=== PATIENT | male | born 1930 | race Caucasian/White ===

== ENCOUNTER 2017-12-16 20:36 | Inpatient (IN) | payer MEDICARE ==
[2017-12-16] MEDS ORDERED: methylPREDNISolone SOD SUCCI 125 MG/2 ML VIAL IV STA (21:13)
[2017-12-16] MEDS ORDERED: SODIUM CHLORIDE 0.9% 1,000 ML IV STA (21:13)
[2017-12-16] MEDS ORDERED: IPRATROPIUM-ALBUTEROL 3 ML NEB INHALATION STA (21:13)
--- NOTE | 2017-12-16 21:19 | ED ---
SOB HPI - General Chief Complaint: Shortness of Breath Stated Complaint: MARSHA Hx COPD Time Seen by Provider: 12/16/17 21:13 Source: patient, family, RN notes reviewed Mode of arrival: wheelchair Limitations: no limitations - History of Present Illness Initial Comments: This is a 87-year-old male history of COPD who presents with complaints of shortness of breath or past several days. He's had a cough with yellow phlegm no overt fevers chills or sweats however is evidence exertional dyspnea. No chest pain. He does use inhalers at home he was eating some relief with these. He did also complain some soreness to his throat no earaches MD Complaint: shortness of breath, cough - Related Data Home Medications Medication Instructions Recorded Confirmed Atorvastatin [Lipitor] 40 mg PO QAM 06/04/15 12/16/17 Tamsulosin [Flomax] 0.4 mg PO QAM 06/04/15 12/16/17 Albuterol Inhaler [Ventolin Hfa 1 - 2 puff INHALATION RT-QID PRN 09/23/17 Inhaler] Aspirin [Adult Low Dose Aspirin EC] 81 mg PO MOWEFR 09/23/17 12/16/17 Budesonide/Formoterol Fumarate 2 puff INHALATION RT-BID 09/23/17 12/16/17 [Symbicort 160-4.5 Mcg Inhaler] Donepezil [Aricept] 10 mg PO HS 09/23/17 12/16/17 Isosorbide Mononitrate ER [Imdur] 30 mg PO QAM 09/23/17 12/16/17 Metoprolol Tartrate [Lopressor] 50 mg PO BID 09/23/17 12/16/17 Potassium Chloride [K-Tab ER] 10 meq PO QAM 09/23/17 12/16/17 metFORMIN HCL [Glucophage] 500 mg PO QAM 09/23/17 12/16/17 ALPRAZolam [Xanax] 0.25 mg PO BID PRN 12/16/17 12/16/17 Apixaban [Eliquis] 5 mg PO BID 12/16/17 12/16/17 Docusate [Colace] 200 mg PO HS 12/16/17 12/16/17 Losartan Potassium 100 mg PO QAM 12/16/17 12/16/17 [place]-3 Fatty Acids/Fish Oil [Fish 1 cap PO HS 12/16/17 12/16/17 Oil 1,000 mg Softgel] Previous Rx's Medication Instructions Recorded Furosemide [Lasix] 20 mg PO BID@0900,1600 #60 tab 09/25/17 Allergies Allergy/AdvReac Type Severity Reaction Status Date / Time bee pollen Allergy Swelling Verified 12/16/17 21:26 Review of Systems ROS Statement: Those systems with pertinent positive or pertinent negative responses have been documented in the HPI. ROS Other: All systems not noted in ROS Statement are negative. Past Medical History Past Medical History: Coronary Artery Disease (CAD), COPD, Dementia, Diabetes Mellitus, Hyperlipidemia, Hypertension, Prostate Disorder Additional Past Medical History / Comment(s): NIDDM type II, beginning of dementia, joint pain-multiple sites. History of Any Multi-Drug Resistant Organisms: None Reported Past Surgical History: Heart Catheterization, Hernia Repair, Tonsillectomy Additional Past Surgical History / Comment(s): TURP, cystoscopy, L inguinal herniorraphy, bilateral cataract removal with lens implants. Past Anesthesia/Blood Transfusion Reactions: No Reported Reaction Past Psychological History: No Psychological Hx Reported Smoking Status: Former smoker Past Alcohol Use History: None Reported Past Drug Use History: None Reported - Past Family History Mother Additional Family Medical History / Comment(s): Mother either of CHF or a [place] at the ageof 82 yrs. Father Family Medical History: Cancer Additional Family Medical History / Comment(s): Father of complications after surgery for throat cancer at the age of 76yrs. General Exam - General Exam Comments Initial Comments: This is a well-developed well-nourished awake alert oriented 3 male Limitations: no limitations General appearance: alert, anxious, in distress Head exam: Present: atraumatic, normocephalic, normal inspection Eye exam: Present: normal appearance, PERRL, EOMI. Absent: scleral icterus, conjunctival injection, periorbital swelling ENT exam: Present: mucous membranes dry Neck exam: Present: normal inspection. Absent: tenderness, meningismus, lymphadenopathy Respiratory exam: Present: respiratory distress, wheezes, accessory muscle use, decreased breath sounds Cardiovascular Exam: Present: regular rate, normal rhythm, normal heart sounds. Absent: systolic murmur, diastolic murmur, rubs, gallop, clicks GI/Abdominal exam: Present: soft, normal bowel sounds. Absent: distended, tenderness, guarding, rebound, rigid Extremities exam: Present: normal inspection, full ROM, normal capillary refill. Absent: tenderness, pedal edema, joint swelling, calf tenderness Back exam: Present: normal inspection Neurological exam: Present: alert, oriented X3, CN II-XII intact, other ( Patient is hard of hearing) Psychiatric exam: Present: normal affect, normal mood Skin exam: Present: warm, dry, intact, normal color. Absent: rash Course Vital Signs 12/16/17 12/16/17 12/16/17 20:58 21:11 21:24 Temperature 97.0 F L Pulse Rate 86 83 Respiratory 18 22 24 Rate Blood Pressure 137/73 169/85 O2 Sat by Pulse 96 98 Oximetry 12/16/17 12/16/17 12/16/17 21:31 21:47 22:31 Temperature Pulse Rate 76 80 82 Respiratory 20 Rate Blood Pressure 163/88 O2 Sat by Pulse 97 Oximetry 12/16/17 23:35 Temperature Pulse Rate 88 Respiratory 22 Rate Blood Pressure 160/81 O2 Sat by Pulse 96 Oximetry - Reevaluation(s) Reevaluation #1: 12/17/17 00:15 Reevaluation patient reveals minimal improvement he still somewhat dyspneic with diminished breath sounds some wheezes Medical Decision Making - Lab Data Result diagrams: 12/16/17 21:18 12/16/17 21:18 Lab Results 12/16/17 12/16/17 12/16/17 Range/Units 21:18 21:18 21:18 WBC 8.3 (3.8-10.6) k/uL RBC 4.99 (4.30-5.90) m/uL Hgb 14.2 (13.0-17.5) gm/dL Hct 43.2 (39.0-53.0) % MCV 86.6 (80.0-100.0) fL MCH 28.4 (25.0-35.0) pg MCHC 32.9 (31.0-37.0) g/dL RDW 14.3 (11.5-15.5) % Plt Count 192 (150-450) k/uL Neutrophils % 81 % Lymphocytes % 10 % Monocytes % 5 % Eosinophils % 2 % Basophils % 0 % Neutrophils # 6.7 (1.3-7.7) k/uL Lymphocytes # 0.8 L (1.0-4.8) k/uL Monocytes # 0.4 (0-1.0) k/uL Eosinophils # 0.2 (0-0.7) k/uL Basophils # 0.0 (0-0.2) k/uL PT (9.0-12.0) sec INR (<1.2) APTT (22.0-30.0) sec Sodium 143 (137-145) mmol/L Potassium 4.2 (3.5-5.1) mmol/L Chloride 102 (98-107) mmol/L Carbon Dioxide 33 H (22-30) mmol/L Anion Gap 8 mmol/L BUN 22 H (9-20) mg/dL Creatinine 0.70 (0.66-1.25) mg/dL Est GFR (CKD-EPI)AfAm >90 (>60 ml/min/1.73 sqM) Est GFR (CKD-EPI)NonAf 86 (>60 ml/min/1.73 sqM) Glucose 119 H (74-99) mg/dL Plasma Lactic Acid Adriano (0.7-2.0) mmol/L Calcium 9.9 (8.4-10.2) mg/dL Magnesium 2.0 (1.6-2.3) mg/dL Total Bilirubin 0.8 (0.2-1.3) mg/dL AST 15 L (17-59) U/L ALT 16 L (21-72) U/L Alkaline Phosphatase 60 (38-126) U/L Ammonia (<30) umol/L Total Creatine Kinase 24 L (55-170) U/L CK-MB (CK-2) 1.4 (0.0-2.4) ng/mL CK-MB (CK-2) Rel Index 5.8 Troponin I <0.012 (0.000-0.034) ng/mL NT-Pro-B Natriuret Pep pg/mL Total Protein 6.8 (6.3-8.2) g/dL Albumin 3.8 (3.5-5.0) g/dL Influenza Type A RNA (Not Detectd) Influenza Type B (PCR) (Not Detectd) 12/16/17 12/16/17 12/16/17 Range/Units 21:18 21:18 21:18 WBC (3.8-10.6) k/uL RBC (4.30-5.90) m/uL Hgb (13.0-17.5) gm/dL Hct (39.0-53.0) % MCV (80.0-100.0) fL MCH (25.0-35.0) pg MCHC (31.0-37.0) g/dL RDW (11.5-15.5) % Plt Count (150-450) k/uL Neutrophils % % Lymphocytes % % Monocytes % % Eosinophils % % Basophils % % Neutrophils # (1.3-7.7) k/uL Lymphocytes # (1.0-4.8) k/uL Monocytes # (0-1.0) k/uL Eosinophils # (0-0.7) k/uL Basophils # (0-0.2) k/uL PT 11.0 (9.0-12.0) sec INR 1.1 (<1.2) APTT 30.5 H (22.0-30.0) sec Sodium (137-145) mmol/L Potassium (3.5-5.1) mmol/L Chloride (98-107) mmol/L Carbon Dioxide (22-30) mmol/L Anion Gap mmol/L BUN (9-20) mg/dL Creatinine (0.66-1.25) mg/dL Est GFR (CKD-EPI)AfAm (>60 ml/min/1.73 sqM) Est GFR (CKD-EPI)NonAf (>60 ml/min/1.73 sqM) Glucose (74-99) mg/dL Plasma Lactic Acid Adriano 1.8 (0.7-2.0) mmol/L Calcium (8.4-10.2) mg/dL Magnesium (1.6-2.3) mg/dL Total Bilirubin (0.2-1.3) mg/dL AST (17-59) U/L ALT (21-72) U/L Alkaline Phosphatase (38-126) U/L Ammonia 13 (<30) umol/L Total Creatine Kinase (55-170) U/L CK-MB (CK-2) (0.0-2.4) ng/mL CK-MB (CK-2) Rel Index Troponin I (0.000-0.034) ng/mL NT-Pro-B Natriuret Pep 2780 pg/mL Total Protein (6.3-8.2) g/dL Albumin (3.5-5.0) g/dL Influenza Type A RNA (Not Detectd) Influenza Type B (PCR) (Not Detectd) 12/16/17 Range/Units 21:18 WBC (3.8-10.6) k/uL RBC (4.30-5.90) m/uL Hgb (13.0-17.5) gm/dL Hct (39.0-53.0) % MCV (80.0-100.0) fL MCH (25.0-35.0) pg MCHC (31.0-37.0) g/dL RDW (11.5-15.5) % Plt Count (150-450) k/uL Neutrophils % % Lymphocytes % % Monocytes % % Eosinophils % % Basophils % % Neutrophils # (1.3-7.7) k/uL Lymphocytes # (1.0-4.8) k/uL Monocytes # (0-1.0) k/uL Eosinophils # (0-0.7) k/uL Basophils # (0-0.2) k/uL PT (9.0-12.0) sec INR (<1.2) APTT (22.0-30.0) sec Sodium (137-145) mmol/L Potassium (3.5-5.1) mmol/L Chloride (98-107) mmol/L Carbon Dioxide (22-30) mmol/L Anion Gap mmol/L BUN (9-20) mg/dL Creatinine (0.66-1.25) mg/dL Est GFR (CKD-EPI)AfAm (>60 ml/min/1.73 sqM) Est GFR (CKD-EPI)NonAf (>60 ml/min/1.73 sqM) Glucose (74-99) mg/dL Plasma Lactic Acid Adriano (0.7-2.0) mmol/L Calcium (8.4-10.2) mg/dL Magnesium (1.6-2.3) mg/dL Total Bilirubin (0.2-1.3) mg/dL AST (17-59) U/L ALT (21-72) U/L Alkaline Phosphatase (38-126) U/L Ammonia (<30) umol/L Total Creatine Kinase (55-170) U/L CK-MB (CK-2) (0.0-2.4) ng/mL CK-MB (CK-2) Rel Index Troponin I (0.000-0.034) ng/mL NT-Pro-B Natriuret Pep pg/mL Total Protein (6.3-8.2) g/dL Albumin (3.5-5.0) g/dL Influenza Type A RNA Not Detected (Not Detectd) Influenza Type B (PCR) Not Detected (Not Detectd) - EKG Data -: EKG Interpreted by Dc EKG shows normal: sinus rhythm (EKG shows atrial fibrillation rate of 82 QRS 96 QT since QTC of 370/432 left exodeviation old septal inferior changes.) - Radiology Data Radiology results: report reviewed (Imaging shows no definite infiltrates.), image reviewed Critical Care Time Critical Care Time: Yes Critical Care Time: 31 minutes of critical care time which includes initial presentation with history physical labs x-rays several reevaluation of the patient discussion with family members regarding findings. Admission orders documentation of the above Disposition Clinical Impression: Acute exacerbation of chronic obstructive airways disease, Adult respiratory distress syndrome, Tracheobronchitis Disposition: ADMITTED IP TO THIS HOSP Condition: Stable Referrals: Larissa Borges DO [Primary Care Provider] - 1-2 days
[2017-12-16 21:30] LABS: Basophils % (A) 0 %; Eosinophils # (A) 0.2 k/uL (0-0.7); Eosinophils % (A) 2 %; HCT 43.2 % (39.0-53.0); HGB 14.2 gm/dL (13.0-17.5); Lymphocytes # (A) 0.8 k/uL (1.0-4.8); Lymphocytes % (A) 10 %; MCH 28.4 pg (25.0-35.0); MCHC 32.9 g/dL (31.0-37.0); MCV 86.6 fL (80.0-100.0); Monocytes # (A) 0.4 k/uL (0-1.0); Monocytes % (A) 5 %; Neutrophils # (A) 6.7 k/uL (1.3-7.7); Neutrophils % (A) 81 %; Platelet Count 192 k/uL (150-450); RBC 4.99 m/uL (4.30-5.90); RDW 14.3 % (11.5-15.5); WBC 8.3 k/uL (3.8-10.6)
[2017-12-16 21:40] LABS: ALT 16 U/L (21-72); AST 15 U/L (17-59); Albumin 3.8 g/dL (3.5-5.0); Alkaline Phosphatase 60 U/L (38-126); Anion Gap 8 mmol/L; Blood Urea Nitrogen 22 mg/dL (9-20); Calcium 9.9 mg/dL (8.4-10.2); Carbon Dioxide 33 mmol/L (22-30); Chloride 102 mmol/L (98-107); Glucose 119 mg/dL (74-99); INR 1.1 (<1.2); Partial Thromboplastin Time 30.5 sec (22.0-30.0); Potassium 4.2 mmol/L (3.5-5.1); Sodium 143 mmol/L (137-145); Total Bilirubin 0.8 mg/dL (0.2-1.3); Total Protein 6.8 g/dL (6.3-8.2)
[2017-12-16 21:41] LABS: Creatine Kinase 24 U/L (55-170); Lactic Acid, Venous 1.8 mmol/L (0.7-2.0)
[2017-12-16 21:54] LABS: Creatine Kinase MB 1.4 ng/mL (0.0-2.4); Troponin I <0.012 ng/mL (0.000-0.034)
--- NOTE | 2017-12-16 22:05 | XR ---
EXAMINATION TYPE: XR chest 2V DATE OF EXAM: 12/16/2017 COMPARISON: 09/23/2017 HISTORY: Difficulty breathing TECHNIQUE: Frontal and lateral views of the chest are obtained. FINDINGS: Heart appears enlarged. There is no heart failure. Lungs are clear of consolidation. There is no pleural effusion. Thoracic aorta is atheromatous. There are chest leads. Bony thorax appears i ntact. IMPRESSION: No active cardiopulmonary disease. Cardiomegaly. There is clearing of the heart failure compared to old exam.
[2017-12-17] MEDS ORDERED: cefTRIAXone IN SWFI 1,000 MG/10 ML SYRINGE IVP STA (00:07)
[2017-12-17] MEDS ORDERED: ALPRAZolam 0.25 MG TAB PO PRN (00:24)
[2017-12-17] MEDS ORDERED: SODIUM CHLORIDE 0.9% 1,000 ML IV SCH (00:30)
[2017-12-17 01:49] LABS: Glucose,Whole Blood 146 mg/dL (75-99)
[2017-12-17] MEDS: IPRATROPIUM-ALBUTEROL 3 ML NEB INHALATION SCH ×5 (03:24→19:06)
[2017-12-17] MEDS: methylPREDNISolone SOD SUCCI 125 MG/2 ML VIAL IV SCH ×4 (06:38→23:16)
[2017-12-17 08:00] LABS: Glucose,Whole Blood 173 mg/dL (75-99)
[2017-12-17] MEDS: POTASSIUM CHLORIDE ER 10 MEQ TAB.ER.PRT PO SCH (08:12)
[2017-12-17] MEDS: METOPROLOL TARTRATE 50 MG TAB PO SCH ×2 (08:12→21:13)
[2017-12-17] MEDS: TAMSULOSIN 0.4 MG CAP.ER.24H PO SCH (08:12)
[2017-12-17] MEDS: ATORVASTATIN 40 MG TAB PO SCH (08:12)
[2017-12-17] MEDS: ISOSORBIDE MONONITRATE ER 30 MG TAB.ER.24H PO SCH (08:12)
[2017-12-17] MEDS: metFORMIN 500 MG TAB PO SCH (08:12)
[2017-12-17] MEDS: INSULIN ASPART 100 UNIT/ML 1 ML 10 ML VIAL SQ SCH ×4 (08:12→21:16)
[2017-12-17] MEDS: FUROSEMIDE 20 MG TAB PO SCH ×2 (08:12→15:40)
[2017-12-17] MEDS: LOSARTAN 50 MG TAB PO SCH (08:13)
[2017-12-17] MEDS: APIXABAN 5 MG TAB PO SCH ×2 (08:13→21:13)
[2017-12-17 12:25] LABS: Glucose,Whole Blood 172 mg/dL (75-99)
[2017-12-17 17:49] LABS: Glucose,Whole Blood 199 mg/dL (75-99)
[2017-12-17 20:55] LABS: Glucose,Whole Blood 203 mg/dL (75-99)
[2017-12-17] MEDS: NON-FORMULARY DRUG (Omega-3 Fatty Acids/Fish Oil [Fish Oil 1,000 Mg Softgel] 1 CAP) PO SCH (21:12)
[2017-12-17] MEDS: DONEPEZIL 10 MG TAB PO SCH (21:13)
[2017-12-17] MEDS: DOCUSATE 100 MG CAP PO SCH (21:13)
[2017-12-17] MEDS: ASPIRIN 81 MG PO SCH (23:16)
[2017-12-18] MEDS: IPRATROPIUM-ALBUTEROL 3 ML NEB INHALATION SCH ×7 (00:45→23:37)
--- NOTE | 2017-12-18 00:45 | P.HPIM ---
History of Present Illness H&P Date: 12/17/17 Chief Complaint: Shortness of breath Patient is a 87-year-old male with a known history of chronic atrial fibrillation on anticoagulation, COPD on home oxygen, dementia, diabetes type 2 , hypertension and multiple other medical problems presents with complaints of shortness of breath or past several days. He's had a cough with yellow phlegm no overt fevers chills or sweats however is evidence exertional dyspnea. No chest pain. He does use inhalers at home he was eating some relief with these. He did also complain some soreness to his throat no earaches as well. Chest x-ray showed no acute cardio pulmonary process EKG showed atrial fibrillation Review of Systems Denied any chest pain. Patient does have shortness of breath. No nausea vomiting or abdominal pain. No diarrhea no constipation. No headache or dizziness or lightheadedness. Complete review of systems could not be obtained from the patient. Past Medical History Past Medical History: Coronary Artery Disease (CAD), COPD, Dementia, Diabetes Mellitus, Hyperlipidemia, Hypertension, Prostate Disorder Additional Past Medical History / Comment(s): NIDDM type II, beginning of dementia, joint pain-multiple sites. History of Any Multi-Drug Resistant Organisms: None Reported Past Surgical History: Heart Catheterization, Hernia Repair, Tonsillectomy Additional Past Surgical History / Comment(s): TURP, cystoscopy, L inguinal herniorraphy, bilateral cataract removal with lens implants. Past Anesthesia/Blood Transfusion Reactions: No Reported Reaction Past Psychological History: No Psychological Hx Reported Additional Psychological History / Comment(s): PT RESIDES WITH HIS SPOUSE OF 60 YRS. HE HAS A CANE WHICH HE USES OCCASIONALLY-OTHER VARELA HE GRABS FURNITURE. HE NO LONGER DRIVES, SPOUSE TAKES HIM TO APPTS AND MANAGES HIS MEDICATION. Smoking Status: Never smoker Past Alcohol Use History: None Reported Additional Past Alcohol Use History / Comment(s): Pt started smoking in 1957 and quit in 1996. Past Drug Use History: None Reported - Past Family History Mother Additional Family Medical History / Comment(s): Mother either of CHF or a [place] at the ageof 82 yrs. Father Family Medical History: Cancer Additional Family Medical History / Comment(s): Father of complications after surgery for throat cancer at the age of 76yrs. Medications and Allergies Home Medications Medication Instructions Recorded Confirmed Type Atorvastatin [Lipitor] 40 mg PO QAM 06/04/15 12/16/17 History Tamsulosin [Flomax] 0.4 mg PO QAM 06/04/15 12/16/17 History Albuterol Inhaler [Ventolin Hfa 1 - 2 puff INHALATION RT-QID PRN 09/23/17 History Inhaler] Aspirin [Adult Low Dose Aspirin EC] 81 mg PO MOWEFR 09/23/17 12/16/17 History Budesonide/Formoterol Fumarate 2 puff INHALATION RT-BID 09/23/17 12/16/17 History [Symbicort 160-4.5 Mcg Inhaler] Donepezil [Aricept] 10 mg PO HS 09/23/17 12/16/17 History Isosorbide Mononitrate ER [Imdur] 30 mg PO QAM 09/23/17 12/16/17 History Metoprolol Tartrate [Lopressor] 50 mg PO BID 09/23/17 12/16/17 History Potassium Chloride [K-Tab ER] 10 meq PO QAM 09/23/17 12/16/17 History metFORMIN HCL [Glucophage] 500 mg PO QAM 09/23/17 12/16/17 History Furosemide [Lasix] 20 mg PO BID@0900,1600 #60 tab 09/25/17 12/16/17 Rx ALPRAZolam [Xanax] 0.25 mg PO BID PRN 12/16/17 12/16/17 History Apixaban [Eliquis] 5 mg PO BID 12/16/17 12/16/17 History Docusate [Colace] 200 mg PO HS 12/16/17 12/16/17 History Losartan Potassium 100 mg PO QAM 12/16/17 12/16/17 History [place]-3 Fatty Acids/Fish Oil [Fish 1 cap PO HS 12/16/17 12/16/17 History Oil 1,000 mg Softgel] Allergies Allergy/AdvReac Type Severity Reaction Status Date / Time bee pollen Allergy Swelling Verified 12/16/17 21:26 Physical Exam Vitals: Vital Signs Temp Pulse Pulse Resp BP BP Pulse Ox 12/17/17 11:49 84 12/17/17 11:40 86 12/17/17 08:01 88 12/17/17 07:43 90 12/17/17 07:00 97.6 F 93 18 157/89 97 12/17/17 03:35 84 12/17/17 03:24 84 12/17/17 02:00 98.2 F 95 20 169/84 95 12/17/17 00:35 98.9 F 98 22 161/84 96 12/16/17 23:35 88 22 160/81 96 12/16/17 22:31 82 20 163/88 97 12/16/17 21:47 80 12/16/17 21:31 76 12/16/17 21:24 83 24 169/85 98 12/16/17 21:11 22 12/16/17 20:58 97.0 F L 86 18 137/73 96 Intake and Output 12/16/17 12/17/17 12/17/17 22:59 06:59 14:59 Other: Voiding Method Bedside Commode Bedside Commode Urinal Urinal Incontinent Incontinent # Voids 1 1 Weight 723.933 kg PHYSICAL EXAMINATION: Patient is lying in the bed comfortably, no acute distress, awake alert and oriented patient does have underlying dementia HEENT: Normocephalic. Neck is supple. Pupils reactive. Nostrils clear. Oral cavity is moist. Ears reveal no drainage. Neck reveals no JVD, carotid bruits, or thyromegaly. CHEST EXAMINATION: Trachea is central. Symmetrical expansion. Bilateral diminished air entry and expiratory wheezing CARDIAC: Normal S1, S2 with no gallops. No murmurs ABDOMEN: Soft. Bowel sounds normal. No organomegaly. No abdominal bruits. Extremities: reveal no edema. No clubbing or cyanosis Neurologically awake, alert, oriented x2 with well-coordinated movements. No focal deficits noted Skin: No rash or skin lesions. Psychiatric: Coperative. Nonsuicidal Musculoskeletal: No joint swelling or deformity. Normal range of motion. Results CBC & Chem 7: 12/16/17 21:18 12/16/17 21:18 Labs: Abnormal Lab Results - Last 24 Hours (Table) 12/16/17 12/16/17 12/16/17 Range/Units 21:18 21:18 21:18 Lymphocytes # 0.8 L (1.0-4.8) k/uL APTT (22.0-30.0) sec Carbon Dioxide 33 H (22-30) mmol/L BUN 22 H (9-20) mg/dL Glucose 119 H (74-99) mg/dL POC Glucose (mg/dL) (75-99) mg/dL AST 15 L (17-59) U/L ALT 16 L (21-72) U/L Total Creatine Kinase 24 L (55-170) U/L 12/16/17 12/17/17 12/17/17 Range/Units 21:18 01:36 07:54 Lymphocytes # (1.0-4.8) k/uL APTT 30.5 H (22.0-30.0) sec Carbon Dioxide (22-30) mmol/L BUN (9-20) mg/dL Glucose (74-99) mg/dL POC Glucose (mg/dL) 146 H 173 H (75-99) mg/dL AST (17-59) U/L ALT (21-72) U/L Total Creatine Kinase (55-170) U/L 12/17/17 Range/Units 12:23 Lymphocytes # (1.0-4.8) k/uL APTT (22.0-30.0) sec Carbon Dioxide (22-30) mmol/L BUN (9-20) mg/dL Glucose (74-99) mg/dL POC Glucose (mg/dL) 172 H (75-99) mg/dL AST (17-59) U/L ALT (21-72) U/L Total Creatine Kinase (55-170) U/L Thrombosis Risk Factor Assmnt - DVT/VTE Prophylaxis DVT/VTE Prophylaxis: Pharmacologic Prophylaxis ordered - Choose All That Apply Any of the Below Risk Factors Present?: Yes Each Factor Represents 1 point: Abnormal pulmonary function (COPD) Other Risk Factors: Yes Each Risk Factor Represents 3 Points: Age 75 years or older Other congenital or acquired thrombophilia - If yes, enter type in comment: No Thrombosis Risk Factor Assessment Total Risk Factor Score: 4 Thrombosis Risk Factor Assessment Level: Moderate Risk Assessment and Plan Assessment: Acute COPD exacerbation due to tracheobronchitis. Coronary artery disease Chronic atrial fibrillation on anticoagulation Diabetes type 2 Dementia COPD on home oxygen chronic hypoxic respiratory failure on home oxygen Hypertension Hyperlipidemia Previous history of smoking Plan: Patient will be continued on IV Solu-Medrol along with breathing treatments and follow up closely. We will add doxycycline 100 mg twice a day for tracheobronchitis. Continue with home medications and follow up closely. GI prophylaxis. Oxygen therapy and further recommendations based on the clinical course. Prognosis is guarded with multiple medical problems and comorbid conditions. Discussed with his at bedside in detail. Time with Patient: Greater than 30
[2017-12-18] MEDS: methylPREDNISolone SOD SUCCI 125 MG/2 ML VIAL IV SCH ×4 (05:59→23:59)
[2017-12-18 07:35] LABS: Glucose,Whole Blood 198 mg/dL (75-99)
[2017-12-18] MEDS: INSULIN ASPART 100 UNIT/ML 1 ML 10 ML VIAL SQ SCH ×4 (08:12→22:47)
[2017-12-18] MEDS: FUROSEMIDE 20 MG TAB PO SCH ×2 (08:13→15:45)
[2017-12-18] MEDS: TAMSULOSIN 0.4 MG CAP.ER.24H PO SCH (08:13)
[2017-12-18] MEDS: METOPROLOL TARTRATE 50 MG TAB PO SCH ×2 (08:13→22:44)
[2017-12-18] MEDS: APIXABAN 5 MG TAB PO SCH ×2 (08:13→22:43)
[2017-12-18] MEDS: DOXYCYCLINE 50 MG CAP PO SCH ×2 (08:13→22:43)
[2017-12-18] MEDS: metFORMIN 500 MG TAB PO SCH (08:14)
[2017-12-18] MEDS: ATORVASTATIN 40 MG TAB PO SCH (08:14)
[2017-12-18] MEDS: FAMOTIDINE 20 MG TAB PO SCH ×2 (08:14→22:44)
[2017-12-18] MEDS: POTASSIUM CHLORIDE ER 10 MEQ TAB.ER.PRT PO SCH (08:14)
[2017-12-18] MEDS: ISOSORBIDE MONONITRATE ER 30 MG TAB.ER.24H PO SCH (08:14)
[2017-12-18] MEDS: LOSARTAN 50 MG TAB PO SCH (08:14)
[2017-12-18 09:40] LABS: Basophils % (A) 0 %; Eosinophils % (A) 0 %; HCT 40.4 % (39.0-53.0); HGB 13.6 gm/dL (13.0-17.5); Lymphocytes # (A) 0.5 k/uL (1.0-4.8); Lymphocytes % (A) 5 %; MCH 29.1 pg (25.0-35.0); MCHC 33.6 g/dL (31.0-37.0); MCV 86.6 fL (80.0-100.0); Mean Platelet Volume 7.1; Monocytes # (A) 0.2 k/uL (0-1.0); Monocytes % (A) 2 %; Neutrophils # (A) 9.8 k/uL (1.3-7.7); Neutrophils % (A) 92 %; Platelet Count 203 k/uL (150-450); Poikilocytosis Slight; RBC 4.66 m/uL (4.30-5.90); RDW 14.1 % (11.5-15.5); WBC 10.6 k/uL (3.8-10.6)
[2017-12-18 10:06] LABS: Anion Gap 9 mmol/L; Blood Urea Nitrogen 22 mg/dL (9-20); Carbon Dioxide 30 mmol/L (22-30); Chloride 101 mmol/L (98-107); Glucose 228 mg/dL (74-99); Sodium 140 mmol/L (137-145)
[2017-12-18 12:28] LABS: Glucose,Whole Blood 277 mg/dL (75-99)
[2017-12-18 17:23] LABS: Glucose,Whole Blood 133 mg/dL (75-99)
[2017-12-18 20:49] LABS: Glucose,Whole Blood 211 mg/dL (75-99)
[2017-12-18] MEDS ORDERED: INSULIN DETEMIR 100 UNIT/ML 10 ML VIAL SQ SCH ×2 (21:00)
[2017-12-18] MEDS: DONEPEZIL 10 MG TAB PO SCH (22:43)
[2017-12-18] MEDS: DOCUSATE 100 MG CAP PO SCH (22:43)
[2017-12-18] MEDS: NON-FORMULARY DRUG (Omega-3 Fatty Acids/Fish Oil [Fish Oil 1,000 Mg Softgel] 1 CAP) PO SCH (22:44)
[2017-12-18] MEDS: INSULIN DETEMIR 100 UNIT/ML 10 ML VIAL SQ SCH (22:50)
--- NOTE | 2017-12-18 23:23 | P.PN ---
Subjective Progress Note Date: 12/18/17 Principal diagnosis: Acute COPD exacerbation Patient is a 87-year-old male with a known history of chronic atrial fibrillation on anticoagulation, COPD on home oxygen, dementia, diabetes type 2 , hypertension and multiple other medical problems presents with complaints of shortness of breath or past several days. He's had a cough with yellow phlegm no overt fevers chills or sweats however is evidence exertional dyspnea. No chest pain. He does use inhalers at home he was eating some relief with these. He did also complain some soreness to his throat no earaches as well. Chest x-ray showed no acute cardio pulmonary process EKG showed atrial fibrillation On 12/18/2017 Patient says that his breathing is better today. Saturating well on nasal cannula. Otherwise patient is having hyperglycemia due to steroids. Continued on IV steroids and breathing treatments and antibiotics. No fever no chills. Discussed with his at bedside All other review of systems negative except the above Current medications reviewed Objective - Vital Signs Vital signs: Vital Signs Temp 96.3 F L 12/18/17 15:00 Pulse 84 12/18/17 20:57 Resp 16 12/18/17 16:00 BP 136/71 12/18/17 15:00 Pulse Ox 96 12/18/17 15:00 Intake & Output 12/18/17 12/18/17 12/19/17 06:59 18:59 06:59 Intake Total 325 Balance 325 Weight 73.4 kg 73.4 kg Intake: Oral 325 Other: Voiding Method Toilet Toilet Urinal Urinal Incontinent Incontinent # Voids 1 3 # Bowel Movements 1 - Exam PHYSICAL EXAMINATION: Patient is lying in the bed comfortably, no acute distress, awake alert and oriented.. HEENT: Normocephalic. Neck is supple. Pupils reactive. Nostrils clear. Oral cavity is moist. Ears reveal no drainage. Neck reveals no JVD, carotid bruits, or thyromegaly. CHEST EXAMINATION: Trachea is central. Symmetrical expansion. Bilateral air entry diminished with expiratory wheezing. CARDIAC: Normal S1, S2 with no gallops. No murmurs ABDOMEN: Soft. Bowel sounds normal. No organomegaly. No abdominal bruits. Extremities: reveal no edema. No clubbing or cyanosis Neurologically awake, alert, oriented x3 with well-coordinated movements. No focal deficits noted Skin: No rash or skin lesions. Psychiatric: Coperative. Nonsuicidal Musculoskeletal: No joint swelling or deformity. Normal range of motion. - Labs CBC & Chem 7: 12/18/17 09:06 12/18/17 09:06 Labs: Abnormal Lab Results - Last 24 Hours (Table) 12/18/17 12/18/17 12/18/17 Range/Units 07:33 09:06 09:06 Neutrophils # 9.8 H (1.3-7.7) k/uL Lymphocytes # 0.5 L (1.0-4.8) k/uL BUN 22 H (9-20) mg/dL Creatinine 0.64 L (0.66-1.25) mg/dL Glucose 228 H (74-99) mg/dL POC Glucose (mg/dL) 198 H (75-99) mg/dL 12/18/17 12/18/17 12/18/17 Range/Units 12:18 17:21 20:41 Neutrophils # (1.3-7.7) k/uL Lymphocytes # (1.0-4.8) k/uL BUN (9-20) mg/dL Creatinine (0.66-1.25) mg/dL Glucose (74-99) mg/dL POC Glucose (mg/dL) 277 H 133 H 211 H (75-99) mg/dL Microbiology - Last 24 Hours (Table) 12/16/17 21:18 Blood Culture - Preliminary Blood No Growth after 24 hours Assessment and Plan Assessment: Acute COPD exacerbation due to tracheobronchitis. Coronary artery disease history Chronic atrial fibrillation on anticoagulation Diabetes type 2 Dementia COPD on home oxygen chronic hypoxic respiratory failure on home oxygen Hypertension Hyperlipidemia Previous history of smoking Plan: Patient will be continued on IV Solu-Medrol along with breathing treatments and follow up closely. Continue doxycycline 100 mg twice a day for tracheobronchitis. Continue with home medications and follow up closely. GI prophylaxis. Oxygen therapy and further recommendations based on the clinical course. Prognosis is guarded with multiple medical problems and comorbid conditions. Discussed with his at bedside in detail. Time with Patient: Greater than 30
[2017-12-19] MEDS: methylPREDNISolone SOD SUCCI 125 MG/2 ML VIAL IV SCH ×4 (05:11→23:45)
[2017-12-19] MEDS: IPRATROPIUM-ALBUTEROL 3 ML NEB INHALATION SCH ×5 (05:19→19:43)
[2017-12-19 08:03] LABS: Glucose,Whole Blood 154 mg/dL (75-99)
[2017-12-19] MEDS: INSULIN ASPART 100 UNIT/ML 1 ML 10 ML VIAL SQ SCH ×4 (08:20→22:08)
[2017-12-19] MEDS: ATORVASTATIN 40 MG TAB PO SCH (08:21)
[2017-12-19] MEDS: DOXYCYCLINE 50 MG CAP PO SCH (08:21)
[2017-12-19] MEDS: APIXABAN 5 MG TAB PO SCH ×2 (08:21→22:05)
[2017-12-19] MEDS: metFORMIN 500 MG TAB PO SCH (08:22)
[2017-12-19] MEDS: TAMSULOSIN 0.4 MG CAP.ER.24H PO SCH (08:22)
[2017-12-19] MEDS: FUROSEMIDE 20 MG TAB PO SCH ×2 (08:22→17:47)
[2017-12-19] MEDS: FAMOTIDINE 20 MG TAB PO SCH ×2 (08:22→22:05)
[2017-12-19] MEDS: POTASSIUM CHLORIDE ER 10 MEQ TAB.ER.PRT PO SCH (08:22)
[2017-12-19] MEDS: ISOSORBIDE MONONITRATE ER 30 MG TAB.ER.24H PO SCH (08:22)
[2017-12-19] MEDS: LOSARTAN 50 MG TAB PO SCH (08:22)
[2017-12-19] MEDS: METOPROLOL TARTRATE 50 MG TAB PO SCH ×2 (08:23→22:05)
[2017-12-19 08:53] LABS: Basophils % (A) 0 %; Eosinophils % (A) 0 %; HCT 39.5 % (39.0-53.0); HGB 12.8 gm/dL (13.0-17.5); Lymphocytes # (A) 0.6 k/uL (1.0-4.8); Lymphocytes % (A) 6 %; MCHC 32.3 g/dL (31.0-37.0); MCV 86.7 fL (80.0-100.0); Mean Platelet Volume 6.9; Monocytes # (A) 0.3 k/uL (0-1.0); Monocytes % (A) 3 %; Neutrophils # (A) 9.3 k/uL (1.3-7.7); Neutrophils % (A) 90 %; Platelet Count 197 k/uL (150-450); RBC 4.55 m/uL (4.30-5.90); RDW 14.2 % (11.5-15.5); WBC 10.3 k/uL (3.8-10.6)
[2017-12-19 09:20] LABS: Anion Gap 5 mmol/L; Blood Urea Nitrogen 24 mg/dL (9-20); Carbon Dioxide 34 mmol/L (22-30); Chloride 100 mmol/L (98-107); Glucose 133 mg/dL (74-99); Potassium 4.8 mmol/L (3.5-5.1); Sodium 139 mmol/L (137-145)
[2017-12-19 11:46] LABS: Glucose,Whole Blood 128 mg/dL (75-99)
[2017-12-19] MEDS: amLODIPine 5 MG TAB PO SCH (13:41)
--- NOTE | 2017-12-19 15:45 | P.CNPUL ---
History of Present Illness Consult date: 12/19/17 Requesting physician: Jones Muse Reason for consult: dyspnea Chief complaint: Shortness of breath, cough, congestion History of present illness: Is a very pleasant 87-year-old gentleman who follows with Dr. Chow as his primary care physician. He has a history of dementia, diabetes, hypertension, hyperlipidemia, congestive heart failure with mildly impaired left ventricular systolic function ejection fraction 45-50%, coronary artery disease which is nonoperable according to the patient's , atrial fibrillation anticoagulated with Eliquis. He also has a history of chronic obstructive pulmonary disease, oxygen dependent, maintained on Symbicort, pro-air, and nebulized albuterol treatments in the outpatient setting. He has not been seen by a toy department manager in the past. He does have an approximate 50 year pack per day smoking history however quit at age 71. He presented here to the emergency room on 12/16/2017 with complaints of increasing shortness of breath, productive cough of yellow sputum, dyspnea on exertion. His chest x-ray did not reveal any acute cardiopulmonary disease. There was cardiomegaly and clearing of the congestive heart failure seen on his previous admission in September 2017. Blood culture is revealing no growth to date. There is no leukocytosis. He is maintaining good O2 saturations in the upper 90s on 2 L/m per nasal cannula. He has been afebrile. Hemodynamically stable. He has been initiated on DuoNeb inhalations to IV Solu-Medrol, empiric antibiotics in the form of doxycycline. He is seen today in consultation on the regular medical floor. He is awake and alert in no acute distress. He is somewhat of a poor historian. His is at the bedside and supplies most of the information. He is breathing easier today as compared to yesterday. Less productive cough. Fever, chills or night sweats. No nausea, vomiting or diarrhea. Review of Systems ROS unobtainable: due to mental status Past Medical History Past Medical History: Atrial Fibrillation, Coronary Artery Disease (CAD), Heart Failure, COPD, Dementia, Diabetes Mellitus, Hyperlipidemia, Hypertension, Prostate Disorder Additional Past Medical History / Comment(s): NIDDM type II, beginning of dementia, joint pain-multiple sites. History of Any Multi-Drug Resistant Organisms: None Reported Past Surgical History: Heart Catheterization, Hernia Repair, Tonsillectomy Additional Past Surgical History / Comment(s): TURP, cystoscopy, L inguinal herniorraphy, bilateral cataract removal with lens implants. Past Anesthesia/Blood Transfusion Reactions: No Reported Reaction Past Psychological History: No Psychological Hx Reported Additional Psychological History / Comment(s): PT RESIDES WITH HIS SPOUSE OF 60 YRS. HE HAS A CANE WHICH HE USES OCCASIONALLY-OTHER VARELA HE GRABS FURNITURE. HE NO LONGER DRIVES, SPOUSE TAKES HIM TO APPTS AND MANAGES HIS MEDICATION. Smoking Status: Never smoker Past Alcohol Use History: None Reported Additional Past Alcohol Use History / Comment(s): Pt started smoking in 8 and quit in 1996. Past Drug Use History: None Reported - Past Family History Mother Additional Family Medical History / Comment(s): Mother either of CHF or a ME at the ageof 82 yrs. Father Family Medical History: Cancer Additional Family Medical History / Comment(s): Father of complications after surgery for throat cancer at the age of 76yrs. Medications and Allergies Home Medications Medication Instructions Recorded Confirmed Type Atorvastatin [Lipitor] 40 mg PO QAM 06/04/15 12/16/17 History Tamsulosin [Flomax] 0.4 mg PO QAM 06/04/15 12/16/17 History Albuterol Inhaler [Ventolin Hfa 1 - 2 puff INHALATION RT-QID PRN 09/23/17 History Inhaler] Aspirin [Adult Low Dose Aspirin EC] 81 mg PO MOWEFR 09/23/17 12/16/17 History Budesonide/Formoterol Fumarate 2 puff INHALATION RT-BID 09/23/17 12/16/17 History [Symbicort 160-4.5 Mcg Inhaler] Donepezil [Aricept] 10 mg PO HS 09/23/17 12/16/17 History Isosorbide Mononitrate ER [Imdur] 30 mg PO QAM 09/23/17 12/16/17 History Metoprolol Tartrate [Lopressor] 50 mg PO BID 09/23/17 12/16/17 History Potassium Chloride [K-Tab ER] 10 meq PO QAM 09/23/17 12/16/17 History metFORMIN HCL [Glucophage] 500 mg PO QAM 09/23/17 12/16/17 History Furosemide [Lasix] 20 mg PO BID@0900,1600 #60 tab 09/25/17 12/16/17 Rx ALPRAZolam [Xanax] 0.25 mg PO BID PRN 12/16/17 12/16/17 History Apixaban [Eliquis] 5 mg PO BID 12/16/17 12/16/17 History Docusate [Colace] 200 mg PO HS 12/16/17 12/16/17 History Losartan Potassium 100 mg PO QAM 12/16/17 12/16/17 History [place]-3 Fatty Acids/Fish Oil [Fish 1 cap PO HS 12/16/17 12/16/17 History Oil 1,000 mg Softgel] Allergies Allergy/AdvReac Type Severity Reaction Status Date / Time bee pollen Allergy Swelling Verified 12/16/17 21:26 Physical Exam Vitals: Vital Signs Temp Pulse Pulse Resp BP Pulse Ox 12/19/17 11:01 88 12/19/17 10:46 90 12/19/17 06:24 97.4 F L 84 18 168/94 97 12/19/17 05:29 88 12/19/17 05:19 88 12/18/17 23:47 88 12/18/17 23:38 100 12/18/17 23:00 98.4 F 93 20 154/87 95 12/18/17 20:57 84 12/18/17 20:42 80 12/18/17 16:00 16 12/18/17 15:42 78 12/18/17 15:32 76 Intake and Output 12/19/17 12/19/17 12/19/17 06:59 14:59 22:59 Intake Total 250 600 Balance 250 600 Intake: Oral 250 600 Other: Voiding Method Toilet Toilet Diaper Diaper Incontinent Incontinent # Voids 3 2 Weight 73.9 kg GENERAL EXAM: An 87-year-old male patient well-nourished. Alert, disoriented to place and time, appears comfortable in no apparent distress. HEAD: Normocephalic. EYES: Normal reaction of pupils, equal size. NOSE: Clear with pink turbinates. THROAT: No erythema or exudates. NECK: No masses, no JVD. CHEST: No chest wall deformity. LUNGS: Equal air entry with faint end expiratory wheeze, few scattered rhonchi. Diminished. CVS: S1 and S2 normal with no audible murmur, irregular rhythm. ABDOMEN: No hepatosplenomegaly, normal bowel sounds, no guarding or rigidity. SPINE: No scoliosis or deformity SKIN: No rashes CENTRAL NERVOUS SYSTEM: No focal deficits, tone is normal in all 4 extremities. EXTREMITIES: There is no peripheral edema. No clubbing, no cyanosis. Peripheral pulses are intact. Results - Laboratory Findings CBC and BMP: 12/19/17 07:51 12/19/17 07:51 PT/INR, D-dimer PT 11.0 sec (9.0-12.0) 12/16/17 21:18 INR 1.1 (<1.2) 12/16/17 21:18 Abnormal lab findings: Abnormal Labs 12/16/17 12/16/17 12/16/17 21:18 21:18 21:18 Hgb Neutrophils # Lymphocytes # 0.8 L APTT Carbon Dioxide 33 H BUN 22 H Creatinine Glucose 119 H POC Glucose (mg/dL) AST 15 L ALT 16 L Total Creatine Kinase 24 L 12/16/17 12/17/17 12/17/17 21:18 01:36 07:54 Hgb Neutrophils # Lymphocytes # APTT 30.5 H Carbon Dioxide BUN Creatinine Glucose POC Glucose (mg/dL) 146 H 173 H AST ALT Total Creatine Kinase 12/17/17 12/17/17 12/17/17 12:23 17:35 20:50 Hgb Neutrophils # Lymphocytes # APTT Carbon Dioxide BUN Creatinine Glucose POC Glucose (mg/dL) 172 H 199 H 203 H AST ALT Total Creatine Kinase 12/18/17 12/18/17 12/18/17 07:33 09:06 09:06 Hgb Neutrophils # 9.8 H Lymphocytes # 0.5 L APTT Carbon Dioxide BUN 22 H Creatinine 0.64 L Glucose 228 H POC Glucose (mg/dL) 198 H AST ALT Total Creatine Kinase 12/18/17 12/18/17 12/18/17 12:18 17:21 20:41 Hgb Neutrophils # Lymphocytes # APTT Carbon Dioxide BUN Creatinine Glucose POC Glucose (mg/dL) 277 H 133 H 211 H AST ALT Total Creatine Kinase 12/19/17 12/19/17 12/19/17 07:51 07:51 08:00 Hgb 12.8 L Neutrophils # 9.3 H Lymphocytes # 0.6 L APTT Carbon Dioxide 34 H BUN 24 H Creatinine Glucose 133 H POC Glucose (mg/dL) 154 H AST ALT Total Creatine Kinase 12/19/17 11:42 Hgb Neutrophils # Lymphocytes # APTT Carbon Dioxide BUN Creatinine Glucose POC Glucose (mg/dL) 128 H AST ALT Total Creatine Kinase - Diagnostic Findings Chest x-ray: image reviewed Assessment and Plan Assessment: Impression: #1 Acute exacerbation of chronic oxygen dependent obstructive pulmonary disease , complicated by purulent tracheobronchitis. No clear evidence of pneumonia. #2 Acute on chronic hypoxic respiratory failure secondary to above. #3 History of chronic tobacco dependence of 50 years at 1 pack per day however quit many years ago. #4 Dementia. Maintained on Aricept #5 History of atrial fibrillation, on metoprolol, anticoagulated with Eliquis. #6 Chronic systolic congestive heart failure with ejection fraction 45-50 %. An oral Lasix. 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 Consulting Psychiatrist at [facility]. 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 #8 Hypertension. On losartan and metoprolol. #9 Hyperlipidemia. On Lipitor. #10 Diabetes mellitus. On Glucophage. #11 Dysphagia. Barium swallow in September 2017 revealed aspiration with thin liquids requiring nectar thickened. #12 Poor overall functional performance based on the above-mentioned multiple comorbidities. Plan: The patient was seen and evaluated by Dr. Ceron. Chest x-ray and labs were reviewed. Continue his treatment for his COPD exacerbation. He remains on DuoNeb inhalations every 4 hours, IV Solu-Medrol, empiric antibiotics in the form of doxycycline. We'll add Pulmicort and Perforomist inhalations twice a day. Anticoagulated with Eliquis. On Pepcid for GI prophylaxis. We will increase his activity as tolerated. We'll continue to follow and make further recommendations based on his clinical status. I, the cosigning physician, performed a history & physical examination of the patient. Lungs sounds are intact and expiratory wheeze, few scattered rhonchi. Maintaining good O2 saturations in the 90s on 2 L/m per nasal cannula. I discussed the assessment and plan of care with my nurse practitioner, Carolee Adams. I attest to the above note as dictated by her. Time with Patient: Greater than 30
[2017-12-19 17:25] LABS: Glucose,Whole Blood 130 mg/dL (75-99)
[2017-12-19] MEDS: PIPERACILLIN-TAZOBACTAM 3.375 GM in DEXTROSE/WATER 1 50ML.BAG IVPB SCH ×2 (17:46→23:39)
[2017-12-19 21:07] LABS: Glucose,Whole Blood 213 mg/dL (75-99)
[2017-12-19] MEDS: DOCUSATE 100 MG CAP PO SCH (22:05)
[2017-12-19] MEDS: DONEPEZIL 10 MG TAB PO SCH (22:05)
[2017-12-19] MEDS: NON-FORMULARY DRUG (Omega-3 Fatty Acids/Fish Oil [Fish Oil 1,000 Mg Softgel] 1 CAP) PO SCH (22:06)
[2017-12-19 22:07] LABS: Hemoglobin A1C 5.4 % (4.0-6.0)
[2017-12-19] MEDS: INSULIN DETEMIR 100 UNIT/ML 10 ML VIAL SQ SCH (22:08)
[2017-12-19] MEDS: ASPIRIN 81 MG PO SCH (23:45)
[2017-12-20] MEDS: IPRATROPIUM-ALBUTEROL 3 ML NEB INHALATION SCH ×6 (00:08→20:07)
[2017-12-20] MEDS: methylPREDNISolone SOD SUCCI 125 MG/2 ML VIAL IV SCH ×4 (06:01→23:23)
[2017-12-20 07:47] LABS: Glucose,Whole Blood 182 mg/dL (75-99)
[2017-12-20] MEDS: PIPERACILLIN-TAZOBACTAM 3.375 GM in DEXTROSE/WATER 1 50ML.BAG IVPB SCH ×3 (08:01→23:23)
[2017-12-20] MEDS: APIXABAN 5 MG TAB PO SCH ×2 (08:02→22:30)
[2017-12-20] MEDS: TAMSULOSIN 0.4 MG CAP.ER.24H PO SCH (08:02)
[2017-12-20] MEDS: metFORMIN 500 MG TAB PO SCH (08:02)
[2017-12-20] MEDS: LOSARTAN 50 MG TAB PO SCH (08:02)
[2017-12-20] MEDS: amLODIPine 5 MG TAB PO SCH (08:02)
[2017-12-20] MEDS: FUROSEMIDE 20 MG TAB PO SCH ×2 (08:02→15:20)
[2017-12-20] MEDS: METOPROLOL TARTRATE 50 MG TAB PO SCH ×2 (08:02→22:29)
[2017-12-20] MEDS: INSULIN ASPART 100 UNIT/ML 1 ML 10 ML VIAL SQ SCH ×4 (08:03→22:31)
[2017-12-20] MEDS: FAMOTIDINE 20 MG TAB PO SCH ×2 (08:03→22:29)
[2017-12-20] MEDS: ISOSORBIDE MONONITRATE ER 30 MG TAB.ER.24H PO SCH (08:03)
[2017-12-20] MEDS: ATORVASTATIN 40 MG TAB PO SCH (08:03)
[2017-12-20] MEDS: POTASSIUM CHLORIDE ER 10 MEQ TAB.ER.PRT PO SCH (08:03)
--- NOTE | 2017-12-20 11:46 | P.PN ---
Subjective Progress Note Date: 12/20/17 Principal diagnosis: Acute exacerbation of oxygen dependent chronic obstructive pulmonary disease complicated by purulent tracheobronchitis. This is a very pleasant 87-year-old gentleman who follows with Dr. Chow as his primary care physician. He has a history of dementia, diabetes, hypertension, hyperlipidemia, congestive heart failure with mildly impaired left ventricular systolic function ejection fraction 45-50%, coronary artery disease which is nonoperable according to the patient's , atrial fibrillation anticoagulated with Eliquis. He also has a history of chronic obstructive pulmonary disease, oxygen dependent, maintained on Symbicort, pro- air, and nebulized albuterol treatments in the outpatient setting. He has not been seen by a driller's offsider in the past. He does have an approximate 50 year pack per day smoking history however quit at age 71. He presented here to the emergency room on 12/16/2017 with complaints of increasing shortness of breath, productive cough of yellow sputum, dyspnea on exertion. His chest x-ray did not reveal any acute cardiopulmonary disease. There was cardiomegaly and clearing of the congestive heart failure seen on his previous admission in September 2017. Blood culture is revealing no growth to date. There is no leukocytosis. He is maintaining good O2 saturations in the upper 90s on 2 L/m per nasal cannula. He has been afebrile. Hemodynamically stable. He has been initiated on DuoNeb inhalations to IV Solu-Medrol, empiric antibiotics in the form of doxycycline. He is seen today in consultation on the regular medical floor. He is awake and alert in no acute distress. He is somewhat of a poor historian. His is at the bedside and supplies most of the information. He is breathing easier today as compared to yesterday. Less productive cough. Fever, chills or night sweats. No nausea, vomiting or diarrhea. The patient is seen again today 12/20/2017 in follow-up on the regular medical floor. He is awake and alert in no acute distress. He does deny any worsening shortness of breath at this time. No productive cough or congestion. He has been afebrile. Maintaining good O2 saturations in the high 90s on 2 L/m per nasal cannula. Hemodynamically stable. Blood cultures revealed no growth to date. Blood glucose 182. He remains on Zosyn, bronchodilators, IV Solu-Medrol. Objective - Vital Signs Vital signs: Vital Signs Temp 97.4 F L 12/20/17 07:00 Pulse 88 12/20/17 11:35 Resp 20 12/20/17 08:12 BP 155/96 12/20/17 07:00 Pulse Ox 99 12/20/17 07:00 Intake & Output 12/19/17 12/20/17 12/20/17 18:59 06:59 18:59 Intake Total 600 650 400 Balance 600 650 400 Weight 73 kg 73 kg Intake: Oral 600 650 400 Other: Voiding Method Toilet Toilet Toilet Diaper Diaper Diaper Incontinent Incontinent Incontinent # Voids 2 6 - Exam GENERAL EXAM: An 87-year-old male patient well-nourished. Alert, disoriented to place and time, appears comfortable in no apparent distress. HEAD: Normocephalic. EYES: Normal reaction of pupils, equal size. NOSE: Clear with pink turbinates. THROAT: No erythema or exudates. NECK: No masses, no JVD. CHEST: No chest wall deformity. LUNGS: Equal air entry with faint end expiratory wheeze, few scattered rhonchi. Diminished. CVS: S1 and S2 normal with no audible murmur, irregular rhythm. ABDOMEN: No hepatosplenomegaly, normal bowel sounds, no guarding or rigidity. SPINE: No scoliosis or deformity SKIN: No rashes CENTRAL NERVOUS SYSTEM: No focal deficits, tone is normal in all 4 extremities. EXTREMITIES: There is no peripheral edema. No clubbing, no cyanosis. Peripheral pulses are intact. - Labs CBC & Chem 7: 12/19/17 07:51 12/19/17 07:51 Labs: Abnormal Lab Results - Last 24 Hours (Table) 12/19/17 12/19/17 12/19/17 Range/Units 11:42 17:22 21:04 POC Glucose (mg/dL) 128 H 130 H 213 H (75-99) mg/dL 12/20/17 Range/Units 07:39 POC Glucose (mg/dL) 182 H (75-99) mg/dL Microbiology - Last 24 Hours (Table) 12/16/17 21:18 Blood Culture - Preliminary Blood No Growth after 72 hours Assessment and Plan Assessment: Impression: #1 Acute exacerbation of chronic oxygen dependent obstructive pulmonary disease , complicated by purulent tracheobronchitis. No clear evidence of pneumonia. #2 Acute on chronic hypoxic respiratory failure secondary to above. #3 History of chronic tobacco dependence of 50 years at 1 pack per day however quit many years ago. #4 Dementia. Maintained on Aricept #5 History of atrial fibrillation, on metoprolol, anticoagulated with Eliquis. #6 Chronic systolic congestive heart failure with ejection fraction 45-50 %. An oral Lasix. 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. 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 #8 Hypertension. On losartan and metoprolol. #9 Hyperlipidemia. On Lipitor. #10 Diabetes mellitus. On Glucophage. #11 Dysphagia. Barium swallow in September 2017 revealed aspiration with thin liquids requiring nectar thickened. #12 Poor overall functional performance based on the above-mentioned multiple comorbidities. Plan: The patient was seen and evaluated by Dr. Ceron. The patient's told us he does have some issues with choking while eating. His antibiotics were switched from doxycycline to Zosyn yesterday for concerns regarding possible aspiration. Continue his treatment for his COPD exacerbation. He remains on DuoNeb inhalations every 4 hours, IV Solu-Medrol, Pulmicort and Perforomist inhalations twice a day. Anticoagulated with Eliquis. On Pepcid for GI prophylaxis. We will increase his activity as tolerated. We'll continue to follow and make further recommendations based on his clinical status. I, the cosigning physician, performed a history & physical examination of the patient. Lungs sounds are intact and expiratory wheeze, few scattered rhonchi. Maintaining good O2 saturations in the 90s on 2 L/m per nasal cannula. I discussed the assessment and plan of care with my nurse practitioner, Carolee Adams. I attest to the above note as dictated by her.
[2017-12-20 12:00] LABS: Glucose,Whole Blood 169 mg/dL (75-99)
[2017-12-20 17:24] LABS: Glucose,Whole Blood 169 mg/dL (75-99)
[2017-12-20] MEDS: FORMOTEROL FUMARATE 20 MCG/2 ML NEBU INHALATION SCH (20:07)
[2017-12-20] MEDS: BUDESONIDE 1 MG/2 ML NEBU INHALATION SCH (20:07)
[2017-12-20] MEDS ORDERED: IPRATROPIUM-ALBUTEROL 3 ML NEB INHALATION PRN (20:11)
--- NOTE | 2017-12-20 21:06 | P.PN ---
Subjective Progress Note Date: 12/20/17 personal being dictated for Dr. Mcfarland. Acute COPD exacerbation Patient is a 87-year-old male with a known history of chronic atrial fibrillation on anticoagulation, COPD on home oxygen, dementia, diabetes type 2 , hypertension and multiple other medical problems presents with complaints of shortness of breath or past several days. He's had a cough with yellow phlegm no overt fevers chills or sweats however is evidence exertional dyspnea. No chest pain. He does use inhalers at home he was eating some relief with these. He did also complain some soreness to his throat no earaches as well. Chest x-ray showed no acute cardio pulmonary process EKG showed atrial fibrillation On 12/18/2017 Patient says that his breathing is better today. Saturating well on nasal cannula. Otherwise patient is having hyperglycemia due to steroids. Continued on IV steroids and breathing treatments and antibiotics. No fever no chills. Discussed with his at bedside All other review of systems negative except the above Current medications reviewed 12/20/17 maintained on nebulized bronchodilators, steroids, Zosyn. Maintaining O2 sats in the high 90s on 2 L nasal cannula. Afebrile. Preliminary blood cultures, no growth. Denies chest pain, palpitations or increasing shortness of breath. Objective - Vital Signs Vital signs: Vital Signs Temp 97.6 F 12/20/17 15:00 Pulse 95 12/20/17 20:28 Resp 18 12/20/17 20:07 BP 141/82 12/20/17 15:00 Pulse Ox 93 L 12/20/17 15:00 Intake & Output 12/20/17 12/20/17 12/21/17 06:59 18:59 06:59 Intake Total 650 1200 Balance 650 1200 Weight 73 kg 73 kg Intake: Oral 650 1200 Other: Voiding Method Toilet Toilet Diaper Diaper Incontinent Incontinent # Voids 6 3 - Exam Patient is lying in the bed comfortably, no acute distress, awake alert and oriented.. HEENT: Normocephalic. Neck is supple. Pupils reactive. Oral cavity is moist. Neck reveals no JVD, carotid bruits, or thyromegaly. CHEST EXAMINATION: Trachea is central. Symmetrical expansion. Bilateral air entry diminished with expiratory wheezing. occasional scattered rhonchi CARDIAC: Normal S1, S2 with no gallops. No murmurs ABDOMEN: Soft. Bowel sounds normal. No organomegaly. No abdominal bruits. Extremities: reveal no edema. No clubbing or cyanosis Neurologically awake, alert, oriented x3 with well-coordinated movements. No focal deficits noted Skin: No rash or skin lesions. Psychiatric: Coperative. alert and oriented to person, pleasantly confused Musculoskeletal: No joint swelling or deformity. Normal range of motion. Microbiology 12/16/17 21:18 Blood Blood Culture - Preliminary No Growth after 72 hours - Labs CBC & Chem 7: 12/19/17 07:51 12/19/17 07:51 Labs: Abnormal Lab Results - Last 24 Hours (Table) 12/19/17 12/20/17 12/20/17 Range/Units 21:04 07:39 11:40 POC Glucose (mg/dL) 213 H 182 H 169 H (75-99) mg/dL 12/20/17 Range/Units 17:14 POC Glucose (mg/dL) 169 H (75-99) mg/dL Microbiology - Last 24 Hours (Table) 12/16/17 21:18 Blood Culture - Preliminary Blood No Growth after 72 hours Assessment and Plan Assessment: Acute COPD exacerbation due to tracheobronchitis. Coronary artery disease history Chronic atrial fibrillation on anticoagulation Diabetes type 2 Dementia COPD on home oxygen chronic hypoxic respiratory failure on home oxygen Hypertension Hyperlipidemia Previous history of smoking Plan: Continue on current medication regime ,monitoring and symptomatic treatment. Maintain nebulized bronchodilators, steroids, antibiotics. Increase ambulation as tolerated.. Prognosis guarded given multiple complex medical issues. Follow closely with pulmonary. Further recommendations to follow. The impression and plan of care has been dictated as directed. : I performed a history and examination of this patient, discussed the same with the dictator. I agree with the dictator's note ,documented as a scribe. Any additional findings or plans will be noted.
[2017-12-20 21:09] LABS: Glucose,Whole Blood 205 mg/dL (75-99)
[2017-12-20] MEDS: INSULIN DETEMIR 100 UNIT/ML 10 ML VIAL SQ SCH (22:30)
[2017-12-20] MEDS: DOCUSATE 100 MG CAP PO SCH (22:30)
[2017-12-20] MEDS: DONEPEZIL 10 MG TAB PO SCH (22:30)
[2017-12-20] MEDS: NON-FORMULARY DRUG (Omega-3 Fatty Acids/Fish Oil [Fish Oil 1,000 Mg Softgel] 1 CAP) PO SCH (22:31)
[2017-12-21] MEDS: methylPREDNISolone SOD SUCCI 125 MG/2 ML VIAL IV SCH ×2 (06:25→12:12)
[2017-12-21 07:30] LABS: Glucose,Whole Blood 166 mg/dL (75-99)
[2017-12-21] MEDS: BUDESONIDE 1 MG/2 ML NEBU INHALATION SCH ×2 (08:09→20:16)
[2017-12-21] MEDS: FORMOTEROL FUMARATE 20 MCG/2 ML NEBU INHALATION SCH ×2 (08:09→20:16)
[2017-12-21] MEDS: IPRATROPIUM-ALBUTEROL 3 ML NEB INHALATION SCH ×4 (08:09→20:17)
[2017-12-21] MEDS: INSULIN ASPART 100 UNIT/ML 1 ML 10 ML VIAL SQ SCH ×4 (08:42→21:57)
[2017-12-21] MEDS: PIPERACILLIN-TAZOBACTAM 3.375 GM in DEXTROSE/WATER 1 50ML.BAG IVPB SCH ×3 (08:43→23:56)
[2017-12-21] MEDS: amLODIPine 5 MG TAB PO SCH (08:43)
[2017-12-21] MEDS: FUROSEMIDE 20 MG TAB PO SCH ×2 (08:44→16:09)
[2017-12-21] MEDS: APIXABAN 5 MG TAB PO SCH ×2 (08:44→21:53)
[2017-12-21] MEDS: ATORVASTATIN 40 MG TAB PO SCH (08:44)
[2017-12-21] MEDS: FAMOTIDINE 20 MG TAB PO SCH ×2 (08:44→21:53)
[2017-12-21] MEDS: POTASSIUM CHLORIDE ER 10 MEQ TAB.ER.PRT PO SCH (08:45)
[2017-12-21] MEDS: TAMSULOSIN 0.4 MG CAP.ER.24H PO SCH (08:45)
[2017-12-21] MEDS: metFORMIN 500 MG TAB PO SCH (08:45)
[2017-12-21] MEDS: METOPROLOL TARTRATE 50 MG TAB PO SCH ×2 (08:45→21:53)
[2017-12-21] MEDS: ISOSORBIDE MONONITRATE ER 30 MG TAB.ER.24H PO SCH (08:45)
[2017-12-21] MEDS: LOSARTAN 50 MG TAB PO SCH (08:45)
--- NOTE | 2017-12-21 11:45 | P.PN ---
Subjective Progress Note Date: 12/21/17 Principal diagnosis: Acute exacerbation of oxygen dependent chronic obstructive pulmonary disease complicated by purulent tracheobronchitis. This is a very pleasant 87-year-old gentleman who follows with Dr. Chow as his primary care physician. He has a history of dementia, diabetes, hypertension, hyperlipidemia, congestive heart failure with mildly impaired left ventricular systolic function ejection fraction 45-50%, coronary artery disease which is nonoperable according to the patient's , atrial fibrillation anticoagulated with Eliquis. He also has a history of chronic obstructive pulmonary disease, oxygen dependent, maintained on Symbicort, pro- air, and nebulized albuterol treatments in the outpatient setting. 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 He does have an approximate 50 year pack per day smoking history however quit at age 71. He presented here to the emergency room on 12/16/2017 with complaints of increasing shortness of breath, productive cough of yellow sputum, dyspnea on exertion. His chest x-ray did not reveal any acute cardiopulmonary disease. There was cardiomegaly and clearing of the congestive heart failure seen on his previous admission in September 2017. Blood culture is revealing no growth to date. There is no leukocytosis. He is maintaining good O2 saturations in the upper 90s on 2 L/m per nasal cannula. He has been afebrile. Hemodynamically stable. He has been initiated on DuoNeb inhalations to IV Solu-Medrol, empiric antibiotics in the form of doxycycline. He is seen today in consultation on the regular medical floor. He is awake and alert in no acute distress. He is somewhat of a poor historian. His is at the bedside and supplies most of the information. He is breathing easier today as compared to yesterday. Less productive cough. Fever, chills or night sweats. No nausea, vomiting or diarrhea. The patient is seen again today 12/20/2017 in follow-up on the regular medical floor. He is awake and alert in no acute distress. He does deny any worsening shortness of breath at this time. No productive cough or congestion. He has been afebrile. Maintaining good O2 saturations in the high 90s on 2 L/m per nasal cannula. Hemodynamically stable. Blood cultures revealed no growth to date. Blood glucose 182. He remains on Zosyn, bronchodilators, IV Solu-Medrol. The patient is seen again today 12/21/2017 in follow-up on the regular medical floor. He is currently resting quite comfortably in bed. He denies any worsening shortness of breath, cough or congestion. He is improved today as compared to yesterday. He is maintaining good O2 saturations in the 90s on room air. He's been afebrile. Blood cultures reveal no growth. Objective - Vital Signs Vital signs: Vital Signs Temp 96.4 F L 12/21/17 06:31 Pulse 100 12/21/17 08:26 Resp 24 12/21/17 06:31 BP 170/95 12/21/17 06:31 Pulse Ox 92 L 12/21/17 06:31 Intake & Output 12/20/17 12/21/17 12/21/17 18:59 06:59 18:59 Intake Total 1200 Balance 1200 Weight 73 kg 73.7 kg Intake: Oral 1200 Other: Voiding Method Toilet Toilet Diaper Diaper Incontinent Incontinent # Voids 3 2 - Exam GENERAL EXAM: An 87-year-old male patient well-nourished. Alert, disoriented to place and time, appears comfortable in no apparent distress. HEAD: Normocephalic. EYES: Normal reaction of pupils, equal size. NOSE: Clear with pink turbinates. THROAT: No erythema or exudates. NECK: No masses, no JVD. CHEST: No chest wall deformity. LUNGS: Equal air entry with faint end expiratory wheeze, few scattered rhonchi. Diminished. CVS: S1 and S2 normal with no audible murmur, irregular rhythm. ABDOMEN: No hepatosplenomegaly, normal bowel sounds, no guarding or rigidity. SPINE: No scoliosis or deformity SKIN: No rashes CENTRAL NERVOUS SYSTEM: No focal deficits, tone is normal in all 4 extremities. EXTREMITIES: There is no peripheral edema. No clubbing, no cyanosis. Peripheral pulses are intact. - Labs CBC & Chem 7: 12/19/17 07:51 12/19/17 07:51 Labs: Abnormal Lab Results - Last 24 Hours (Table) 12/20/17 12/20/17 12/20/17 Range/Units 11:40 17:14 20:56 POC Glucose (mg/dL) 169 H 169 H 205 H (75-99) mg/dL 12/21/17 Range/Units 07:27 POC Glucose (mg/dL) 166 H (75-99) mg/dL Microbiology - Last 24 Hours (Table) 12/16/17 21:18 Blood Culture - Preliminary Blood No Growth after 96 hours Assessment and Plan Assessment: Impression: #1 Acute exacerbation of chronic oxygen dependent obstructive pulmonary disease , complicated by purulent tracheobronchitis. No clear evidence of pneumonia. #2 Acute on chronic hypoxic respiratory failure secondary to above. #3 History of chronic tobacco dependence of 50 years at 1 pack per day however quit many years ago. #4 Dementia. Maintained on Aricept #5 History of atrial fibrillation, on metoprolol, anticoagulated with Eliquis. #6 Chronic systolic congestive heart failure with ejection fraction 45-50 %. An oral Lasix. 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 #8 Hypertension. On losartan and metoprolol. #9 Hyperlipidemia. On Lipitor. #10 Diabetes mellitus. On Glucophage. #11 Dysphagia. Barium swallow in September 2017 revealed aspiration with thin liquids requiring nectar thickened. #12 Poor overall functional performance based on the above-mentioned multiple comorbidities. Plan: The patient was seen and evaluated by Dr. Ceron. Continue his treatment for his COPD exacerbation. We will increase his activity as tolerated. We'll continue to follow and make further recommendations based on his clinical status. I, the cosigning physician, performed a history & physical examination of the patient. Lungs sounds with end expiratory wheeze, few scattered rhonchi. Maintaining good O2 saturations in the 90s on room air. I discussed the assessment and plan of care with my nurse practitioner, Carolee Adams. I attest to the above note as dictated by her.
[2017-12-21 12:16] LABS: Glucose,Whole Blood 247 mg/dL (75-99)
--- NOTE | 2017-12-21 15:54 | XR ---
EXAMINATION TYPE: XR chest 1V portable DATE OF EXAM: 12/21/2017 TECHNIQUE: 2 portable views of the chest were reviewed. COMPARISON: December 16, 2017 HISTORY: Pneumonia TECHNIQUE: Single frontal view of the chest is obtained. FINDINGS: There is no focal air space opacity, pleural effusion, or pneumothorax seen. The cardiac silhouette size is within normal limits. The osseous structures are intact. IMPRESSION: No acute process.
[2017-12-21] MEDS: methylPREDNISolone SOD SUCCI 40 MG/ML 1 ML VIAL IV SCH ×2 (16:10→23:57)
--- NOTE | 2017-12-21 16:30 | PN ---
PROGRESS NOTE DATE OF SERVICE: 12/21/2017 This 87-year-old gentleman who was admitted with atrial fibrillation was admitted with COPD exacerbation as well as acute purulent tracheobronchitis. The patient is mildly confused. The patient is closely monitored at this time. The patient is on broad- spectrum IV antibiotics. Multiple consultants are following the patient closely. The patient is mildly confused. PAST MEDICAL HISTORY: Reviewed. REVIEW OF SYSTEMS: Could not be taken as the patient is confused. CURRENT MEDICATIONS: Current medications are reviewed and include: 1. DuoNeb q.i.d. and p.r.n. 2. Xanax 0.25 b.i.d. 3. Norvasc 5 mg daily. 4. Eliquis 5 mg p.o. b.i.d. 5. Aspirin 81 mg Saturday, Saturday and Saturday. 6. Lipitor 40 mg q.a.m. 7. Pulmicort 1 mg b.i.d. 8. Colace 200 mg q.h.s. 9. Aricept 10 mg q.h.s. 10.Pepcid 20 mg p.o. b.i.d. 11.Perforomist 20 mcg b.i.d. 12.Lasix 20 mg p.o. b.i.d. 13.NovoLog a.c. and at bedtime. 14.Levemir 10 units subcu . 15.Imdur 30 mg q.a.m. 16.Cozaar 100 mg p.o. q.a.m. 17.Glucophage 500 mg q.a.m. 18.Solu-Medrol 60 IV q.6. 19.Lopressor 50 mg p.o. b.i.d. 20.Comerio-3 fatty acids fish oil 1 p.o. daily. 21.Zosyn 3.375 IV q.8. 22.K-Dur 10 mEq p.o. q.a.m. 23.Flomax 0.4 q.a.m. PHYSICAL EXAM: The patient is alert, somewhat confused. Pulse 87, blood pressure 117/74, respiration 18, temperature 96.9, pulse ox 94% on room air. HEENT: Conjunctivae normal. Oral mucosa moist. NECK: No jugular venous distention, no carotid bruit. No lymph node enlargement. CARDIOVASCULAR: S1 and S2 muffled. No S3, no S4. RESPIRATORY: Breath sounds diminished at the bases. Bilateral scattered rhonchi and expiratory wheezing also present. Breathing efforts are markedly increased. ABDOMEN: Soft, nontender. No mass palpable. LEGS: No edema, no swelling. NERVOUS SYSTEM: Higher functions as mentioned earlier. Moves all 4 limbs. No focal motor deficits. LYMPHATICS: No lymphadenopathy of the neck, axillae or groin. SKIN: No ulcer, rash or bleeding. LABS: CBC, hemoglobin 12.8. Glucose 205, 247. ASSESSMENT: 1. Chronic obstructive pulmonary disease acute exacerbation with acute purulent tracheobronchitis. 2. Change in mental status, acute metabolic encephalopathy, multifactorial, acute on chronic. 3. Coronary artery disease history. 4. Chronic atrial fibrillation with anticoagulation. 5. Diabetes mellitus type 2. 6. Dementia. 7. Chronic obstructive pulmonary disease on home oxygen with chronic hypoxic respiratory failure. 8. Hypertension. 9. Hyperlipidemia. 10.Previous history of smoking. 11.FULL CODE. RECOMMENDATIONS AND DISCUSSION: This 87-year-old gentleman who presented with multiple complex medical issues, we will monitor the patient closely. Continue the current medications, continue symptomatic treatment. The patient is currently on intensive bronchodilator treatment as well as steroids also. I would recommend taper the steroids and see the response. Otherwise we will follow the patient closely with Pulmonary as well. Accu-Cheks will be checked. At this time, the patient is on IV Zosyn which was initiated by Dr. Ceron. The initial chest x-ray showed some clearing heart failure. Would also recommend repeat chest x- ray to ensure stability as well and evaluate for any evidence of any pneumonia at this time. Otherwise, prognosis guarded. See orders for further details. The patient is already on apixaban. MMODL / IJN: [id number] / MTDD
[2017-12-21 17:35] LABS: Glucose,Whole Blood 130 mg/dL (75-99)
[2017-12-21 21:09] LABS: Glucose,Whole Blood 276 mg/dL (75-99)
[2017-12-21] MEDS: DOCUSATE 100 MG CAP PO SCH (21:52)
[2017-12-21] MEDS: DONEPEZIL 10 MG TAB PO SCH (21:53)
[2017-12-21] MEDS: INSULIN DETEMIR 100 UNIT/ML 10 ML VIAL SQ SCH (21:53)
[2017-12-21] MEDS: NON-FORMULARY DRUG (Omega-3 Fatty Acids/Fish Oil [Fish Oil 1,000 Mg Softgel] 1 CAP) PO SCH (21:58)
[2017-12-22 07:24] LABS: Glucose,Whole Blood 113 mg/dL (75-99)
[2017-12-22] MEDS: IPRATROPIUM-ALBUTEROL 3 ML NEB INHALATION SCH ×4 (08:47→21:21)
[2017-12-22] MEDS: FORMOTEROL FUMARATE 20 MCG/2 ML NEBU INHALATION SCH ×2 (08:47→21:20)
[2017-12-22] MEDS: BUDESONIDE 1 MG/2 ML NEBU INHALATION SCH ×2 (08:47→21:20)
[2017-12-22] MEDS: INSULIN ASPART 100 UNIT/ML 1 ML 10 ML VIAL SQ SCH ×4 (10:09→23:20)
[2017-12-22] MEDS: ISOSORBIDE MONONITRATE ER 30 MG TAB.ER.24H PO SCH (10:15)
[2017-12-22] MEDS: ATORVASTATIN 40 MG TAB PO SCH (10:16)
[2017-12-22] MEDS: POTASSIUM CHLORIDE ER 10 MEQ TAB.ER.PRT PO SCH (10:16)
[2017-12-22] MEDS: FAMOTIDINE 20 MG TAB PO SCH ×2 (10:16→20:32)
[2017-12-22] MEDS: metFORMIN 500 MG TAB PO SCH (10:16)
[2017-12-22] MEDS: METOPROLOL TARTRATE 50 MG TAB PO SCH ×2 (10:16→20:31)
[2017-12-22] MEDS: TAMSULOSIN 0.4 MG CAP.ER.24H PO SCH (10:16)
[2017-12-22] MEDS: amLODIPine 5 MG TAB PO SCH (10:17)
[2017-12-22] MEDS: methylPREDNISolone SOD SUCCI 40 MG/ML 1 ML VIAL IV SCH ×3 (10:17→23:56)
[2017-12-22] MEDS: FUROSEMIDE 20 MG TAB PO SCH ×2 (10:17→17:50)
[2017-12-22] MEDS: PIPERACILLIN-TAZOBACTAM 3.375 GM in DEXTROSE/WATER 1 50ML.BAG IVPB SCH ×3 (10:17→23:56)
[2017-12-22] MEDS: LOSARTAN 50 MG TAB PO SCH (10:17)
[2017-12-22] MEDS: APIXABAN 5 MG TAB PO SCH ×2 (10:17→20:32)
[2017-12-22 13:03] LABS: Glucose,Whole Blood 121 mg/dL (75-99)
--- NOTE | 2017-12-22 16:50 | P.PN ---
Subjective Progress Note Date: 12/22/17 Principal diagnosis: Acute exacerbation of COPD and purulent tracheobronchitis. This is a very pleasant 87-year-old gentleman who follows with Dr. Chow as his primary care physician. He has a history of dementia, diabetes, hypertension, hyperlipidemia, congestive heart failure with mildly impaired left ventricular systolic function ejection fraction 45-50%, coronary artery disease which is nonoperable according to the patient's , atrial fibrillation anticoagulated with Eliquis. He also has a history of chronic obstructive pulmonary disease, oxygen dependent, maintained on Symbicort, pro- air, and nebulized albuterol treatments in the outpatient setting. 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 He does have an approximate 50 year pack per day smoking history however quit at age 71. He presented here to the emergency room on 12/16/2017 with complaints of increasing shortness of breath, productive cough of yellow sputum, dyspnea on exertion. His chest x-ray did not reveal any acute cardiopulmonary disease. There was cardiomegaly and clearing of the congestive heart failure seen on his previous admission in September 2017. Blood culture is revealing no growth to date. There is no leukocytosis. He is maintaining good O2 saturations in the upper 90s on 2 L/m per nasal cannula. He has been afebrile. Hemodynamically stable. He has been initiated on DuoNeb inhalations to IV Solu-Medrol, empiric antibiotics in the form of doxycycline. He is seen today in consultation on the regular medical floor. He is awake and alert in no acute distress. He is somewhat of a poor historian. His is at the bedside and supplies most of the information. He is breathing easier today as compared to yesterday. Less productive cough. Fever, chills or night sweats. No nausea, vomiting or diarrhea. The patient is seen again today 12/20/2017 in follow-up on the regular medical floor. He is awake and alert in no acute distress. He does deny any worsening shortness of breath at this time. No productive cough or congestion. He has been afebrile. Maintaining good O2 saturations in the high 90s on 2 L/m per nasal cannula. Hemodynamically stable. Blood cultures revealed no growth to date. Blood glucose 182. He remains on Zosyn, bronchodilators, IV Solu-Medrol. The patient is seen again today 12/21/2017 in follow-up on the regular medical floor. He is currently resting quite comfortably in bed. He denies any worsening shortness of breath, cough or congestion. He is improved today as compared to yesterday. He is maintaining good O2 saturations in the 90s on room air. He's been afebrile. Blood cultures reveal no growth. Reevaluated today on 12/22/2017, steadily improving, less cough, less wheezing, less shortness of breath. His diet was modified to avoid potential microaspiration while swallowing. Objective - Vital Signs Vital signs: Vital Signs Temp 96.7 F L 12/22/17 15:00 Pulse 86 12/22/17 15:00 Resp 16 12/22/17 15:00 BP 140/81 12/22/17 15:00 Pulse Ox 95 12/22/17 15:00 Intake & Output 12/21/17 12/22/17 12/22/17 18:59 06:59 18:59 Intake Total 50 50 Balance 50 50 Weight 80 kg Intake: Intake, IV Titration 50 50 Amount Piperacillin-Tazobactam 3 50 50 .375 gm In Dextrose/Water 1 50ml.bag @ 12.5 mls/hr IVPB Q8HR PENDING SALE TO [facility] Rx#: [id number] Other: Voiding Method Toilet Toilet Diaper Diaper Incontinent Incontinent # Voids 2 2 - Exam GENERAL EXAM: An 87-year-old male patient well-nourished. Alert, disoriented to place and time, appears comfortable in no apparent distress. HEAD: Normocephalic. EYES: Normal reaction of pupils, equal size. NOSE: Clear with pink turbinates. THROAT: No erythema or exudates. NECK: No masses, no JVD. CHEST: No chest wall deformity. LUNGS: Equal air entry with faint end expiratory wheeze, few scattered rhonchi. Diminished. CVS: S1 and S2 normal with no audible murmur, irregular rhythm. ABDOMEN: No hepatosplenomegaly, normal bowel sounds, no guarding or rigidity. SPINE: No scoliosis or deformity SKIN: No rashes CENTRAL NERVOUS SYSTEM: No focal deficits, tone is normal in all 4 extremities. EXTREMITIES: There is no peripheral edema. No clubbing, no cyanosis. Peripheral pulses are intact. - Labs CBC & Chem 7: 12/19/17 07:51 12/19/17 07:51 Labs: Abnormal Lab Results - Last 24 Hours (Table) 12/21/17 12/21/17 12/22/17 Range/Units 16:57 21:08 07:04 POC Glucose (mg/dL) 130 H 276 H 113 H (75-99) mg/dL 12/22/17 Range/Units 12:33 POC Glucose (mg/dL) 121 H (75-99) mg/dL Microbiology - Last 24 Hours (Table) 12/16/17 21:18 Blood Culture - Preliminary Blood No Growth after 120 hours Assessment and Plan Assessment: #1 Acute exacerbation of chronic oxygen dependent obstructive pulmonary disease , complicated by purulent tracheobronchitis. No clear evidence of pneumonia. #2 Acute on chronic hypoxic respiratory failure secondary to above. #3 History of chronic tobacco dependence of 50 years at 1 pack per day however quit many years ago. #4 Dementia. Maintained on Aricept #5 History of atrial fibrillation, on metoprolol, anticoagulated with Eliquis. #6 Chronic systolic congestive heart failure with ejection fraction 45-50 %. An oral Lasix. 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 #8 Hypertension. On losartan and metoprolol. #9 Hyperlipidemia. On Lipitor. #10 Diabetes mellitus. On Glucophage. #11 Dysphagia. Barium swallow in September 2017 revealed aspiration with thin liquids requiring nectar thickened. #12 Poor overall functional performance based on the above-mentioned multiple comorbidities. Plan: Continue present meds, consider discharge planning in the next 24-48 hours. Time with Patient: Less than 30
[2017-12-22 17:40] LABS: Glucose,Whole Blood 171 mg/dL (75-99)
[2017-12-22] MEDS: DONEPEZIL 10 MG TAB PO SCH (20:31)
[2017-12-22] MEDS: DOCUSATE 100 MG CAP PO SCH (20:32)
[2017-12-22 20:45] LABS: Glucose,Whole Blood 154 mg/dL (75-99)
--- NOTE | 2017-12-22 21:15 | PN ---
PROGRESS NOTE DATE OF SERVICE: 12/22/2017. HISTORY: This 87-year-old gentleman who was admitted with COPD exacerbation, acute tracheobronchitis, also had change in mental status also. The patient is improving significantly. No fever. Occasional cough is reported. EXAM: Alert and oriented x3. Pulse is 86, blood pressure 148/70, respirations 16, temperature 98.7, pulse ox 94% on room air. HEENT: Conjunctivae normal. NECK: No JVD. CARDIAC: S1 and S2 muffled. LUNGS: Breath sounds diminished at the bases. Few scattered rhonchi. ABDOMEN: Soft, nontender. LEGS: No edema. NERVOUS SYSTEM: Diffuse weakness. LABS: Accu-Cheks noted. Other labs noted. ASSESSMENT: 1. Chronic obstructive pulmonary disease exacerbation with acute purulent tracheobronchitis. 2. Change in mental status, acute metabolic encephalopathy, multifactorial, acute on chronic. 3. Coronary artery disease history. 4. Chronic atrial fibrillation with anticoagulation. 5. Diabetes type 2. 6. Dementia. 7. Chronic obstructive pulmonary disease with chronic hypoxic respiratory failure on home O2. 8. Hypertension. 9. Hyperlipidemia. 10.Previous history of smoking. 11.FULL CODE. RECOMMENDATIONS: Continue current medications. Continue symptomatic treatment. Continue steroids. Continue with rest of the medications. Continue with antibiotics. Continue bronchodilators. Closely follow with Dr. Ceron. Guarded prognosis. Further recommendations to follow. MMODL / IJN: [id number] /
[2017-12-22] MEDS: INSULIN DETEMIR 100 UNIT/ML 10 ML VIAL SQ SCH (23:20)
[2017-12-22] MEDS: NON-FORMULARY DRUG (Omega-3 Fatty Acids/Fish Oil [Fish Oil 1,000 Mg Softgel] 1 CAP) PO SCH (23:24)
[2017-12-23] MEDS: ASPIRIN 81 MG PO SCH (00:02)
[2017-12-23] MEDS: BUDESONIDE 1 MG/2 ML NEBU INHALATION SCH (07:44)
[2017-12-23] MEDS: FORMOTEROL FUMARATE 20 MCG/2 ML NEBU INHALATION SCH (07:44)
[2017-12-23] MEDS: IPRATROPIUM-ALBUTEROL 3 ML NEB INHALATION SCH ×2 (07:44→11:20)
[2017-12-23 07:47] LABS: Glucose,Whole Blood 127 mg/dL (75-99)
[2017-12-23] MEDS: INSULIN ASPART 100 UNIT/ML 1 ML 10 ML VIAL SQ SCH ×2 (07:57→13:15)
[2017-12-23 08:18] VITALS: BP 177/96; RESP 20; TEMP 96.5
[2017-12-23] MEDS: PIPERACILLIN-TAZOBACTAM 3.375 GM in DEXTROSE/WATER 1 50ML.BAG IVPB SCH (08:56)
[2017-12-23] MEDS: methylPREDNISolone SOD SUCCI 40 MG/ML 1 ML VIAL IV SCH (08:56)
[2017-12-23] MEDS: METOPROLOL TARTRATE 50 MG TAB PO SCH (08:56)
[2017-12-23] MEDS: FAMOTIDINE 20 MG TAB PO SCH (08:56)
[2017-12-23] MEDS: LOSARTAN 50 MG TAB PO SCH (08:56)
[2017-12-23] MEDS: APIXABAN 5 MG TAB PO SCH (08:56)
[2017-12-23] MEDS: ISOSORBIDE MONONITRATE ER 30 MG TAB.ER.24H PO SCH (08:57)
[2017-12-23] MEDS: FUROSEMIDE 20 MG TAB PO SCH (08:57)
[2017-12-23] MEDS: metFORMIN 500 MG TAB PO SCH (08:57)
[2017-12-23] MEDS: POTASSIUM CHLORIDE ER 10 MEQ TAB.ER.PRT PO SCH (08:57)
[2017-12-23] MEDS: amLODIPine 5 MG TAB PO SCH (08:57)
[2017-12-23] MEDS: TAMSULOSIN 0.4 MG CAP.ER.24H PO SCH (08:57)
[2017-12-23] MEDS: ATORVASTATIN 40 MG TAB PO SCH (08:58)
[2017-12-23 11:23] VITALS: PULSE 86
[2017-12-23 12:03] LABS: Glucose,Whole Blood 198 mg/dL (75-99)
--- NOTE | 2017-12-23 14:11 | P.PN ---
Subjective Progress Note Date: 12/23/17 Principal diagnosis: Acute exacerbation of COPD and purulent tracheobronchitis This is a very pleasant 87-year-old gentleman who follows with Dr. Chow as his primary care physician. He has a history of dementia, diabetes, hypertension, hyperlipidemia, congestive heart failure with mildly impaired left ventricular systolic function ejection fraction 45-50%, coronary artery disease which is nonoperable according to the patient's , atrial fibrillation anticoagulated with Eliquis. He also has a history of chronic obstructive pulmonary disease, oxygen dependent, maintained on Symbicort, pro- air, and nebulized albuterol treatments in the outpatient setting. 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 He does have an approximate 50 year pack per day smoking history however quit at age 71. He presented here to the emergency room on 12/16/2017 with complaints of increasing shortness of breath, productive cough of yellow sputum, dyspnea on exertion. His chest x-ray did not reveal any acute cardiopulmonary disease. There was cardiomegaly and clearing of the congestive heart failure seen on his previous admission in September 2017. Blood culture is revealing no growth to date. There is no leukocytosis. He is maintaining good O2 saturations in the upper 90s on 2 L/m per nasal cannula. He has been afebrile. Hemodynamically stable. He has been initiated on DuoNeb inhalations to IV Solu-Medrol, empiric antibiotics in the form of doxycycline. He is seen today in consultation on the regular medical floor. He is awake and alert in no acute distress. He is somewhat of a poor historian. His is at the bedside and supplies most of the information. He is breathing easier today as compared to yesterday. Less productive cough. Fever, chills or night sweats. No nausea, vomiting or diarrhea. The patient is seen again today 12/20/2017 in follow-up on the regular medical floor. He is awake and alert in no acute distress. He does deny any worsening shortness of breath at this time. No productive cough or congestion. He has been afebrile. Maintaining good O2 saturations in the high 90s on 2 L/m per nasal cannula. Hemodynamically stable. Blood cultures revealed no growth to date. Blood glucose 182. He remains on Zosyn, bronchodilators, IV Solu-Medrol. The patient is seen again today 12/21/2017 in follow-up on the regular medical floor. He is currently resting quite comfortably in bed. He denies any worsening shortness of breath, cough or congestion. He is improved today as compared to yesterday. He is maintaining good O2 saturations in the 90s on room air. He's been afebrile. Blood cultures reveal no growth. Reevaluated today on 12/22/2017, steadily improving, less cough, less wheezing, less shortness of breath. His diet was modified to avoid potential microaspiration while swallowing. On 12/23/2017 patient seen in follow-up on medical surgical floor. Denies any acute distress. He reports improvement in his dyspnea and chest congestion. Currently on room air, with O2 sat at 94%. Vital signs are stable, patient is afebrile. Lung sounds are clear to auscultation, no wheezes or rhonchi noted. Patient has been ambulating within the room, was able to get up and take a shower today, did become a little dyspneic, recovered well with rest. Tolerated activity well. He continues on thickened liquids, to avoid potential aspiration. Continues on IV Zosyn, nebulized treatments, IV steroids. From pulmonary standpoint, patient is stable for discharge home today on 7 day course of Augmentin, 875-125 twice a day, prednisone taper, nebulized treatments. Objective - Vital Signs Vital signs: Vital Signs Temp 96.5 F L 12/23/17 07:00 Pulse 86 12/23/17 11:35 Resp 20 12/23/17 07:00 BP 177/96 12/23/17 07:00 Pulse Ox 94 L 12/23/17 07:47 Intake & Output 12/22/17 12/23/17 12/23/17 18:59 06:59 18:59 Intake Total 50 530 Balance 50 530 Weight 77.5 kg Intake: Intake, IV Titration 50 50 Amount Piperacillin-Tazobactam 3 50 50 .375 gm In Dextrose/Water 1 50ml.bag @ 12.5 mls/hr IVPB Q8HR [facility] Rx#: [id number] Oral 480 Other: Voiding Method Toilet Toilet Toilet Diaper Diaper Diaper Incontinent Incontinent Incontinent # Voids 1 2 # Bowel Movements 1 0 1 - Exam GENERAL EXAM: Alert, pleasant, 87-year-old white male, comfortable in no apparent distress. HEAD: Normocephalic/atraumatic. EYES: Normal reaction of pupils, equal size. Conjunctiva pink, sclera white. NOSE: Clear with pink turbinates. THROAT: No erythema or exudates. NECK: No masses, no JVD, no thyroid enlargement, no adenopathy. CHEST: No chest wall deformity. Symmetrical expansion. LUNGS: Equal air entry with no crackles, wheeze, rhonchi or dullness. CVS: Regular rate and rhythm, normal S1 and S2, no gallops, no murmurs, no rubs ABDOMEN: Soft, nontender. No hepatosplenomegaly, normal bowel sounds, no guarding or rigidity. EXTREMITIES: No clubbing, no edema, no cyanosis, 2+ pulses and upper and lower extremities. MUSCULOSKELETAL: Muscle strength and tone normal. SPINE: No scoliosis or deformity SKIN: No rashes CENTRAL NERVOUS SYSTEM: Alert and oriented -3. No focal deficits, tone is normal in all 4 extremities. PSYCHIATRIC: Alert and oriented -3. Appropriate affect. Intact judgment and insight. - Labs CBC & Chem 7: 12/19/17 07:51 12/19/17 07:51 Labs: Abnormal Lab Results - Last 24 Hours (Table) 12/22/17 12/22/17 12/23/17 Range/Units 17:38 20:44 07:27 POC Glucose (mg/dL) 171 H 154 H 127 H (75-99) mg/dL 12/23/17 Range/Units 11:47 POC Glucose (mg/dL) 198 H (75-99) mg/dL Microbiology - Last 24 Hours (Table) 12/16/17 21:18 Blood Culture - Final Blood No Growth after 144 hours Assessment and Plan Plan: Assessment: #1 Acute exacerbation of chronic oxygen dependent obstructive pulmonary disease , complicated by purulent tracheobronchitis. No clear evidence of pneumonia. #2 Acute on chronic hypoxic respiratory failure secondary to above. #3 History of chronic tobacco dependence of 50 years at 1 pack per day however quit many years ago. #4 Dementia. Maintained on Aricept #5 History of atrial fibrillation, on metoprolol, anticoagulated with Eliquis. #6 Chronic systolic congestive heart failure with ejection fraction 45-50 %. An oral Lasix. 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 [employer] at [facility]. 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 #8 Hypertension. On losartan and metoprolol. #9 Hyperlipidemia. On Lipitor. #10 Diabetes mellitus. On Glucophage. #11 Dysphagia. Barium swallow in September 2017 revealed aspiration with thin liquids requiring nectar thickened. #12 Poor overall functional performance based on the above-mentioned multiple comorbidities. Plan: Patient continues to improve, vital signs are stable, denies any worsening dyspnea, chest congestion or cough. No acute events overnight, continue increasing activity as tolerated. He continues on a modified diet with nectar thick liquids and supervised feedings. From pulmonary standpoint patient is stable for discharge home today, on 7 day course of oral Augmentin 875/125 twice a day, prednisone taper, his maintenance inhalers and nebulized treatments. Follow-up with Dr. Alamo in the office in 7-10 days. I performed a history & physical examination of the patient and discussed their management with my nurse practitioner, Leticia Jeff. I reviewed the nurse practitioner's note and agree with the documented findings and plan of care. Lung sounds are positive for clear lung sounds. The findings and the impression was discussed with the patient. I attest to the documentation by the nurse practitioner. Time with Patient: Less than 30
--- NOTE | 2017-12-23 21:37 | P.PN ---
Subjective Progress Note Date: 12/19/17 Principal diagnosis: Acute COPD exacerbation Patient is a 87-year-old male with a known history of chronic atrial fibrillation on anticoagulation, COPD on home oxygen, dementia, diabetes type 2 , hypertension and multiple other medical problems presents with complaints of shortness of breath or past several days. He's had a cough with yellow phlegm no overt fevers chills or sweats however is evidence exertional dyspnea. No chest pain. He does use inhalers at home he was eating some relief with these. He did also complain some soreness to his throat no earaches as well. Chest x-ray showed no acute cardio pulmonary process EKG showed atrial fibrillation On 12/18/2017 Patient says that his breathing is better today. Saturating well on nasal cannula. Otherwise patient is having hyperglycemia due to steroids. Continued on IV steroids and breathing treatments and antibiotics. No fever no chills. Discussed with his at bedside 12/19/2017 Patient still feels short of breath. Otherwise patient says he is doing fine. Still having decreased air entry. Continued on breathing treatments and IV steroids. Pulmonary be consulted for evaluation. No fever no chills. Tolerating oral diet. No other acute overnight issues. Discussed with his at bedside. All other review of systems negative except the above Current medications reviewed Objective - Vital Signs Vital signs: Vital Signs Temp 97.4 F L 12/19/17 06:24 Pulse 88 12/19/17 11:01 Resp 18 12/19/17 06:24 BP 168/94 12/19/17 06:24 Pulse Ox 97 12/19/17 06:24 Intake & Output 12/18/17 12/19/17 12/19/17 18:59 06:59 18:59 Intake Total 500 Balance 500 Weight 73.4 kg 73.9 kg Intake: Oral 500 Other: Voiding Method Toilet Toilet Toilet Urinal Diaper Diaper Incontinent Incontinent Incontinent # Voids 3 3 # Bowel Movements 1 - Exam PHYSICAL EXAMINATION: Patient is lying in the bed comfortably, no acute distress, awake alert and oriented.. HEENT: Normocephalic. Neck is supple. Pupils reactive. Nostrils clear. Oral cavity is moist. Ears reveal no drainage. Neck reveals no JVD, carotid bruits, or thyromegaly. CHEST EXAMINATION: Trachea is central. Symmetrical expansion. Bilateral air entry diminished with expiratory wheezing. CARDIAC: Normal S1, S2 with no gallops. No murmurs ABDOMEN: Soft. Bowel sounds normal. No organomegaly. No abdominal bruits. Extremities: reveal no edema. No clubbing or cyanosis Neurologically awake, alert, oriented x3 with well-coordinated movements. No focal deficits noted Skin: No rash or skin lesions. Psychiatric: Coperative. Nonsuicidal Musculoskeletal: No joint swelling or deformity. Normal range of motion. - Labs CBC & Chem 7: 12/19/17 07:51 12/19/17 07:51 Labs: Abnormal Lab Results - Last 24 Hours (Table) 12/18/17 12/18/17 12/19/17 Range/Units 17:21 20:41 07:51 Hgb 12.8 L (13.0-17.5) gm/dL Neutrophils # 9.3 H (1.3-7.7) k/uL Lymphocytes # 0.6 L (1.0-4.8) k/uL Carbon Dioxide (22-30) mmol/L BUN (9-20) mg/dL Glucose (74-99) mg/dL POC Glucose (mg/dL) 133 H 211 H (75-99) mg/dL 12/19/17 12/19/17 12/19/17 Range/Units 07:51 08:00 11:42 Hgb (13.0-17.5) gm/dL Neutrophils # (1.3-7.7) k/uL Lymphocytes # (1.0-4.8) k/uL Carbon Dioxide 34 H (22-30) mmol/L BUN 24 H (9-20) mg/dL Glucose 133 H (74-99) mg/dL POC Glucose (mg/dL) 154 H 128 H (75-99) mg/dL Microbiology - Last 24 Hours (Table) 12/16/17 21:18 Blood Culture - Preliminary Blood No Growth after 48 hours Assessment and Plan Assessment: Acute COPD exacerbation due to tracheobronchitis. Coronary artery disease history Chronic atrial fibrillation on anticoagulation Diabetes type 2 Dementia COPD on home oxygen chronic hypoxic respiratory failure on home oxygen Hypertension Hyperlipidemia Previous history of smoking Plan: Patient will be continued on IV Solu-Medrol along with breathing treatments and follow up closely. Continue doxycycline 100 mg twice a day for tracheobronchitis. Continue with home medications and follow up closely. GI prophylaxis. Oxygen therapy and further recommendations based on the clinical course. Prognosis is guarded with multiple medical problems and comorbid conditions. Discussed with his at bedside in detail.
--- NOTE | 2017-12-23 22:19 | DS ---
DISCHARGE SUMMARY DATE OF SERVICE: 12/23/2017. FINAL DIAGNOSES: 1. Chronic obstructive pulmonary disease exacerbation with acute purulent tracheobronchitis. 2. Change in mental status, acute metabolic encephalopathy, multifactorial, acute on chronic. 3. Coronary artery disease history. 4. Chronic atrial fibrillation with anticoagulation. 5. Diabetes mellitus type 2. 6. Dementia. 7. Chronic obstructive pulmonary disease with chronic hypoxic respiratory failure on home O2. 8. Hypertension. 9. Hyperlipidemia. 10.Previous history of smoking. 11.FULL CODE. DISCHARGE DISPOSITION: The patient is being discharged in stable condition with guarded prognosis. HISTORY OF PRESENT ILLNESS: This 87-year-old gentleman with a past medical history of multiple medical problems including COPD acute exacerbation, acute tracheobronchitis. Patient was treated with bronchodilators and antibiotics. Improved significantly. On exam, vital signs are stable. Cardiovascular: S1, S2 Abdomen: Soft. Respiratory: A few scattered rhonchi. DISCHARGE ADVICE AND MEDICATIONS: 1. Diet is cardiac. 2. Activities limited until followup. 3. Follow up with Dr. Borges in 2-3 days. 4. Follow up with Dr. Ceron as advised. MEDICATIONS: 1. Albuterol inhaler HFA 1-2 puffs q.4h p.r.n. 2. Xanax 0.25 b.i.d. p.r.n. 3. Norvasc 5 mg p.o. daily. 4. Augmentin 875 mg p.o. b.i.d. for 1 week. 5. Eliquis 5 mg p.o. b.i.d. 6. Aspirin 81 mg Saturday, Saturday and Saturday. 7. Lipitor 40 mg q.a.m. 8. Symbicort 2 puffs b.i.d. 9. Colace 200 mg q.h.s. 10.Aricept 10 mg q.h.s. 11.Pepcid 20 mg p.o. b.i.d. 12.Lasix 20 mg p.o. b.i.d. 13.Imdur ER 30 mg p.o. q.a.m. 14.Losartan 100 mg q.a.m. 15.Glucophage 500 mg q.a.m. 16.Lopressor 50 mg p.o. b.i.d. 17.[place]ville-3 fatty acids 1 p.o. q.h.s. 18.K-Tab ER 10 mg p.o. q.a.m. 19.Prednisone taper that will be 40 mg daily for 3 days, 30 for 3 days, 20 for 3 days, 10 for 3 days and then stop. 20.Flomax 0.4 q.a.m. Once again, the patient is discharged in stable condition with guarded prognosis. MMODL / IJN: [id number] /
[2017-12-24] MEDS ORDERED: predniSONE 20 MG TAB PO SCH (09:00)
== END 2017-12-23 14:12 | disposition home health service (06) | DRG 190 ==
LOC: EC 20:36 → 4MS4W 12-17 00:26 → OBSVTOIN 12-19 08:13 → 4MS4W 12-22 01:05
PROVIDERS: ADMIT Internal Medicine; ATTEND Internal Medicine
DX: J44.0 Chronic obstructive pulmonary disease with (acute) lower respiratory infection (principal); J96.21 Acute and chronic respiratory failure with hypoxia; G93.41 Metabolic encephalopathy; E11.65 Type 2 diabetes mellitus with hyperglycemia; I48.2 Chronic atrial fibrillation; R13.10 Dysphagia, unspecified; I50.22 Chronic systolic (congestive) heart failure; I11.0 Hypertensive heart disease with heart failure; Z99.81 Dependence on supplemental oxygen; J20.9 Acute bronchitis, unspecified; J44.1 Chronic obstructive pulmonary disease with (acute) exacerbation; T38.0X5A Adverse effect of glucocorticoids and synthetic analogues, initial encounter; F03.90 Unspecified dementia, unspecified severity, without behavioral disturbance, psychotic disturbance, mood disturbance, and anxiety; I25.10 Atherosclerotic heart disease of native coronary artery without angina pectoris; N42.9 Disorder of prostate, unspecified; R32 Unspecified urinary incontinence; E78.5 Hyperlipidemia, unspecified; Z96.1 Presence of intraocular lens; Z98.41 Cataract extraction status, right eye; Z98.42 Cataract extraction status, left eye; Z87.891 Personal history of nicotine dependence; Z79.01 Long term (current) use of anticoagulants; Z79.82 Long term (current) use of aspirin; Z79.51 Long term (current) use of inhaled steroids; Z79.899 Other long term (current) drug therapy; Z91.030 Bee allergy status
CPT/HCPCS: 36415; 71045; 71046; 80048; 80053; 82140; 82550; 82553; 83036; 83605; 83735; 83880; 84484; 85025; 85610; 85730; 87040; 87502; 93005; 94640; 94760; 96361; 96374; 96375; 99291

== ENCOUNTER 2018-11-15 12:44 | Inpatient (IN) | payer MEDICARE ==
[2018-11-15] MEDS ORDERED: SODIUM CHLORIDE 0.9% 1,000 ML IV ONE ×3 (14:00)
--- NOTE | 2018-11-15 14:06 | ED ---
General Adult HPI - General Chief complaint: Recheck/Abnormal Lab/Rx Stated complaint: BLOOD PRESSURE ISSUES/CONFUSION Time Seen by Provider: 11/15/18 13:37 Source: patient, family, RN notes reviewed, old records reviewed Mode of arrival: wheelchair Limitations: no limitations - History of Present Illness Initial comments: Patient is an 88-year-old male who presents emergency Department with his and children. Over the past 3 days he's had increased confusion with multiple falls. One time he did fall and hit his the right side of his head. He is on blood thinners. They were concerned because he's had increased confusion. His blood pressure at home has been quite abnormal. His blood pressure this morning was 190 systolic. Is not 88 systolic. Patient denies any pain at this time. He has history of A. fib. Patient has had contusion over the right side of the brain. They report that his appetite has been poor. - Related Data Home Medications Medication Instructions Recorded Confirmed Atorvastatin [Lipitor] 40 mg PO QAM 06/04/15 11/15/18 Tamsulosin [Flomax] 0.4 mg PO QAM 06/04/15 11/15/18 Aspirin [Adult Low Dose Aspirin EC] 81 mg PO MOWEFR 09/23/17 11/15/18 Budesonide/Formoterol Fumarate 2 puff INHALATION RT-BID 09/23/17 11/15/18 [Symbicort 160-4.5 Mcg Inhaler] Donepezil [Aricept] 10 mg PO HS 09/23/17 11/15/18 Isosorbide Mononitrate ER [Imdur] 30 mg PO QAM 09/23/17 11/15/18 Metoprolol Tartrate [Lopressor] 50 mg PO BID 09/23/17 11/15/18 Potassium Chloride [K-Tab ER] 10 meq PO QAM 09/23/17 11/15/18 metFORMIN HCL [Glucophage] 500 mg PO QAM 09/23/17 11/15/18 ALPRAZolam [Xanax] 0.25 mg PO BID PRN 12/16/17 11/15/18 Apixaban [Eliquis] 5 mg PO BID 12/16/17 11/15/18 Docusate [Colace] 200 mg PO HS 12/16/17 11/15/18 Losartan Potassium 100 mg PO QAM 12/16/17 11/15/18 Newton-3 Fatty Acids/Fish Oil [Fish 1 cap PO HS 12/16/17 11/15/18 Oil 1,000 mg Softgel] Albuterol Inhaler [Ventolin Hfa 1 - 2 puff INHALATION RT-QID PRN 11/15/18 Inhaler] Albuterol Nebulized [Ventolin 2.5 mg INHALATION RT-QID PRN 11/15/18 11/15/18 Nebulized] Ascorbic Acid [Vitamin C] 500 mg PO DAILY 11/15/18 11/15/18 Previous Rx's Medication Instructions Recorded Furosemide [Lasix] 20 mg PO BID@0900,1600 #60 tab 09/25/17 Allergies Allergy/AdvReac Type Severity Reaction Status Date / Time amoxicillin [From Augmentin] Allergy Rash/Hives Verified 11/15/18 13:42 bee pollen Allergy Swelling Verified 11/15/18 13:42 clavulanic acid Allergy Rash/Hives Verified 11/15/18 13:42 [From Augmentin] Review of Systems ROS Statement: Those systems with pertinent positive or pertinent negative responses have been documented in the HPI. ROS Other: All systems not noted in ROS Statement are negative. Past Medical History Past Medical History: Atrial Fibrillation, Coronary Artery Disease (CAD), Heart Failure, COPD, Dementia, Diabetes Mellitus, Hyperlipidemia, Hypertension, Prostate Disorder Additional Past Medical History / Comment(s): NIDDM type II, beginning of dementia, joint pain-multiple sites. History of Any Multi-Drug Resistant Organisms: None Reported Past Surgical History: Heart Catheterization, Hernia Repair, Tonsillectomy Additional Past Surgical History / Comment(s): TURP, cystoscopy, L inguinal herniorraphy, bilateral cataract removal with lens implants. Past Anesthesia/Blood Transfusion Reactions: No Reported Reaction Past Psychological History: No Psychological Hx Reported Smoking Status: Never smoker Past Alcohol Use History: None Reported Past Drug Use History: None Reported - Past Family History Mother Additional Family Medical History / Comment(s): Mother either of CHF or a ME at the ageof 82 yrs. Father Family Medical History: Cancer Additional Family Medical History / Comment(s): Father of complications after surgery for throat cancer at the age of 76yrs. General Exam - General Exam Comments Initial Comments: 88-year-old male alert and oriented 2. Is alert to person and place. Unable to state date Patient states it's 1930. Limitations: no limitations General appearance: alert, in no apparent distress Head exam: Present: atraumatic, normocephalic, normal inspection Eye exam: Present: normal appearance, PERRL, EOMI. Absent: scleral icterus, conjunctival injection, periorbital swelling ENT exam: Present: normal exam, mucous membranes moist Neck exam: Present: normal inspection. Absent: tenderness, meningismus, lymphadenopathy Respiratory exam: Present: normal lung sounds bilaterally. Absent: respiratory distress, wheezes, rales, rhonchi, stridor Cardiovascular Exam: Present: regular rate, normal rhythm, normal heart sounds. Absent: systolic murmur, diastolic murmur, rubs, gallop, clicks GI/Abdominal exam: Present: soft, normal bowel sounds. Absent: distended, tenderness, guarding, rebound, rigid Extremities exam: Present: normal inspection, full ROM, normal capillary refill. Absent: tenderness, pedal edema, joint swelling, calf tenderness Back exam: Present: normal inspection Neurological exam: Present: alert, oriented X3, CN II-XII intact Psychiatric exam: Present: normal affect, normal mood Skin exam: Present: warm, dry, intact, normal color. Absent: rash Course Vital Signs 11/15/18 11/15/18 11/15/18 12:45 13:30 14:30 Temperature 97.4 F L Pulse Rate 78 79 Respiratory 20 Rate Blood Pressure 87/50 91/59 92/72 O2 Sat by Pulse 100 Oximetry 11/15/18 11/15/18 11/15/18 15:00 15:30 16:00 Temperature Pulse Rate 79 80 99 Respiratory 18 Rate Blood Pressure 108/50 100/59 111/85 O2 Sat by Pulse 97 97 Oximetry Medical Decision Making - Medical Decision Making 88-year-old male presents for times a day with continued increased confusion frequent falls and altered mental status. Patient's family is concerned with labile blood pressure. He arrives to emergency department, and blood pressure was 70/50. He's had increased confusion and frequent falls. Full workup was obtained. Lab work was reviewed. Slightly unremarkable white blood cell count. Blood pressure did improve after receiving 2 L bolus. Chest x-ray does show evidence of retrocardiac pneumonia. Family does admit to slight coughing. At this time he is started on IV Rocephin and will also be added on azithromycin. He does have a history of dementia. He also frequent falls and hit his head. I did give the Patient a CT of the brain and this was negative for any acute process. Patient will be admitted this time for sepsis and pneumonia protocol was used. Dr. Casarez discussed the case with Dr. Evans. - Lab Data Result diagrams: 11/15/18 13:07 11/15/18 13:07 Lab Results 11/15/18 11/15/18 11/15/18 Range/Units 13:07 13:07 13:07 WBC 7.5 (3.8-10.6) k/uL RBC 4.30 (4.30-5.90) m/uL Hgb 12.9 L (13.0-17.5) gm/dL Hct 39.1 (39.0-53.0) % MCV 90.9 (80.0-100.0) fL MCH 30.0 (25.0-35.0) pg MCHC 33.0 (31.0-37.0) g/dL RDW 15.0 (11.5-15.5) % Plt Count 199 (150-450) k/uL Neutrophils % 70 % Lymphocytes % 18 % Monocytes % 5 % Eosinophils % 4 % Basophils % 1 % Neutrophils # 5.2 (1.3-7.7) k/uL Lymphocytes # 1.4 (1.0-4.8) k/uL Monocytes # 0.4 (0-1.0) k/uL Eosinophils # 0.3 (0-0.7) k/uL Basophils # 0.1 (0-0.2) k/uL PT (9.0-12.0) sec INR (<1.2) APTT (22.0-30.0) sec Sodium 142 (137-145) mmol/L Potassium 5.3 H (3.5-5.1) mmol/L Chloride 108 H (98-107) mmol/L Carbon Dioxide 26 (22-30) mmol/L Anion Gap 8 mmol/L BUN 38 H (9-20) mg/dL Creatinine 1.06 (0.66-1.25) mg/dL Est GFR (CKD-EPI)AfAm 73 (>60 ml/min/1.73 sqM) Est GFR (CKD-EPI)NonAf 63 (>60 ml/min/1.73 sqM) Glucose 95 (74-99) mg/dL POC Glucose (mg/dL) (75-99) mg/dL POC Glu Bilingual Student Tutor ID Calcium 9.8 (8.4-10.2) mg/dL Total Bilirubin 0.7 (0.2-1.3) mg/dL AST 24 (17-59) U/L ALT 24 (21-72) U/L Alkaline Phosphatase 46 (38-126) U/L Ammonia (<30) umol/L Total Creatine Kinase 46 L (55-170) U/L CK-MB (CK-2) 1.3 (0.0-2.4) ng/mL CK-MB (CK-2) Rel Index 2.8 Troponin I <0.012 (0.000-0.034) ng/mL Total Protein 6.5 (6.3-8.2) g/dL Albumin 3.7 (3.5-5.0) g/dL 11/15/18 11/15/18 11/15/18 Range/Units 13:07 14:38 14:55 WBC (3.8-10.6) k/uL RBC (4.30-5.90) m/uL Hgb (13.0-17.5) gm/dL Hct (39.0-53.0) % MCV (80.0-100.0) fL MCH (25.0-35.0) pg MCHC (31.0-37.0) g/dL RDW (11.5-15.5) % Plt Count (150-450) k/uL Neutrophils % % Lymphocytes % % Monocytes % % Eosinophils % % Basophils % % Neutrophils # (1.3-7.7) k/uL Lymphocytes # (1.0-4.8) k/uL Monocytes # (0-1.0) k/uL Eosinophils # (0-0.7) k/uL Basophils # (0-0.2) k/uL PT 11.2 (9.0-12.0) sec INR 1.1 (<1.2) APTT 27.9 (22.0-30.0) sec Sodium (137-145) mmol/L Potassium (3.5-5.1) mmol/L Chloride (98-107) mmol/L Carbon Dioxide (22-30) mmol/L Anion Gap mmol/L BUN (9-20) mg/dL Creatinine (0.66-1.25) mg/dL Est GFR (CKD-EPI)AfAm (>60 ml/min/1.73 sqM) Est GFR (CKD-EPI)NonAf (>60 ml/min/1.73 sqM) Glucose (74-99) mg/dL POC Glucose (mg/dL) 96 (75-99) mg/dL POC Glu Bilingual Student Tutor ID Karma Tinsley Calcium (8.4-10.2) mg/dL Total Bilirubin (0.2-1.3) mg/dL AST (17-59) U/L ALT (21-72) U/L Alkaline Phosphatase (38-126) U/L Ammonia 10 (<30) umol/L Total Creatine Kinase (55-170) U/L CK-MB (CK-2) (0.0-2.4) ng/mL CK-MB (CK-2) Rel Index Troponin I (0.000-0.034) ng/mL Total Protein (6.3-8.2) g/dL Albumin (3.5-5.0) g/dL 11/15/18 14:10 EKG performed at 1315 shows atrial fibrillation with PVCs with aberrant conductive compresses. Left axis deviation. Low voltage QRS. Inferior infarct. . Possible infiltrate or lateral infarct. Abnormal EKG. Ventricularly 76 bpm. Verbal and affect. QRS duration 92. QTQTC 3-6/434 ms. - Radiology Data Radiology results: report reviewed No acute intracranial hemorrhage or midline shift. Diffuse age-related cervical atrophy and chronic small vessel ischemic changes noted. Acute on chronic mild sinusitis. Chest x-ray shows retrocardiac opacity which may represent atelectasis or developing pneumonia. Disposition Clinical Impression: Pneumonia, Sepsis, Altered mental status Disposition: ADMITTED IP TO THIS HOSP Condition: Good Is patient prescribed a controlled substance at d/c from ED?: No Referrals: Larissa Borges DO [Primary Care Provider] - 1-2 days Time of Disposition: 17:15
--- NOTE | 2018-11-15 14:37 | XR ---
EXAMINATION TYPE: XR chest 2V DATE OF EXAM: 11/15/2018 COMPARISON: 12/21/2017 and 12/16/2017 HISTORY: Altered mental status TECHNIQUE: Frontal and lateral views of the chest are obtained. FINDINGS: Patchy retrocardiac opacity seen on the lateral view may represent atelectasis or pneumoni a. Cardia mediastinal silhouette is again enlarged. Platelike left basilar atelectasis is seen. Lungs are slightly hypoventilatory exaggerated in the pulmonary vasculature. Ascending thoracic aorta appe ars prominent in size on the lateral view, similar to the prior. IMPRESSION: Retrocardiac opacity may represent atelectasis or developing pneumonia.
[2018-11-15 14:40] LABS: Glucose,Whole Blood 96 mg/dL (75-99)
[2018-11-15 14:41] LABS: Basophils # (A) 0.1 k/uL (0-0.2); Basophils % (A) 1 %; Eosinophils # (A) 0.3 k/uL (0-0.7); Eosinophils % (A) 4 %; HCT 39.1 % (39.0-53.0); HGB 12.9 gm/dL (13.0-17.5); Lymphocytes # (A) 1.4 k/uL (1.0-4.8); Lymphocytes % (A) 18 %; MCV 90.9 fL (80.0-100.0); Mean Platelet Volume 6.9; Monocytes # (A) 0.4 k/uL (0-1.0); Monocytes % (A) 5 %; Neutrophils # (A) 5.2 k/uL (1.3-7.7); Neutrophils % (A) 70 %; Platelet Count 199 k/uL (150-450); WBC 7.5 k/uL (3.8-10.6)
--- NOTE | 2018-11-15 14:44 | CT ---
EXAMINATION TYPE: CT brain wo con DATE OF EXAM: 11/15/2018 COMPARISON: None HISTORY: Altered mental status with multiple falls and weakness CT DLP: 1070.4 mGycm Automated exposure control for dose reduction was used. TECHNIQUE: CT scan of the head is performed without contrast. FINDINGS: There is no acute intracranial hemorrhage or midline shift identified. There is diffuse v entricular and sulcal prominence consistent with diffuse age-related cerebral atrophy. There is low- attenuation in the periventricular white matter consistent with chronic small vessel ischemic change. The globes are intact. Mucoperiosteal thickening is seen within the maxillary sinuses suggesting ch ronic component. Mild mucosal thickening within the left maxillary and sphenoid sinuses are seen. Rem aining paranasal sinuses and mastoid air cells are well aerated. IMPRESSION: 1. No acute intracranial hemorrhage or midline shift. 2. Diffuse age-related cerebral atrophy and chronic small vessel ischemic change. 3. Acute on chronic mild sinusitis.
[2018-11-15 14:53] LABS: INR 1.1 (<1.2); Partial Thromboplastin Time 27.9 sec (22.0-30.0); Prothrombin Time 11.2 sec (9.0-12.0)
[2018-11-15 14:59] LABS: Albumin 3.7 g/dL (3.5-5.0); Calcium 9.8 mg/dL (8.4-10.2); Creatine Kinase 46 U/L (55-170); Potassium 5.3 mmol/L (3.5-5.1); Total Bilirubin 0.7 mg/dL (0.2-1.3); Total Protein 6.5 g/dL (6.3-8.2)
[2018-11-15 15:11] LABS: Creatine Kinase MB 1.3 ng/mL (0.0-2.4); Troponin I <0.012 ng/mL (0.000-0.034)
[2018-11-15] MEDS ORDERED: IPRATROPIUM-ALBUTEROL 3 ML NEB INHALATION PRN (17:25)
[2018-11-15] MEDS ORDERED: PNEUMONIA PROTOCOL UTILIZED 1 EACH MISC PO PRN (17:25)
[2018-11-15] MEDS ORDERED: ALPRAZolam 0.25 MG TAB PO PRN (17:28)
[2018-11-15] MEDS ORDERED: ALBUTEROL NEBULIZED 2.5 MG/3 ML INHALATION PRN (17:28)
[2018-11-15] MEDS ORDERED: AZITHROMYCIN 500 MG in SODIUM CHLORIDE 0.9% 250 ML IVPB STA (17:43)
[2018-11-15 19:06] LABS: Appearance,Urine Clear (Clear); Bilirubin,Urine Negative (Negative); Blood,Urine Negative (Negative); Color,Urine Yellow; Glucose,Urine (UA) Negative (Negative); Ketones,Urine Negative (Negative); Leukocyte Esterase,Urine Negative (Negative); Nitrite,Urine Negative (Negative); Protein,Urine Negative (Negative); Specific Gravity,Urine 1.019 (1.001-1.035); Urobilinogen,Urine <2.0 mg/dL (<2.0)
[2018-11-15 19:24] LABS: Amphetamine Screen,Urine Not Detected (NotDetected); Barbiturate Screen,Urine Not Detected (NotDetected); Benzodiazepines Screen,Urine Detected (NotDetected); Cocaine Screen,Urine Not Detected (NotDetected); Methadone Screen, Urine Not Detected (NotDetected); Opiate Screen,Urine Not Detected (NotDetected); Oxycodone Screen, Urine Not Detected (NotDetected); Phencyclidine Screen,Urine Not Detected (NotDetected); Tricyclic Antidepressant,Urine Not Detected (NotDetected); Urn Cannabinoid Scrn Not Detected (NotDetected)
[2018-11-15] MEDS ORDERED: NON-FORMULARY DRUG (Omega-3 Fatty Acids/Fish Oil [Fish Oil 1,000 Mg Softgel] 1 CAP) PO SCH (21:00)
[2018-11-15] MEDS: METOPROLOL TARTRATE 50 MG TAB PO SCH (21:22)
[2018-11-15] MEDS: DOCUSATE 100 MG CAP PO SCH (21:22)
[2018-11-15] MEDS: DONEPEZIL 10 MG TAB PO SCH (21:22)
[2018-11-15] MEDS: APIXABAN 5 MG TAB PO SCH (21:22)
[2018-11-15] MEDS: SYMBICORT 160-4.5 MCG INHALER INHALATION SCH (21:41)
[2018-11-15] MEDS: IPRATROPIUM-ALBUTEROL 3 ML NEB INHALATION SCH ×2 (21:42→23:18)
--- NOTE | 2018-11-15 22:50 | P.HPIM ---
History of Present Illness H&P Date: 11/15/18 Patient is an 88-year-old male who presents emergency Department with his and children. Over the past 3 days he's had increased confusion with multiple falls. One time he did fall and hit his the right side of his head. He is on blood thinners. They were concerned because he's had increased confusion. His blood pressure at home has been quite abnormal. His blood pressure this morning was 190 systolic. Is not 88 systolic. Patient denies any pain at this time. He has history of A. fib. Patient has had contusion over the right side of the brain. They report that his appetite has been poor. Past Medical History Past Medical History: Atrial Fibrillation, Coronary Artery Disease (CAD), Heart Failure, COPD, Dementia, Diabetes Mellitus, Hyperlipidemia, Hypertension, Prostate Disorder Additional Past Medical History / Comment(s): NIDDM type II, beginning of dementia, joint pain-multiple sites. History of Any Multi-Drug Resistant Organisms: None Reported Past Surgical History: Heart Catheterization, Hernia Repair, Tonsillectomy Additional Past Surgical History / Comment(s): TURP, cystoscopy, L inguinal herniorraphy, bilateral cataract removal with lens implants. Past Anesthesia/Blood Transfusion Reactions: No Reported Reaction Past Psychological History: No Psychological Hx Reported Smoking Status: Never smoker Past Alcohol Use History: None Reported Past Drug Use History: None Reported - Past Family History Mother Additional Family Medical History / Comment(s): Mother either of CHF or a [place] at the ageof 82 yrs. Father Family Medical History: Cancer Additional Family Medical History / Comment(s): Father of complications after surgery for throat cancer at the age of 76yrs. Medications and Allergies Home Medications Medication Instructions Recorded Confirmed Type Atorvastatin [Lipitor] 40 mg PO QAM 06/04/15 11/15/18 History Tamsulosin [Flomax] 0.4 mg PO QAM 06/04/15 11/15/18 History Aspirin [Adult Low Dose Aspirin EC] 81 mg PO MOWEFR 09/23/17 11/15/18 History Budesonide/Formoterol Fumarate 2 puff INHALATION RT-BID 09/23/17 11/15/18 History [Symbicort 160-4.5 Mcg Inhaler] Donepezil [Aricept] 10 mg PO HS 09/23/17 11/15/18 History Isosorbide Mononitrate ER [Imdur] 30 mg PO QAM 09/23/17 11/15/18 History Metoprolol Tartrate [Lopressor] 50 mg PO BID 09/23/17 11/15/18 History Potassium Chloride [K-Tab ER] 10 meq PO QAM 09/23/17 11/15/18 History metFORMIN HCL [Glucophage] 500 mg PO QAM 09/23/17 11/15/18 History Furosemide [Lasix] 20 mg PO BID@0900,1600 #60 tab 09/25/17 11/15/18 Rx ALPRAZolam [Xanax] 0.25 mg PO BID PRN 12/16/17 11/15/18 History Apixaban [Eliquis] 5 mg PO BID 12/16/17 11/15/18 History Docusate [Colace] 200 mg PO HS 12/16/17 11/15/18 History Losartan Potassium 100 mg PO QAM 12/16/17 11/15/18 History [place]-3 Fatty Acids/Fish Oil [Fish 1 cap PO HS 12/16/17 11/15/18 History Oil 1,000 mg Softgel] Albuterol Inhaler [Ventolin Hfa 1 - 2 puff INHALATION RT-QID PRN 11/15/18 History Inhaler] Albuterol Nebulized [Ventolin 2.5 mg INHALATION RT-QID 11/15/18 11/15/18 History Nebulized] Ascorbic Acid [Vitamin C] 500 mg PO DAILY 11/15/18 11/15/18 History Allergies Allergy/AdvReac Type Severity Reaction Status Date / Time amoxicillin [From Augmentin] Allergy Rash/Hives Verified 11/15/18 13:42 bee pollen Allergy Swelling Verified 11/15/18 13:42 clavulanic acid Allergy Rash/Hives Verified 11/15/18 13:42 [From Augmentin] Physical Exam Vitals: Vital Signs Temp Pulse Resp BP Pulse Ox 11/15/18 19:24 75 20 116/69 95 11/15/18 18:30 77 103/68 11/15/18 18:00 129/81 11/15/18 17:30 71 121/73 11/15/18 17:00 65 117/97 11/15/18 16:00 99 18 111/85 11/15/18 15:30 80 100/59 97 11/15/18 15:00 79 108/50 97 11/15/18 14:30 92/72 11/15/18 13:30 79 91/59 11/15/18 12:45 97.4 F L 78 20 87/50 100 Intake and Output 11/15/18 11/15/18 11/15/18 06:59 14:59 22:59 Other: Weight 64.864 kg 88-year-old male alert and oriented 2. Is alert to person and place. Unable to state date Patient states it's 1930. Limitations: no limitations General appearance: alert, in no apparent distress Head exam: Present: atraumatic, normocephalic, normal inspection Eye exam: Present: normal appearance, PERRL, EOMI. Absent: scleral icterus, conjunctival injection, periorbital swelling ENT exam: Present: normal exam, mucous membranes moist Neck exam: Present: normal inspection. Absent: tenderness, meningismus, lymphadenopathy Respiratory exam: Present: normal lung sounds bilaterally. Absent: respiratory distress, wheezes, rales, rhonchi, stridor Cardiovascular Exam: Present: regular rate, normal rhythm, normal heart sounds. Absent: systolic murmur, diastolic murmur, rubs, gallop, clicks GI/Abdominal exam: Present: soft, normal bowel sounds. Absent: distended, tenderness, guarding, rebound, rigid Extremities exam: Present: normal inspection, full ROM, normal capillary refill. Absent: tenderness, pedal edema, joint swelling, calf tenderness Back exam: Present: normal inspection Neurological exam: Present: alert, oriented X3, CN II-XII intact Psychiatric exam: Present: normal affect, normal mood Skin exam: Present: warm, dry, intact, normal color. Absent: rash Results CBC & Chem 7: 11/15/18 13:07 11/15/18 13:07 Labs: Abnormal Lab Results - Last 24 Hours (Table) 11/15/18 11/15/18 11/15/18 Range/Units 13:07 13:07 13:07 Hgb 12.9 L (13.0-17.5) gm/dL Potassium 5.3 H (3.5-5.1) mmol/L Chloride 108 H (98-107) mmol/L BUN 38 H (9-20) mg/dL Total Creatine Kinase 46 L (55-170) U/L U Benzodiazepines Scrn (NotDetected) 11/15/18 Range/Units 18:25 Hgb (13.0-17.5) gm/dL Potassium (3.5-5.1) mmol/L Chloride (98-107) mmol/L BUN (9-20) mg/dL Total Creatine Kinase (55-170) U/L U Benzodiazepines Scrn Detected H (NotDetected) Assessment and Plan Assessment: 1. Pneumonia - IV Rocephin and Zithromax - Bronchodilator nebs - sputum and blood culture - symptomatic treatment of PNA 2. Sepsis - fluid bolus and maintenance per protocol - PNA treatment as above 3. Hypotension sec to sepsis vs volume depletion - cont with IVFs 4. Altered Mental Status; Metabolic encephalopthy sec to 10/08 5. Dementia; poss decline 6. DVT Prophylaxis Code Status; Full code
[2018-11-16] MEDS: IPRATROPIUM-ALBUTEROL 3 ML NEB INHALATION SCH ×6 (04:43→23:32)
[2018-11-16 06:28] LABS: Glucose,Whole Blood 74 mg/dL (75-99)
[2018-11-16 08:02] LABS: Anion Gap 3 mmol/L; Blood Urea Nitrogen 26 mg/dL (9-20); Calcium 9.2 mg/dL (8.4-10.2); Carbon Dioxide 28 mmol/L (22-30); Chloride 113 mmol/L (98-107); Glucose 82 mg/dL (74-99); Potassium 4.5 mmol/L (3.5-5.1); Sodium 144 mmol/L (137-145)
[2018-11-16] MEDS: METOPROLOL TARTRATE 50 MG TAB PO SCH ×2 (08:42→20:32)
[2018-11-16] MEDS: ASCORBIC ACID 500 MG TAB PO SCH (08:42)
[2018-11-16] MEDS: TAMSULOSIN 0.4 MG CAP.ER.24H PO SCH (08:42)
[2018-11-16] MEDS: POTASSIUM CHLORIDE ER 10 MEQ TAB.ER.PRT PO SCH (08:42)
[2018-11-16] MEDS: ISOSORBIDE MONONITRATE ER 30 MG TAB.ER.24H PO SCH (08:42)
[2018-11-16] MEDS: APIXABAN 5 MG TAB PO SCH ×2 (08:42→20:32)
[2018-11-16] MEDS: metFORMIN 500 MG TAB PO SCH (08:43)
[2018-11-16] MEDS: LOSARTAN 50 MG TAB PO SCH (08:43)
[2018-11-16] MEDS: FUROSEMIDE 20 MG TAB PO SCH ×2 (08:43→15:41)
[2018-11-16] MEDS: ATORVASTATIN 40 MG TAB PO SCH (08:43)
[2018-11-16] MEDS: SYMBICORT 160-4.5 MCG INHALER INHALATION SCH ×2 (09:15→21:14)
--- NOTE | 2018-11-16 11:57 | XR ---
EXAMINATION TYPE: XR chest 2V DATE OF EXAM: 11/16/2018 COMPARISON: 11/15/2018 INDICATION: Pneumonia TECHNIQUE: Frontal and lateral views of the chest are obtained. FINDINGS: The heart size is normal. The pulmonary vasculature is normal. The retrocardiac infiltrate appears worsened better demonstrated by the lateral projection. Correlate for pneumonia and atelectasis. IMPRESSION: 1. Worsening retrocardiac infiltrate. Correlate for atelectasis and pneumonia. Continued follow-up is recommended.
[2018-11-16 12:01] LABS: Glucose,Whole Blood 114 mg/dL (75-99)
--- NOTE | 2018-11-16 12:41 | P.PN ---
Subjective Progress Note Date: 11/16/18 Principal diagnosis: Altered mental status Pneumonia Patient is seen and evaluated in the room at bedside; somewhat restless and remains confused; according to family patient's baseline is mild confusion but he does always recognize his ; patient not at his baseline yet Objective - Vital Signs Vital signs: Vital Signs Temp 97.8 F 11/16/18 12:10 Pulse 80 11/16/18 12:10 Resp 18 11/16/18 12:10 BP 114/70 11/16/18 12:10 Pulse Ox 99 11/16/18 12:10 Intake & Output 11/15/18 11/16/18 11/16/18 18:59 06:59 18:59 Intake Total 2370 800 360 Output Total 400 300 Balance 2370 400 60 Weight 64.864 kg 67.9 kg Intake: IV 100 800 Sodium Chloride 0.9% 1, 100 800 000 ml @ 100 mls/hr IV . Q10H ONE Rx#:[id number] Intake, IV Titration 2250 Amount Azithromycin 500 mg In 250 Sodium Chloride 0.9% 250 ml @ 250 mls/hr IVPB ONCE STA Rx#:[id number] Sodium Chloride 0.9% 1, 2000 000 ml @ 100 mls/hr IV . Q10H ONE Rx#:[id number] Oral 20 360 Output: Urine 400 300 Other: Voiding Method Toilet Diaper Incontinent # Voids 2 1 # Bowel Movements 2 - Exam Head exam: Present: atraumatic, normocephalic, normal inspection Eye exam: Present: normal appearance, PERRL, EOMI. Absent: scleral icterus, conjunctival injection, periorbital swelling ENT exam: Present: normal exam, mucous membranes moist Neck exam: Present: normal inspection. Absent: tenderness, meningismus, lymphadenopathy Respiratory exam: Present: normal lung sounds bilaterally. Absent: respiratory distress, wheezes, rales, rhonchi, stridor Cardiovascular Exam: Present: regular rate, normal rhythm, normal heart sounds. Absent: systolic murmur, diastolic murmur, rubs, gallop, clicks GI/Abdominal exam: Present: soft, normal bowel sounds. Absent: distended, tenderness, guarding, rebound, rigid Extremities exam: Present: normal inspection, full ROM, normal capillary refill. Absent: tenderness, pedal edema, joint swelling, calf tenderness - Labs CBC & Chem 7: 11/15/18 13:07 11/16/18 07:07 Labs: Abnormal Lab Results - Last 24 Hours (Table) 11/15/18 11/15/18 11/15/18 Range/Units 13:07 13:07 13:07 Hgb 12.9 L (13.0-17.5) gm/dL Potassium 5.3 H (3.5-5.1) mmol/L Chloride 108 H (98-107) mmol/L BUN 38 H (9-20) mg/dL POC Glucose (mg/dL) (75-99) mg/dL Total Creatine Kinase 46 L (55-170) U/L U Benzodiazepines Scrn (NotDetected) 11/15/18 11/16/18 11/16/18 Range/Units 18:25 05:53 07:07 Hgb (13.0-17.5) gm/dL Potassium (3.5-5.1) mmol/L Chloride 113 H (98-107) mmol/L BUN 26 H (9-20) mg/dL POC Glucose (mg/dL) 74 L (75-99) mg/dL Total Creatine Kinase (55-170) U/L U Benzodiazepines Scrn Detected H (NotDetected) 11/16/18 Range/Units 11:37 Hgb (13.0-17.5) gm/dL Potassium (3.5-5.1) mmol/L Chloride (98-107) mmol/L BUN (9-20) mg/dL POC Glucose (mg/dL) 114 H (75-99) mg/dL Total Creatine Kinase (55-170) U/L U Benzodiazepines Scrn (NotDetected) Assessment and Plan Assessment: 1. Pneumonia - IV Rocephin and Zithromax - Bronchodilator nebs - sputum and blood culture - symptomatic treatment of PNA 2. Sepsis - fluid bolus and maintenance per protocol - PNA treatment as above 3. Hypotension sec to sepsis vs volume depletion - cont with IVFs 4. Altered Mental Status; Metabolic encephalopthy sec to 1/2 5. Mild renal injury - Continue with IV fluid hydration and monitor renal function and electrolytes 6. Dementia; poss decline 7. DVT Prophylaxis Code Status; Full code
[2018-11-16] MEDS: AZITHROMYCIN 500 MG TAB PO SCH (15:43)
[2018-11-16 17:26] LABS: Glucose,Whole Blood 100 mg/dL (75-99)
[2018-11-16] MEDS: DOCUSATE 100 MG CAP PO SCH (20:07)
[2018-11-16] MEDS: DONEPEZIL 10 MG TAB PO SCH (20:32)
[2018-11-16 20:53] LABS: Glucose,Whole Blood 131 mg/dL (75-99)
[2018-11-17] MEDS: IPRATROPIUM-ALBUTEROL 3 ML NEB INHALATION SCH ×5 (03:28→20:13)
[2018-11-17 06:18] LABS: Glucose,Whole Blood 103 mg/dL (75-99)
[2018-11-17 06:27] LABS: Basophils % (A) 1 %; Eosinophils # (A) 0.2 k/uL (0-0.7); Eosinophils % (A) 4 %; HCT 32.7 % (39.0-53.0); HGB 10.9 gm/dL (13.0-17.5); Lymphocytes # (A) 1.2 k/uL (1.0-4.8); Lymphocytes % (A) 23 %; MCH 29.7 pg (25.0-35.0); MCHC 33.2 g/dL (31.0-37.0); MCV 89.4 fL (80.0-100.0); Mean Platelet Volume 6.6; Monocytes # (A) 0.3 k/uL (0-1.0); Monocytes % (A) 5 %; Neutrophils # (A) 3.4 k/uL (1.3-7.7); Neutrophils % (A) 65 %; Platelet Count 151 k/uL (150-450); RBC 3.66 m/uL (4.30-5.90); RDW 14.7 % (11.5-15.5); WBC 5.3 k/uL (3.8-10.6)
[2018-11-17 06:39] LABS: Anion Gap 2 mmol/L; Blood Urea Nitrogen 18 mg/dL (9-20); Carbon Dioxide 26 mmol/L (22-30); Chloride 110 mmol/L (98-107); Glucose 85 mg/dL (74-99); Potassium 3.9 mmol/L (3.5-5.1); Sodium 138 mmol/L (137-145)
[2018-11-17] MEDS: SYMBICORT 160-4.5 MCG INHALER INHALATION SCH ×2 (08:00→20:13)
[2018-11-17] MEDS: metFORMIN 500 MG TAB PO SCH (09:15)
[2018-11-17] MEDS: POTASSIUM CHLORIDE ER 10 MEQ TAB.ER.PRT PO SCH (09:15)
[2018-11-17] MEDS: ASPIRIN 81 MG PO SCH (09:15)
[2018-11-17] MEDS: METOPROLOL TARTRATE 50 MG TAB PO SCH ×2 (09:15→21:16)
[2018-11-17] MEDS: LOSARTAN 50 MG TAB PO SCH (09:15)
[2018-11-17] MEDS: ISOSORBIDE MONONITRATE ER 30 MG TAB.ER.24H PO SCH (09:15)
[2018-11-17] MEDS: ATORVASTATIN 40 MG TAB PO SCH (09:15)
[2018-11-17] MEDS: APIXABAN 5 MG TAB PO SCH ×2 (09:15→21:16)
[2018-11-17] MEDS: FUROSEMIDE 20 MG TAB PO SCH ×2 (09:15→17:06)
[2018-11-17] MEDS: TAMSULOSIN 0.4 MG CAP.ER.24H PO SCH (09:15)
[2018-11-17] MEDS: ASCORBIC ACID 500 MG TAB PO SCH (09:15)
[2018-11-17 10:41] LABS: Hemoglobin A1C 5.2 % (4.0-6.0)
[2018-11-17 11:29] LABS: Glucose,Whole Blood 143 mg/dL (75-99)
[2018-11-17 13:40] VITALS: BMI 24.0
[2018-11-17 16:48] LABS: Glucose,Whole Blood 94 mg/dL (75-99)
[2018-11-17] MEDS: AZITHROMYCIN 500 MG TAB PO SCH (17:06)
[2018-11-17] MEDS: PANTOPRAZOLE 40 MG/10 ML VIAL IVP SCH (18:31)
--- NOTE | 2018-11-17 20:46 | P.PN ---
Subjective Progress Note Date: 11/17/18 Altered mental status Pneumonia Patient is seen and evaluated in the room at bedside; somewhat restless and remains confused; according to family patient's baseline is mild confusion but he does always recognize his ; patient not at his baseline yet 11/17/2018 at bedside states patient is atbaseline regarding confusion. Pleasantly confused, cooperative. Apparently last night patient pulled out his IVs-stated he needed to go to the bathroom and couldn't wait any longer. good diet intake, consuming 100% without any nausea or vomiting. Maintained on IV antibiotics, positive diarrhea. reports prior to admission patient had rigor and chills without fever.productive cough with clear to light yellow thick sputum. sputum & blood cultures pending.afebrile, normal WBC.Earlier hypotensive,with systolic blood pressure in the 80s-patient's states patient runs low. Objective - Vital Signs Vital signs: Vital Signs Temp 98.3 F 11/17/18 16:00 Pulse 74 11/17/18 20:28 Resp 18 11/17/18 16:00 BP 107/59 11/17/18 16:00 Pulse Ox 94 L 11/17/18 20:13 Intake & Output 11/17/18 11/17/18 11/18/18 06:59 18:59 06:59 Intake Total 120 680 Balance 120 680 Weight 67.6 kg 67.6 kg Intake: Oral 120 680 Other: Voiding Method Bedside Commode Bedside Commode Urinal Urinal Diaper Diaper Incontinent Incontinent # Voids 0 # Bowel Movements 0 - Exam Head exam: Present: atraumatic, normocephalic, normal inspection Eye exam: Present: normal appearance, PERRL, EOMI. Absent: scleral icterus, conjunctival injection, periorbital swelling ENT exam: Present: normal exam, mucous membranes moist Neck exam: Present: normal inspection. Absent: tenderness, meningismus, lymphadenopathy Respiratory exam: Present: normal lung sounds bilaterally. Absent: respiratory distress, wheezes, rales, rhonchi, stridor Cardiovascular Exam: Present: regular rate, normal rhythm, normal heart sounds. Absent: systolic murmur, diastolic murmur, rubs, gallop, clicks GI/Abdominal exam: Present: soft, normal bowel sounds. Absent: distended, tenderness, guarding, rebound, rigid Extremities exam: Present: normal inspection, full ROM, normal capillary refill. Absent: tenderness, pedal edema, joint swelling, calf tenderness - Labs CBC & Chem 7: 11/17/18 05:50 11/17/18 05:50 Labs: Abnormal Lab Results - Last 24 Hours (Table) 11/16/18 11/17/18 11/17/18 Range/Units 20:52 05:50 05:50 RBC 3.66 L (4.30-5.90) m/uL Hgb 10.9 L (13.0-17.5) gm/dL Hct 32.7 L (39.0-53.0) % Chloride 110 H (98-107) mmol/L Creatinine 0.55 L (0.66-1.25) mg/dL POC Glucose (mg/dL) 131 H (75-99) mg/dL 11/17/18 11/17/18 Range/Units 06:12 11:27 RBC (4.30-5.90) m/uL Hgb (13.0-17.5) gm/dL Hct (39.0-53.0) % Chloride (98-107) mmol/L Creatinine (0.66-1.25) mg/dL POC Glucose (mg/dL) 103 H 143 H (75-99) mg/dL Microbiology - Last 24 Hours (Table) 11/15/18 14:55 Blood Culture - Preliminary Blood No Growth after 48 hours 11/16/18 13:09 Gram Stain - Preliminary Sputum Assessment and Plan Assessment: -possible sepsis secondary to pneumonia -hypotension secondary to the above -altered mental statussecondary to the above -Acute renal failure -Dementia, possibly Alzheimer's -Altered mental status, acute metab pneumonia, hypotension and dementia -CAD, 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 Space Sciences Director Diego Watts. -history of diastolic CHF -Dysphagia, history of, on thickened liquids -chronic atrial fibrillation with controlled ventricular rate Plan: Continue on current medication regime ,monitoring ic treatment. Maintain IV antibiotics of Zithromax, Rocephin, nebulized bronchodilators, gentle IV fluid hydration. Patient follows with Dr. Alamo outpatient, Family requesting.PT/OT, patient is a 1 person assist with walker. Rule out C. difficile. Rule out influenza. The impression and plan of care has been dictated as directed. : I performed a history and examination of this patient, discussed the same with the dictator. I agree with the dictator's note ,documented as a scribe. Any additional findings or plans will be noted.
[2018-11-17 20:59] LABS: Glucose,Whole Blood 132 mg/dL (75-99)
[2018-11-17] MEDS: DONEPEZIL 10 MG TAB PO SCH (21:16)
[2018-11-17] MEDS: DOCUSATE 100 MG CAP PO SCH (21:16)
[2018-11-18] MEDS: IPRATROPIUM-ALBUTEROL 3 ML NEB INHALATION SCH ×6 (00:42→20:47)
[2018-11-18 05:57] LABS: Glucose,Whole Blood 99 mg/dL (75-99)
[2018-11-18 06:42] LABS: Basophils % (A) 1 %; Eosinophils # (A) 0.3 k/uL (0-0.7); Eosinophils % (A) 5 %; HCT 32.6 % (39.0-53.0); HGB 11.1 gm/dL (13.0-17.5); Lymphocytes # (A) 1.2 k/uL (1.0-4.8); Lymphocytes % (A) 25 %; MCH 30.7 pg (25.0-35.0); MCHC 34.2 g/dL (31.0-37.0); MCV 89.7 fL (80.0-100.0); Mean Platelet Volume 6.9; Monocytes # (A) 0.3 k/uL (0-1.0); Monocytes % (A) 5 %; Neutrophils # (A) 2.9 k/uL (1.3-7.7); Neutrophils % (A) 62 %; Platelet Count 161 k/uL (150-450); RBC 3.63 m/uL (4.30-5.90); RDW 14.6 % (11.5-15.5); WBC 4.7 k/uL (3.8-10.6)
[2018-11-18 06:52] LABS: Anion Gap 2 mmol/L; Blood Urea Nitrogen 19 mg/dL (9-20); Carbon Dioxide 28 mmol/L (22-30); Chloride 109 mmol/L (98-107); Glucose 89 mg/dL (74-99); Potassium 4.2 mmol/L (3.5-5.1); Sodium 139 mmol/L (137-145)
[2018-11-18] MEDS: SYMBICORT 160-4.5 MCG INHALER INHALATION SCH ×2 (08:16→20:47)
[2018-11-18] MEDS: METOPROLOL TARTRATE 50 MG TAB PO SCH ×2 (09:40→20:05)
[2018-11-18] MEDS: ATORVASTATIN 40 MG TAB PO SCH (09:40)
[2018-11-18] MEDS: POTASSIUM CHLORIDE ER 10 MEQ TAB.ER.PRT PO SCH (09:40)
[2018-11-18] MEDS: FUROSEMIDE 20 MG TAB PO SCH ×2 (09:40→15:31)
[2018-11-18] MEDS: ASCORBIC ACID 500 MG TAB PO SCH (09:40)
[2018-11-18] MEDS: LOSARTAN 50 MG TAB PO SCH (09:40)
[2018-11-18] MEDS: APIXABAN 5 MG TAB PO SCH ×2 (09:40→20:05)
[2018-11-18] MEDS: PANTOPRAZOLE 40 MG/10 ML VIAL IVP SCH (09:41)
[2018-11-18] MEDS: TAMSULOSIN 0.4 MG CAP.ER.24H PO SCH (09:41)
[2018-11-18] MEDS: metFORMIN 500 MG TAB PO SCH (09:43)
--- NOTE | 2018-11-18 10:21 | ECHOF ---
Referral Reason:LV function MEASUREMENTS -------- HEIGHT: 165.1 cm WEIGHT: 65.8 kg BP: RVIDd: 3.9 cm (< 3.3) IVSd: 1.4 cm (0.6 - 1.1) LVIDd: 4.5 cm (3.9 - 5.3) LVPWd: 1.3 cm (0.6 - 1.1) IVSs: 1.6 cm LVIDs: 3.3 cm LVPWs: 1.2 cm LA Diam: 3.6 cm (2.7 - 3.8) Ao Diam: 4.5 cm (2.0 - 3.7) AV Cusp: 1.4 cm (1.5 - 2.6) LA Diam: 3.2 cm (2.7 - 3.8) MV EXCURSION: 20.651 mm (> 18.000) MV EF SLOPE: 73 mm/s (70 - 150) EPSS: 0.2 cm MV E Mic: 0.84 m/s MV DecT: 189 ms MV A Mic: 0.33 m/s MV E/A Ratio: 2.56 RAP: 5.00 mmHg RVSP: 20.18 mmHg FINDINGS -------- Undetermined rhythm. This was a technically adequate study. The left ventricular size is normal. There is mild concentric left ventricular hypertrophy. Overa ll left ventricular systolic function is low-normal with, an EF between 50 - 55 %. The right ventricle is moderately enlarged. The left atrial size is normal. The right atrial size is normal. There is mild aortic valve sclerosis. There is no evidence of aortic regurgitation. Mild mitral annular calcification present. Mild mitral regurgitation is present. Mild tricuspid regurgitation present. There is no evidence of pulmonary hypertension. The right v entricular systolic pressure, as measured by Doppler, is 20.18mmHg. There is no pulmonic regurgitation present. Aortic Root is dilate and meaures 4.5cm. Echo free space indicative of a pericardial fat pad. CONCLUSIONS -------- 1. The left ventricular size is normal. 2. There is mild concentric left ventricular hypertrophy. 3. Overall left ventricular systolic function is low-normal with, an EF between 50 - 55 %. 4. The right ventricle is moderately enlarged. 5. The left atrial size is normal. 6. The right atrial size is normal. 7. There is mild aortic valve sclerosis. 8. Mild mitral annular calcification present. 9. Mild mitral regurgitation is present. 10. There is no evidence of pulmonary hypertension. 11. The right ventricular systolic pressure, as measured by Doppler, is 20.18mmHg. 12. There is no pulmonic regurgitation present. 13. Aortic Root is dilate and meaures 4.5cm. 14. Echo free space indicative of a pericardial fat pad. COMPUTER SCIENCE TEACHER: Gwendolyn Brunner RDCS
[2018-11-18 11:38] LABS: Glucose,Whole Blood 112 mg/dL (75-99)
--- NOTE | 2018-11-18 13:54 | P.CNPUL ---
History of Present Illness Consult date: 11/18/18 Requesting physician: Shira Rivera Reason for consult: dyspnea, pneumonia, abnormal CXR/CT Chief complaint: Altered mental status, pneumonia, community-acquired versus aspiration History of present illness: This is a 88-year-old white male patient of Dr. Borges, with underlying history of moderately severe COPD, with FEV1 of 1.41 L or 58% of predicted, hypertension, type 2 diabetes mellitus, dementia, coronary artery disease, chronic congestive heart failure with mildly impaired left ventricular systolic function and EF of 45-50%, benign prostatic hyperplasia, chronic atrial fibrillation on anticoagulation, we will was brought to the hospital by his and his children evaluation of altered mental status, increased confusion, weakness, multiple falls at home. Patient sustained a contusion over the right side of the head as a result of a fall. His appetite has been poor. CT of the head showed no acute intracranial hemorrhage or midline shift. Diffuse age- related cerebral atrophy and chronic small vessel ischemic changes, acute on chronic mild sinusitis. Chest x-ray showed a retrocardiac opacity representing atelectasis or early developing pneumonia, follow-up chest x-ray on 11/16/2018 showed worsening appearance of the retrocardiac infiltrate. Blood work mentioned showed white blood cell count of 7.5, hemoglobin of 12.9, correlation profile was within normal limits, serum sodium was 142, potassium is 5.3, chloride is 108, CO2 is 26, B1 was 38, creatinine is 1.06, troponin was negative 1, LFTs were within normal limits, urinalysis was negative, urine drug screen detected benzodiazepines, patient has a prescription for Xanax. Influenza was negative. Of note patient has been having swallowing issues and has been on thickened liquids at home. EKG showed A. fib with a rate of 76, left axis deviation, low-voltage QRS, and inferior and possibly anterolateral infarct of undetermined age. Patient is on anticoagulation in the form of Eliquis, he has been on empiric antibiotics in the form of Zithromax and Rocephin, and we were asked to see this patient in consultation for pneumonia. Today's evaluation, patient is awake and alert, responding appropriately, is oriented 3, no evidence of confusion. Denies any dyspnea, he is cough is congested but nonproductive. No fever or chills. No chest wall tenderness, or hemoptysis. Pulse ox is 96% on room air. Blood and sputum culture showed no growth. Review of Systems All systems: negative Constitutional: Reports lethargy, Reports weakness, Denies chills, Denies fever Eyes: denies blurred vision, denies pain Ears, nose, mouth and throat: Denies headache, Denies sore throat Cardiovascular: Denies chest pain, Denies shortness of breath Respiratory: Reports congestion, Reports dyspnea, Reports respiratory infections , Reports wheezing, Denies cough Gastrointestinal: Denies abdominal pain, Denies diarrhea, Denies nausea, Denies vomiting Musculoskeletal: Denies myalgias Integumentary: Denies pruritus, Denies rash Neurological: Reports balance difficulties, Reports gait dysfunction, Reports lack of coordination, Denies numbness, Denies weakness Psychiatric: Denies anxiety, Denies depression Endocrine: Denies fatigue, Denies weight change Past Medical History Past Medical History: Atrial Fibrillation, Coronary Artery Disease (CAD), Heart Failure, COPD, Dementia, Diabetes Mellitus, Hyperlipidemia, Hypertension, Prostate Disorder Additional Past Medical History / Comment(s): NIDDM type II, beginning of dementia, joint pain-multiple sites. History of Any Multi-Drug Resistant Organisms: None Reported Past Surgical History: Heart Catheterization, Hernia Repair, Tonsillectomy Additional Past Surgical History / Comment(s): TURP, cystoscopy, L inguinal herniorraphy, bilateral cataract removal with lens implants. Past Anesthesia/Blood Transfusion Reactions: No Reported Reaction Past Psychological History: No Psychological Hx Reported Smoking Status: Never smoker Past Alcohol Use History: None Reported Past Drug Use History: None Reported - Past Family History Mother Additional Family Medical History / Comment(s): Mother either of CHF or a NC at the ageof 82 yrs. Father Family Medical History: Cancer Additional Family Medical History / Comment(s): Father of complications after surgery for throat cancer at the age of 76yrs. Medications and Allergies Home Medications Medication Instructions Recorded Confirmed Type Atorvastatin [Lipitor] 40 mg PO QAM 06/04/15 11/15/18 History Tamsulosin [Flomax] 0.4 mg PO QAM 06/04/15 11/15/18 History Aspirin [Adult Low Dose Aspirin EC] 81 mg PO MOWEFR 09/23/17 11/15/18 History Budesonide/Formoterol Fumarate 2 puff INHALATION RT-BID 09/23/17 11/15/18 History [Symbicort 160-4.5 Mcg Inhaler] Donepezil [Aricept] 10 mg PO HS 09/23/17 11/15/18 History Isosorbide Mononitrate ER [Imdur] 30 mg PO QAM 09/23/17 11/15/18 History Metoprolol Tartrate [Lopressor] 50 mg PO BID 09/23/17 11/15/18 History Potassium Chloride [K-Tab ER] 10 meq PO QAM 09/23/17 11/15/18 History metFORMIN HCL [Glucophage] 500 mg PO QAM 09/23/17 11/15/18 History Furosemide [Lasix] 20 mg PO BID@0900,1600 #60 tab 09/25/17 11/15/18 Rx ALPRAZolam [Xanax] 0.25 mg PO BID PRN 12/16/17 11/15/18 History Apixaban [Eliquis] 5 mg PO BID 12/16/17 11/15/18 History Docusate [Colace] 200 mg PO HS 12/16/17 11/15/18 History Losartan Potassium 100 mg PO QAM 12/16/17 11/15/18 History Atwood-3 Fatty Acids/Fish Oil [Fish 1 cap PO HS 12/16/17 11/15/18 History Oil 1,000 mg Softgel] Albuterol Inhaler [Ventolin Hfa 1 - 2 puff INHALATION RT-QID PRN 11/15/18 History Inhaler] Albuterol Nebulized [Ventolin 2.5 mg INHALATION RT-QID 11/15/18 11/15/18 History Nebulized] Ascorbic Acid [Vitamin C] 500 mg PO DAILY 11/15/18 11/15/18 History Allergies Allergy/AdvReac Type Severity Reaction Status Date / Time amoxicillin [From Augmentin] Allergy Rash/Hives Verified 11/15/18 13:42 bee pollen Allergy Swelling Verified 11/15/18 13:42 clavulanic acid Allergy Rash/Hives Verified 11/15/18 13:42 [From Augmentin] Physical Exam Vitals: Vital Signs Temp Pulse Pulse Resp BP Pulse Ox 11/18/18 13:18 74 16 11/18/18 12:00 88 18 134/82 96 11/18/18 08:28 81 16 11/18/18 08:17 84 16 94 L 11/18/18 08:00 97.4 F L 80 16 123/60 94 L 11/18/18 04:10 70 11/18/18 03:58 70 11/18/18 03:10 97.7 F 92 16 121/69 94 L 11/18/18 00:59 72 11/18/18 00:43 72 11/18/18 00:28 77 16 133/70 95 11/17/18 20:28 74 11/17/18 20:13 72 94 L 11/17/18 20:00 98.0 F 87 16 118/60 95 11/17/18 16:22 74 11/17/18 16:09 70 11/17/18 16:00 98.3 F 81 18 107/59 94 L Intake and Output 11/17/18 11/18/18 11/18/18 22:59 06:59 14:59 Intake Total 240 180 Balance 240 180 Intake: Oral 240 180 Other: Voiding Method Toilet # Voids 0 1 # Bowel Movements 0 Weight 65 kg GENERAL EXAM: Alert, pleasant, 88-year-old white male comfortable in no apparent distress. HEAD: Normocephalic/atraumatic. EYES: Normal reaction of pupils, equal size. Conjunctiva pink, sclera white. NOSE: Clear with pink turbinates. THROAT: No erythema or exudates. NECK: No masses, no JVD, no thyroid enlargement, no adenopathy. CHEST: No chest wall deformity. Symmetrical expansion. LUNGS: Equal air entry with diminished breath sounds, rhonchi and wheezes CVS: Regular rate and rhythm, normal S1 and S2, no gallops, no murmurs, no rubs ABDOMEN: Soft, nontender. No hepatosplenomegaly, normal bowel sounds, no guarding or rigidity. EXTREMITIES: No clubbing, no edema, no cyanosis, 2+ pulses and upper and lower extremities. MUSCULOSKELETAL: Muscle strength and tone normal. SPINE: No scoliosis or deformity SKIN: No rashes CENTRAL NERVOUS SYSTEM: Alert and oriented -3. No focal deficits, tone is normal in all 4 extremities. PSYCHIATRIC: Alert and oriented -3. Appropriate affect. Intact judgment and insight. Results - Laboratory Findings CBC and BMP: 11/18/18 05:51 11/18/18 05:51 PT/INR, D-dimer PT 11.2 sec (9.0-12.0) 11/15/18 13:07 INR 1.1 (<1.2) 11/15/18 13:07 Abnormal lab findings: Abnormal Labs 11/15/18 11/15/18 11/15/18 13:07 13:07 13:07 RBC Hgb 12.9 L Hct Potassium 5.3 H Chloride 108 H BUN 38 H Creatinine POC Glucose (mg/dL) Total Creatine Kinase 46 L U Benzodiazepines Scrn 11/15/18 11/16/18 11/16/18 18:25 05:53 07:07 RBC Hgb Hct Potassium Chloride 113 H BUN 26 H Creatinine POC Glucose (mg/dL) 74 L Total Creatine Kinase U Benzodiazepines Scrn Detected H 11/16/18 11/16/18 11/16/18 11:37 16:27 20:52 RBC Hgb Hct Potassium Chloride BUN Creatinine POC Glucose (mg/dL) 114 H 100 H 131 H Total Creatine Kinase U Benzodiazepines Scrn 11/17/18 11/17/18 11/17/18 05:50 05:50 06:12 RBC 3.66 L Hgb 10.9 L Hct 32.7 L Potassium Chloride 110 H BUN Creatinine 0.55 L POC Glucose (mg/dL) 103 H Total Creatine Kinase U Benzodiazepines Scrn 11/17/18 11/17/18 11/18/18 11:27 20:58 05:51 RBC 3.63 L Hgb 11.1 L Hct 32.6 L Potassium Chloride BUN Creatinine POC Glucose (mg/dL) 143 H 132 H Total Creatine Kinase U Benzodiazepines Scrn 11/18/18 11/18/18 05:51 11:37 RBC Hgb Hct Potassium Chloride 109 H BUN Creatinine POC Glucose (mg/dL) 112 H Total Creatine Kinase U Benzodiazepines Scrn - Diagnostic Findings Chest x-ray: report reviewed, image reviewed Additional studies: CT brain reviewed, EKG reviewed, echocardiogram results reviewed Assessment and Plan Plan: Assessment: #1. Acute community acquired pneumonia, chest x-ray showed retrocardiac opacity suspicious for pneumonic infiltrate. Cannot rule out possibility of aspiration pneumonia due to chronic dysphagia #2. Altered mental status, weakness and falls at home related to the above #3. Moderately severe COPD with FEV1 of 1.41 L or 50% of predicted, consistent with stage III COPD #4. Hypertension, hyperlipidemia, coronary artery disease #5. Chronic atrial fibrillation on Eliquis for anticoagulation #6. Type 2 diabetes mellitus #7. Dementia #8. Chronic dysphagia, patient is on thickened liquids at home #9. Anion prostatic hyperplasia #10. Chronic congestive heart failure with mildly impaired left ventricular systolic function with an EF of 50-55% #11. Nicotine dependence, currently in remission Plan: Continue antibiotic coverage, no fever or chills, cultures are negative thus far , mentation is improving. We'll obtain a speech evaluation to evaluate patient' s swallow. Maintain aspiration precautions. Continue oral anticoagulation, continue Symbicort and nebulized bronchodilators. Repeat chest x-ray in the morning I performed a history & physical examination of the patient and discussed their management with my nurse practitioner, Leticia Jeff. I reviewed the nurse practitioner's note and agree with the documented findings and plan of care. Lung sounds are positive for diminished breath sounds with some limited wheezes. The findings and the impression was discussed with the patient. I attest to the documentation by the nurse practitioner. Time with Patient: Greater than 30
--- NOTE | 2018-11-18 15:50 | P.PN ---
Subjective Progress Note Date: 11/18/18 Altered mental status Pneumonia Patient is seen and evaluated in the room at bedside; somewhat restless and remains confused; according to family patient's baseline is mild confusion but he does always recognize his ; patient not at his baseline yet 11/17/2018 at bedside states patient is atbaseline regarding confusion. Pleasantly confused, cooperative. Apparently last night patient pulled out his IVs-stated he needed to go to the bathroom and couldn't wait any longer. good diet intake, consuming 100% without any nausea or vomiting. Maintained on IV antibiotics, positive diarrhea. reports prior to admission patient had rigor and chills without fever.productive cough with clear to light yellow thick sputum. sputum & blood cultures pending.afebrile, normal WBC.Earlier hypotensive,with systolic blood pressure in the 80s-patient's states patient runs low. 11/18/2018 negative for influenza.Congested with nonproductive cough. Maintaining O2 sats in the high 90s on room air. Afebrile.blood and sputum cultures reporting no growth.Echo reporting EF 50-55%,dilated aortic root 4.5 cm. Swallow evaluated by speech therapy yesterday,with recommendations noted, nectar thick liquids, sitting upright, no straws, please refer to speech therapy note. Objective - Vital Signs Vital signs: Vital Signs Temp 97.4 F L 11/18/18 08:00 Pulse 80 11/18/18 13:30 Resp 16 11/18/18 13:30 BP 134/82 11/18/18 12:00 Pulse Ox 96 11/18/18 12:00 Intake & Output 11/17/18 11/18/18 11/18/18 18:59 06:59 18:59 Intake Total 680 420 Balance 680 420 Weight 67.6 kg 65 kg Intake: Oral 680 420 Other: Voiding Method Bedside Commode Toilet Urinal Diaper Incontinent # Voids 0 1 2 # Bowel Movements 0 - Exam PHYSICAL EXAM: VITAL SIGNS: [as above] GENERAL: sitting up in bed, no acute distress, oral mucosa moist HEENT: Conjunctivae normal. eyes normal. NECK: No JVD. No thyroid enlargement. No LNs CARDIOVASCULAR: S1, S2 muffled. No murmur RESPIRATION: Breath sounds diminished in the bases. NO rhonchi or crackles. ABDOMEN: Soft, nontender . No guarding. no masses palpable. No hepatosplenomegaly.positiveBowel sounds. LEGS: No edema. no swelling PSYCHIATRY: Alert and oriented -3, mood and affect normal. NERVOUS SYSTEM: Cranial N 2-12 grossly normal. Moves all 4 limbs. Diffuse weakness No focal deficits. Skin: no rash Joints: No active swelling. No inflammation. Lymphatic system. No LN neck axilla or groin. - Labs CBC & Chem 7: 11/18/18 05:51 11/18/18 05:51 Labs: Abnormal Lab Results - Last 24 Hours (Table) 11/17/18 11/18/18 11/18/18 Range/Units 20:58 05:51 05:51 RBC 3.63 L (4.30-5.90) m/uL Hgb 11.1 L (13.0-17.5) gm/dL Hct 32.6 L (39.0-53.0) % Chloride 109 H (98-107) mmol/L POC Glucose (mg/dL) 132 H (75-99) mg/dL 11/18/18 Range/Units 11:37 RBC (4.30-5.90) m/uL Hgb (13.0-17.5) gm/dL Hct (39.0-53.0) % Chloride (98-107) mmol/L POC Glucose (mg/dL) 112 H (75-99) mg/dL Microbiology - Last 24 Hours (Table) 11/16/18 13:09 Gram Stain - Final Sputum Sputum Culture - Final 11/15/18 14:55 Blood Culture - Preliminary Blood No Growth after 48 hours Assessment and Plan Assessment: -possible sepsis secondary to pneumonia,community-acquired, possible aspiration pneumonia -hypotension secondary to the above, resolved -altered mental status secondary to the above -stage III COPD -Acute renal failure -Dementia, possibly Alzheimer's -Altered mental status, acute metab pneumonia, hypotension and dementia -CAD, 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 [employer] Representative Diego Watts. -history of diastolic CHF EF 50-55% -chronic Dysphagia -chronic atrial fibrillation with controlled ventricular rate -influenza ruled out. -dilated aortic root 4.5 cm -history of nicotine dependence Plan: Continue on current medication regime ,monitoring ic treatment. Strict aspiration precautions,refer to speech therapy's notes regarding specific recommendations. Evaluated by physical therapy with subacute rehab recommended at discharge.Maintain IV antibiotics of Zithromax, Rocephin, nebulized bronchodilators, gentle IV fluid hydration. evaluated by pulmonary with recommendations noted and appreciated. The impression and plan of care has been dictated as directed. : I performed a history and examination of this patient, discussed the same with the dictator. I agree with the dictator's note ,documented as a scribe. Any additional findings or plans will be noted.
[2018-11-18 16:56] LABS: Glucose,Whole Blood 94 mg/dL (75-99)
[2018-11-18] MEDS: AZITHROMYCIN 500 MG TAB PO SCH (18:14)
[2018-11-18] MEDS: DOCUSATE 100 MG CAP PO SCH (20:05)
[2018-11-18] MEDS: DONEPEZIL 10 MG TAB PO SCH (20:05)
[2018-11-18 20:41] LABS: Glucose,Whole Blood 112 mg/dL (75-99)
[2018-11-19] MEDS: IPRATROPIUM-ALBUTEROL 3 ML NEB INHALATION SCH ×4 (00:34→10:55)
[2018-11-19 05:52] LABS: Basophils % (A) 1 %; Eosinophils # (A) 0.2 k/uL (0-0.7); Eosinophils % (A) 4 %; HCT 34.2 % (39.0-53.0); HGB 11.4 gm/dL (13.0-17.5); Lymphocytes # (A) 1.5 k/uL (1.0-4.8); Lymphocytes % (A) 27 %; MCH 29.8 pg (25.0-35.0); MCHC 33.4 g/dL (31.0-37.0); MCV 89.3 fL (80.0-100.0); Mean Platelet Volume 6.2; Monocytes # (A) 0.3 k/uL (0-1.0); Monocytes % (A) 6 %; Neutrophils # (A) 3.2 k/uL (1.3-7.7); Neutrophils % (A) 60 %; Platelet Count 163 k/uL (150-450); RBC 3.83 m/uL (4.30-5.90); RDW 14.6 % (11.5-15.5); WBC 5.3 k/uL (3.8-10.6)
[2018-11-19 05:54] LABS: Glucose,Whole Blood 160 mg/dL (75-99)
[2018-11-19 06:09] LABS: Anion Gap 4 mmol/L; Blood Urea Nitrogen 17 mg/dL (9-20); Calcium 9.4 mg/dL (8.4-10.2); Carbon Dioxide 30 mmol/L (22-30); Chloride 102 mmol/L (98-107); Glucose 86 mg/dL (74-99); Potassium 4.1 mmol/L (3.5-5.1); Sodium 136 mmol/L (137-145)
--- NOTE | 2018-11-19 07:45 | XR ---
EXAMINATION TYPE: XR chest 2V DATE OF EXAM: 11/19/2018 COMPARISON: Prior chest x-ray 11/16/2018 HISTORY: Shortness of breath, abnormal chest x-ray TECHNIQUE: Frontal and lateral views of the chest are obtained. FINDINGS: Prominent lung volumes compatible with underlying COPD. The aorta is dense and tortuous. R etrocardiac density persists. No evident pneumothorax. Heart size is stable. Patient is rotated. IMPRESSION: Findings are similar to prior exam. Correlate for possible pneumonia.
[2018-11-19] MEDS: SYMBICORT 160-4.5 MCG INHALER INHALATION SCH (07:46)
[2018-11-19] MEDS: ASCORBIC ACID 500 MG TAB PO SCH (07:52)
[2018-11-19] MEDS: metFORMIN 500 MG TAB PO SCH (07:52)
[2018-11-19] MEDS: TAMSULOSIN 0.4 MG CAP.ER.24H PO SCH (07:52)
[2018-11-19] MEDS: LOSARTAN 50 MG TAB PO SCH (07:52)
[2018-11-19] MEDS: ATORVASTATIN 40 MG TAB PO SCH (07:52)
[2018-11-19] MEDS: POTASSIUM CHLORIDE ER 10 MEQ TAB.ER.PRT PO SCH (07:52)
[2018-11-19] MEDS: METOPROLOL TARTRATE 50 MG TAB PO SCH (07:52)
[2018-11-19] MEDS: FUROSEMIDE 20 MG TAB PO SCH ×2 (07:52→15:36)
[2018-11-19] MEDS: PANTOPRAZOLE 40 MG/10 ML VIAL IVP SCH (07:53)
[2018-11-19] MEDS: APIXABAN 5 MG TAB PO SCH (07:53)
[2018-11-19] MEDS: ASPIRIN 81 MG PO SCH (07:57)
[2018-11-19 11:26] LABS: Glucose,Whole Blood 173 mg/dL (75-99)
[2018-11-19 11:52] VITALS: PULSE 70
--- NOTE | 2018-11-19 13:35 | P.PN ---
Subjective Progress Note Date: 11/19/18 Principal diagnosis: Altered mental status, pneumonia, community-acquired versus aspiration This is a 88-year-old white male patient of Dr. Borges, with underlying history of moderately severe COPD, with FEV1 of 1.41 L or 58% of predicted, hypertension, type 2 diabetes mellitus, dementia, coronary artery disease, chronic congestive heart failure with mildly impaired left ventricular systolic function and EF of 45-50%, benign prostatic hyperplasia, chronic atrial fibrillation on anticoagulation, we will was brought to the hospital by his and his children evaluation of altered mental status, increased confusion, weakness, multiple falls at home. Patient sustained a contusion over the right side of the head as a result of a fall. His appetite has been poor. CT of the head showed no acute intracranial hemorrhage or midline shift. Diffuse age- related cerebral atrophy and chronic small vessel ischemic changes, acute on chronic mild sinusitis. Chest x-ray showed a retrocardiac opacity representing atelectasis or early developing pneumonia, follow-up chest x-ray on 11/16/2018 showed worsening appearance of the retrocardiac infiltrate. Blood work mentioned showed white blood cell count of 7.5, hemoglobin of 12.9, correlation profile was within normal limits, serum sodium was 142, potassium is 5.3, chloride is 108, CO2 is 26, B1 was 38, creatinine is 1.06, troponin was negative 1, LFTs were within normal limits, urinalysis was negative, urine drug screen detected benzodiazepines, patient has a prescription for Xanax. Influenza was negative. Of note patient has been having swallowing issues and has been on thickened liquids at home. EKG showed A. fib with a rate of 76, left axis deviation, low-voltage QRS, and inferior and possibly anterolateral infarct of undetermined age. Patient is on anticoagulation in the form of Eliquis, he has been on empiric antibiotics in the form of Zithromax and Rocephin, and we were asked to see this patient in consultation for pneumonia. Today's evaluation, patient is awake and alert, responding appropriately, is oriented 3, no evidence of confusion. Denies any dyspnea, he is cough is congested but nonproductive. No fever or chills. No chest wall tenderness, or hemoptysis. Pulse ox is 96% on room air. Blood and sputum culture showed no growth. On 11/19/2018 patient seen in follow-up on [facility] care unit. He is resting in bed, sleeping, upon awakening, his mentation is appropriate, he is oriented to place and the month, not the year, but he knew who the president was. Vital signs are stable, no fever or chills, room air pulse ox is 96%, lung sounds are diminished, with some scattered rhonchi, patient has a weak congested cough. He is on a modified diet with thickened liquids. Blood culture and sputum culture is negative to date. Today's blood work has been reviewed, white blood cell count is 5.3, hemoglobin is 11.4, serum sodium is 136, the rest of the electrolytes and renal profile are unremarkable. All of chest x-ray has been reviewed with Dr. Alamo, and showed persistence of retrocardiac density, stable exam. Clinically patient is improving, he was up ambulating with therapy. Patient appears to do well once he is up on his feet, but does require assistance to get up out of bed, appears stiff, and weak, but according to therapy he did well while he was ambulating. He is on a combination of Rocephin and Zithromax. Nebulized bronchodilators. No chest wall tenderness, no hemoptysis, no fever or chills. Objective - Vital Signs Vital signs: Vital Signs Temp 97.1 F L 11/19/18 11:51 Pulse 70 11/19/18 11:51 Resp 8 L 11/19/18 11:51 BP 128/73 11/19/18 11:51 Pulse Ox 96 11/19/18 11:51 Intake & Output 11/18/18 11/19/18 11/19/18 18:59 06:59 18:59 Intake Total 660 600 Output Total 50 Balance 660 -50 600 Weight 68.7 kg Intake: Oral 660 600 Output: Urine 50 Other: Voiding Method Toilet Toilet # Voids 1 2 2 # Bowel Movements 0 1 - Exam GENERAL EXAM: Alert, pleasant, 88-year-old white male comfortable in no apparent distress. HEAD: Normocephalic/atraumatic. EYES: Normal reaction of pupils, equal size. Conjunctiva pink, sclera white. NOSE: Clear with pink turbinates. THROAT: No erythema or exudates. NECK: No masses, no JVD, no thyroid enlargement, no adenopathy. CHEST: No chest wall deformity. Symmetrical expansion. LUNGS: Equal air entry with diminished breath sounds, rhonchi and wheezes CVS: Regular rate and rhythm, normal S1 and S2, no gallops, no murmurs, no rubs ABDOMEN: Soft, nontender. No hepatosplenomegaly, normal bowel sounds, no guarding or rigidity. EXTREMITIES: No clubbing, no edema, no cyanosis, 2+ pulses and upper and lower extremities. MUSCULOSKELETAL: Muscle strength and tone normal. SPINE: No scoliosis or deformity SKIN: No rashes CENTRAL NERVOUS SYSTEM: Alert and oriented -3. No focal deficits, tone is normal in all 4 extremities. PSYCHIATRIC: Alert and oriented -3. Appropriate affect. Intact judgment and insight. - Labs CBC & Chem 7: 11/19/18 05:09 11/19/18 05:09 Labs: Abnormal Lab Results - Last 24 Hours (Table) 11/18/18 11/19/18 11/19/18 Range/Units 20:37 05:09 05:09 RBC 3.83 L (4.30-5.90) m/uL Hgb 11.4 L (13.0-17.5) gm/dL Hct 34.2 L (39.0-53.0) % Sodium 136 L (137-145) mmol/L Creatinine 0.65 L (0.66-1.25) mg/dL POC Glucose (mg/dL) 112 H (75-99) mg/dL 11/19/18 11/19/18 Range/Units 05:50 11:25 RBC (4.30-5.90) m/uL Hgb (13.0-17.5) gm/dL Hct (39.0-53.0) % Sodium (137-145) mmol/L Creatinine (0.66-1.25) mg/dL POC Glucose (mg/dL) 160 H 173 H (75-99) mg/dL Microbiology - Last 24 Hours (Table) 11/15/18 14:55 Blood Culture - Preliminary Blood No Growth after 72 hours 11/16/18 13:09 Gram Stain - Final Sputum Sputum Culture - Final Assessment and Plan Plan: Assessment: #1. Acute community acquired pneumonia, chest x-ray showed retrocardiac opacity suspicious for pneumonic infiltrate. Cannot rule out possibility of aspiration pneumonia due to chronic dysphagia #2. Altered mental status, weakness and falls at home related to the above #3. Moderately severe COPD with FEV1 of 1.41 L or 50% of predicted, consistent with stage III COPD #4. Hypertension, hyperlipidemia, coronary artery disease #5. Chronic atrial fibrillation on Eliquis for anticoagulation #6. Type 2 diabetes mellitus #7. Dementia #8. Chronic dysphagia, patient is on thickened liquids at home #9. Anion prostatic hyperplasia #10. Chronic congestive heart failure with mildly impaired left ventricular systolic function with an EF of 50-55% #11. Nicotine dependence, currently in remission Plan: We'll continue current treatment, increase activity as tolerated, patient has been ambulating with therapy, apparently once he is up on his feet he does fairly well, walked 60 feet. Spouse refuses rehab after discharge, patient is clinically improving, culture data is negative thus far, no fever or chills. Maintain aspiration precautions, patient is on a modified diet with thickened liquids. Continue current medical treatment, anticipate discharge home in the next 24 hours. I performed a history & physical examination of the patient and discussed their management with my nurse practitioner, Leticia Jeff. I reviewed the nurse practitioner's note and agree with the documented findings and plan of care. Lung sounds are positive for diminished breath sounds with some limited wheezes. The findings and the impression was discussed with the patient. I attest to the documentation by the nurse practitioner. Time with Patient: Less than 30
[2018-11-19 15:08] VITALS: RESP 18
[2018-11-19 15:34] VITALS: BP 136/79; TEMP 97.6
[2018-11-19] MEDS: AZITHROMYCIN 500 MG TAB PO SCH (15:36)
--- NOTE | 2018-11-19 21:04 | DS ---
DISCHARGE SUMMARY FINAL DIAGNOSES: 1. Acute pneumonia possibly community-acquired versus aspiration pneumonia with possible sepsis present on admission with hypotension with severe sepsis, change in mental status acute metabolic acidosis secondary to sepsis. 2. History of chronic obstructive pulmonary disease. 3. Acute renal failure possibly prerenal acute renal failure multifactorial. 4. Dementia, possible Alzheimer's. 5. Coronary artery disease, history of 80% block. 6. History of congestive heart failure with chronic diastolic dysfunction/ejection fraction 50-55%. 7. Chronic dysphagia. 8. Chronic atrial ablation, controlled ventricular rate. 9. Influenza ruled out. 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 11.History of nicotine dependence. DISCHARGE DISPOSITION: The patient is being discharged in stable condition with guarded prognosis. Total time taken 35 minutes. HISTORY OF PRESENT ILLNESS: This 88-year-old gentleman admitted with pneumonia and sepsis is being treated with broad-spectrum IV antibiotics, multiple consultants including Dr. Ceron saw the patient. Care was coordinated. The patient improved significantly and the white count improved to 5.3, hemoglobin 11.4. On exam, vital signs stable. Cardio system: S1, S2. Abdomen was soft. Nervous system: no focal deficits. Patient discharged in a stable condition with guarded prognosis with the following advice and medications: 1. Diet is cardiac diet. 2. Activity limited until followup. 3. Follow up with the primary physician, Dr. Borges in 2-3 days. MEDICATIONS ARE: 1. Zithromax 500 mg p.o. daily for 5 days. 2. Ceftin 500 mg p.o. b.i.d. for 5 days. 3. Cozaar 50 mg q.a.m. 4. Protonix 40 mg daily. 5. Flomax 0.4 q.a.m. 6. Lipitor 40 mg q.a.m. 7. Aspirin 81 mg p.o. Saturday, Saturday, Saturday. 8. KCl 10 mg p.o. q.a.m. 9. Aricept 10 mg q.h.s. 10.Metoprolol 50 mg p.o. b.i.d. 11.Imdur 30 mg q.a.m. 12.Glucophage 500 mg q.a.m. 13.Symbicort 160/4.5 two puffs b.i.d. 14.Lasix 20 mg p.o. b.i.d. 15.Xanax 0.5 b.i.d. p.r.n. 16.Colace 200 mg q.h.s. 17.Eliquis 5 mg p.o. b.i.d. 18.Fish oil 1 capsule p.o. q.h.s. 19.Ventolin 2.5 q.i.d. 20.Vitamin C 500 mg p.o. daily. 21.Albuterol 1-2 puffs q.i.d. p.r.n. Follow with Dr. Borges in two to three days. Follow up with the forestry and wildlife manager's as advised. MMODL / IJN: [id number] /
[2018-11-20] MEDS ORDERED: PANTOPRAZOLE 40 MG TABLET PO SCH (07:30)
== END 2018-11-19 17:45 | disposition home or self-care (01) | DRG 871 ==
LOC: EC 12:44 → 3SCARD 17:25
PROVIDERS: ADMIT Internal Medicine; ATTEND Internal Medicine
DX: A41.9 Sepsis, unspecified organism (principal); J18.9 Pneumonia, unspecified organism; G93.41 Metabolic encephalopathy; N17.9 Acute kidney failure, unspecified; I50.32 Chronic diastolic (congestive) heart failure; J44.0 Chronic obstructive pulmonary disease with (acute) lower respiratory infection; F03.90 Unspecified dementia, unspecified severity, without behavioral disturbance, psychotic disturbance, mood disturbance, and anxiety; I48.2 Chronic atrial fibrillation; N40.0 Benign prostatic hyperplasia without lower urinary tract symptoms; F17.201 Nicotine dependence, unspecified, in remission; I25.10 Atherosclerotic heart disease of native coronary artery without angina pectoris; E11.9 Type 2 diabetes mellitus without complications; E78.5 Hyperlipidemia, unspecified; I11.0 Hypertensive heart disease with heart failure; R29.6 Repeated falls; R13.10 Dysphagia, unspecified; I77.810 Thoracic aortic ectasia; R19.7 Diarrhea, unspecified; Z79.01 Long term (current) use of anticoagulants; Z79.51 Long term (current) use of inhaled steroids; Z79.82 Long term (current) use of aspirin; Z79.84 Long term (current) use of oral hypoglycemic drugs; Z88.0 Allergy status to penicillin; Z88.8 Allergy status to other drugs, medicaments and biological substances; Z91.030 Bee allergy status
CPT/HCPCS: 36415; 70450; 71046; 80048; 80053; 80306; 81003; 82140; 82550; 82553; 83036; 83605; 84484; 85025; 85610; 85730; 87040; 87070; 87205; 87502; 93005; 93306; 94640; 94760; 96360; 96361; 96365; 96367; 99285

== ENCOUNTER 2019-06-10 22:41 | Emergency (ER) | payer MEDICARE ==
[2019-06-11 00:12] LABS: Basophils # (A) 0.1 k/uL (0-0.2); Basophils % (A) 1 %; Eosinophils # (A) 0.2 k/uL (0-0.7); Eosinophils % (A) 3 %; HCT 39.1 % (39.0-53.0); HGB 12.8 gm/dL (13.0-17.5); Lymphocytes # (A) 1.3 k/uL (1.0-4.8); Lymphocytes % (A) 21 %; MCH 29.2 pg (25.0-35.0); MCHC 32.8 g/dL (31.0-37.0); MCV 89.2 fL (80.0-100.0); Mean Platelet Volume 6.4; Monocytes # (A) 0.4 k/uL (0-1.0); Monocytes % (A) 6 %; Neutrophils # (A) 4.3 k/uL (1.3-7.7); Neutrophils % (A) 68 %; Platelet Count 181 k/uL (150-450); RBC 4.39 m/uL (4.30-5.90); RDW 14.1 % (11.5-15.5); WBC 6.3 k/uL (3.8-10.6)
[2019-06-11 00:24] LABS: African American GFR (CKD) >90 (>60 ml/min/1.73 sqM); Albumin 3.6 g/dL (3.5-5.0); Anion Gap 2 mmol/L; Blood Urea Nitrogen 29 mg/dL (9-20); Calcium 9.8 mg/dL (8.4-10.2); Carbon Dioxide 36 mmol/L (22-30); Chloride 103 mmol/L (98-107); Glucose 99 mg/dL (74-99); Sodium 141 mmol/L (137-145); Total Bilirubin 0.7 mg/dL (0.2-1.3); Total Protein 6.5 g/dL (6.3-8.2)
[2019-06-11 00:26] LABS: ALT 19 U/L (21-72); AST 22 U/L (17-59); Alkaline Phosphatase 48 U/L (38-126); Potassium 4.8 mmol/L (3.5-5.1)
--- NOTE | 2019-06-11 00:27 | XR ---
EXAM: XR Chest, 2 Views CLINICAL HISTORY: Dyspnea. TECHNIQUE: Frontal and lateral views of the chest. COMPARISON: 01/13/2019. FINDINGS: There is hypoaeration. There is cardiomegaly. There is patchy airspace disease posteriorly at the lung base seen only on the lateral view. No pneumothorax. IMPRESSION: Cardiomegaly. Hypoaeration. On the lateral view of the chest patchy airspace disease is noted posteriorly near the pleura. The possibility of pneumonia should be considered. It should be noted that etiology such as pulmonary embolus and cannot be excluded based on the current study and clinical correlation is necessary.
[2019-06-11 00:45] LABS: D-Dimer 0.2 mg/L FEU (<0.60); Partial Thromboplastin Time 27.6 sec (22.0-30.0); Prothrombin Time 10.7 sec (9.0-12.0)
[2019-06-11 01:01] VITALS: RESP 19
[2019-06-11] MEDS ORDERED: predniSONE 20 MG TAB PO STA (01:23)
[2019-06-11] MEDS ORDERED: IPRATROPIUM-ALBUTEROL 3 ML NEB INHALATION STA (01:23)
[2019-06-11] MEDS ORDERED: AZITHROMYCIN 500 MG TAB PO STA (01:24)
--- NOTE | 2019-06-11 02:03 | ED ---
SOB HPI - General Chief Complaint: Shortness of Breath Stated Complaint: Diff Breathing Time Seen by Provider: 06/10/19 22:45 Source: patient, family Mode of arrival: wheelchair Limitations: physical limitation - History of Present Illness Initial Comments: This patient is an 89-year-old man who comes from clinic to be evaluated for shortness of breath and cough. History is from both the patient and family. Patient states that his shortness of breath and cough seem to been getting progressively worse over the past week. He has been less active. The patient does have home oxygen but has been reluctant to use it. The patient states she does have some occasional yellow sputum. MD Complaint: shortness of breath, cough Onset/Timin -: week(s) Consistency: constant Improves With: nothing Worsens With: nothing Known History Of: COPD Associated Symptoms: cough, sputum production Treatments Prior to Arrival: oxygen - Related Data Home Oxygen Therapy: Yes Home Oxygen Amount: 2 Liters Home Medications Medication Instructions Recorded Confirmed Atorvastatin [Lipitor] 40 mg PO DAILY 06/04/15 06/10/19 Tamsulosin [Flomax] 0.4 mg PO DAILY 06/04/15 06/10/19 Aspirin [Adult Low Dose Aspirin EC] 81 mg PO MOWEFR 09/23/17 06/10/19 Budesonide/Formoterol Fumarate 2 puff INHALATION RT-BID 09/23/17 06/10/19 [Symbicort 160-4.5 Mcg Inhaler] Donepezil [Aricept] 10 mg PO HS 09/23/17 06/10/19 Isosorbide Mononitrate ER [Imdur] 30 mg PO DAILY 09/23/17 06/10/19 Metoprolol Tartrate [Lopressor] 50 mg PO BID 09/23/17 06/10/19 Potassium Chloride [K-Tab ER] 10 meq PO DAILY 09/23/17 06/10/19 metFORMIN HCL [Glucophage] 500 mg PO DAILY 09/23/17 06/10/19 ALPRAZolam [Xanax] 0.25 mg PO BID PRN 12/16/17 06/10/19 Apixaban [Eliquis] 5 mg PO BID 12/16/17 06/10/19 Docusate [Colace] 200 mg PO HS 12/16/17 06/10/19 [place]-3 Fatty Acids/Fish Oil [Fish 1 cap PO HS 12/16/17 06/10/19 Oil 1,000 mg Softgel] Albuterol Inhaler [Ventolin Hfa 1 - 2 puff INHALATION RT-QID PRN 11/15/18 06/10/19 Inhaler] Albuterol Nebulized [Ventolin 2.5 mg INHALATION RT-QID 11/15/18 06/10/19 Nebulized] Ascorbic Acid [Vitamin C] 500 mg PO DAILY 11/15/18 06/10/19 Cyanocobalamin [Vitamin B-12] 500 mcg PO DAILY 06/10/19 06/10/19 Glucosam/Marlon-Msm1/C/Mark/Bosw 1 tab PO DAILY 06/10/19 06/10/19 [Glucosamine-Chondroitin Tablet] L.acidoph,Paracasei, B.lactis 1 cap PO DAILY 06/10/19 06/10/19 [Probiotic] Losartan [Cozaar] 50 mg PO DAILY 06/10/19 06/10/19 Multivitamins, Thera [Multivitamin 1 tab PO HS 06/10/19 06/10/19 (formulary)] Ranitidine HCl [Zantac] 150 mg PO BID 06/10/19 06/10/19 Previous Rx's Medication Instructions Recorded Furosemide [Lasix] 20 mg PO BID@0900,1600 #60 tab 09/25/17 Levofloxacin 750 mg PO DAILY #7 tablet 06/11/19 Allergies Allergy/AdvReac Type Severity Reaction Status Date / Time amoxicillin [From Augmentin] Allergy Rash/Hives Verified 06/10/19 23:14 bee pollen Allergy Swelling Verified 06/10/19 23:14 clavulanic acid Allergy Rash/Hives Verified 06/10/19 23:14 [From Augmentin] Review of Systems ROS Statement: Those systems with pertinent positive or pertinent negative responses have been documented in the HPI. ROS Other: All systems not noted in ROS Statement are negative. Constitutional: Reports: weakness. Denies: fever, chills Respiratory: Reports: cough, dyspnea, wheezes. Denies: hemoptysis Cardiovascular: Denies: chest pain, edema, syncope Gastrointestinal: Denies: abdominal pain, vomiting, diarrhea Genitourinary: Denies: dysuria Musculoskeletal: Denies: back pain Skin: Denies: rash Neurological: Denies: headache, weakness Past Medical History Past Medical History: Atrial Fibrillation, Coronary Artery Disease (CAD), Heart Failure, COPD, Dementia, Diabetes Mellitus, Hyperlipidemia, Hypertension, Prostate Disorder Additional Past Medical History / Comment(s): NIDDM type II, beginning of dementia, joint pain-multiple sites. History of Any Multi-Drug Resistant Organisms: None Reported Past Surgical History: Heart Catheterization, Hernia Repair, Tonsillectomy Additional Past Surgical History / Comment(s): TURP, cystoscopy, L inguinal herniorraphy, bilateral cataract removal with lens implants. Past Anesthesia/Blood Transfusion Reactions: No Reported Reaction Past Psychological History: No Psychological Hx Reported Smoking Status: Never smoker Past Alcohol Use History: None Reported Past Drug Use History: None Reported - Past Family History Mother Additional Family Medical History / Comment(s): Mother either of CHF or a CA at the ageof 82 yrs. Father Family Medical History: Cancer Additional Family Medical History / Comment(s): Father of complications after surgery for throat cancer at the age of 76yrs. General Exam Limitations: physical limitation General appearance: alert, in no apparent distress Head exam: Present: atraumatic, normocephalic Eye exam: Present: normal appearance. Absent: scleral icterus, conjunctival injection ENT exam: Present: mucous membranes dry Neck exam: Present: normal inspection Respiratory exam: Present: wheezes, rales, rhonchi. Absent: respiratory distress, stridor Cardiovascular Exam: Present: regular rate, normal rhythm, normal heart sounds. Absent: systolic murmur, diastolic murmur, rubs, gallop GI/Abdominal exam: Present: soft. Absent: distended, tenderness, guarding, rebound, rigid, mass Extremities exam: Present: normal inspection, normal capillary refill, pedal edema (Trace edema at the ankles bilaterally). Absent: calf tenderness Back exam: Present: normal inspection. Absent: CVA tenderness (R), CVA tenderness (L) Neurological exam: Present: alert Skin exam: Present: warm, dry, intact, normal color. Absent: rash Course Vital Signs 06/10/19 06/11/19 22:43 01:00 Temperature 97.6 F Pulse Rate 80 75 Respiratory 22 19 Rate Blood Pressure 150/90 154/88 O2 Sat by Pulse 95 98 Oximetry Medical Decision Making - Medical Decision Making Patient is an 89-year-old man with underlying lung disease, found to have infiltrate on the chest x-ray. Discussed with patient and family admitting the patient, but his preference is to try being treated at home. He does have home oxygen but had not been using it recently. He does agree to use the oxygen until he is feeling better. I discussed return parameters. Did recommend admission, but Given that the patient is no CODE STATUS will defer to his wishes to try treatment at home. - Lab Data Result diagrams: 06/10/19 23:56 06/10/19 23:56 Lab Results 06/10/19 06/10/19 06/10/19 Range/Units 23:56 23:56 23:56 WBC 6.3 (3.8-10.6) k/uL RBC 4.39 (4.30-5.90) m/uL Hgb 12.8 L (13.0-17.5) gm/dL Hct 39.1 (39.0-53.0) % MCV 89.2 (80.0-100.0) fL MCH 29.2 (25.0-35.0) pg MCHC 32.8 (31.0-37.0) g/dL RDW 14.1 (11.5-15.5) % Plt Count 181 (150-450) k/uL Neutrophils % 68 % Lymphocytes % 21 % Monocytes % 6 % Eosinophils % 3 % Basophils % 1 % Neutrophils # 4.3 (1.3-7.7) k/uL Lymphocytes # 1.3 (1.0-4.8) k/uL Monocytes # 0.4 (0-1.0) k/uL Eosinophils # 0.2 (0-0.7) k/uL Basophils # 0.1 (0-0.2) k/uL PT 10.7 (9.0-12.0) sec INR 1.0 (<1.2) APTT 27.6 (22.0-30.0) sec D-Dimer 0.20 (<0.60) mg/L FEU Sodium 141 (137-145) mmol/L Potassium 4.8 (3.5-5.1) mmol/L Chloride 103 (98-107) mmol/L Carbon Dioxide 36 H (22-30) mmol/L Anion Gap 2 mmol/L BUN 29 H (9-20) mg/dL Creatinine 0.64 L (0.66-1.25) mg/dL Est GFR (CKD-EPI)AfAm >90 (>60 ml/min/1.73 sqM) Est GFR (CKD-EPI)NonAf 87 (>60 ml/min/1.73 sqM) Glucose 99 (74-99) mg/dL Calcium 9.8 (8.4-10.2) mg/dL Total Bilirubin 0.7 (0.2-1.3) mg/dL AST 22 (17-59) U/L ALT 19 L (21-72) U/L Alkaline Phosphatase 48 (38-126) U/L Troponin I (0.000-0.034) ng/mL NT-Pro-B Natriuret Pep pg/mL Total Protein 6.5 (6.3-8.2) g/dL Albumin 3.6 (3.5-5.0) g/dL 06/10/19 06/10/19 Range/Units 23:56 23:56 WBC (3.8-10.6) k/uL RBC (4.30-5.90) m/uL Hgb (13.0-17.5) gm/dL Hct (39.0-53.0) % MCV (80.0-100.0) fL MCH (25.0-35.0) pg MCHC (31.0-37.0) g/dL RDW (11.5-15.5) % Plt Count (150-450) k/uL Neutrophils % % Lymphocytes % % Monocytes % % Eosinophils % % Basophils % % Neutrophils # (1.3-7.7) k/uL Lymphocytes # (1.0-4.8) k/uL Monocytes # (0-1.0) k/uL Eosinophils # (0-0.7) k/uL Basophils # (0-0.2) k/uL PT (9.0-12.0) sec INR (<1.2) APTT (22.0-30.0) sec D-Dimer (<0.60) mg/L FEU Sodium (137-145) mmol/L Potassium (3.5-5.1) mmol/L Chloride (98-107) mmol/L Carbon Dioxide (22-30) mmol/L Anion Gap mmol/L BUN (9-20) mg/dL Creatinine (0.66-1.25) mg/dL Est GFR (CKD-EPI)AfAm (>60 ml/min/1.73 sqM) Est GFR (CKD-EPI)NonAf (>60 ml/min/1.73 sqM) Glucose (74-99) mg/dL Calcium (8.4-10.2) mg/dL Total Bilirubin (0.2-1.3) mg/dL AST (17-59) U/L ALT (21-72) U/L Alkaline Phosphatase (38-126) U/L Troponin I <0.012 (0.000-0.034) ng/mL NT-Pro-B Natriuret Pep 2420 pg/mL Total Protein (6.3-8.2) g/dL Albumin (3.5-5.0) g/dL Disposition Clinical Impression: Pneumonia Disposition: HOME SELF-CARE Condition: Poor Instructions (If sedation given, give patient instructions): Pneumonia (ED) Prescriptions: Levofloxacin 750 mg PO DAILY #7 tablet Is patient prescribed a controlled substance at d/c from ED?: No Referrals: Larissa Borges DO [Primary Care Provider] - 1-2 days
[2019-06-11 02:52] VITALS: BP 130/75; PULSE 65; TEMP 98.7
== END 2019-06-11 02:51 | disposition home or self-care (01) ==
LOC: EC 22:41
DX: J18.9 Pneumonia, unspecified organism (principal); R60.9 Edema, unspecified; J44.9 Chronic obstructive pulmonary disease, unspecified; I48.91 Unspecified atrial fibrillation; I25.10 Atherosclerotic heart disease of native coronary artery without angina pectoris; I11.0 Hypertensive heart disease with heart failure; I50.9 Heart failure, unspecified; F03.90 Unspecified dementia, unspecified severity, without behavioral disturbance, psychotic disturbance, mood disturbance, and anxiety; E11.9 Type 2 diabetes mellitus without complications; E78.5 Hyperlipidemia, unspecified; N42.9 Disorder of prostate, unspecified; Z79.01 Long term (current) use of anticoagulants; Z79.84 Long term (current) use of oral hypoglycemic drugs; Z79.51 Long term (current) use of inhaled steroids; Z79.82 Long term (current) use of aspirin; Z79.899 Other long term (current) drug therapy; Z88.0 Allergy status to penicillin; Z91.030 Bee allergy status
CPT/HCPCS: 36415; 71046; 80053; 83880; 84484; 85025; 85379; 85610; 85730; 93005; 94640; 99285

== ENCOUNTER → 2019-07-17 | Outpatient (CLI) | payer MEDICARE ==
--- NOTE | 2019-07-17 16:07 | CT ---
"EXAMINATION TYPE: CT chest w con DATE OF EXAM: 07/17/2019 COMPARISON: Chest x-ray June 11, 2019 HISTORY: Cough CT DLP: 467 mGycm. Automated Exposure Control for Dose Reduction was Utilized. TECHNIQUE: CT scan of the thorax is performed following with IV Contrast, patient injected with 100 mL of Isovue 300. FINDINGS: LUNGS: Background mild underlying emphysematous change. Worsening right greater than left bilateral l ower lobe infiltrates with increasing reticular interstitial changes and areas of consolidation noted bilaterally. There is sparing of the upper and middle lobes. There is trace right-sided pleural effu debora at the base. No pneumothorax is evident bilaterally. MEDIASTINUM: There are no greater than 1 cm hilar or mediastinal lymph nodes. Tiny pericardial effusi on is seen. Cardiomegaly is noted. Calcification at level of mitral and aortic valve is seen. Pereyra ry calculation is present which is noted marked underlying coronary artery disease. Heterogeneous sli ghtly prominent thyroid. OTHER: There is partial visualization of probable splenomegaly coronal image 70. Central calcificatio ns in both kidneys favor vascular etiology. Nday-dx-rqokgiyq calcified plaque in the ectatic aorta is seen. Occasional scattered subcentimeter low dense lesion in the liver are too small to further mukund acterize. Mild multilevel spurring. IMPRESSION: Worsening right greater than left bilateral lower lung consolidations suggesting worsenin g bilateral infection and/or pneumonias. Correlate clinically. A Yellow level critical message alert has been initiated for Larissa Borges DO via the Reasult 36 0 | Critical Results System on 07/17/2019 4:05 PM. This message alert has been sent to Larissa Borges DO via the preferences provided by the clinician for the receipt of Radiology Critical Findings. [facility] [place] [id number]."
== END | disposition home or self-care (01) ==
LOC: RADCTMAIN 15:18
PROVIDERS: ATTEND Family Medicine
DX: J18.1 Lobar pneumonia, unspecified organism (principal)
CPT/HCPCS: 71260; Q9967

== ENCOUNTER 2019-07-18 14:03 | Inpatient (IN) | payer MEDICARE ==
[2019-07-18] MEDS ORDERED: SODIUM CHLORIDE 0.9% 1,000 ML IV STA (14:41)
[2019-07-18] MEDS ORDERED: methylPREDNISolone SOD SUCCI 125 MG/2 ML VIAL IV STA (14:41)
[2019-07-18] MEDS ORDERED: IPRATROPIUM-ALBUTEROL 3 ML NEB INHALATION STA (14:41)
--- NOTE | 2019-07-18 14:45 | ED ---
SOB HPI - General Chief Complaint: Shortness of Breath Stated Complaint: Abn Xray Time Seen by Provider: 07/18/19 14:19 Source: patient, family, RN notes reviewed, old records reviewed Mode of arrival: wheelchair Limitations: physical limitation - History of Present Illness Initial Comments: This 89-year-old male who was sent in by his doctor after having a CAT scan done yesterday which showed pneumonia. He had been treated as an outpatient with antibiotics, Augmentin but is failing. He complains of cough with bloody stool phlegm otherwise is clear no overt fevers chills or sweats. He was sent in for inpatient treatment by his doctor. MD Complaint: shortness of breath, cough - Related Data Home Medications Medication Instructions Recorded Confirmed Atorvastatin [Lipitor] 40 mg PO DAILY 06/04/15 07/18/19 Tamsulosin [Flomax] 0.4 mg PO DAILY 06/04/15 07/18/19 Aspirin [Adult Low Dose Aspirin EC] 81 mg PO MOWEFR 09/23/17 07/18/19 Budesonide/Formoterol Fumarate 2 puff INHALATION RT-BID 09/23/17 07/18/19 [Symbicort 160-4.5 Mcg Inhaler] Donepezil [Aricept] 10 mg PO HS 09/23/17 07/18/19 Isosorbide Mononitrate ER [Imdur] 30 mg PO DAILY 09/23/17 07/18/19 Metoprolol Tartrate [Lopressor] 50 mg PO BID 09/23/17 07/18/19 Potassium Chloride [K-Tab ER] 10 meq PO DAILY 09/23/17 07/18/19 metFORMIN HCL [Glucophage] 500 mg PO DAILY 09/23/17 07/18/19 ALPRAZolam [Xanax] 0.25 mg PO BID PRN 12/16/17 07/18/19 Apixaban [Eliquis] 5 mg PO BID 12/16/17 07/18/19 Docusate [Colace] 200 mg PO HS 12/16/17 07/18/19 [place]-3 Fatty Acids/Fish Oil [Fish 1 cap PO DAILY 12/16/17 07/18/19 Oil 1,000 mg Softgel] Albuterol Inhaler [Ventolin Hfa 1 - 2 puff INHALATION RT-QID PRN 11/15/18 07/18/19 Inhaler] Albuterol Nebulized [Ventolin 2.5 mg INHALATION RT-QID 11/15/18 07/18/19 Nebulized] Ascorbic Acid [Vitamin C] 500 mg PO DAILY 11/15/18 07/18/19 Cyanocobalamin [Vitamin B-12] 500 mcg PO DAILY 06/10/19 07/18/19 Glucosam/[place]-Msm1/C/Mark/Bosw 1 tab PO DAILY 06/10/19 07/18/19 [Glucosamine-Chondroitin Tablet] L.acidoph,Paracasei, B.lactis 1 cap PO DAILY 06/10/19 07/18/19 [Probiotic] Losartan [Cozaar] 50 mg PO DAILY 06/10/19 07/18/19 Multivitamins, Thera [Multivitamin 1 tab PO DAILY 06/10/19 07/18/19 (formulary)] Ranitidine HCl [Zantac] 150 mg PO BID 06/10/19 07/18/19 Previous Rx's Medication Instructions Recorded Furosemide [Lasix] 20 mg PO BID@0900,1600 #60 tab 09/25/17 Allergies Allergy/AdvReac Type Severity Reaction Status Date / Time amoxicillin [From Augmentin] Allergy Rash/Hives Verified 07/18/19 14:41 bee pollen Allergy Swelling Verified 07/18/19 14:41 clavulanic acid Allergy Rash/Hives Verified 07/18/19 14:41 [From Augmentin] Review of Systems ROS Statement: Those systems with pertinent positive or pertinent negative responses have been documented in the HPI. ROS Other: All systems not noted in ROS Statement are negative. Past Medical History Past Medical History: Atrial Fibrillation, Coronary Artery Disease (CAD), Heart Failure, COPD, Dementia, Diabetes Mellitus, Hyperlipidemia, Hypertension, Prostate Disorder Additional Past Medical History / Comment(s): NIDDM type II, beginning of dementia, joint pain-multiple sites. History of Any Multi-Drug Resistant Organisms: None Reported Past Surgical History: Heart Catheterization, Hernia Repair, Tonsillectomy Additional Past Surgical History / Comment(s): TURP, cystoscopy, L inguinal herniorraphy, bilateral cataract removal with lens implants. Past Anesthesia/Blood Transfusion Reactions: No Reported Reaction Past Psychological History: No Psychological Hx Reported Smoking Status: Never smoker Past Alcohol Use History: None Reported Past Drug Use History: None Reported - Past Family History Mother Additional Family Medical History / Comment(s): Mother either of CHF or a PR at the ageof 82 yrs. Father Family Medical History: Cancer Additional Family Medical History / Comment(s): Father of complications after surgery for throat cancer at the age of 76yrs. General Exam - General Exam Comments Initial Comments: This is a well-developed sec appearing male who is awake alert though mildly confused Limitations: physical limitation General appearance: alert, in no apparent distress Head exam: Present: atraumatic, normocephalic, normal inspection Eye exam: Present: normal appearance, PERRL, EOMI. Absent: scleral icterus, conjunctival injection, periorbital swelling ENT exam: Present: mucous membranes dry Neck exam: Present: normal inspection, full ROM, other (No stridor JVD or bruits). Absent: tenderness, meningismus, lymphadenopathy Respiratory exam: Present: normal lung sounds bilaterally. Absent: respiratory distress, wheezes, rales, rhonchi, stridor Cardiovascular Exam: Present: regular rate, normal rhythm, normal heart sounds. Absent: systolic murmur, diastolic murmur, rubs, gallop, clicks GI/Abdominal exam: Present: soft, normal bowel sounds. Absent: distended, tenderness, guarding, rebound, rigid Extremities exam: Present: normal inspection, full ROM, normal capillary refill. Absent: tenderness, pedal edema, joint swelling, calf tenderness Back exam: Present: normal inspection Neurological exam: Present: alert, oriented X3, CN II-XII intact Psychiatric exam: Present: normal affect, normal mood Skin exam: Present: warm, dry, intact, normal color. Absent: rash Course Vital Signs 07/18/19 07/18/19 07/18/19 14:15 15:02 15:09 Temperature 97.4 F L Pulse Rate 66 67 69 Respiratory 22 Rate Blood Pressure 79/56 O2 Sat by Pulse 93 L Oximetry Medical Decision Making - Medical Decision Making Patient will be admitted for outpatient treatment failure and I medication will be started. The case is discussed with Dr. Muse - Lab Data Result diagrams: 07/18/19 15:05 Lab Results 07/18/19 07/18/19 Range/Units 15:05 15:05 Sodium 142 (137-145) mmol/L Potassium 4.5 (3.5-5.1) mmol/L Chloride 101 (98-107) mmol/L Carbon Dioxide 38 H (22-30) mmol/L Anion Gap 3 mmol/L BUN 27 H (9-20) mg/dL Creatinine 0.58 L (0.66-1.25) mg/dL Est GFR (CKD-EPI)AfAm >90 (>60 ml/min/1.73 sqM) Est GFR (CKD-EPI)NonAf >90 (>60 ml/min/1.73 sqM) Glucose 111 H (74-99) mg/dL Calcium 10.0 (8.4-10.2) mg/dL Magnesium 2.1 (1.6-2.3) mg/dL Total Bilirubin 0.7 (0.2-1.3) mg/dL AST 16 L (17-59) U/L ALT 19 L (21-72) U/L Alkaline Phosphatase 45 (38-126) U/L Creatine Kinase <20 L (55-170) U/L Troponin I <0.012 (0.000-0.034) ng/mL Total Protein 6.3 (6.3-8.2) g/dL Albumin 3.4 L (3.5-5.0) g/dL - EKG Data -: EKG Interpreted by Me EKG Comments: Atrial fibrillation rate of 81 QRS 90 QT since QTC 384/44 6/10 exodeviation inferior and anterior changes of undetermined age - Radiology Data Radiology results: report reviewed (I did review the imaging as well as the CAT scan report. There is evidence of bilateral lower lobe infiltrates.), image reviewed Disposition Clinical Impression: Community acquired bilateral lower lobe pneumonia, Dehydration, Failure of outpatient treatment Disposition: ADMITTED IP TO THIS HOSP Condition: Fair Referrals: Larissa Borges DO [Primary Care Provider] - 1-2 days
[2019-07-18 15:32] LABS: Partial Thromboplastin Time 29.2 sec (22.0-30.0); Prothrombin Time 10.7 sec (9.0-12.0)
[2019-07-18 15:34] LABS: ALT 19 U/L (21-72); AST 16 U/L (17-59); African American GFR (CKD) >90 (>60 ml/min/1.73 sqM); Albumin 3.4 g/dL (3.5-5.0); Alkaline Phosphatase 45 U/L (38-126); Anion Gap 3 mmol/L; Blood Urea Nitrogen 27 mg/dL (9-20); Carbon Dioxide 38 mmol/L (22-30); Chloride 101 mmol/L (98-107); Creatine Kinase <20 U/L (55-170); Glucose 111 mg/dL (74-99); Magnesium 2.1 mg/dL (1.6-2.3); Potassium 4.5 mmol/L (3.5-5.1); Sodium 142 mmol/L (137-145); Total Bilirubin 0.7 mg/dL (0.2-1.3); Total Protein 6.3 g/dL (6.3-8.2)
[2019-07-18 15:50] LABS: D-Dimer 0.65 mg/L FEU (<0.60)
[2019-07-18] MEDS ORDERED: LEVOFLOXACIN 750MG-D5W PMX 750 MG in DEXTROSE/WATER 1 150ML.BAG IVPB STA (15:54)
[2019-07-18] MEDS ORDERED: PIPERACILLIN-TAZOBACTAM 3.375 GM in SODIUM CHLORIDE 0.9% 100 ML IVPB STA (15:54)
[2019-07-18] MEDS ORDERED: PNEUMONIA PROTOCOL UTILIZED 1 EACH MISC PO PRN (15:54)
[2019-07-18 15:55] LABS: Basophils % (A) 1 %; Eosinophils # (A) 0.2 k/uL (0-0.7); Eosinophils % (A) 4 %; HCT 38.9 % (39.0-53.0); HGB 13.1 gm/dL (13.0-17.5); Lymphocytes # (A) 0.8 k/uL (1.0-4.8); Lymphocytes % (A) 12 %; MCH 30.6 pg (25.0-35.0); MCHC 33.6 g/dL (31.0-37.0); Mean Platelet Volume 5.9; Monocytes # (A) 0.3 k/uL (0-1.0); Monocytes % (A) 5 %; Neutrophils # (A) 4.9 k/uL (1.3-7.7); Neutrophils % (A) 77 %; Platelet Count 178 k/uL (150-450); RBC 4.27 m/uL (4.30-5.90); WBC 6.3 k/uL (3.8-10.6)
--- NOTE | 2019-07-18 15:57 | XR ---
EXAMINATION TYPE: XR chest 2V DATE OF EXAM: 07/18/2019 HISTORY: difficulty breathing. REFERENCE: Previous study dated 06/11/2019. FINDINGS: The heart is enlarged. There is scarring or atelectasis at both lung bases. Pleural spaces are clear. IMPRESSION: 1. CARDIOMEGALY. 2. SCARRING VERSUS ATELECTASIS, BOTH LUNG BASES.
[2019-07-18] MEDS ORDERED: SODIUM CHLORIDE 0.9% 1,000 ML IV SCH (16:00)
[2019-07-18] MEDS: SYMBICORT 160-4.5 MCG INHALER INHALATION SCH ×2 (19:37→19:45)
[2019-07-18] MEDS: IPRATROPIUM-ALBUTEROL 3 ML NEB INHALATION SCH ×3 (19:37→23:51)
[2019-07-18 20:53] LABS: Glucose,Whole Blood 206 mg/dL (75-99)
[2019-07-18] MEDS: DOCUSATE 100 MG CAP PO SCH ×2 (20:55→21:00)
[2019-07-18] MEDS: methylPREDNISolone SOD SUCCI 125 MG/2 ML VIAL IV SCH (20:55)
[2019-07-18] MEDS: APIXABAN 5 MG TAB PO SCH (20:55)
--- NOTE | 2019-07-18 22:16 | P.HPIM ---
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 Patient has been on antibiotics recently. Patient was having cough for the past 1 month on and off associated with cough and minimal sputum production. Patient was wheezing on admission. Patient has been having difficulty swallowing and is on honey thickened liquids. No fever no chills. Patient was sent to the hospital due to worsening infiltrates noted in the CT chest. EKG showed atrial fibrillation. Rate controlled. CT chest done on 07/17/2019 showed right greater than left worsening bilateral lower lung consolidations suggesting worsening bilateral infection. Chest x-ray showed cardiomegaly. Scarring versus atelectasis both lung bases. WBC 6.3, d-dimer 0.65 Bicarb 38, BNP 3160 Influenza PCR negative Patient is awake alert but underlying dementia. Most of the history was taken from the medical records. Patient cannot provide any history at this time. Patient was hypotensive with blood pressure 79/55 mm hg on admission Review of Systems Constitutional: Patient denies any fever or chills . Abdomen: Patient denied nausea vomiting and diarrhea and abdominal pain. Cardiovascular: Patient denies any chest pain or short of breath no palpitations. Respiratory: Cough and shortness of breath Neurologic: Patient denied any numbness or tingling headache. Review of systems could not be obtained from the patient. Past Medical History Past Medical History: Atrial Fibrillation, Coronary Artery Disease (CAD), Heart Failure, COPD, Dementia, Diabetes Mellitus, Hyperlipidemia, Hypertension, Prostate Disorder Additional Past Medical History / Comment(s): NIDDM type II, beginning of dementia, joint pain-multiple sites. History of Any Multi-Drug Resistant Organisms: None Reported Past Surgical History: Heart Catheterization, Hernia Repair, Tonsillectomy Additional Past Surgical History / Comment(s): TURP, cystoscopy, L inguinal herniorraphy, bilateral cataract removal with lens implants. Past Anesthesia/Blood Transfusion Reactions: No Reported Reaction Past Psychological History: No Psychological Hx Reported Additional Psychological History / Comment(s): PT RESIDES WITH HIS SPOUSE OF 62 YRS. HE HAS A CANE WHICH HE USES OCCASIONALLY-OTHER VARELA HE GRABS FURNITURE. HE NO LONGER DRIVES, SPOUSE TAKES HIM TO APPTS AND MANAGES HIS MEDICATION. Smoking Status: Former smoker Past Alcohol Use History: None Reported Additional Past Alcohol Use History / Comment(s): Pt started smoking in 1956 and quit in 1996. Past Drug Use History: None Reported - Past Family History Mother Additional Family Medical History / Comment(s): Mother either of CHF or a DC at the ageof 82 yrs. Father Family Medical History: Cancer Additional Family Medical History / Comment(s): Father of complications after surgery for throat cancer at the age of 76yrs. Medications and Allergies Home Medications Medication Instructions Recorded Confirmed Type Atorvastatin [Lipitor] 40 mg PO DAILY 06/04/15 07/18/19 History Tamsulosin [Flomax] 0.4 mg PO DAILY 06/04/15 07/18/19 History Aspirin [Adult Low Dose Aspirin EC] 81 mg PO MOWEFR 09/23/17 07/18/19 History Budesonide/Formoterol Fumarate 2 puff INHALATION RT-BID 09/23/17 07/18/19 History [Symbicort 160-4.5 Mcg Inhaler] Donepezil [Aricept] 10 mg PO HS 09/23/17 07/18/19 History Isosorbide Mononitrate ER [Imdur] 30 mg PO DAILY 09/23/17 07/18/19 History Metoprolol Tartrate [Lopressor] 50 mg PO BID 09/23/17 07/18/19 History Potassium Chloride [K-Tab ER] 10 meq PO DAILY 09/23/17 07/18/19 History metFORMIN HCL [Glucophage] 500 mg PO DAILY 09/23/17 07/18/19 History Furosemide [Lasix] 20 mg PO BID@0900,1600 #60 tab 09/25/17 07/18/19 Rx ALPRAZolam [Xanax] 0.25 mg PO BID PRN 12/16/17 07/18/19 History Apixaban [Eliquis] 5 mg PO BID 12/16/17 07/18/19 History Docusate [Colace] 200 mg PO HS 12/16/17 07/18/19 History [place]-3 Fatty Acids/Fish Oil [Fish 1 cap PO DAILY 12/16/17 07/18/19 History Oil 1,000 mg Softgel] Albuterol Inhaler [Ventolin Hfa 1 - 2 puff INHALATION RT-QID PRN 11/15/18 07/18/19 History Inhaler] Albuterol Nebulized [Ventolin 2.5 mg INHALATION RT-QID 11/15/18 07/18/19 History Nebulized] Ascorbic Acid [Vitamin C] 500 mg PO DAILY 11/15/18 07/18/19 History Cyanocobalamin [Vitamin B-12] 500 mcg PO DAILY 06/10/19 07/18/19 History Glucosam/Marlon-Msm1/C/Mark/Bosw 1 tab PO DAILY 06/10/19 07/18/19 History [Glucosamine-Chondroitin Tablet] L.acidoph,Paracasei, B.lactis 1 cap PO DAILY 06/10/19 07/18/19 History [Probiotic] Losartan [Cozaar] 50 mg PO DAILY 06/10/19 07/18/19 History Multivitamins, Thera [Multivitamin 1 tab PO DAILY 06/10/19 07/18/19 History (formulary)] Ranitidine HCl [Zantac] 150 mg PO BID 06/10/19 07/18/19 History Allergies Allergy/AdvReac Type Severity Reaction Status Date / Time amoxicillin [From Augmentin] Allergy Rash/Hives Verified 07/18/19 14:41 bee pollen Allergy Swelling Verified 07/18/19 14:41 clavulanic acid Allergy Rash/Hives Verified 07/18/19 14:41 [From Augmentin] Physical Exam Vitals: Vital Signs Temp Pulse Pulse Resp BP BP Pulse Ox 07/18/19 17:30 97.6 F 88 16 133/74 97 07/18/19 16:08 98.2 F 80 20 127/77 98 07/18/19 15:09 69 07/18/19 15:02 67 07/18/19 14:15 97.4 F L 66 22 79/56 93 L Intake and Output 07/18/19 07/18/19 07/18/19 06:59 14:59 22:59 Other: # Voids 1 Weight 60.781 kg PHYSICAL EXAMINATION: Patient is lying in the bed comfortably, no acute distress, awake alert and orientedx1.. HEENT: Normocephalic. Neck is supple. Pupils reactive. Nostrils clear. Oral cavity is moist. Ears reveal no drainage. Neck reveals no JVD, carotid bruits, or thyromegaly. CHEST EXAMINATION: Trachea is central. Symmetrical expansion. Bibasilar diminished air entry. Bilateral wheezing and scattered rhonchi. CARDIAC: Normal S1, S2 with no gallops. No murmurs ABDOMEN: Soft. Bowel sounds normal. No organomegaly. No abdominal bruits. Extremities: reveal no edema. No clubbing or cyanosis Neurologically awake, alert, oriented x1 with well-coordinated movements. Patient does have cognitive impairment Skin: No rash or skin lesions. Psychiatric: Coperative. Could not be assessed completely Musculoskeletal: No joint swelling or deformity. Normal range of motion. Results CBC & Chem 7: 07/18/19 15:05 07/18/19 15:05 Labs: Abnormal Lab Results - Last 24 Hours (Table) 07/18/19 07/18/19 07/18/19 Range/Units 15:05 15:05 15:05 RBC 4.27 L (4.30-5.90) m/uL Hct 38.9 L (39.0-53.0) % Lymphocytes # 0.8 L (1.0-4.8) k/uL D-Dimer 0.65 H (<0.60) mg/L FEU Carbon Dioxide 38 H (22-30) mmol/L BUN 27 H (9-20) mg/dL Creatinine 0.58 L (0.66-1.25) mg/dL Glucose 111 H (74-99) mg/dL AST 16 L (17-59) U/L ALT 19 L (21-72) U/L Creatine Kinase <20 L (55-170) U/L Albumin 3.4 L (3.5-5.0) g/dL Thrombosis Risk Factor Assmnt - DVT/VTE Prophylaxis DVT/VTE Prophylaxis: Pharmacologic Prophylaxis ordered - Choose All That Apply Each Risk Factor Represents 3 Points: Age 75 years or older Thrombosis Risk Factor Assessment Total Risk Factor Score: 3 Thrombosis Risk Factor Assessment Level: Moderate Risk Assessment and Plan Assessment: Bibasilar right greater than left consolidation with pneumonia. 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 Currently on IV thickened liquids at home. Chronic atrial fibrillation on Eliquis for anticoagulation Chronic CHF with mildly reduced systolic dysfunction ejection fraction 50-50% as per recent echocardiogram Elevated BNP without any other evidence of CHF Diabetes type 2 bae-pwgauur-xyhtlrpoc BPH Previous history of smoking DVT prophylaxis patient is already on full anticoagulation CODE STATUS is DO NOT RESUSCITATE/DO NOT INTUBATE Plan: Patient will be continued on broad-spectrum antibiotics in the form of Levaquin and Zosyn. Continue with duo nebs and IV steroids. Sputum culture will be sent. Continue the home medications and pulmonary was consulted. Follow-up culture reports. Oxygen therapy. Further recommendations based on the clinical course. Prognosis is guarded. Time with Patient: Greater than 30
[2019-07-18] MEDS: ALPRAZolam 0.25 MG TAB PO PRN (22:19)
[2019-07-19] MEDS: PIPERACILLIN-TAZOBACTAM 3.375 GM in SODIUM CHLORIDE 0.9% 100 ML IVPB SCH ×4 (00:54→23:40)
[2019-07-19] MEDS: IPRATROPIUM-ALBUTEROL 3 ML NEB INHALATION SCH ×5 (05:10→21:16)
[2019-07-19] MEDS: methylPREDNISolone SOD SUCCI 125 MG/2 ML VIAL IV SCH ×4 (06:59→23:44)
[2019-07-19 07:09] LABS: Glucose,Whole Blood 113 mg/dL (75-99)
[2019-07-19] MEDS: APIXABAN 5 MG TAB PO SCH ×2 (07:51→21:41)
[2019-07-19] MEDS: CYANOCOBALAMIN 500 MCG TAB PO SCH (07:51)
[2019-07-19] MEDS: ASCORBIC ACID 500 MG TAB PO SCH (07:51)
[2019-07-19] MEDS: ATORVASTATIN 40 MG TAB PO SCH (07:51)
--- NOTE | 2019-07-19 09:09 | XR ---
EXAMINATION TYPE: XR chest 2V DATE OF EXAM: 07/19/2019 HISTORY: pneumonia. REFERENCE: Previous study dated 07/18/2019. FINDINGS: Lung volumes are prominent. Heart is enlarged. There is scarring versus atelectasis at the lung bases. Pleural spaces are clear. IMPRESSION: 1. COPD. 2. CARDIOMEGALY. 3. SCARRING VERSUS ATELECTASIS, BOTH LUNG BASES.
[2019-07-19] MEDS: SYMBICORT 160-4.5 MCG INHALER INHALATION SCH ×2 (09:38→21:16)
[2019-07-19 11:36] LABS: Glucose,Whole Blood 168 mg/dL (75-99)
--- NOTE | 2019-07-19 13:59 | CONS ---
CONSULTATION PULMONARY/CRITICAL CARE CONSULTATION: DATE OF CONSULTATION: 07/19/2019 REASON FOR CONSULTATION: Shortness of breath and possible pneumonia. This is an 89-year-old male who apparently was evaluated in the emergency room for possible pneumonia. He apparently had a CT scan done which revealed bibasilar infiltrates consistent with pneumonia. He apparently was on antibiotics as an outpatient, I believe Augmentin. He apparently states he was not getting any better. His complaints included shortness of breath, cough, occasional yellow phlegm production, hemoptysis, and chest congestion. There was no fever or chills. There was no chest pain or chest discomfort. No nausea, vomiting or diarrhea. The patient just went down for a chest x-ray. His chest x-ray does not look overwhelmingly impressive. His CT scan suggested bibasilar infiltrates. Clinically he looks well. He is on a couple liters of O2. He is not in any respiratory distress. There is no audible wheezing, use of accessory muscles or conversational dyspnea. He is a very poor historian and sometimes does not even answer the question that I ask him. The nurse who I spoke to today said that he is not coughing up any additional blood today. HOME MEDICATIONS: Include Lipitor, Flomax, low-dose aspirin, Symbicort, Aricept, Imdur, Lopressor, potassium chloride, Glucophage, Xanax, Eliquis, Colace, fish oil, albuterol inhaler, albuterol updrafts, vitamin B12, glucosamine and chondroitin, probiotic, Cozaar, multivitamins and ranitidine. In addition, previously he was on Lasix. ALLERGIES: Include AUGMENTIN, BEE POLLEN, CLAVULANIC ACID. PAST MEDICAL HISTORY: Apparently positive for atrial fibrillation, CAD, CHF, COPD from chronic smoking, dementia, diabetes mellitus, hyperlipidemia, hypertension, and BPH. No other major medical problems noted. SURGICAL HISTORY: Includes heart catheterization, hernia repair, tonsillectomy, TURP for BPH, cystoscopy, and bilateral cataract removal with lens implant. SOCIAL HISTORY: Significant that he states he is a never smoker, although it was noted that there was smoking in his history. He apparently denies any alcohol or illicit drug use. FAMILY HISTORY: Significant to his mother who at age 82 of either CHF or myocardial infarction or both. Father apparently had a history of cancer of the throat and from complications of that at age 76. REVIEW OF SYSTEMS: CONSTITUTIONAL negative. NEUROLOGIC negative HEENT negative. CARDIOVASCULAR negative. PULMONARY: Shortness of breath, chest congestion, cough, occasional phlegm production, hemoptysis. GI negative. negative. RHEUMATOLOGIC negative. IMMUNOLOGIC negative. ENDOCRINOLOGIC negative. DERMATOLOGIC negative. PHYSICAL EXAMINATION: Current vital signs are reviewed. Temperature is 97.4, heart rate 76, respiratory rate 18, blood pressure 151/84, mean 106, 2 L saturation is 99%. He appears in no acute distress. HEENT examination is grossly unremarkable. Mucous membranes are moist. Nasal O2 is noted. NECK: Supple. Full range of motion. No adenopathy. Neck veins are flat. CARDIOVASCULAR examination reveals irregular rhythm and rate. Heart rate about 85 beats per minute. He appears to be in atrial fibrillation. S1, S2 normal. No distinct murmur noted. LUNGS: Reveal mild bibasilar crackles. No wheezes or rhonchi. ABDOMEN: Soft. Bowel sounds are heard. EXTREMITIES are intact. No cyanosis, clubbing, or edema. SKIN: Without rash. NEUROLOGIC examination appears to be reasonably normal. The patient is not a particularly good historian. LAB DATA: Reviewed. White count 6.3, hemoglobin 13.1, hematocrit 38.9, platelet count 170,000. PT/INR were 10.7 and 1.0 respectively. PTT 29.2. D-dimer 0.65. Sodium 142, potassium 4.5, chloride 101, CO2 is 38, anion gap is 3. BUN and creatinine were 27 and 0.58. Influenza studies were negative. AST, ALT normal. Albumin 3.4. N terminal proBNP is 3160. Microbiology is pending or negative. Most recent chest x-ray when compared to the prior chest x-ray shows changes of COPD. There is some basilar infiltrates or atelectasis and/or scarring noted. The CT of the chest done on July 17, which is just 2 days ago, shows right greater than left bilateral lower lung consolidation suggestive of worsening pneumonia. Current medications are reviewed. He is on Xanax, Eliquis, ascorbic acid, aspirin, Lipitor Symbicort, vitamin B12, Colace, updrafts, Levaquin, Solu-Medrol, Zosyn, and IV. ASSESSMENT: 1. Acute hypoxemic respiratory failure, with associated cough, chest congestion, phlegm production, hemoptysis, secondary to bibasilar pneumonia. 2. History of atrial fibrillation. 3. Coronary artery disease. 4. Heart failure. 5. Chronic obstructive pulmonary disease from previous tobacco use. 6. History of dementia. 7. Diabetes mellitus. 8. Hyperlipidemia. 9. Hypertension. 10.Benign prostatic hypertrophy, status post transurethral resection of the prostate. PLAN: Current medications are reviewed. The patient may also have a component of COPD exacerbation. Medications are reviewed and adjusted accordingly. Problem list is reviewed. Additional recommendations and suggestions are forthcoming. The patient is no longer hemoptysizing. Chest x-ray today. We will continue to follow. MMODL / IJN: [id number] /
[2019-07-19] MEDS: LEVOFLOXACIN 750 MG TAB PO SCH (15:22)
[2019-07-19 17:15] LABS: Glucose,Whole Blood 201 mg/dL (75-99)
[2019-07-19 20:30] LABS: Glucose,Whole Blood 255 mg/dL (75-99)
[2019-07-19] MEDS: DOCUSATE 100 MG CAP PO SCH (21:41)
--- NOTE | 2019-07-20 01:00 | P.PN ---
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 Patient has been on antibiotics recently. Patient was having cough for the past 1 month on and off associated with cough and minimal sputum production. Patient was wheezing on admission. Patient has been having difficulty swallowing and is on honey thickened liquids. No fever no chills. Patient was sent to the hospital due to worsening infiltrates noted in the CT chest. EKG showed atrial fibrillation. Rate controlled. CT chest done on 07/17/2019 showed right greater than left worsening bilateral lower lung consolidations suggesting worsening bilateral infection. Chest x-ray showed cardiomegaly. Scarring versus atelectasis both lung bases. WBC 6.3, d-dimer 0.65 Bicarb 38, BNP 3160 Influenza PCR negative Patient is awake alert but underlying dementia. Most of the history was taken from the medical records. Patient cannot provide any history at this time. Patient was hypotensive with blood pressure 79/55 mm hg on admission 07/19/2019 Patient denied any complaints of chest pain. Shortness of breath is at baseline. Wheezing is much improved today. Patient also being continued on antibiotics the form of Levaquin and Zosyn. Pulmonary is following. No fever no chills. Cough without sputum production. Patient is otherwise poor historian with underlying dementia. Discussed with his family at bedside. Active Medications Albuterol/Ipratropium (Duoneb 0.5 Mg-3 Mg/3 Ml Soln) 3 ml INHALATION RT-Q4H [facility] Last Admin: 07/19/19 21:16 Dose: 3 ml Documented by: Alprazolam (Xanax) 0.25 mg PO BID PRN PRN Reason: Anxiety Last Admin: 07/18/19 22:19 Dose: 0.25 mg Documented by: Apixaban (Eliquis) 5 mg PO BID [facility] Last Admin: 07/19/19 21:41 Dose: 5 mg Documented by: Ascorbic Acid (Vitamin C) 500 mg PO DAILY [facility] Last Admin: 07/19/19 07:51 Dose: 500 mg Documented by: Aspirin (Aspirin) 81 mg PO MOWEFR [facility] Atorvastatin Calcium (Lipitor) 40 mg PO DAILY [facility] Last Admin: 07/19/19 07:51 Dose: 40 mg Documented by: Budesonide/Formoterol Fumarate (Symbicort 160-4.5 Mcg Inhaler) 2 puff INHALATION RT-BID [facility] Last Admin: 07/19/19 21:16 Dose: 2 puff Documented by: Cyanocobalamin (Vitamin B-12) 500 mcg PO DAILY [facility] Last Admin: 07/19/19 07:51 Dose: 500 mcg Documented by: Docusate Sodium (Colace) 200 mg PO HS [facility] Last Admin: 07/19/19 21:41 Dose: 200 mg Documented by: Piperacillin Sod/Tazobactam (Sod 3.375 gm/ Sodium Chloride) 100 mls @ 25 mls/hr IVPB Q8HR [facility] Stop: 07/28/19 00:01 Last Admin: 07/19/19 23:40 Dose: 25 mls/hr Documented by: Levofloxacin (Levaquin) 750 mg PO DAILY@1600 [facility] Last Admin: 07/19/19 15:22 Dose: 750 mg Documented by: Methylprednisolone Sodium Succinate (Solu-Medrol) 60 mg IV Q6HR [facility] Last Admin: 07/19/19 23:44 Dose: 60 mg Documented by: Miscellaneous Information (Pneumonia Protocol Utilized) 1 each PO ONCE PRN PRN Reason: Per Protocol Objective - Vital Signs Vital signs: Vital Signs Temp 98.0 F 07/19/19 17:29 Pulse 84 07/19/19 21:30 Resp 16 07/19/19 17:29 BP 104/72 07/19/19 17:29 Pulse Ox 95 07/19/19 17:29 Intake & Output 07/19/19 07/19/19 07/20/19 06:59 18:59 06:59 Intake Total 900 Balance 900 Intake: Oral 900 Other: # Voids 1 3 0 # Bowel Movements 1 0 - Exam PHYSICAL EXAMINATION: Patient is lying in the bed comfortably, no acute distress, awake alert and orientedx1.. HEENT: Normocephalic. Neck is supple. Pupils reactive. Nostrils clear. Oral cavity is moist. Ears reveal no drainage. Neck reveals no JVD, carotid bruits, or thyromegaly. CHEST EXAMINATION: Trachea is central. Symmetrical expansion. Bibasilar diminished air entry. Minimal basilar crackles. Mild expiratory wheeze.. CARDIAC: Normal S1, S2 with no gallops. No murmurs ABDOMEN: Soft. Bowel sounds normal. No organomegaly. No abdominal bruits. Extremities: reveal no edema. No clubbing or cyanosis Neurologically awake, alert, oriented x1 with well-coordinated movements. Patient does have cognitive impairment Skin: No rash or skin lesions. Psychiatric: Coperative. Could not be assessed completely Musculoskeletal: No joint swelling or deformity. Normal range of motion. - Labs CBC & Chem 7: 07/18/19 15:05 07/18/19 15:05 Labs: Abnormal Lab Results - Last 24 Hours (Table) 07/19/19 07/19/19 07/19/19 Range/Units 07:05 11:34 17:11 POC Glucose (mg/dL) 113 H 168 H 201 H (75-99) mg/dL 07/19/19 Range/Units 20:26 POC Glucose (mg/dL) 255 H (75-99) mg/dL Microbiology - Last 24 Hours (Table) 07/18/19 15:05 Blood Culture - Preliminary Blood No Growth after 24 hours Assessment and Plan Assessment: Bibasilar right greater than left consolidation with pneumonia. 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 Currently on IV thickened liquids at home. Chronic atrial fibrillation on Eliquis for anticoagulation Chronic CHF with mildly reduced systolic dysfunction ejection fraction 50-50% as per recent echocardiogram Elevated BNP without any other evidence of CHF Diabetes type 2 ija-twnhzww-psnyoxnxy BPH Previous history of smoking DVT prophylaxis patient is already on full anticoagulation CODE STATUS is DO NOT RESUSCITATE/DO NOT INTUBATE Plan: Patient will be continued on broad-spectrum antibiotics in the form of Levaquin and Zosyn. Continue with duo nebs and IV steroids. Sputum culture will be sent. Continue the home medications and pulmonary was consulted. Follow-up culture reports. Oxygen therapy. Further recommendations based on the clinical course. Prognosis is guarded. Time with Patient: Greater than 30
[2019-07-20] MEDS: IPRATROPIUM-ALBUTEROL 3 ML NEB INHALATION SCH ×6 (01:23→21:17)
[2019-07-20] MEDS: methylPREDNISolone SOD SUCCI 125 MG/2 ML VIAL IV SCH ×4 (05:20→23:33)
[2019-07-20 07:05] LABS: Glucose,Whole Blood 185 mg/dL (75-99)
[2019-07-20] MEDS: CYANOCOBALAMIN 500 MCG TAB PO SCH (07:11)
[2019-07-20] MEDS: ATORVASTATIN 40 MG TAB PO SCH (07:11)
[2019-07-20] MEDS: ASPIRIN 81 MG PO SCH (07:11)
[2019-07-20] MEDS: ASCORBIC ACID 500 MG TAB PO SCH (07:11)
[2019-07-20] MEDS: APIXABAN 5 MG TAB PO SCH ×2 (07:11→21:24)
[2019-07-20] MEDS: PIPERACILLIN-TAZOBACTAM 3.375 GM in SODIUM CHLORIDE 0.9% 100 ML IVPB SCH ×3 (07:11→23:31)
[2019-07-20 08:04] LABS: Basophils % (A) 0 %; Eosinophils % (A) 0 %; HCT 36.6 % (39.0-53.0); HGB 11.7 gm/dL (13.0-17.5); Lymphocytes # (A) 0.3 k/uL (1.0-4.8); Lymphocytes % (A) 4 %; MCH 29.7 pg (25.0-35.0); MCHC 31.9 g/dL (31.0-37.0); MCV 93.1 fL (80.0-100.0); Mean Platelet Volume 6.5; Monocytes # (A) 0.2 k/uL (0-1.0); Monocytes % (A) 2 %; Neutrophils % (A) 93 %; Platelet Count 161 k/uL (150-450); RBC 3.93 m/uL (4.30-5.90); RDW 14.2 % (11.5-15.5); WBC 8.6 k/uL (3.8-10.6)
[2019-07-20 08:12] LABS: African American GFR (CKD) >90 (>60 ml/min/1.73 sqM); Anion Gap 8 mmol/L; Blood Urea Nitrogen 20 mg/dL (9-20); Calcium 9.9 mg/dL (8.4-10.2); Carbon Dioxide 31 mmol/L (22-30); Chloride 100 mmol/L (98-107); Glucose 173 mg/dL (74-99); Potassium 4.3 mmol/L (3.5-5.1); Sodium 139 mmol/L (137-145)
[2019-07-20] MEDS: SYMBICORT 160-4.5 MCG INHALER INHALATION SCH ×2 (08:59→21:17)
[2019-07-20 11:45] LABS: Glucose,Whole Blood 174 mg/dL (75-99)
[2019-07-20] MEDS: LEVOFLOXACIN 750 MG TAB PO SCH (15:23)
--- NOTE | 2019-07-20 16:08 | P.PN ---
Subjective Progress Note Date: 07/20/19 Principal diagnosis: Shortness of breath, bilateral infiltrates, right greater than left On 07/20/2017 patient seen in follow-up on medical surgical floor. She is resting comfortably in bed, he is in no acute distress, however patient's cough is quite weak, and he is unable to bring up any secretions, yesterday his chest x-ray showed scarring versus atelectasis at the bilateral lung bases, she has a weak congested cough, as been afebrile, she is on supplemental oxygen at 3 L with his pulse ox is 97%. He is on Corrigan Levaquin and Zosyn, and IV steroids at 60 mg every 6 hours, and addition to nebulized bronchodilators, today's labs have been reviewed, showing white blood cell count of 8.6, hemoglobin 11.7, electrolytes were within normal limits except for CO2 which was a 31, BUN of 20 and creatinine 0.65. Blood culture showed no growth at the 24- hour tatiana, we have been unable to obtain a sputum specimen Objective - Vital Signs Vital signs: Vital Signs Temp 97.9 F 07/20/19 14:43 Pulse 98 07/20/19 15:48 Resp 16 07/20/19 15:48 BP 147/88 07/20/19 14:43 Pulse Ox 97 07/20/19 14:43 Intake & Output 07/19/19 07/20/19 07/20/19 18:59 06:59 18:59 Intake Total 900 550 490 Balance 900 550 490 Intake: Oral 900 550 490 Other: # Voids 3 2 3 # Bowel Movements 1 0 0 - Exam GENERAL EXAM: Alert, active, comfortable in no apparent distress. HEAD: Normocephalic/atraumatic. EYES: Normal reaction of pupils, equal size. Conjunctiva pink, sclera white. NOSE: Clear with pink turbinates. THROAT: No erythema or exudates. NECK: No masses, no JVD, no thyroid enlargement, no adenopathy. CHEST: No chest wall deformity. Symmetrical expansion. LUNGS: Equal air entry with bibasilar crackles, but no wheeze, rhonchi or d ullness. CVS: Regular rate and rhythm, normal S1 and S2, no gallops, no murmurs, no rubs ABDOMEN: Soft, nontender. No hepatosplenomegaly, normal bowel sounds, no guarding or rigidity. EXTREMITIES: No clubbing, no edema, no cyanosis, 2+ pulses and upper and lower extremities. MUSCULOSKELETAL: Muscle strength and tone normal. SPINE: No scoliosis or deformity SKIN: No rashes CENTRAL NERVOUS SYSTEM: Alert and oriented -3. No focal deficits, tone is normal in all 4 extremities. PSYCHIATRIC: Alert and oriented -3. Appropriate affect. Intact judgment and insight. - Labs CBC & Chem 7: 07/20/19 07:30 07/20/19 07:30 Labs: Abnormal Lab Results - Last 24 Hours (Table) 07/19/19 07/19/19 07/20/19 Range/Units 17:11 20:26 07:02 RBC (4.30-5.90) m/uL Hgb (13.0-17.5) gm/dL Hct (39.0-53.0) % Neutrophils # (1.3-7.7) k/uL Lymphocytes # (1.0-4.8) k/uL Carbon Dioxide (22-30) mmol/L Creatinine (0.66-1.25) mg/dL Glucose (74-99) mg/dL POC Glucose (mg/dL) 201 H 255 H 185 H (75-99) mg/dL 07/20/19 07/20/19 07/20/19 Range/Units 07:30 07:30 11:43 RBC 3.93 L (4.30-5.90) m/uL Hgb 11.7 L (13.0-17.5) gm/dL Hct 36.6 L (39.0-53.0) % Neutrophils # 8.0 H (1.3-7.7) k/uL Lymphocytes # 0.3 L (1.0-4.8) k/uL Carbon Dioxide 31 H (22-30) mmol/L Creatinine 0.65 L (0.66-1.25) mg/dL Glucose 173 H (74-99) mg/dL POC Glucose (mg/dL) 174 H (75-99) mg/dL Microbiology - Last 24 Hours (Table) 07/18/19 15:05 Blood Culture - Preliminary Blood No Growth after 24 hours Assessment and Plan Plan: Assessment: #1. Acute hypoxemic respiratory failure related to bibasilar pneumonia #2. Acute COPD exacerbation related to the above #3. Diabetes mellitus type 2 #4. Hypertension #5. 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 Chronic atrial fibrillation on anticoagulation #7. History of dementia Plan: Continue current antibiotic coverage, cleaning Levaquin and Zosyn, patient has not able to produce a sputum specimen for us, he is unable to clear any secretions, does sound very congested, wheeze flow to the patient and his family about possibility of bronchoscopy with BAL possibly tomorrow, and the patient's family would like to proceed. We'll keep the patient nothing by mouth after midnight, and we'll schedule the patient for bronchoscopy with BAL tomorrow. Encouraged the patient to sit up in the chair, deep breathe and cough, provided incentive spirometer. I performed a history & physical examination of the patient and discussed their management with my nurse practitioner, Leticia Jeff. I reviewed the nurse practitioner's note and agree with the documented findings and plan of care. Lung sounds are positive for diffuse rales at the the lung bases. The findings and the impression was discussed with the patient. I attest to the documentation by the nurse practitioner. Time with Patient: Less than 30
[2019-07-20 17:02] LABS: Glucose,Whole Blood 159 mg/dL (75-99)
[2019-07-20 20:43] LABS: Glucose,Whole Blood 228 mg/dL (75-99)
[2019-07-20] MEDS: DOCUSATE 100 MG CAP PO SCH (21:23)
[2019-07-20] MEDS: ALPRAZolam 0.25 MG TAB PO PRN (21:39)
[2019-07-21] MEDS: IPRATROPIUM-ALBUTEROL 3 ML NEB INHALATION SCH ×6 (00:40→19:26)
[2019-07-21] MEDS: methylPREDNISolone SOD SUCCI 125 MG/2 ML VIAL IV SCH ×4 (05:30→23:01)
[2019-07-21 07:01] LABS: Glucose,Whole Blood 150 mg/dL (75-99)
[2019-07-21] MEDS: SYMBICORT 160-4.5 MCG INHALER INHALATION SCH ×2 (07:43→19:28)
[2019-07-21] MEDS: PIPERACILLIN-TAZOBACTAM 3.375 GM in SODIUM CHLORIDE 0.9% 100 ML IVPB SCH ×3 (07:59→23:01)
--- NOTE | 2019-07-21 09:28 | P.PN ---
Subjective Progress Note Date: 07/21/19 On today's evaluation of 07/21/2019, the patient has a congested cough and still he is unable to bring up any sputum. He has developed some oropharyngeal candidiasis. We are going to order her nystatin swish and swallow for him. We are also going to proceed with a bronchoscopy and clear his right lower lobe knowing that the patient had some mucous retention and the right lower lobe bronchus and bronchus intermedius as noted on the CAT scan of the chest. No other new complaints. Is awake and alert. He is sluggish and answering questions. No chest pain. Family is at the bedside. Procedure was explained. Objective - Vital Signs Vital signs: Vital Signs Temp 98.2 F 07/21/19 05:00 Pulse 100 07/21/19 08:00 Resp 20 07/21/19 05:00 BP 126/87 07/21/19 05:00 Pulse Ox 97 07/21/19 05:00 Intake & Output 07/20/19 07/21/19 07/21/19 18:59 06:59 18:59 Intake Total 730 250 Balance 730 250 Intake: Oral 730 250 Other: # Voids 3 2 # Bowel Movements 0 0 - Exam GENERAL EXAM: Alert, active, comfortable in no apparent distress. HEAD: Normocephalic/atraumatic. EYES: Normal reaction of pupils, equal size. Conjunctiva pink, sclera white. NOSE: Clear with pink turbinates. THROAT: No erythema or exudates. NECK: No masses, no JVD, no thyroid enlargement, no adenopathy. CHEST: No chest wall deformity. Symmetrical expansion. LUNGS: Equal air entry with bibasilar crackles, but no wheeze, rhonchi or dullness. CVS: Regular rate and rhythm, normal S1 and S2, no gallops, no murmurs, no rubs ABDOMEN: Soft, nontender. No hepatosplenomegaly, normal bowel sounds, no guarding or rigidity. EXTREMITIES: No clubbing, no edema, no cyanosis, 2+ pulses and upper and lower extremities. MUSCULOSKELETAL: Muscle strength and tone normal. SPINE: No scoliosis or deformity SKIN: No rashes CENTRAL NERVOUS SYSTEM: Alert and oriented -3. No focal deficits, tone is normal in all 4 extremities. PSYCHIATRIC: Alert and oriented -3. Appropriate affect. Intact judgment and insight. - Labs CBC & Chem 7: 07/20/19 07:30 07/20/19 07:30 Labs: Abnormal Lab Results - Last 24 Hours (Table) 07/20/19 07/20/19 07/20/19 Range/Units 11:43 17:00 20:18 POC Glucose (mg/dL) 174 H 159 H 228 H (75-99) mg/dL 07/21/19 Range/Units 06:59 POC Glucose (mg/dL) 150 H (75-99) mg/dL Microbiology - Last 24 Hours (Table) 07/20/19 09:50 Gram Stain - Preliminary Sputum Sputum Culture - Preliminary 07/18/19 15:05 Blood Culture - Preliminary Blood No Growth after 48 hours Assessment and Plan Plan: #1. Acute hypoxemic respiratory failure related to bibasilar pneumonia with some possible mucous retention in the right lower lobe and the bronchus intermedius as evident on the CAT scan of the chest. The patient remains on broad-spectrum antibiotics. He is hemodynamically stable and he is afebrile. He is currently nothing by mouth awaiting bronchoscopy for the above-mentioned reasons. #2. Acute COPD exacerbation related to the above #3. Diabetes mellitus type 2 #4. Hypertension #5. 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 Chronic atrial fibrillation on anticoagulation #7. History of dementia #8 oropharyngeal candidiasis Plan we'll proceed with bronchoscopy and perform a therapeutic airway suctioning and the bronchial alveolar lavage of the right lower lobe. We'll put the patient on nystatin swish and swallow. We'll continue to follow. This was explained to the patient's family is agreeable.
[2019-07-21] MEDS ORDERED: PROPOFOL 10 MG/ML 20 ML VIAL IV ONE (11:20)
[2019-07-21] MEDS ORDERED: LIDOCAINE 1% INJ 10MG/ML (20 ML MDV) ONE (11:20)
[2019-07-21] MEDS ORDERED: IV FLUID CONTINUATION 600 ML IV ONE (11:41)
[2019-07-21] MEDS ORDERED: LIDOCAINE 2% INJ 20 MG/ML INTRATRACH ONE (11:52)
--- NOTE | 2019-07-21 12:08 | P.PCN ---
Date of Procedure: 07/21/19 Preoperative Diagnosis: Right lower lobe pneumonia Postoperative Diagnosis: Right lower lobe pneumonia Procedure(s) Performed: Flexible bronchoscopy, therapeutic airway suctioning, lavage of the right lower lobe Anesthesia: MAC Surgeon: Rosy Hernandez Estimated Blood Loss (ml): 0 Pathology: other Condition: stable Disposition: floor Operative Findings: This procedure was done in the endoscopy suite. A consent was obtained. A timeout was done. The patient has a right lower lobe pneumonia and mucous plugging of the right lower lobe bronchus and bronchus intermedius was suspected based on the CAT scan findings After achieving adequate sedation, the flexible bronchoscope was introduced through the right nostril was advanced into the posterior pharynx. The upper airway structures were all inspected. The posterior oropharynx, larynx, epiglottis, arytenoids and the vocal cords were within normal limits. There was some mucus retained in the upper airways was suctioned out without any major difficulties. A total of 2 mL of 1% lidocaine was applied to the vocal cords and following that the flexible bronchoscope was advanced into the upper trachea and examination of the tracheal bronchial tree was done. The entire airway was inspected. There was some stringy and thick purulent secretions in the right lower lobe that was suctioned out without any major difficulties. Airway inspection included the examination of the entire trachea, bilateral mainstem bronchi, right upper lobe bronchus, bronchus intermedius, right middle lobe bronchus and right lower lobe bronchus along with his various segments and subsegments, in addition to the left side including left mainstem bronchus and left upper lobe bronchus and the left lower lobe bronchus along with the various segments and subsegments.. At the completion of the procedure, a lavage of the right lower lobe was done. A therapeutic aspirate was obtained. Total amount of collection was noted of 15-20 mL. It'll be sent for culture. The bronchoscope was removed. No bedside complications or bleeding. Continue antibiotics. We'll continue to follow.
[2019-07-21 12:26] LABS: Glucose,Whole Blood 139 mg/dL (75-99)
[2019-07-21] MEDS: APIXABAN 5 MG TAB PO SCH ×2 (12:30→20:22)
[2019-07-21] MEDS: CYANOCOBALAMIN 500 MCG TAB PO SCH (12:30)
[2019-07-21] MEDS: ASCORBIC ACID 500 MG TAB PO SCH (12:30)
[2019-07-21] MEDS: ATORVASTATIN 40 MG TAB PO SCH (12:30)
[2019-07-21] MEDS: NYSTATIN 100,000 UNIT/ML SUSP 500,000 UNIT/5 ML CUP PO SCH ×3 (14:16→20:24)
[2019-07-21 14:51] LABS: Appearance,BF Bloody
[2019-07-21 15:14] LABS: Nucleated Cells, Body Fluid 1000 /uL; RBC, Body Fluid 3865000 /uL
[2019-07-21 15:25] LABS: Mononuclear WBC,Body Fluid 17 %; Polynuclear WBC,Body Fluid 83 %; Total Cells Counted,Body Fluid 100
[2019-07-21] MEDS: LEVOFLOXACIN 750 MG TAB PO SCH (16:38)
[2019-07-21 17:10] LABS: Glucose,Whole Blood 236 mg/dL (75-99)
[2019-07-21] MEDS: INSULIN ASPART (NovoLOG) 100 UNIT/ML VIAL SQ SCH ×2 (17:25→21:30)
[2019-07-21 19:42] VITALS: BP 145/86; RESP 22; TEMP 97.1
[2019-07-21] MEDS: DOCUSATE 100 MG CAP PO SCH (20:22)
[2019-07-21 21:05] LABS: Glucose,Whole Blood 206 mg/dL (75-99)
--- NOTE | 2019-07-21 22:42 | P.PN ---
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 Patient has been on antibiotics recently. Patient was having cough for the past 1 month on and off associated with cough and minimal sputum production. Patient was wheezing on admission. Patient has been having difficulty swallowing and is on honey thickened liquids. No fever no chills. Patient was sent to the hospital due to worsening infiltrates noted in the CT chest. EKG showed atrial fibrillation. Rate controlled. CT chest done on 07/17/2019 showed right greater than left worsening bilateral lower lung consolidations suggesting worsening bilateral infection. Chest x-ray showed cardiomegaly. Scarring versus atelectasis both lung bases. WBC 6.3, d-dimer 0.65 Bicarb 38, BNP 3160 Influenza PCR negative Patient is awake alert but underlying dementia. Most of the history was taken from the medical records. Patient cannot provide any history at this time. Patient was hypotensive with blood pressure 79/55 mm hg on admission 07/19/2019 Patient denied any complaints of chest pain. Shortness of breath is at baseline. Wheezing is much improved today. Patient also being continued on antibiotics the form of Levaquin and Zosyn. Pulmonary is following. No fever no chills. Cough without sputum production. Patient is otherwise poor historian with underlying dementia. Discussed with his family at bedside. 07/20/2019 Patient is currently lying in the bed comfortable. Reaching status is about the same.. Currently being continued on IV steroids and DuoNeb's. Antibiotics in the form of Levaquin and Zosyn. Cultures showed no growth so far. Sputum culture was unable to obtain due to weak cough. Pulmonary is planning for bronchoscopy tomorrow. Active Medications Albuterol/Ipratropium (Duoneb 0.5 Mg-3 Mg/3 Ml Soln) 3 ml INHALATION RT-Q4H BESSY Last Admin: 07/19/19 21:16 Dose: 3 ml Documented by: Alprazolam (Xanax) 0.25 mg PO BID PRN PRN Reason: Anxiety Last Admin: 07/18/19 22:19 Dose: 0.25 mg Documented by: Apixaban (Eliquis) 5 mg PO BID [facility] Last Admin: 07/19/19 21:41 Dose: 5 mg Documented by: Ascorbic Acid (Vitamin C) 500 mg PO DAILY [facility] Last Admin: 07/19/19 07:51 Dose: 500 mg Documented by: Aspirin (Aspirin) 81 mg PO MOWEFR [facility] Atorvastatin Calcium (Lipitor) 40 mg PO DAILY [facility] Last Admin: 07/19/19 07:51 Dose: 40 mg Documented by: Budesonide/Formoterol Fumarate (Symbicort 160-4.5 Mcg Inhaler) 2 puff INHALATION RT-BID [facility] Last Admin: 07/19/19 21:16 Dose: 2 puff Documented by: Cyanocobalamin (Vitamin B-12) 500 mcg PO DAILY [facility] Last Admin: 07/19/19 07:51 Dose: 500 mcg Documented by: Docusate Sodium (Colace) 200 mg PO HS [facility] Last Admin: 07/19/19 21:41 Dose: 200 mg Documented by: Piperacillin Sod/Tazobactam (Sod 3.375 gm/ Sodium Chloride) 100 mls @ 25 mls/hr IVPB Q8HR [facility] Stop: 07/28/19 00:01 Last Admin: 07/19/19 23:40 Dose: 25 mls/hr Documented by: Levofloxacin (Levaquin) 750 mg PO DAILY@1600 [facility] Last Admin: 07/19/19 15:22 Dose: 750 mg Documented by: Methylprednisolone Sodium Succinate (Solu-Medrol) 60 mg IV Q6HR [facility] Last Admin: 07/19/19 23:44 Dose: 60 mg Documented by: Miscellaneous Information (Pneumonia Protocol Utilized) 1 each PO ONCE PRN PRN Reason: Per Protocol Objective - Vital Signs Vital signs: Vital Signs Temp 97.9 F 07/20/19 14:43 Pulse 88 07/20/19 21:18 Resp 16 07/20/19 15:48 BP 147/88 07/20/19 14:43 Pulse Ox 97 07/20/19 14:43 Intake & Output 07/20/19 07/20/19 07/21/19 06:59 18:59 06:59 Intake Total 550 730 Balance 550 730 Intake: Oral 550 730 Other: # Voids 2 3 # Bowel Movements 0 0 - Exam PHYSICAL EXAMINATION: Patient is lying in the bed comfortably, no acute distress, awake alert and orientedx1.. HEENT: Normocephalic. Neck is supple. Pupils reactive. Nostrils clear. Oral cavity is moist. Ears reveal no drainage. Neck reveals no JVD, carotid bruits, or thyromegaly. CHEST EXAMINATION: Trachea is central. Symmetrical expansion. Bibasilar diminished air entry. Minimal basilar crackles. Mild expiratory wheeze.. CARDIAC: Normal S1, S2 with no gallops. No murmurs ABDOMEN: Soft. Bowel sounds normal. No organomegaly. No abdominal bruits. Extremities: reveal no edema. No clubbing or cyanosis Neurologically awake, alert, oriented x1 with well-coordinated movements. Patient does have cognitive impairment Skin: No rash or skin lesions. Psychiatric: Coperative. Could not be assessed completely Musculoskeletal: No joint swelling or deformity. Normal range of motion. - Labs CBC & Chem 7: 07/20/19 07:30 07/20/19 07:30 Labs: Abnormal Lab Results - Last 24 Hours (Table) 07/20/19 07/20/19 07/20/19 Range/Units 07:02 07:30 07:30 RBC 3.93 L (4.30-5.90) m/uL Hgb 11.7 L (13.0-17.5) gm/dL Hct 36.6 L (39.0-53.0) % Neutrophils # 8.0 H (1.3-7.7) k/uL Lymphocytes # 0.3 L (1.0-4.8) k/uL Carbon Dioxide 31 H (22-30) mmol/L Creatinine 0.65 L (0.66-1.25) mg/dL Glucose 173 H (74-99) mg/dL POC Glucose (mg/dL) 185 H (75-99) mg/dL 07/20/19 07/20/19 07/20/19 Range/Units 11:43 17:00 20:18 RBC (4.30-5.90) m/uL Hgb (13.0-17.5) gm/dL Hct (39.0-53.0) % Neutrophils # (1.3-7.7) k/uL Lymphocytes # (1.0-4.8) k/uL Carbon Dioxide (22-30) mmol/L Creatinine (0.66-1.25) mg/dL Glucose (74-99) mg/dL POC Glucose (mg/dL) 174 H 159 H 228 H (75-99) mg/dL Microbiology - Last 24 Hours (Table) 07/18/19 15:05 Blood Culture - Preliminary Blood No Growth after 48 hours 07/20/19 09:50 Sputum Culture - Preliminary Sputum Assessment and Plan Assessment: Bibasilar right greater than left consolidation with pneumonia. 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 Currently on IV thickened liquids at home. Chronic atrial fibrillation on Eliquis for anticoagulation Chronic CHF with mildly reduced systolic dysfunction ejection fraction 50-50% as per recent echocardiogram Elevated BNP without any other evidence of CHF Diabetes type 2 [id number] BPH Previous history of smoking DVT prophylaxis patient is already on full anticoagulation CODE STATUS is DO NOT RESUSCITATE/DO NOT INTUBATE Plan: Patient will be continued on broad-spectrum antibiotics in the form of Levaquin and Zosyn. Continue with duo nebs and IV steroids. Sputum culture will be sent. Continue the home medications and pulmonary was consulted. Follow-up culture reports. Oxygen therapy. Pulmonary is planning for bronchoscopy tomorrow. Further recommendations based on the clinical course. Prognosis is guarded. Time with Patient: Greater than 30
[2019-07-22] MEDS ORDERED: methylPREDNISolone SOD SUCCI 125 MG/2 ML VIAL ONE
[2019-07-22] MEDS ORDERED: IPRATROPIUM-ALBUTEROL 3 ML NEB ONE ×2
[2019-07-22 07:19] LABS: Glucose,Whole Blood 181 mg/dL (75-99)
[2019-07-22] MEDS: SYMBICORT 160-4.5 MCG INHALER INHALATION SCH (07:33)
[2019-07-22] MEDS: IPRATROPIUM-ALBUTEROL 3 ML NEB INHALATION SCH ×3 (07:33→11:51)
--- NOTE | 2019-07-22 07:43 | XR ---
EXAMINATION TYPE: XR chest 2V DATE OF EXAM: 07/22/2019 COMPARISON: 07/19/2019 INDICATION: Right lower lobe pneumonia TECHNIQUE: Frontal and lateral views of the chest are obtained. FINDINGS: The heart size is normal. The pulmonary vasculature is normal. Mild infiltrate is at the right base can be compatible with pneumonia in the proper clinical setting. IMPRESSION: 1. Right lower lobe infiltrate. Correlate for pneumonia. This is an interval development from the rec ent comparison. Follow-up is recommended.
[2019-07-22] MEDS: methylPREDNISolone SOD SUCCI 125 MG/2 ML VIAL IV SCH ×2 (07:50→11:37)
[2019-07-22] MEDS: CYANOCOBALAMIN 500 MCG TAB PO SCH (07:50)
[2019-07-22] MEDS: ATORVASTATIN 40 MG TAB PO SCH (07:50)
[2019-07-22] MEDS: APIXABAN 5 MG TAB PO SCH (07:50)
[2019-07-22] MEDS: INSULIN ASPART (NovoLOG) 100 UNIT/ML VIAL SQ SCH ×2 (07:51→12:37)
[2019-07-22] MEDS: NYSTATIN 100,000 UNIT/ML SUSP 500,000 UNIT/5 ML CUP PO SCH ×2 (07:51→12:38)
[2019-07-22] MEDS: ASCORBIC ACID 500 MG TAB PO SCH (07:51)
[2019-07-22] MEDS: PIPERACILLIN-TAZOBACTAM 3.375 GM in SODIUM CHLORIDE 0.9% 100 ML IVPB SCH (07:52)
[2019-07-22] MEDS: ASPIRIN 81 MG PO SCH (07:56)
[2019-07-22 08:23] LABS: HCT 38.4 % (39.0-53.0); HGB 12.3 gm/dL (13.0-17.5); MCH 29.9 pg (25.0-35.0); MCHC 32.1 g/dL (31.0-37.0); Mean Platelet Volume 6.4; Platelet Count 184 k/uL (150-450); RBC 4.13 m/uL (4.30-5.90); RDW 14.3 % (11.5-15.5); WBC 9.6 k/uL (3.8-10.6)
[2019-07-22 08:33] LABS: African American GFR (CKD) >90 (>60 ml/min/1.73 sqM); Anion Gap 6 mmol/L; Blood Urea Nitrogen 23 mg/dL (9-20); Calcium 9.9 mg/dL (8.4-10.2); Carbon Dioxide 31 mmol/L (22-30); Chloride 102 mmol/L (98-107); Glucose 175 mg/dL (74-99); Potassium 4.5 mmol/L (3.5-5.1); Sodium 139 mmol/L (137-145)
--- NOTE | 2019-07-22 11:01 | P.PN ---
Subjective Progress Note Date: 07/22/19 Today's evaluation of 07/22/2019 I'm seeing this patient for a follow-up. He is feeling much better compared to yesterday. His speech is improved. His cough is stronger. He is not producing a lot of sputum. The bronchoscopy was done and therapeutic was suctioning was done yesterday. Thick purulent material was aspirated from the right lung. Cultures still pending for now. Meanwhile, the patient is on a combination of Levaquin and Zosyn. He is able to swallow slowly and he hasn't aspirated. He is more interactive on today's evaluation. No fever or chills. Follow-up chest x-ray was done and showed some improvement right lower lobe pulmonary infiltrates. He is also doing nystatin suspicious swallow regarding his oropharyngeal thrush. Objective - Vital Signs Vital signs: Vital Signs Temp 97.1 F L 07/21/19 19:00 Pulse 88 07/22/19 07:45 Resp 22 07/21/19 19:00 BP 145/86 07/21/19 19:00 Pulse Ox 94 L 07/21/19 19:00 Intake & Output 07/21/19 07/22/19 07/22/19 18:59 06:59 18:59 Intake Total 240 Balance 240 Intake: Oral 240 Other: # Voids 3 - Exam GENERAL EXAM: Alert, active, comfortable in no apparent distress. HEAD: Normocephalic/atraumatic. EYES: Normal reaction of pupils, equal size. Conjunctiva pink, sclera white. NOSE: Clear with pink turbinates. THROAT: No erythema or exudates. Pharyngeal candidiasis improved. NECK: No masses, no JVD, no thyroid enlargement, no adenopathy. CHEST: No chest wall deformity. Symmetrical expansion. LUNGS: Equal air entry with bibasilar crackles, but no wheeze, rhonchi or dullne ss. CVS: Regular rate and rhythm, normal S1 and S2, no gallops, no murmurs, no rubs ABDOMEN: Soft, nontender. No hepatosplenomegaly, normal bowel sounds, no guarding or rigidity. EXTREMITIES: No clubbing, no edema, no cyanosis, 2+ pulses and upper and lower extremities. MUSCULOSKELETAL: Muscle strength and tone normal. SPINE: No scoliosis or deformity SKIN: No rashes CENTRAL NERVOUS SYSTEM: Alert and oriented -3. No focal deficits, tone is normal in all 4 extremities. PSYCHIATRIC: Alert and oriented -3. Appropriate affect. Intact judgment and insight. - Labs CBC & Chem 7: 07/22/19 07:39 07/22/19 07:39 Labs: Abnormal Lab Results - Last 24 Hours (Table) 07/21/19 07/21/19 07/21/19 Range/Units 12:23 17:08 20:54 RBC (4.30-5.90) m/uL Hgb (13.0-17.5) gm/dL Hct (39.0-53.0) % Carbon Dioxide (22-30) mmol/L BUN (9-20) mg/dL Creatinine (0.66-1.25) mg/dL Glucose (74-99) mg/dL POC Glucose (mg/dL) 139 H 236 H 206 H (75-99) mg/dL 07/22/19 07/22/19 07/22/19 Range/Units 07:01 07:39 07:39 RBC 4.13 L (4.30-5.90) m/uL Hgb 12.3 L (13.0-17.5) gm/dL Hct 38.4 L (39.0-53.0) % Carbon Dioxide 31 H (22-30) mmol/L BUN 23 H (9-20) mg/dL Creatinine 0.61 L (0.66-1.25) mg/dL Glucose 175 H (74-99) mg/dL POC Glucose (mg/dL) 181 H (75-99) mg/dL Microbiology - Last 24 Hours (Table) 07/21/19 12:00 Acid Fast Bacilli Smear - Final Bronchoalviolar Lavage - Right Acid Fast Bacilli Culture - Preliminary 07/21/19 12:00 Gram Stain - Preliminary Bronchoalviolar Lavage - Right Bronchial Washings Culture - Preliminary 07/21/19 12:00 Fungal Culture - Preliminary Bronchoalviolar Lavage - Right 07/18/19 15:05 Blood Culture - Preliminary Blood No Growth after 72 hours Assessment and Plan Plan: #1. Acute hypoxemic respiratory failure related to bibasilar pneumonia with some possible mucous retention in the right lower lobe and the bronchus intermedius as evident on the CAT scan of the chest. The patient remains on broad-spectrum antibiotics. He is hemodynamically stable and he is afebrile. Underwent bronchoscopy yesterday. Therapeutic it was suctioning was done. Culture are still pending for now. Meanwhile the overall pulmonary status improved considerably. His cough and. He is breathing deeply. The air entry in the lung bases improved. Chest x-ray is also showing improvement in the right lower lobe pulmonary infiltrates. #2. Acute COPD exacerbation related to the above, improved #3. Diabetes mellitus type 2 #4. Hypertension #5. 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 Chronic atrial fibrillation on anticoagulation #7. History of dementia #8 oropharyngeal candidiasis, currently on nystatin Plan This patient has a very good social support system. The family is willing to take him home. He is going to watch very closely. He can be switched to oral antibiotics and probably a combination of Levaquin and Augmentin to complete a seven-day course. Aspiration precautions. He has home oxygen. I'm going to await the results of the bronchial lavage and contact the patient back if there is any change in the antibiotic coverage. For the most part, he is improved and I think it's reasonable to consider discharging him either today or tomorrow and this will be discussed further with the medical team. Continue seven-day course of nystatin swish and swallow regarding his candidiasis.
[2019-07-22] MEDS ORDERED: predniSONE 50 MG TAB PO STA (11:53)
[2019-07-22 12:01] VITALS: PULSE 92
--- NOTE | 2019-07-22 12:04 | P.PN ---
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 Patient has been on antibiotics recently. Patient was having cough for the past 1 month on and off associated with cough and minimal sputum production. Patient was wheezing on admission. Patient has been having difficulty swallowing and is on honey thickened liquids. No fever no chills. Patient was sent to the hospital due to worsening infiltrates noted in the CT chest. EKG showed atrial fibrillation. Rate controlled. CT chest done on 07/17/2019 showed right greater than left worsening bilateral lower lung consolidations suggesting worsening bilateral infection. Chest x-ray showed cardiomegaly. Scarring versus atelectasis both lung bases. WBC 6.3, d-dimer 0.65 Bicarb 38, BNP 3160 Influenza PCR negative Patient is awake alert but underlying dementia. Most of the history was taken from the medical records. Patient cannot provide any history at this time. Patient was hypotensive with blood pressure 79/55 mm hg on admission 07/19/2019 Patient denied any complaints of chest pain. Shortness of breath is at baseline. Wheezing is much improved today. Patient also being continued on antibiotics the form of Levaquin and Zosyn. Pulmonary is following. No fever no chills. Cough without sputum production. Patient is otherwise poor historian with underlying dementia. Discussed with his family at bedside. 07/20/2019 Patient is currently lying in the bed comfortable. Reaching status is about the same.. Currently being continued on IV steroids and DuoNeb's. Antibiotics in the form of Levaquin and Zosyn. Cultures showed no growth so far. Sputum culture was unable to obtain due to weak cough. Pulmonary is planning for bronchoscopy tomorrow. 07/21/2019 Patient is scheduled for bronchoscopy today. Still having weak cough. Follow- up BAL fluid cultures. Patient has been afebrile otherwise. No chest pain. Shortness of breath did improve. Active Medications Albuterol/Ipratropium (Duoneb 0.5 Mg-3 Mg/3 Ml Soln) 3 ml INHALATION RT-Q4H [facility] Last Admin: 07/19/19 21:16 Dose: 3 ml Documented by: Alprazolam (Xanax) 0.25 mg PO BID PRN PRN Reason: Anxiety Last Admin: 07/18/19 22:19 Dose: 0.25 mg Documented by: Apixaban (Eliquis) 5 mg PO BID [facility] Last Admin: 07/19/19 21:41 Dose: 5 mg Documented by: Ascorbic Acid (Vitamin C) 500 mg PO DAILY [facility] Last Admin: 07/19/19 07:51 Dose: 500 mg Documented by: Aspirin (Aspirin) 81 mg PO MOWEFR [facility] Atorvastatin Calcium (Lipitor) 40 mg PO DAILY [facility] Last Admin: 07/19/19 07:51 Dose: 40 mg Documented by: Budesonide/Formoterol Fumarate (Symbicort 160-4.5 Mcg Inhaler) 2 puff INHALATION RT-BID [facility] Last Admin: 07/19/19 21:16 Dose: 2 puff Documented by: Cyanocobalamin (Vitamin B-12) 500 mcg PO DAILY [facility] Last Admin: 07/19/19 07:51 Dose: 500 mcg Documented by: Docusate Sodium (Colace) 200 mg PO HS [facility] Last Admin: 07/19/19 21:41 Dose: 200 mg Documented by: Piperacillin Sod/Tazobactam (Sod 3.375 gm/ Sodium Chloride) 100 mls @ 25 mls/hr IVPB Q8HR [facility] Stop: 07/28/19 00:01 Last Admin: 07/19/19 23:40 Dose: 25 mls/hr Documented by: Levofloxacin (Levaquin) 750 mg PO DAILY@1600 [facility] Last Admin: 07/19/19 15:22 Dose: 750 mg Documented by: Methylprednisolone Sodium Succinate (Solu-Medrol) 60 mg IV Q6HR [facility] Last Admin: 07/19/19 23:44 Dose: 60 mg Documented by: Miscellaneous Information (Pneumonia Protocol Utilized) 1 each PO ONCE PRN PRN Reason: Per Protocol Objective - Vital Signs Vital signs: Vital Signs Temp 97.1 F L 07/21/19 19:00 Pulse 90 07/21/19 19:34 Resp 22 07/21/19 19:00 BP 145/86 07/21/19 19:00 Pulse Ox 94 L 07/21/19 19:00 Intake & Output 07/21/19 07/21/19 07/22/19 06:59 18:59 06:59 Intake Total 250 240 Balance 250 240 Intake: Oral 250 240 Other: # Voids 2 3 # Bowel Movements 0 - Exam PHYSICAL EXAMINATION: Patient is lying in the bed comfortably, no acute distress, awake alert and orientedx1.. HEENT: Normocephalic. Neck is supple. Pupils reactive. Nostrils clear. Oral cavity is moist. Ears reveal no drainage. Neck reveals no JVD, carotid bruits, or thyromegaly. CHEST EXAMINATION: Trachea is central. Symmetrical expansion. Bilateral air entry improved. Rhonchi positive.. Mild expiratory wheeze.. CARDIAC: Normal S1, S2 with no gallops. No murmurs ABDOMEN: Soft. Bowel sounds normal. No organomegaly. No abdominal bruits. Extremities: reveal no edema. No clubbing or cyanosis Neurologically awake, alert, oriented x1 with well-coordinated movements. Patient does have cognitive impairment Skin: No rash or skin lesions. Psychiatric: Coperative. Could not be assessed completely Musculoskeletal: No joint swelling or deformity. Normal range of motion. - Labs CBC & Chem 7: 07/22/19 07:39 07/22/19 07:39 Labs: Abnormal Lab Results - Last 24 Hours (Table) 07/21/19 07/21/19 07/21/19 Range/Units 06:59 12:23 17:08 POC Glucose (mg/dL) 150 H 139 H 236 H (75-99) mg/dL 07/21/19 Range/Units 20:54 POC Glucose (mg/dL) 206 H (75-99) mg/dL Microbiology - Last 24 Hours (Table) 07/21/19 12:00 Bronchial Washings Culture - Preliminary Bronchoalviolar Lavage - Right 07/21/19 12:00 Fungal Culture - Preliminary Bronchoalviolar Lavage - Right 07/21/19 12:00 Acid Fast Bacilli Culture - Preliminary Bronchoalviolar Lavage - Right 07/18/19 15:05 Blood Culture - Preliminary Blood No Growth after 72 hours 07/20/19 09:50 Gram Stain - Preliminary Sputum Sputum Culture - Preliminary Assessment and Plan Assessment: Bibasilar right greater than left consolidation with pneumonia. 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 Currently on IV thickened liquids at home. Chronic atrial fibrillation on Eliquis for anticoagulation Chronic CHF with mildly reduced systolic dysfunction ejection fraction 50-50% as per recent echocardiogram Elevated BNP without any other evidence of CHF Diabetes type 2 [id number]-jehmuluyo BPH Previous history of smoking DVT prophylaxis patient is already on full anticoagulation CODE STATUS is DO NOT RESUSCITATE/DO NOT INTUBATE Plan: Patient will be continued on broad-spectrum antibiotics in the form of Levaquin and Zosyn. Continue with duo nebs and IV steroids. Sputum culture will be sent. Continue the home medications and pulmonary is following. Bronchoscopy today.. Follow-up culture reports. Oxygen therapy. Further recommendations based on the clinical course. Prognosis is guarded. Time with Patient: Greater than 30
[2019-07-22 12:17] LABS: Glucose,Whole Blood 156 mg/dL (75-99)
--- NOTE | 2019-07-27 11:18 | CDI ---
Documentation Clarification Form Date: 07/27/19 From: Yvette Landers Phone: If questions call Angela Garcia @ [phone], Hours-8:30 am & 5 pm M- F Admit Date: 07/18/2019 3:54:00 PM Patient Name: Joe Chavez Visit Number: [id number] Discharge Date: 07/22/2019 3:01:00 PM ATTENTION: The Clinical Documentation Specialists (CDI) and [facility] Coding Staff appreciate your assistance in clarifying documentation. Please respond to the clarification below the line at the bottom and electronically sign. The CDI & [facility] Coding staff will review the response and follow-up if needed. Please note: Queries are made part of the Legal Health Record. If you have any questions, please contact the author of this message via ITS. Dr. Jones Muse The diagnosis of possible sepsis was documented in the H&P, and PNs 07/19, 07/20 & 07/21, but is not noted in subsequent documentation. No DS available. History/Risk Factors: pneumonia, AE COPD, ac on chr hypoxic respiratory failure Clinical Indicators: BP 79/55, no lactic acid, WBC 6.3, neutrophils 4.9 on adm & on 07/20-8.0, Bili-0.7 Treatment: Nebulizer, IV Solu-Medrol, IV Levaquin, IV Zosyn, IV fluids Please clarify if the sepsis was Present/active/treate this admission Ruled out sepsis Other, please specify Clinically unable to determine POA and treated MTDD
--- NOTE | 2019-07-27 12:29 | CDI ---
Documentation Clarification Form Date: 07/27/2019 From: Yvette Landers Phone: If questions call Angela Garcia @ [phone], Hours-8:30 am & 5 pm M- F Admit Date: 07/18/2019 3:54:00 PM Patient Name: Joe Chavez Visit Number: [id number] Discharge Date: 07/22/2019 3:01:00 PM ATTENTION: The Clinical Documentation Specialists (CDI) and [facility] Coding Staff appreciate your assistance in clarifying documentation. Please respond to the clarification below the line at the bottom and electronically sign. The CDI & [facility] Coding staff will review the response and follow-up if needed. Please note: Queries are made part of the Legal Health Record. If you have any questions, please contact the author of this message via ITS. Dr. Jones Muse Bilateral lower lobe pneumonia was documented in the H&P, consult, PNs and procedure note. No DS available. History/Risk Factors: AE COPD, ac on chr hypoxic respiratory failure Clinical Indicators: Bronchoscopy with suctioning and lavage grew Oly albicans Treatment: IV Solu-medrol, IV Levaquin, IV Zoysn O2 In order to capture the severity of condition, please clarify if the condition signifies and you are treating for: Lobar pneumonia Oly albicans pneumonia Other, please specify Unable to determine Lobar pneumonia MTDD
--- NOTE | 2019-07-28 23:41 | P.DS ---
Providers Date of admission: 07/18/19 15:54 Expected date of discharge: 07/22/19 Attending physician: Jones Muse Consults: 07/18/19 15:54 Consult Physician Routine Consulting Provider: Michael Raines Consult Reason/Comments: Bilateral pneumonia failed outpatient treatment Do you want consulting provider notified?: Yes Primary care physician: Larissa Borges Hospital Course: Discharge diagnosis Bibasilar right greater than left consolidation with pneumonia. 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 Currently on IV thickened liquids at home. 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 Patient has been on antibiotics recently. Patient was having cough for the past 1 month on and off associated with cough and minimal sputum production. Patient was wheezing on admission. Patient has been having difficulty swallowing and is on honey thickened liquids. No fever no chills. Patient was sent to the hospital due to worsening infiltrates noted in the CT chest. EKG showed atrial fibrillation. Rate controlled. CT chest done on 07/17/2019 showed right greater than left worsening bilateral lower lung consolidations suggesting worsening bilateral infection. Chest x-ray showed cardiomegaly. Scarring versus atelectasis both lung bases. WBC 6.3, d-dimer 0.65 Bicarb 38, BNP 3160 Influenza PCR negative Patient is awake alert but underlying dementia. Most of the history was taken from the medical records. Patient cannot provide any history at this time. Patient was hypotensive with blood pressure 79/55 mm hg on admission 07/19/2019 Patient denied any complaints of chest pain. Shortness of breath is at baseline. Wheezing is much improved today. Patient also being continued on antibiotics the form of Levaquin and Zosyn. Pulmonary is following. No fever no chills. Cough without sputum production. Patient is otherwise poor historian with underlying dementia. Discussed with his family at bedside. 07/20/2019 Patient is currently lying in the bed comfortable. Reaching status is about the same.. Currently being continued on IV steroids and DuoNeb's. Antibiotics in the form of Levaquin and Zosyn. Cultures showed no growth so far. Sputum culture was unable to obtain due to weak cough. Pulmonary is planning for bronchoscopy tomorrow. 07/21/2019 Patient is scheduled for bronchoscopy today. Still having weak cough. Follow- up BAL fluid cultures. Patient has been afebrile otherwise. No chest pain. Shortness of breath did improve. 07/22/2019 Patient is status post bronchoscopy. Bowel fluid cultures showed no growth so far. Patient will be continued on oral antibiotics. Patient does have good cough reflex and able to cough better today. Patient is cleared from pulmonary standpoint. Family wants to be in to be discharged home with home physical therapy and taking care of by family. Patient has been afebrile. No complaints of chest pain. Awake alert and oriented. Patient also having underlying dementia. PHYSICAL EXAMINATION: Patient is lying in the bed comfortably, no acute distress, awake alert and orientedx1.. HEENT: Normocephalic. Neck is supple. Pupils reactive. Nostrils clear. Oral cavity is moist. Ears reveal no drainage. Neck reveals no JVD, carotid bruits, or thyromegaly. CHEST EXAMINATION: Trachea is central. Symmetrical expansion. Bilateral air entry improved. Rhonchi positive.. Mild expiratory wheeze.. CARDIAC: Normal S1, S2 with no gallops. No murmurs ABDOMEN: Soft. Bowel sounds normal. No organomegaly. No abdominal bruits. Extremities: reveal no edema. No clubbing or cyanosis Neurologically awake, alert, oriented x1 with well-coordinated movements. Patient does have cognitive impairment Skin: No rash or skin lesions. Psychiatric: Coperative. Could not be assessed completely Musculoskeletal: No joint swelling or deformity. Normal range of motion. Vital Signs Temp 97.1 F L 07/21/19 19:00 Pulse 88 07/22/19 07:45 Resp 22 07/21/19 19:00 BP 145/86 07/21/19 19:00 Pulse Ox 94 L 10/15/19 19:00 Intake & Output 07/21/19 07/22/19 07/22/19 18:59 06:59 18:59 Intake Total 240 Balance 240 Intake: Oral 240 Other: # Voids 3 Total time taken greater than 35 minutes including 18 minutes for counseling and coordination of care. Patient Condition at Discharge: Fair Plan - Discharge Summary New Discharge Prescriptions: New Levofloxacin [Levaquin] 750 mg PO DAILY@1600 4 Days #4 tab predniSONE See Taper PO DIRECTED #30 tab Cefdinir [Omnicef] 300 mg PO Q12HR 3 Days #6 capsule Nystatin 100,000 Unit/ml Susp [Mycostatin Oral Susp] 500,000 unit PO QID 7 Days #100 ml Continue Tamsulosin [Flomax] 0.4 mg PO DAILY Atorvastatin [Lipitor] 40 mg PO DAILY Aspirin [Adult Low Dose Aspirin EC] 81 mg PO MOWEFR Potassium Chloride [K-Tab ER] 10 meq PO DAILY Donepezil [Aricept] 10 mg PO HS Metoprolol Tartrate [Lopressor] 50 mg PO BID Isosorbide Mononitrate ER [Imdur] 30 mg PO DAILY metFORMIN HCL [Glucophage] 500 mg PO DAILY Budesonide/Formoterol Fumarate [Symbicort 160-4.5 Mcg Inhaler] 2 puff INHALATION RT-BID Furosemide [Lasix] 20 mg PO BID@0900,1600 #60 tab ALPRAZolam [Xanax] 0.25 mg PO BID PRN PRN Reason: Anxiety Docusate [Colace] 200 mg PO HS Apixaban [Eliquis] 5 mg PO BID [place]-3 Fatty Acids/Fish Oil [Fish Oil 1,000 mg Softgel] 1 cap PO DAILY Albuterol Nebulized [Ventolin Nebulized] 2.5 mg INHALATION RT-QID Ascorbic Acid [Vitamin C] 500 mg PO DAILY Albuterol Inhaler [Ventolin Hfa Inhaler] 1 - 2 puff INHALATION RT-QID PRN PRN Reason: Shortness Of Breath Glucosam/Marlon-Msm1/C/Mark/Bosw [Glucosamine-Chondroitin Tablet] 1 tab PO DAILY Cyanocobalamin [Vitamin B-12] 500 mcg PO DAILY Ranitidine HCl [Zantac] 150 mg PO BID L.acidoph,Paracasei, B.lactis [Probiotic] 1 cap PO DAILY Multivitamins, Thera [Multivitamin (formulary)] 1 tab PO DAILY Losartan [Cozaar] 50 mg PO DAILY Discharge Medication List Atorvastatin [Lipitor] 40 mg PO DAILY 06/04/15 [History] Tamsulosin [Flomax] 0.4 mg PO DAILY 06/04/15 [History] Aspirin [Adult Low Dose Aspirin EC] 81 mg PO MOWEFR 09/23/17 [History] Budesonide/Formoterol Fumarate [Symbicort 160-4.5 Mcg Inhaler] 2 puff INHALATION RT-BID 09/23/17 [History] Donepezil [Aricept] 10 mg PO HS 09/23/17 [History] Isosorbide Mononitrate ER [Imdur] 30 mg PO DAILY 09/23/17 [History] Metoprolol Tartrate [Lopressor] 50 mg PO BID 09/23/17 [History] Potassium Chloride [K-Tab ER] 10 meq PO DAILY 09/23/17 [History] metFORMIN HCL [Glucophage] 500 mg PO DAILY 09/23/17 [History] Furosemide [Lasix] 20 mg PO BID@0900,1600 #60 tab 09/25/17 [Rx] ALPRAZolam [Xanax] 0.25 mg PO BID PRN 12/16/17 [History] Apixaban [Eliquis] 5 mg PO BID 12/16/17 [History] Docusate [Colace] 200 mg PO HS 12/16/17 [History] [place]-3 Fatty Acids/Fish Oil [Fish Oil 1,000 mg Softgel] 1 cap PO DAILY 12/16/17 [History] Albuterol Inhaler [Ventolin Hfa Inhaler] 1 - 2 puff INHALATION RT-QID PRN 11/15/18 [History] Albuterol Nebulized [Ventolin Nebulized] 2.5 mg INHALATION RT-QID 11/15/18 [History] Ascorbic Acid [Vitamin C] 500 mg PO DAILY 11/15/18 [History] Cyanocobalamin [Vitamin B-12] 500 mcg PO DAILY 06/10/19 [History] Glucosam/Marlon-Msm1/C/Mark/Bosw [Glucosamine-Chondroitin Tablet] 1 tab PO DAILY 06/10/19 [History] L.acidoph,Paracasei, B.lactis [Probiotic] 1 cap PO DAILY 06/10/19 [History] Losartan [Cozaar] 50 mg PO DAILY 06/10/19 [History] Multivitamins, Thera [Multivitamin (formulary)] 1 tab PO DAILY 06/10/19 [History] Ranitidine HCl [Zantac] 150 mg PO BID 06/10/19 [History] Cefdinir [Omnicef] 300 mg PO Q12HR 3 Days #6 capsule 07/22/19 [Rx] Levofloxacin [Levaquin] 750 mg PO DAILY@1600 4 Days #4 tab 07/22/19 [Rx] Nystatin 100,000 Unit/ml Susp [Mycostatin Oral Susp] 500,000 unit PO QID 7 Days #100 ml 07/22/19 [Rx] predniSONE See Taper PO DIRECTED #30 tab 07/22/19 [Rx] Follow up Appointment(s)/Referral(s): Alexander Ceron MD [STAFF PHYSICIAN] - 08/13/19 2:00 pm Larissa Borges DO [Primary Care Provider] - 07/29/19 11:40 am [facility], [NON-STAFF] - Ang Iniguez MD [STAFF PHYSICIAN] - 07/28/19 11:00 am (annual visit) Patient Instructions/Handouts: Community Acquired Pneumonia (DC) Activity/Diet/Wound Care/Special Instructions: Diabetic, cardiac diet, honey thick liquids, chopped, aspiration precautions. Activity as tolerated, fall precautions. Stay off bottom, turn every 2 hours while awake, barrier cream to butt. Continue home oxygen at 2 liters nasal cannula and updrafts. Discharge Disposition: HOME WITH HOME HEALTH SERVICES
== END 2019-07-22 15:01 | disposition home health service (06) | DRG 871 ==
LOC: EC 14:03 → 4MS4W 15:54
PROVIDERS: ADMIT Internal Medicine; ATTEND Internal Medicine
PROC: 0BC68ZZ Extirpation of Matter from Right Lower Lobe Bronchus, Via Natural or Artificial Opening Endoscopic (ICD-10-PCS; 2019-07-21)
PROC: 0B9F8ZX Drainage of Right Lower Lung Lobe, Via Natural or Artificial Opening Endoscopic, Diagnostic (ICD-10-PCS; principal; 2019-07-21 11:00)
DX: A41.9 Sepsis, unspecified organism (principal); J18.1 Lobar pneumonia, unspecified organism; J96.01 Acute respiratory failure with hypoxia; J44.0 Chronic obstructive pulmonary disease with (acute) lower respiratory infection; J44.1 Chronic obstructive pulmonary disease with (acute) exacerbation; I50.22 Chronic systolic (congestive) heart failure; R04.2 Hemoptysis; T17.890A Other foreign object in other parts of respiratory tract causing asphyxiation, initial encounter; B37.0 Candidal stomatitis; I48.20 Chronic atrial fibrillation, unspecified; I11.0 Hypertensive heart disease with heart failure; E86.0 Dehydration; R13.10 Dysphagia, unspecified; E11.9 Type 2 diabetes mellitus without complications; F03.90 Unspecified dementia, unspecified severity, without behavioral disturbance, psychotic disturbance, mood disturbance, and anxiety; Z66 Do not resuscitate; E78.5 Hyperlipidemia, unspecified; I25.10 Atherosclerotic heart disease of native coronary artery without angina pectoris; N40.0 Benign prostatic hyperplasia without lower urinary tract symptoms; F41.9 Anxiety disorder, unspecified; Z79.01 Long term (current) use of anticoagulants; Z79.82 Long term (current) use of aspirin; Z79.51 Long term (current) use of inhaled steroids; Z79.84 Long term (current) use of oral hypoglycemic drugs; Z79.899 Other long term (current) drug therapy; Z87.891 Personal history of nicotine dependence; Z98.890 Other specified postprocedural states; Z98.42 Cataract extraction status, left eye; Z98.41 Cataract extraction status, right eye; Z96.1 Presence of intraocular lens; Z90.79 Acquired absence of other genital organ(s); Z88.0 Allergy status to penicillin; Z88.8 Allergy status to other drugs, medicaments and biological substances; Z91.030 Bee allergy status; Z82.49 Family history of ischemic heart disease and other diseases of the circulatory system; Z80.8 Family history of malignant neoplasm of other organs or systems
CPT/HCPCS: 31624; 36415; 71046; 80048; 80053; 82550; 83735; 83880; 84484; 85025; 85027; 85379; 85610; 85730; 87040; 87070; 87102; 87116; 87205; 87206; 87252; 87496; 87498; 87502; 87529; 87634; 87798; 88108; 88305; 89050; 93005; 94640; 96365; 96375; 99285

== ENCOUNTER 2019-08-21 14:13 | Inpatient (IN) | payer MEDICARE ==
--- NOTE | 2019-08-21 14:43 | ED ---
General Adult HPI - General Chief complaint: Altered Mental Status Stated complaint: altered mental status Time Seen by Provider: 08/21/19 14:16 Source: EMS Mode of arrival: EMS Limitations: no limitations - History of Present Illness Initial comments: Dictation was produced using [employer] dictation software. please excuse any grammatical, word or spelling errors. Chief Complaint: 89-year-old male past medical history of dementia presents with altered mental status. History of Present Illness: Patient is a 81-year-old male presents today with altered mental status. Patient has history of atrial fibrillation and is on anticoagulation medication. Patient also has a history of heart failure diabetes, dementia, hypertension and prostate disease. Today patient to the nap when family tried to wake him up. Patient was difficult to arouse. He did seem to be more sleepy than usual. Patient has a history of dementia. He is alert and oriented 2 at baseline. Family at bedside reports that patient has been speaking more about the past recently. They're concerned that patient has an underlying infection. Patient unable to provide HPI at this time. Review of systems all discussed with and daughter at bedside. The ROS documented in this emergency department record has been reviewed and confirmed by me. Those systems with pertinent positive or negative responses have been documented in the HPI. All other systems are other negative and/or noncontributory. PHYSICAL EXAM: General Impression: Alert and oriented x3, not in acute distress HEENT: Normocephalic atraumatic, extra-ocular movements intact, pinpoint pupils, mucous membranes moist, Cardiovascular: Heart regular rate and rhythm, S1&S2 audible, no murmurs, rubs or gallops Chest: Lungs clear to auscultation bilaterally, no rhonchi, no wheeze, no rales Abdomen: Bowel sounds present, abdomen soft, non-tender, non-distended, no organomegaly Musculoskeletal: Pulses present and equal in all extremities, no peripheral edema Motor: no focal deficits noted Neurological: CN II-XII grossly intact, no focal motor or sensory deficits noted Skin: Intact with no visualized rashes Psych: Normal affect and mood ED course: 89-year-old male with multiple comorbidities presents with altered mental status. He has a history of dementia. Family reports that he was difficult to arouse this morning. As upon arrival are within acceptable limits. EKG shows atrial fibrillation. Patient has history of this. Computed tomography scan of the brain was found to be unremarkable. Labs evaluation obtained. No leukocytosis. CBC, coag panel, metabolic panel is unremarkable. Urinalysis is negative. Chest x-ray shows patchy infiltrate to the right lower lobe. More history was obtained from family. They report that patient has been having increasing cough this productive of sputum over the last 3 days. Patient was admitted to the hospital one month ago. He'll be treated for hospital-acquired pneumonia. Blood culture sent. Patient given broad- spectrum antibiotics. Discussed patient case with Dr. Cunningham who is willing to accept patients care. Discussed disposition family was agreeable. All questions answered. EKG interpretation: Ventricular rate today, A. fib, Q is 82, QTC 408. No DC prolongation, no QTC prolongation, no ST or T-wave changes noted. . Overall, this EKG is unremarkable - Related Data Home Medications Medication Instructions Recorded Confirmed Atorvastatin [Lipitor] 40 mg PO DAILY 06/04/15 07/18/19 Tamsulosin [Flomax] 0.4 mg PO DAILY 06/04/15 07/18/19 Aspirin [Adult Low Dose Aspirin EC] 81 mg PO MOWEFR 09/23/17 07/18/19 Budesonide/Formoterol Fumarate 2 puff INHALATION RT-BID 09/23/17 07/18/19 [Symbicort 160-4.5 Mcg Inhaler] Donepezil [Aricept] 10 mg PO HS 09/23/17 07/18/19 Isosorbide Mononitrate ER [Imdur] 30 mg PO DAILY 09/23/17 07/18/19 Metoprolol Tartrate [Lopressor] 50 mg PO BID 09/23/17 07/18/19 Potassium Chloride [K-Tab ER] 10 meq PO DAILY 09/23/17 07/18/19 metFORMIN HCL [Glucophage] 500 mg PO DAILY 09/23/17 07/18/19 ALPRAZolam [Xanax] 0.25 mg PO BID PRN 12/16/17 07/18/19 Apixaban [Eliquis] 5 mg PO BID 12/16/17 07/18/19 Docusate [Colace] 200 mg PO HS 12/16/17 07/18/19 [place]-3 Fatty Acids/Fish Oil [Fish 1 cap PO DAILY 12/16/17 07/18/19 Oil 1,000 mg Softgel] Albuterol Inhaler [Ventolin Hfa 1 - 2 puff INHALATION RT-QID PRN 11/15/18 07/18/19 Inhaler] Albuterol Nebulized [Ventolin 2.5 mg INHALATION RT-QID 11/15/18 07/18/19 Nebulized] Ascorbic Acid [Vitamin C] 500 mg PO DAILY 11/15/18 07/18/19 Cyanocobalamin [Vitamin B-12] 500 mcg PO DAILY 06/10/19 07/18/19 Glucosam/Marlon-Msm1/C/Mark/Bosw 1 tab PO DAILY 06/10/19 07/18/19 [Glucosamine-Chondroitin Tablet] L.acidoph,Paracasei, B.lactis 1 cap PO DAILY 06/10/19 07/18/19 [Probiotic] Losartan [Cozaar] 50 mg PO DAILY 06/10/19 07/18/19 Multivitamins, Thera [Multivitamin 1 tab PO DAILY 06/10/19 07/18/19 (formulary)] Ranitidine HCl [Zantac] 150 mg PO BID 06/10/19 07/18/19 Previous Rx's Medication Instructions Recorded Furosemide [Lasix] 20 mg PO BID@0900,1600 #60 tab 09/25/17 Cefdinir [Omnicef] 300 mg PO Q12HR 3 Days #6 capsule 07/22/19 Levofloxacin [Levaquin] 750 mg PO DAILY@1600 4 Days #4 tab 07/22/19 Nystatin 100,000 Unit/ml Susp 500,000 unit PO QID 7 Days #100 ml 07/22/19 [Mycostatin Oral Susp] predniSONE See Taper PO DIRECTED #30 tab 07/22/19 Allergies Allergy/AdvReac Type Severity Reaction Status Date / Time amoxicillin [From Augmentin] Allergy Rash/Hives Verified 07/18/19 14:41 bee pollen Allergy Swelling Verified 07/18/19 14:41 clavulanic acid Allergy Rash/Hives Verified 07/18/19 14:41 [From Augmentin] Review of Systems ROS Statement: Those systems with pertinent positive or pertinent negative responses have been documented in the HPI. ROS Other: All systems not noted in ROS Statement are negative. Past Medical History Past Medical History: Atrial Fibrillation, Coronary Artery Disease (CAD), Heart Failure, COPD, Dementia, Diabetes Mellitus, Hyperlipidemia, Hypertension, Prostate Disorder Additional Past Medical History / Comment(s): NIDDM type II, beginning of de mentia, joint pain-multiple sites. History of Any Multi-Drug Resistant Organisms: None Reported Past Surgical History: Heart Catheterization, Hernia Repair, Tonsillectomy Additional Past Surgical History / Comment(s): TURP, cystoscopy, L inguinal herniorraphy, bilateral cataract removal with lens implants. Past Anesthesia/Blood Transfusion Reactions: No Reported Reaction Past Psychological History: No Psychological Hx Reported Smoking Status: Former smoker Past Alcohol Use History: None Reported Past Drug Use History: None Reported - Past Family History Mother Additional Family Medical History / Comment(s): Mother either of CHF or a [place] at the ageof 82 yrs. Father Family Medical History: Cancer Additional Family Medical History / Comment(s): Father of complications aft er surgery for throat cancer at the age of 76yrs. General Exam Limitations: no limitations Course Vital Signs 08/21/19 08/21/19 14:14 14:57 Temperature 97.9 F Pulse Rate 71 Respiratory 16 16 Rate Blood Pressure 116/66 O2 Sat by Pulse 98 Oximetry Medical Decision Making - Lab Data Result diagrams: 08/21/19 14:30 08/21/19 14:30 Lab Results 08/21/19 08/21/19 08/21/19 Range/Units 14:30 14:30 14:30 WBC 5.4 (3.8-10.6) k/uL RBC 4.01 L (4.30-5.90) m/uL Hgb 12.1 L (13.0-17.5) gm/dL Hct 36.5 L (39.0-53.0) % MCV 91.1 (80.0-100.0) fL MCH 30.2 (25.0-35.0) pg MCHC 33.2 (31.0-37.0) g/dL RDW 14.4 (11.5-15.5) % Plt Count 195 (150-450) k/uL Neutrophils % 71 % Lymphocytes % 19 % Monocytes % 7 % Eosinophils % 1 % Basophils % 2 % Neutrophils # 3.8 (1.3-7.7) k/uL Lymphocytes # 1.0 (1.0-4.8) k/uL Monocytes # 0.4 (0-1.0) k/uL Eosinophils # 0.1 (0-0.7) k/uL Basophils # 0.1 (0-0.2) k/uL PT (9.0-12.0) sec INR (<1.2) APTT (22.0-30.0) sec Sodium 143 (137-145) mmol/L Potassium 4.4 (3.5-5.1) mmol/L Chloride 107 (98-107) mmol/L Carbon Dioxide 34 H (22-30) mmol/L Anion Gap 2 mmol/L BUN 27 H (9-20) mg/dL Creatinine 0.56 L (0.66-1.25) mg/dL Est GFR (CKD-EPI)AfAm >90 (>60 ml/min/1.73 sqM) Est GFR (CKD-EPI)NonAf >90 (>60 ml/min/1.73 sqM) Glucose 89 (74-99) mg/dL Plasma Lactic Acid Adriano 1.3 (0.7-2.0) mmol/L Calcium 9.2 (8.4-10.2) mg/dL Magnesium 1.9 (1.6-2.3) mg/dL Total Bilirubin 0.8 (0.2-1.3) mg/dL AST 18 (17-59) U/L ALT 16 L (21-72) U/L Alkaline Phosphatase 51 (38-126) U/L Ammonia 15 (<30) umol/L Troponin I (0.000-0.034) ng/mL Total Protein 5.4 L (6.3-8.2) g/dL Albumin 3.0 L (3.5-5.0) g/dL Urine Color Urine Appearance (Clear) Urine pH (5.0-8.0) Ur Specific [place] (1.001-1.035) Urine Protein (Negative) Urine Glucose (UA) (Negative) Urine Ketones (Negative) Urine Blood (Negative) Urine Nitrite (Negative) Urine Bilirubin (Negative) Urine Urobilinogen (<2.0) mg/dL Ur Leukocyte Esterase (Negative) 08/21/19 08/21/19 08/21/19 Range/Units 14:30 14:30 14:30 WBC (3.8-10.6) k/uL RBC (4.30-5.90) m/uL Hgb (13.0-17.5) gm/dL Hct (39.0-53.0) % MCV (80.0-100.0) fL MCH (25.0-35.0) pg MCHC (31.0-37.0) g/dL RDW (11.5-15.5) % Plt Count (150-450) k/uL Neutrophils % % Lymphocytes % % Monocytes % % Eosinophils % % Basophils % % Neutrophils # (1.3-7.7) k/uL Lymphocytes # (1.0-4.8) k/uL Monocytes # (0-1.0) k/uL Eosinophils # (0-0.7) k/uL Basophils # (0-0.2) k/uL PT 10.8 (9.0-12.0) sec INR 1.0 (<1.2) APTT 26.6 (22.0-30.0) sec Sodium (137-145) mmol/L Potassium (3.5-5.1) mmol/L Chloride (98-107) mmol/L Carbon Dioxide (22-30) mmol/L Anion Gap mmol/L BUN (9-20) mg/dL Creatinine (0.66-1.25) mg/dL Est GFR (CKD-EPI)AfAm (>60 ml/min/1.73 sqM) Est GFR (CKD-EPI)NonAf (>60 ml/min/1.73 sqM) Glucose (74-99) mg/dL Plasma Lactic Acid Adriano (0.7-2.0) mmol/L Calcium (8.4-10.2) mg/dL Magnesium (1.6-2.3) mg/dL Total Bilirubin (0.2-1.3) mg/dL AST (17-59) U/L ALT (21-72) U/L Alkaline Phosphatase (38-126) U/L Ammonia (<30) umol/L Troponin I <0.012 (0.000-0.034) ng/mL Total Protein (6.3-8.2) g/dL Albumin (3.5-5.0) g/dL Urine Color Yellow Urine Appearance Clear (Clear) Urine pH 7.0 (5.0-8.0) Ur Specific [place] 1.018 (1.001-1.035) Urine Protein Negative (Negative) Urine Glucose (UA) Negative (Negative) Urine Ketones Negative (Negative) Urine Blood Negative (Negative) Urine Nitrite Negative (Negative) Urine Bilirubin Negative (Negative) Urine Urobilinogen 2.0 (<2.0) mg/dL Ur Leukocyte Esterase Negative (Negative) Disposition Clinical Impression: Acute delirium, Pneumonia Disposition: ADMITTED IP TO THIS HOSP Condition: Fair Referrals: Larissa Borges DO [Primary Care Provider] - 1-2 days Decision Time: 15:52
[2019-08-21] MEDS ORDERED: NALOXONE 0.4 MG/ML 1 ML VIAL IV STA (14:50)
[2019-08-21] MEDS ORDERED: SODIUM CHLORIDE 0.9% 500 ML 500 ML IV ONE (14:54)
[2019-08-21 15:00] LABS: Appearance,Urine Clear (Clear); Basophils # (A) 0.1 k/uL (0-0.2); Basophils % (A) 2 %; Bilirubin,Urine Negative (Negative); Blood,Urine Negative (Negative); Color,Urine Yellow; Eosinophils # (A) 0.1 k/uL (0-0.7); Eosinophils % (A) 1 %; Glucose,Urine (UA) Negative (Negative); HCT 36.5 % (39.0-53.0); HGB 12.1 gm/dL (13.0-17.5); Ketones,Urine Negative (Negative); Leukocyte Esterase,Urine Negative (Negative); Lymphocytes % (A) 19 %; MCH 30.2 pg (25.0-35.0); MCHC 33.2 g/dL (31.0-37.0); MCV 91.1 fL (80.0-100.0); Mean Platelet Volume 6.5; Monocytes # (A) 0.4 k/uL (0-1.0); Monocytes % (A) 7 %; Neutrophils # (A) 3.8 k/uL (1.3-7.7); Neutrophils % (A) 71 %; Nitrite,Urine Negative (Negative); Platelet Count 195 k/uL (150-450); Protein,Urine Negative (Negative); RBC 4.01 m/uL (4.30-5.90); RDW 14.4 % (11.5-15.5); Specific Gravity,Urine 1.018 (1.001-1.035); WBC 5.4 k/uL (3.8-10.6)
[2019-08-21 15:09] LABS: ALT 16 U/L (21-72); AST 18 U/L (17-59); African American GFR (CKD) >90 (>60 ml/min/1.73 sqM); Alkaline Phosphatase 51 U/L (38-126); Anion Gap 2 mmol/L; Blood Urea Nitrogen 27 mg/dL (9-20); Calcium 9.2 mg/dL (8.4-10.2); Carbon Dioxide 34 mmol/L (22-30); Chloride 107 mmol/L (98-107); Glucose 89 mg/dL (74-99); Magnesium 1.9 mg/dL (1.6-2.3); Non-African American GFR(CKD) >90 (>60 ml/min/1.73 sqM); Potassium 4.4 mmol/L (3.5-5.1); Sodium 143 mmol/L (137-145); Total Bilirubin 0.8 mg/dL (0.2-1.3); Total Protein 5.4 g/dL (6.3-8.2)
[2019-08-21 15:10] LABS: Lactic Acid, Venous 1.3 mmol/L (0.7-2.0)
--- NOTE | 2019-08-21 15:17 | CT ---
EXAMINATION TYPE: CT brain wo con DATE OF EXAM: 08/21/2019 COMPARISON: November 15, 2018 HISTORY: Altered mental status. CT DLP: 1158.[address] of the brain was performed. The ventricles, basal cisterns and sulci overlying the cerebral convexities demonstrate mild enlargem ent. There is no evidence for intracranial hemorrhage or sulcal effacement. There is decreased attenuation about the periventricular white matter and deep white matter of both c erebral hemispheres, compatible with chronic small vessel ischemia. Differential diagnosis does inclu de demyelination. No mass effects are seen.No midline shift. Osseous calvarium is intact. If symptoms persist consider MRI. IMPRESSION: 1. Age related atrophic and chronic small vessel ischemic change without acute intracranial process s een at this time.
[2019-08-21 15:29] LABS: Partial Thromboplastin Time 26.6 sec (22.0-30.0); Prothrombin Time 10.8 sec (9.0-12.0)
--- NOTE | 2019-08-21 15:37 | XR ---
EXAMINATION TYPE: XR chest 2V DATE OF EXAM: 08/21/2019 COMPARISON: NONE TECHNIQUE: PA and lateral views submitted. HISTORY: altered mental status FINDINGS: There is bilateral areas of consolidation. There is prominence the upper mediastinum. The heart enlar ged. Atherosclerotic change of the aorta. No pneumothorax or pleural effusion. Degenerative change of the spine and hyperinflation suggestive COPD. IMPRESSION: Cardiomegaly with bilateral infiltrate correlate for pneumonia otherwise consider CHF.
[2019-08-21] MEDS ORDERED: CEFEPIME 2 GM in SODIUM CHLORIDE 0.9% 100 ML IVPB STA (15:44)
[2019-08-21] MEDS ORDERED: VANCOMYCIN IV PER PHARMACY 1 EACH MISC MISCELLANE PRN (15:44)
[2019-08-21 15:59] LABS: VBG PH 7.44 (7.31-7.41)
[2019-08-21] MEDS ORDERED: VANCOMYCIN 1,250 MG in SODIUM CHLORIDE 0.9% 250 ML IVPB ONE (16:15)
[2019-08-21] MEDS ORDERED: PNEUMONIA PROTOCOL UTILIZED 1 EACH MISC PO PRN (16:41)
[2019-08-21] MEDS: APIXABAN 5 MG TAB PO SCH (19:57)
[2019-08-21] MEDS: DONEPEZIL 10 MG TAB PO SCH (19:57)
[2019-08-22] MEDS: DOCUSATE 100 MG CAP PO SCH ×2 (01:06→21:28)
[2019-08-22] MEDS: ALBUTEROL NEBULIZED 2.5 MG/3 ML INHALATION PRN ×5 (03:44→20:05)
[2019-08-22] MEDS: VANCOMYCIN 1,000 MG in SODIUM CHLORIDE 0.9% 250 ML IVPB SCH ×2 (06:26→17:29)
[2019-08-22] MEDS ORDERED: SYMBICORT 160-4.5 MCG INHALER INHALATION SCH (08:00)
--- NOTE | 2019-08-22 08:42 | XR ---
EXAMINATION TYPE: XR chest 2V DATE OF EXAM: 08/22/2019 HISTORY: pneumonia. REFERENCE: Previous study dated 08/21/2019. FINDINGS: There is worsening left basilar infiltrate and a smaller right basilar infiltrate. The hear t is enlarged. There is blunting of both CP angles and I cannot exclude small effusions on both sides . IMPRESSION: BIBASILAR INFILTRATES. THE LEFT-SIDED INFILTRATE HAS WORSENED FROM PREVIOUS.
[2019-08-22] MEDS ORDERED: NON FORMULARY DRUG (Omega-3 Fatty Acids/Fish Oil [Fish Oil 1,000 Mg Softgel] 1 CAP) PO SCH (09:00)
[2019-08-22] MEDS ORDERED: NON FORMULARY DRUG (Glucosam/Chon-Msm1/C/Mang/Bosw [Glucosamine-Chondroitin Tablet] 1 TAB) PO SCH (09:00)
[2019-08-22] MEDS: APIXABAN 5 MG TAB PO SCH ×2 (10:30→21:28)
[2019-08-22] MEDS: TAMSULOSIN 0.4 MG CAP.ER.24H PO SCH (10:30)
[2019-08-22] MEDS: LOSARTAN 50 MG TAB PO SCH (10:31)
[2019-08-22] MEDS: METOPROLOL TARTRATE 50 MG TAB PO SCH ×2 (10:31→21:28)
[2019-08-22] MEDS: FAMOTIDINE 20 MG TAB PO SCH ×2 (10:31→21:28)
[2019-08-22] MEDS: POTASSIUM CHLORIDE ER 10 MEQ TAB.ER.PRT PO SCH (10:31)
[2019-08-22] MEDS: CYANOCOBALAMIN 500 MCG TAB PO SCH (10:31)
[2019-08-22] MEDS: ATORVASTATIN 40 MG TAB PO SCH (10:31)
[2019-08-22] MEDS: ASCORBIC ACID 500 MG TAB PO SCH (10:31)
[2019-08-22] MEDS: ISOSORBIDE MONONITRATE ER 30 MG TAB.ER.24H PO SCH (10:31)
[2019-08-22] MEDS: MULTIVITAMINS, THERA 1 EACH TAB PO SCH (10:31)
[2019-08-22] MEDS: LIPASE 5,000/PROTEASE 17,000/AMYLASE 24,000 PO SCH (10:32)
--- NOTE | 2019-08-22 11:18 | P.CNPUL ---
History of Present Illness Consult date: 08/22/19 Requesting physician: Jones Muse Reason for consult: abnormal CXR/CT (Basilar infiltrates) Chief complaint: Altered mental status History of present illness: This is an 89-year-old gentleman who follows with Dr. Borges as his primary care provider. He has a history of coronary artery disease, diabetes mellitus type 2, congestive heart failure, chronic obstructive pulmonary disease, former smoker, hyperlipidemia, hypertension, atrial fibrillation anticoagulated with Eliquis, BPH. He was recently here in the hospital last month with increased cough and congestion unable to clear secretions. He had undergone bronchoscopy with BAL performed by Dr. Hernandez on 07/21/2019. Results were with Oly only. Negative for malignancy. He was brought back here yesterday to the emergency room as his family found him to have decreased alertness and had difficulty arousing him from a nap. Computed tomography scan of the brain revealed revealed age-related atrophic and chronic small vessel ischemic changes without acute intracranial process. Chest x-ray revealed evidence of cardio megaly with bilateral infiltrates suspicious for aspiration pneumonia and some fluid volume overload. EKG revealed atrial fibrillation with a controlled ventricular response. White count 5.4. Hemoglobin 12.1. Sodium 143. Potassium 4.4. Creatinine 0.56. He has been initiated on vancomycin and cefepime. On bronchodilators and Symbicort. He is on a dysphagia 3 diet. Staff reports he did well with breakfast today no signs of choking. He is seen today in consultation on the regular medical floor. He is awake and alert. Disoriented to time and place. Some garbled speech. He does have a loose productive cough. Sputum culture sent. He is maintaining O2 saturations in the mid 90s on 3 L/m per nasal cannula. He is afebrile. Hemodynamically stable. Review of Systems ROS unobtainable: due to mental status Past Medical History Past Medical History: Atrial Fibrillation, Coronary Artery Disease (CAD), Heart Failure, COPD, Dementia, Diabetes Mellitus, Eye Disorder, Hyperlipidemia, Hypertension, Prostate Disorder Additional Past Medical History / Comment(s): NIDDM type II, beginning of dementia, joint pain-multiple sites. History of Any Multi-Drug Resistant Organisms: None Reported Past Surgical History: Heart Catheterization, Hernia Repair, Tonsillectomy Additional Past Surgical History / Comment(s): TURP, cystoscopy, L inguinal herniorraphy, bilateral cataract removal with lens implants. Past Anesthesia/Blood Transfusion Reactions: No Reported Reaction Past Psychological History: No Psychological Hx Reported Additional Psychological History / Comment(s): PT RESIDES WITH HIS SPOUSE OF 62 YRS. HE HAS A walker HE NO LONGER DRIVES, SPOUSE TAKES HIM TO APPTS AND MANAGES HIS MEDICATION. Smoking Status: Former smoker Past Alcohol Use History: None Reported Additional Past Alcohol Use History / Comment(s): Pt started smoking in 1957 and quit in 1996. Past Drug Use History: None Reported - Past Family History Mother Additional Family Medical History / Comment(s): Mother either of CHF or a [place] at the age of 82 yrs. Father Family Medical History: Cancer Additional Family Medical History / Comment(s): Father of complications after surgery for throat cancer at the age of 76yrs. Medications and Allergies Home Medications Medication Instructions Recorded Confirmed Type Atorvastatin [Lipitor] 40 mg PO DAILY 06/04/15 08/21/19 History Tamsulosin [Flomax] 0.4 mg PO DAILY 06/04/15 08/21/19 History Aspirin [Adult Low Dose Aspirin EC] 81 mg PO MOWEFR 09/23/17 08/21/19 History Budesonide/Formoterol Fumarate 2 puff INHALATION RT-BID 09/23/17 08/21/19 History [Symbicort 160-4.5 Mcg Inhaler] Donepezil [Aricept] 10 mg PO HS 09/23/17 08/21/19 History Isosorbide Mononitrate ER [Imdur] 30 mg PO DAILY 09/23/17 08/21/19 History Metoprolol Tartrate [Lopressor] 50 mg PO BID 09/23/17 08/21/19 History Potassium Chloride [K-Tab ER] 10 meq PO DAILY 09/23/17 08/21/19 History metFORMIN HCL [Glucophage] 500 mg PO DAILY 09/23/17 08/21/19 History Furosemide [Lasix] 20 mg PO BID@0900,1600 #60 tab 09/25/17 08/21/19 Rx ALPRAZolam [Xanax] 0.25 mg PO BID PRN 12/16/17 08/21/19 History Apixaban [Eliquis] 5 mg PO BID 12/16/17 08/21/19 History Docusate [Colace] 200 mg PO HS 12/16/17 08/21/19 History [place]-3 Fatty Acids/Fish Oil [Fish 1 cap PO DAILY 12/16/17 08/21/19 History Oil 1,000 mg Softgel] Albuterol Inhaler [Ventolin Hfa 1 - 2 puff INHALATION RT-QID PRN 11/15/18 08/21/19 History Inhaler] Albuterol Nebulized [Ventolin 2.5 mg INHALATION RT-Q4H PRN 11/15/18 08/21/19 History Nebulized] Ascorbic Acid [Vitamin C] 500 mg PO DAILY 11/15/18 08/21/19 History Cyanocobalamin [Vitamin B-12] 500 mcg PO DAILY 06/10/19 08/21/19 History Glucosam/Marlon-Msm1/C/Mark/Bosw 1 tab PO DAILY 06/10/19 08/21/19 History [Glucosamine-Chondroitin Tablet] L.acidoph,Paracasei, B.lactis 1 cap PO DAILY 06/10/19 08/21/19 History [Probiotic] Losartan [Cozaar] 50 mg PO DAILY 06/10/19 08/21/19 History Multivitamins, Thera [Multivitamin 1 tab PO DAILY 06/10/19 08/21/19 History (formulary)] Ranitidine HCl [Zantac] 150 mg PO BID 06/10/19 08/21/19 History Allergies Allergy/AdvReac Type Severity Reaction Status Date / Time amoxicillin [From Augmentin] Allergy Rash/Hives Verified 08/21/19 16:06 bee pollen Allergy Swelling Verified 08/21/19 16:06 clavulanic acid Allergy Rash/Hives Verified 08/21/19 16:06 [From Augmentin] Physical Exam Vitals: Vital Signs Temp Pulse Pulse Resp BP BP Pulse Ox 08/22/19 08:22 80 08/22/19 08:07 76 08/22/19 05:36 97.6 F 79 18 133/66 96 08/22/19 03:56 76 08/22/19 03:45 72 08/21/19 20:55 97.5 F L 74 22 128/75 97 08/21/19 18:26 97.2 F L 78 18 128/75 100 08/21/19 17:03 67 20 119/72 100 08/21/19 15:32 7 L 20 130/80 97 08/21/19 14:57 16 08/21/19 14:14 97.9 F 71 16 116/66 98 Intake and Output 08/21/19 08/22/19 08/22/19 22:59 06:59 14:59 Intake Total 250 Balance 250 Intake: Intake, IV Titration 250 Amount Vancomycin 1,000 mg In 250 Sodium Chloride 0.9% 250 ml @ 125 mls/hr IVPB Q12H PENDING SALE TO [facility] Rx#:[id number] Other: Voiding Method Diaper Incontinent # Voids 3 # Bowel Movements 3 GENERAL EXAM: Alert, pleasant 89-year-old gentleman, on 3 L nasal cannula comfortable in no apparent distress. HEAD: Normocephalic. EYES: Normal reaction of pupils, equal size. NOSE: Clear with pink turbinates. THROAT: No erythema or exudates. NECK: No masses, no JVD. CHEST: No chest wall deformity. LUNGS: Equal air entry with bilateral scattered rhonchi. CVS: S1 and S2 normal with no audible murmur, irregular rhythm. ABDOMEN: No hepatosplenomegaly, normal bowel sounds, no guarding or rigidity. SPINE: No scoliosis or deformity SKIN: No rashes CENTRAL NERVOUS SYSTEM: Oriented times one. No focal deficits, tone is normal in all 4 extremities. EXTREMITIES: There is no peripheral edema. No clubbing, no cyanosis. Peripheral pulses are intact. Results - Laboratory Findings CBC and BMP: 08/21/19 14:30 08/21/19 14:30 PT/INR, D-dimer PT 10.8 sec (9.0-12.0) 08/21/19 14:30 INR 1.0 (<1.2) 08/21/19 14:30 Abnormal lab findings: Abnormal Labs 08/21/19 08/21/19 08/21/19 14:30 14:30 15:40 RBC 4.01 L Hgb 12.1 L Hct 36.5 L VBG pH 7.44 H VBG HCO3 30 H Carbon Dioxide 34 H BUN 27 H Creatinine 0.56 L ALT 16 L Total Protein 5.4 L Albumin 3.0 L - Diagnostic Findings Chest x-ray: image reviewed Assessment and Plan Assessment: 1 Acute hypoxemic respiratory failure related to bibasilar pneumonia Suspect aspiration. Recent bronchoscopy with BAL on 07/21/2019 did not reveal any p ositive cultures. There was Oly. No malignancy. 2 Acute COPD exacerbation related to the above 3 Diabetes mellitus type 2 4 Hypertension 5 Chronic congestive heart failure with reduced systolic function 6 Chronic atrial fibrillation on anticoagulation in the form of Eliquis 7 History of dementia 8 Oropharyngeal candidiasis Plan: The patient was seen and evaluated by Dr. Alamo. Chest x-ray and labs reviewed. Suspect aspiration pneumonia. He is on a dysphagia 3 diet. Asp iration precautions. Swallow evaluation. Continue cefepime. Add clindamycin. Continue bronchodilators. Doubt good timing with the Symbicort. We'll change to Pulmicort and Perforomist. We will continue to follow and make further recommendations based on his clinical status. I, the cosigning physician, performed a history & physical examination of the patient. Lungs sounds with bilateral scattered rhonchi. Maintaining good O2 saturations in the 90s on 3 L/m per nasal cannula. I discussed the assessment and plan of care with my nurse practitioner, Carolee Adams. I attest to the above consultation as dictated by her. Time with Patient: Greater than 30
[2019-08-22] MEDS: CEFEPIME 1 GM in SODIUM CHLORIDE 0.9% 50 ML IVPB SCH ×2 (13:27→21:28)
[2019-08-22] MEDS: CLINDAMYCIN 300 MG in DEXTROSE 5% IN WATER 50 ML IVPB SCH ×2 (15:12)
--- NOTE | 2019-08-22 18:04 | P.HPIM ---
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 Patient has been very lethargic and worsening difficulty in breathing for the past 2 days. Denied any fever or chills. Patient was also having cough with sputum production and blood-tinged. Patient was recently hospitalized and had bronchoscopy done. Patient also having difficulty swallowing and is currently on honey thickened liquids. Chest x-ray showed cardiomegaly with bilateral infiltrates suspicious for aspira tion pneumonia and fluid overload. EKG showed atrial fibrillation with controlled response. CT head showed age-related atrophic and chronic small was an ischemic changes. Without acute intracranial process. UA negative for infection. No leukocytosis. Review of Systems Constitutional: Patient denies any fever or chills . Generalized weakness and lethargic. Abdomen: Patient denied nausea vomiting and diarrhea and abdominal pain. Cardiovascular: Patient denies any chest pain or short of breath no palpitations. Respiratory: patient denied any cough is from production. No shortness of breath Neurologic: Patient denied any numbness or tingling headache. Musculoskeletal: Patient denies any complaints of joint swelling or deformity. Skin: Negative Complete review of systems could not be apparent from the patient. Past Medical History Past Medical History: Atrial Fibrillation, Coronary Artery Disease (CAD), Heart Failure, COPD, Dementia, Diabetes Mellitus, Eye Disorder, Hyperlipidemia, Hype rtension, Prostate Disorder Additional Past Medical History / Comment(s): NIDDM type II, beginning of dementia, joint pain-multiple sites. History of Any Multi-Drug Resistant Organisms: None Reported Past Surgical History: Heart Catheterization, Hernia Repair, Tonsillectomy Additional Past Surgical History / Comment(s): TURP, cystoscopy, L inguinal herniorraphy, bilateral cataract removal with lens implants. Past Anesthesia/Blood Transfusion Reactions: No Reported Reaction Past Psychological History: No Psychological Hx Reported Additional Psychological History / Comment(s): PT RESIDES WITH HIS SPOUSE OF 62 YRS. HE HAS A walker HE NO LONGER DRIVES, SPOUSE TAKES HIM TO APPTS AND MANAGES HIS MEDICATION. Smoking Status: Former smoker Past Alcohol Use History: None Reported Additional Past Alcohol Use History / Comment(s): Pt started smoking in 1957 and quit in 1996. Past Drug Use History: None Reported - Past Family History Mother Additional Family Medical History / Comment(s): Mother either of CHF or a CA at the age of 82 yrs. Father Family Medical History: Cancer Additional Family Medical History / Comment(s): Father of complications after surgery for throat cancer at the age of 76yrs. Medications and Allergies Home Medications Medication Instructions Recorded Confirmed Type Atorvastatin [Lipitor] 40 mg PO DAILY 06/04/15 08/21/19 History Tamsulosin [Flomax] 0.4 mg PO DAILY 06/04/15 08/21/19 History Aspirin [Adult Low Dose Aspirin EC] 81 mg PO MOWEFR 09/23/17 08/21/19 History Budesonide/Formoterol Fumarate 2 puff INHALATION RT-BID 09/23/17 08/21/19 History [Symbicort 160-4.5 Mcg Inhaler] Donepezil [Aricept] 10 mg PO HS 09/23/17 08/21/19 History Isosorbide Mononitrate ER [Imdur] 30 mg PO DAILY 09/23/17 08/21/19 History Metoprolol Tartrate [Lopressor] 50 mg PO BID 09/23/17 08/21/19 History Potassium Chloride [K-Tab ER] 10 meq PO DAILY 09/23/17 08/21/19 History metFORMIN HCL [Glucophage] 500 mg PO DAILY 09/23/17 08/21/19 History Furosemide [Lasix] 20 mg PO BID@0900,1600 #60 tab 09/25/17 08/21/19 Rx ALPRAZolam [Xanax] 0.25 mg PO BID PRN 12/16/17 08/21/19 History Apixaban [Eliquis] 5 mg PO BID 12/16/17 08/21/19 History Docusate [Colace] 200 mg PO HS 12/16/17 08/21/19 History [place]-3 Fatty Acids/Fish Oil [Fish 1 cap PO DAILY 12/16/17 08/21/19 History Oil 1,000 mg Softgel] Albuterol Inhaler [Ventolin Hfa 1 - 2 puff INHALATION RT-QID PRN 11/15/18 08/21/19 History Inhaler] Albuterol Nebulized [Ventolin 2.5 mg INHALATION RT-Q4H PRN 11/15/18 08/21/19 History Nebulized] Ascorbic Acid [Vitamin C] 500 mg PO DAILY 11/15/18 08/21/19 History Cyanocobalamin [Vitamin B-12] 500 mcg PO DAILY 06/10/19 08/21/19 History Glucosam/[place]arlon-Msm1/C/Mark/Bosw 1 tab PO DAILY 06/10/19 08/21/19 History [Glucosamine-Chondroitin Tablet] L.acidoph,Paracasei, B.lactis 1 cap PO DAILY 06/10/19 08/21/19 History [Probiotic] Losartan [Cozaar] 50 mg PO DAILY 06/10/19 08/21/19 History Multivitamins, Thera [Multivitamin 1 tab PO DAILY 06/10/19 08/21/19 History (formulary)] Ranitidine HCl [Zantac] 150 mg PO BID 06/10/19 08/21/19 History Allergies Allergy/AdvReac Type Severity Reaction Status Date / Time amoxicillin [From Augmentin] Allergy Rash/Hives Verified 08/21/19 16:06 bee pollen Allergy Swelling Verified 08/21/19 16:06 clavulanic acid Allergy Rash/Hives Verified 08/21/19 16:06 [From Augmentin] Physical Exam Vitals: Vital Signs Temp Pulse Pulse Resp BP BP Pulse Ox 08/21/19 20:55 97.5 F L 74 22 128/75 97 08/21/19 18:26 97.2 F L 78 18 128/75 100 08/21/19 17:03 67 20 119/72 100 08/21/19 15:32 7 L 20 130/80 97 08/21/19 14:57 16 08/21/19 14:14 97.9 F 71 16 116/66 98 Intake and Output 08/21/19 08/21/19 08/22/19 14:59 22:59 06:59 Other: Weight 60.781 kg PHYSICAL EXAMINATION: Patient is lying in the bed comfortably, no acute distress, awake alert and oriented. Lethargic and confused.. HEENT: Normocephalic. Neck is supple. Pupils reactive. Nostrils clear. Oral cavity is moist. Ears reveal no drainage. Neck reveals no JVD, carotid bruits, or thyromegaly. CHEST EXAMINATION: Trachea is central. Symmetrical expansion. Bibasilar diminished air entry and basilar crackles. No wheezing.. CARDIAC: Normal S1, S2 with no gallops. No murmurs ABDOMEN: Soft. Bowel sounds normal. No organomegaly. No abdominal bruits. Extremities: reveal no edema. No clubbing or cyanosis Neurologically awake, alert, oriented x3 with well-coordinated movements. Lethargic. No focal deficits noted Skin: No rash or skin lesions. Psychiatric: Coperative. Could not be assessed completely Musculoskeletal: No joint swelling or deformity. Normal range of motion. Results CBC & Chem 7: 08/21/19 14:30 08/21/19 14:30 Labs: Abnormal Lab Results - Last 24 Hours (Table) 08/21/19 08/21/19 08/21/19 Range/Units 14:30 14:30 15:40 RBC 4.01 L (4.30-5.90) m/uL Hgb 12.1 L (13.0-17.5) gm/dL Hct 36.5 L (39.0-53.0) % VBG pH 7.44 H (7.31-7.41) VBG HCO3 30 H (24-28) mmol/L Carbon Dioxide 34 H (22-30) mmol/L BUN 27 H (9-20) mg/dL Creatinine 0.56 L (0.66-1.25) mg/dL ALT 16 L (21-72) U/L Total Protein 5.4 L (6.3-8.2) g/dL Albumin 3.0 L (3.5-5.0) g/dL Thrombosis Risk Factor Assmnt - DVT/VTE Prophylaxis DVT/VTE Prophylaxis: Pharmacologic Prophylaxis ordered - Choose All That Apply Any of the Below Risk Factors Present?: Yes Each Factor Represents 1 point: Abnormal pulmonary function (COPD), Serious lung disease incl. pneumonia (< 1month) Each Risk Factor Represents 3 Points: Age 75 years or older Thrombosis Risk Factor Assessment Total Risk Factor Score: 5 Thrombosis Risk Factor Assessment Level: High Risk Assessment and Plan Assessment: Acute hypoxic respiratory failure secondary to pneumonia possibly aspiration. Right basilar pneumonia. 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 Currently on honey thickened liquids at home. Chronic atrial fibrillation on Eliquis for anticoagulation Chronic CHF with mildly reduced systolic dysfunction ejection fraction 50-50% as per recent echocardiogram Elevated BNP without any other evidence of CHF Diabetes type 2 [id number] BPH Previous history of smoking DVT prophylaxis patient is already on full anticoagulation CODE STATUS is DO NOT RESUSCITATE/DO NOT INTUBATE Plan: Patient was given IV fluid bolus in the ER. Continue with antibiotics the form of vancomycin therapy. Continue with a dysphagia diet. Continue the home medications and follow closely. Pulmonary will be consulted. Discussed with family at bedside in detail. Prognosis is guarded at this time. Time with Patient: Greater than 30
--- NOTE | 2019-08-22 18:10 | P.PN ---
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 Patient has been very lethargic and worsening difficulty in breathing for the past 2 days. Denied any fever or chills. Patient was also having cough with sputum production and blood-tinged. Patient was recently hospitalized and had bronchoscopy done. Patient also having difficulty swallowing and is currently on honey thickened liquids. Chest x-ray showed cardiomegaly with bilateral infiltrates suspicious for aspiration pneumonia and fluid overload. EKG showed atrial fibrillation with controlled response. CT head showed age-related atrophic and chronic small was an ischemic changes. Without acute intracranial process. UA negative for infection. No leukocytosis. 08/22/2019 Patient says that he feels better today. Patient is more awake and oriented. Currently being continued on antibiotics, vancomycin and cefepime. Requiring nasal cannula oxygen at 3 L. Patient has been afebrile overnight. No complaints of chest pain. Tolerating dysphagia diet. No nausea no vomiting. No abdominal pain or diarrhea. Patient was seen with pulmonary. Active Medications Albuterol Sulfate (Ventolin Nebulized) 2.5 mg INHALATION RT-Q4H PRN PRN Reason: Shortness Of Breath Last Admin: 08/22/19 15:56 Dose: 2.5 mg Documented by: Lipase/Protease/Amylase (Zenpep Dr 5,000 Unit Capsule) 2 each PO DAILY [facility] Last Admin: 08/22/19 10:32 Dose: 2 each Documented by: Apixaban (Eliquis) 5 mg PO BID [facility] Last Admin: 08/22/19 10:30 Dose: 5 mg Documented by: Ascorbic Acid (Vitamin C) 500 mg PO DAILY [facility] Last Admin: 08/22/19 10:31 Dose: 500 mg Documented by: Aspirin (Aspirin) 81 mg PO MOWEFR [facility] Atorvastatin Calcium (Lipitor) 40 mg PO DAILY [facility] Last Admin: 08/22/19 10:31 Dose: 40 mg Documented by: Budesonide (Pulmicort) 1 mg INHALATION RT-BID [facility] Cyanocobalamin (Vitamin B-12) 500 mcg PO DAILY [facility] Last Admin: 08/22/19 10:31 Dose: 500 mcg Documented by: Docusate Sodium (Colace) 200 mg PO HS [facility] Last Admin: 08/22/19 01:06 Dose: Not Given Documented by: Donepezil HCl (Aricept) 10 mg PO HS [facility] Last Admin: 08/21/19 19:57 Dose: 10 mg Documented by: Famotidine (Pepcid) 20 mg PO BID [facility] Last Admin: 08/22/19 10:31 Dose: 20 mg Documented by: Formoterol Fumarate (Perforomist) 20 mcg INHALATION RT-BID [facility] Cefepime HCl 1 gm/ Sodium (Chloride) 50 mls @ 100 mls/hr IVPB Q12HR [facility] Last Admin: 08/22/19 13:27 Dose: 100 mls/hr Documented by: Clindamycin Phosphate 300 mg/ (Dextrose/Water) 52 mls @ 50 mls/hr IVPB Q8HR [facility] Last Admin: 08/22/19 15:12 Dose: 50 mls/hr Documented by: Isosorbide Mononitrate (Imdur) 30 mg PO DAILY [facility] Last Admin: 08/22/19 10:31 Dose: 30 mg Documented by: Losartan Potassium (Cozaar) 50 mg PO DAILY [facility] Last Admin: 08/22/19 10:31 Dose: 50 mg Documented by: Metoprolol Tartrate (Lopressor) 50 mg PO BID [facility] Last Admin: 08/22/19 10:31 Dose: 50 mg Documented by: Miscellaneous Information (Pneumonia Protocol Utilized) 1 each PO ONCE PRN PRN Reason: Per Protocol Multivitamins (Theragran) 1 each PO DAILY [facility] Last Admin: 08/22/19 10:31 Dose: 1 each Documented by: Potassium Chloride (K-Dur 10) 10 meq PO DAILY [facility] Last Admin: 08/22/19 10:31 Dose: 10 meq Documented by: Tamsulosin HCl (Flomax) 0.4 mg PO DAILY [facility] Last Admin: 08/22/19 10:30 Dose: 0.4 mg Documented by: Objective - Vital Signs Vital signs: Vital Signs Temp 97.1 F L 08/22/19 11:36 Pulse 83 08/22/19 16:11 Resp 18 08/22/19 11:36 BP 111/67 08/22/19 11:36 Pulse Ox 99 08/22/19 11:36 Intake & Output 08/21/19 08/22/19 08/22/19 18:59 06:59 18:59 Intake Total 250 750 Balance 250 750 Weight 60.781 kg Intake: Intake, IV Titration 250 250 Amount Vancomycin 1,000 mg In 250 250 Sodium Chloride 0.9% 250 ml @ 125 mls/hr IVPB Q12H [facility] Rx#:[id number] Oral 500 Other: Voiding Method Diaper Diaper Incontinent Incontinent # Voids 3 2 # Bowel Movements 3 - Exam PHYSICAL EXAMINATION: Patient is lying in the bed comfortably, no acute distress, awake alert and oriented. Generalized weakness and lethargic. HEENT: Normocephalic. Neck is supple. Pupils reactive. Nostrils clear. Oral cavity is moist. Ears reveal no drainage. Neck reveals no JVD, carotid bruits, or thyromegaly. CHEST EXAMINATION: Trachea is central. Symmetrical expansion. Bibasilar crackles and coarse breath sounds. No wheezing.. CARDIAC: Normal S1, S2 with no gallops. No murmurs ABDOMEN: Soft. Bowel sounds normal. No organomegaly. No abdominal bruits. Extremities: reveal no edema. No clubbing or cyanosis Neurologically awake, alert, oriented x3 with well-coordinated movements. No focal deficits noted Skin: No rash or skin lesions. Psychiatric: Coperative. Nonsuicidal Musculoskeletal: No joint swelling or deformity. Normal range of motion. - Labs CBC & Chem 7: 08/21/19 14:30 08/21/19 14:30 Labs: Microbiology - Last 24 Hours (Table) 08/22/19 12:00 Sputum Culture - Preliminary Sputum Assessment and Plan Assessment: Acute hypoxic respiratory failure secondary to pneumonia possibly aspiration. Right basilar pneumonia. Acute COPD exacerbation. 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 Currently on honey thickened liquids at home. Chronic atrial fibrillation on Eliquis for anticoagulation Chronic CHF with mildly reduced systolic dysfunction ejection fraction 50-50% as per recent echocardiogram Elevated BNP without any other evidence of CHF Diabetes type 2 [id number] BPH Previous history of smoking DVT prophylaxis patient is already on full anticoagulation CODE STATUS is DO NOT RESUSCITATE/DO NOT INTUBATE Plan: Patient was given IV fluid bolus in the ER. Continue with antibiotics the form of vancomycin and cefepime. Added clindamycin as per pulmonary recommendations. Vancomycin will be discontinued.. Continue with a dysphagia diet. Continue the home medications and follow closely. Oxygen therapy. Pulmonary will be consulted. Discussed with family at bedside in detail. Prognosis is guarded at this time. Time with Patient: Greater than 30
[2019-08-22] MEDS: FORMOTEROL FUMARATE 20 MCG/2 ML NEBU INHALATION SCH (20:05)
[2019-08-22] MEDS: BUDESONIDE 1 MG/2 ML NEBU INHALATION SCH (20:05)
[2019-08-22] MEDS: DONEPEZIL 10 MG TAB PO SCH (21:28)
[2019-08-23] MEDS: CLINDAMYCIN 300 MG in DEXTROSE 5% IN WATER 50 ML IVPB SCH ×8 (00:41→23:34)
[2019-08-23 06:12] LABS: African American GFR (CKD) >90 (>60 ml/min/1.73 sqM); Anion Gap 0 mmol/L; Blood Urea Nitrogen 23 mg/dL (9-20); Carbon Dioxide 34 mmol/L (22-30); Chloride 107 mmol/L (98-107); Glucose 86 mg/dL (74-99); Non-African American GFR(CKD) >90 (>60 ml/min/1.73 sqM); Potassium 4.1 mmol/L (3.5-5.1); Sodium 141 mmol/L (137-145)
[2019-08-23 06:13] LABS: Basophils % (A) 0 %; Eosinophils # (A) 0.1 k/uL (0-0.7); Eosinophils % (A) 2 %; HCT 32.7 % (39.0-53.0); HGB 11.2 gm/dL (13.0-17.5); Lymphocytes % (A) 21 %; MCH 30.7 pg (25.0-35.0); MCHC 34.3 g/dL (31.0-37.0); MCV 89.5 fL (80.0-100.0); Mean Platelet Volume 5.7; Monocytes # (A) 0.3 k/uL (0-1.0); Monocytes % (A) 6 %; Neutrophils # (A) 3.3 k/uL (1.3-7.7); Neutrophils % (A) 68 %; Platelet Count 183 k/uL (150-450); RBC 3.65 m/uL (4.30-5.90); RDW 14.1 % (11.5-15.5); WBC 4.9 k/uL (3.8-10.6)
[2019-08-23] MEDS: BUDESONIDE 1 MG/2 ML NEBU INHALATION SCH ×2 (07:53→19:44)
[2019-08-23] MEDS: ALBUTEROL NEBULIZED 2.5 MG/3 ML INHALATION PRN ×4 (07:53→19:44)
[2019-08-23] MEDS: FORMOTEROL FUMARATE 20 MCG/2 ML NEBU INHALATION SCH ×2 (07:53→19:44)
[2019-08-23] MEDS: FAMOTIDINE 20 MG TAB PO SCH ×2 (08:35→21:16)
[2019-08-23] MEDS: ASCORBIC ACID 500 MG TAB PO SCH (08:35)
[2019-08-23] MEDS: CYANOCOBALAMIN 500 MCG TAB PO SCH (08:35)
[2019-08-23] MEDS: METOPROLOL TARTRATE 50 MG TAB PO SCH ×2 (08:35→21:17)
[2019-08-23] MEDS: ISOSORBIDE MONONITRATE ER 30 MG TAB.ER.24H PO SCH (08:35)
[2019-08-23] MEDS: CEFEPIME 1 GM in SODIUM CHLORIDE 0.9% 50 ML IVPB SCH ×2 (08:35→21:15)
[2019-08-23] MEDS: ATORVASTATIN 40 MG TAB PO SCH (08:35)
[2019-08-23] MEDS: TAMSULOSIN 0.4 MG CAP.ER.24H PO SCH (08:35)
[2019-08-23] MEDS: MULTIVITAMINS, THERA 1 EACH TAB PO SCH (08:35)
[2019-08-23] MEDS: POTASSIUM CHLORIDE ER 10 MEQ TAB.ER.PRT PO SCH (08:35)
[2019-08-23] MEDS: LOSARTAN 50 MG TAB PO SCH (08:35)
[2019-08-23] MEDS: LIPASE 5,000/PROTEASE 17,000/AMYLASE 24,000 PO SCH (08:35)
[2019-08-23] MEDS: APIXABAN 5 MG TAB PO SCH ×2 (08:35→21:16)
--- NOTE | 2019-08-23 10:47 | P.PN ---
Subjective Progress Note Date: 08/23/19 Principal diagnosis: This is an 89-year-old gentleman who follows with Dr. Borges as his primary care provider. He has a history of coronary artery disease, diabetes mellitus type 2, congestive heart failure, chronic obstructive pulmonary disease, former smoker, hyperlipidemia, hypertension, atrial fibrillation anticoagulated with Eliquis, BPH. He was recently here in the hospital last month with increased cough and congestion unable to clear secretions. He had undergone bronchoscopy with BAL performed by Dr. Hernandez on 07/21/2019. Results were with [place] only. Negative for malignancy. He was brought back here yesterday to the emergency room as his family found him to have decreased alertness and had difficulty arousing him from a nap. Computed tomography scan of the brain revealed revealed age-related atrophic and chronic small vessel ischemic changes without acute intracranial process. Chest x-ray revealed evidence of cardiomegaly with bilateral infiltrates suspicious for aspiration pneumonia and some fluid volume overload. EKG revealed atrial fibrillation with a controlled ventricular response. White count 5.4. Hemoglobin 12.1. Sodium 143. Pot assium 4.4. Creatinine 0.56. He has been initiated on vancomycin and cefepime. On bronchodilators and Symbicort. He is on a dysphagia 3 diet. Staff reports he did well with breakfast today no signs of choking. He is seen today in consultation on the regular medical floor. He is awake and alert. Disoriented to time and place. Some garbled speech. He does have a loose productive cough. Sputum culture sent. He is maintaining O2 saturations in the mid 90s on 3 L/m per nasal cannula. He is afebrile. Hemodynamically stable. Reevaluated today on 08/23/2019, patient is feeling better, breathing easier, he was ambulating on a walker in the hallway with assistance, and he was on room ai r. Continues to have intermittent episodes of cough, cough has been productive slightly blood-tinged, and his chest x-ray on admission showed cardiomegaly with bilateral infiltrates suspicious for aspiration pneumonia and fluid overload. Patient tells me that he is feeling better today, breathing easier.WBC count is 4.9 hemoglobin is 11.2 lites are normal renal profile is normal. Objective - Vital Signs Vital signs: Vital Signs Temp 97.9 F 08/23/19 04:29 Pulse 76 08/23/19 08:18 Resp 18 08/23/19 04:29 BP 145/79 08/23/19 04:29 Pulse Ox 100 08/23/19 04:29 Intake & Output 08/22/19 08/23/19 08/23/19 18:59 06:59 18:59 Intake Total 750 Balance 750 Intake: Intake, IV Titration 250 Amount Vancomycin 1,000 mg In 250 Sodium Chloride 0.9% 250 ml @ 125 mls/hr IVPB Q12H [facility] Rx#:[id number] Oral 500 Other: Voiding Method Diaper Diaper Diaper Incontinent Incontinent Incontinent # Voids 2 3 # Bowel Movements 1 - Exam general: Revealed a 89-year-old white male, pleasant, in no distress, was noted to be walking down the hallway with assistance and using a walker. HEENT:atraumatic, normocephalic. PERRLA, EOMI. Neck reveals no JVD, carotid bruits, or thyromegaly. CHEST EXAMINATION: Tsymmetrical chest expansion, minimal crackles at the bases. CARDIAC: Normal S1, S2 with no gallops. No murmurs ABDOMEN: soft nontender no megaly no rebound no guarding. Positive bowel sounds. Extremities:no clubbing edema or cyanosis. Neurologically awake, alert, oriented x3 with well-coordinated movements. No focal deficits noted Skin: No rash or skin lesions. Psychiatric: normal mood blunt affect and normal mental status examination. Musculoskeletal: no deformities, normal range of motion - Labs CBC & Chem 7: 08/23/19 05:25 08/23/19 05:25 Labs: Abnormal Lab Results - Last 24 Hours (Table) 08/23/19 08/23/19 Range/Units 05:25 05:25 RBC 3.65 L (4.30-5.90) m/uL Hgb 11.2 L (13.0-17.5) gm/dL Hct 32.7 L (39.0-53.0) % Carbon Dioxide 34 H (22-30) mmol/L BUN 23 H (9-20) mg/dL Creatinine 0.54 L (0.66-1.25) mg/dL Microbiology - Last 24 Hours (Table) 08/22/19 12:00 Gram Stain - Preliminary Sputum Sputum Culture - Preliminary 08/21/19 15:59 Blood Culture - Preliminary Blood No Growth after 24 hours Assessment and Plan Assessment: 1 Acute hypoxemic respiratory failure secondary to bibasilar pneumonia, acute COPD exacerbation, and possibly some component of chronicsystolic congestive heart failure, 2 Acute COPD exacerbation related to the above 3 Diabetes mellitus type 2 4 Hypertension 5 Chronic congestive heart failure with reduced systolic function 6 Chronic atrial fibrillation on anticoagulation in the form of Eliquis 7 History of dementia 8 Oropharyngeal candidiasis Recommendation: Continue aspiration precautions, patient to be evaluated by speech therapy, continue antibiotics including cefepime and clindamycin, continue bronchodilators, continue Pulmicort and Perforomist, continue updrafts, repeat chest x-ray in a.m., consider discharge planning in the next 2-3 days. We will continue to follow. Considering his multiple comorbidities, prognosis is relatively guarded. We'll continue to follow. Time with Patient: Less than 30
[2019-08-23 13:58] VITALS: BMI 21.6
[2019-08-23] MEDS ORDERED: ACETAMINOPHEN TAB 325 MG TAB PO PRN (19:18)
[2019-08-23] MEDS: DOCUSATE 100 MG CAP PO SCH (21:16)
[2019-08-23] MEDS: DONEPEZIL 10 MG TAB PO SCH (21:16)
[2019-08-24 07:22] LABS: Basophils # (A) 0.1 k/uL (0-0.2); Basophils % (A) 1 %; Eosinophils # (A) 0.1 k/uL (0-0.7); Eosinophils % (A) 2 %; HCT 34.7 % (39.0-53.0); HGB 11.2 gm/dL (13.0-17.5); Lymphocytes % (A) 22 %; MCH 29.8 pg (25.0-35.0); MCHC 32.4 g/dL (31.0-37.0); MCV 92.2 fL (80.0-100.0); Mean Platelet Volume 6.2; Monocytes # (A) 0.3 k/uL (0-1.0); Monocytes % (A) 6 %; Neutrophils # (A) 2.9 k/uL (1.3-7.7); Neutrophils % (A) 67 %; Platelet Count 178 k/uL (150-450); RBC 3.76 m/uL (4.30-5.90); RDW 14.2 % (11.5-15.5); WBC 4.3 k/uL (3.8-10.6)
[2019-08-24 07:37] LABS: ALT 21 U/L (21-72); AST 16 U/L (17-59); African American GFR (CKD) >90 (>60 ml/min/1.73 sqM); Albumin 2.8 g/dL (3.5-5.0); Alkaline Phosphatase 46 U/L (38-126); Anion Gap 4 mmol/L; Blood Urea Nitrogen 24 mg/dL (9-20); Calcium 9.1 mg/dL (8.4-10.2); Carbon Dioxide 31 mmol/L (22-30); Chloride 105 mmol/L (98-107); Glucose 87 mg/dL (74-99); Non-African American GFR(CKD) >90 (>60 ml/min/1.73 sqM); Potassium 4.3 mmol/L (3.5-5.1); Sodium 140 mmol/L (137-145); Total Bilirubin 0.6 mg/dL (0.2-1.3); Total Protein 5.1 g/dL (6.3-8.2)
[2019-08-24] MEDS: MULTIVITAMINS, THERA 1 EACH TAB PO SCH (08:05)
[2019-08-24] MEDS: TAMSULOSIN 0.4 MG CAP.ER.24H PO SCH (08:05)
[2019-08-24] MEDS: CEFEPIME 1 GM in SODIUM CHLORIDE 0.9% 50 ML IVPB SCH ×2 (08:05→20:29)
[2019-08-24] MEDS: POTASSIUM CHLORIDE ER 10 MEQ TAB.ER.PRT PO SCH (08:05)
[2019-08-24] MEDS: METOPROLOL TARTRATE 50 MG TAB PO SCH ×2 (08:05→20:30)
[2019-08-24] MEDS: LOSARTAN 50 MG TAB PO SCH (08:06)
[2019-08-24] MEDS: ATORVASTATIN 40 MG TAB PO SCH (08:06)
[2019-08-24] MEDS: CYANOCOBALAMIN 500 MCG TAB PO SCH (08:06)
[2019-08-24] MEDS: FAMOTIDINE 20 MG TAB PO SCH ×2 (08:06→20:30)
[2019-08-24] MEDS: LIPASE 5,000/PROTEASE 17,000/AMYLASE 24,000 PO SCH (08:06)
[2019-08-24] MEDS: ISOSORBIDE MONONITRATE ER 30 MG TAB.ER.24H PO SCH (08:06)
[2019-08-24] MEDS: ASCORBIC ACID 500 MG TAB PO SCH (08:06)
[2019-08-24] MEDS: APIXABAN 5 MG TAB PO SCH ×2 (08:06→20:29)
--- NOTE | 2019-08-24 08:15 | XR ---
EXAMINATION TYPE: XR chest 1V portable DATE OF EXAM: 08/24/2019 COMPARISON: Prior chest x-ray 08/22/2019 HISTORY: Pneumonia TECHNIQUE: Single frontal view of the chest is obtained. FINDINGS: The heart remains enlarged. Aorta is dense. Basilar increased density is again seen, there is no evident pneumothorax. Pulmonary vascularity and julieth not significantly changed. There are over lying cardiac leads. IMPRESSION: Basilar atelectasis, correlate for pneumonia, there is underlying emphysema. Persistent cardiomegaly.
[2019-08-24] MEDS: BUDESONIDE 1 MG/2 ML NEBU INHALATION SCH ×2 (08:41→19:57)
[2019-08-24] MEDS: ALBUTEROL NEBULIZED 2.5 MG/3 ML INHALATION PRN (08:41)
[2019-08-24] MEDS: FORMOTEROL FUMARATE 20 MCG/2 ML NEBU INHALATION SCH ×2 (08:41→19:57)
[2019-08-24] MEDS ORDERED: ASPIRIN 81 MG PO SCH (09:00)
[2019-08-24] MEDS: CLINDAMYCIN 300 MG in DEXTROSE 5% IN WATER 50 ML IVPB SCH ×6 (09:28→23:54)
[2019-08-24] MEDS ORDERED: IPRATROPIUM-ALBUTEROL 3 ML NEB INHALATION PRN (10:33)
--- NOTE | 2019-08-24 10:34 | P.PN ---
Subjective Progress Note Date: 08/24/19 Principal diagnosis: Acute hypoxemic respiratory failure secondary to bibasilar pneumonia and acute COPD exacerbation and possible component of chronic systolic congestive heart fa danii This is an 89-year-old gentleman who follows with Dr. Borges as his primary care provider. He has a history of coronary artery disease, diabetes mellitus type 2, congestive heart failure, chronic obstructive pulmonary disease, former smoker, hyperlipidemia, hypertension, atrial fibrillation anticoagulated with Eliquis, BPH. He was recently here in the hospital last month with increased c ough and congestion unable to clear secretions. He had undergone bronchoscopy with BAL performed by Dr. Hernandez on 07/21/2019. Results were with Oly only. Negative for malignancy. He was brought back here yesterday to the emergency room as his family found him to have decreased alertness and had difficulty arousing him from a nap. Computed tomography scan of the brain revealed revealed age-related atrophic and chronic small vessel ischemic changes without acute intracranial process. Chest x-ray revealed evidence of cardiomegaly with bilateral infiltrates suspicious for aspiration pneumonia and some fluid volume overload. EKG revealed atrial fibrillation with a controlled ventricular response. White count 5.4. Hemoglobin 12.1. Sodium 143. Potassium 4.4. Creatinine 0.56. He has been initiated on vancomycin and cefepime. On bronchodilators and Symbicort. He is on a dysphagia 3 diet. Staff reports he did well with breakfast today no signs of choking. He is seen today in consultation on the regular medical floor. He is awake and alert. Disoriented to time and place. Some garbled speech. He does have a loose productive cough. Sputum culture sent. He is maintaining O2 saturations in the mid 90s on 3 L/m per nasal cannula. He is afebrile. Hemodynamically stable. Reevaluated today on 08/23/2019, patient is feeling better, breathing easier, he was ambulating on a walker in the hallway with assistance, and he was on room air. Continues to have intermittent episodes of cough, cough has been productive slightly blood-tinged, and his chest x-ray on admission showed cardiomegaly with bilateral infiltrates suspicious for aspiration pneumonia and fluid overload. Patient tells me that he is feeling better today, breathing easier.WBC count is 4.9 hemoglobin is 11.2 lites are normal renal profile is normal. On 08/24/2019 patient was seen in follow-up on medical surgical floor. He is awake and alert, but his respirations are shallow and tachypneic, and is a poor historian but he denied acute distress, remains on 3 L of oxygen his pulse ox is 9200%, afebrile, lung sounds reveal diminished breath sounds with scattered rhonchi, patient has a weak congested cough, he remains on antibiotics in the form of clindamycin and cefepime. Blood and sputum cultures have shown no growth, today's lab work has been reviewed showing white blood cell can of 4.3, hemoglobin is 11.2, electrolytes were within normal limits with the exception of CO2, which is elevated at 31, but improved compared to yesterday's labs, BUN is 24 and creatinine 0.52. Vancomycin has been discontinued. Today's chest x-ray shows basilar atelectasis and persistent cardiomegaly. No complaints of chest pain, patient is not bringing up much sputum, but does have a congested cough. Objective - Vital Signs Vital signs: Vital Signs Temp 98.2 F 08/24/19 04:49 Pulse 66 08/24/19 09:03 Resp 16 08/24/19 04:49 BP 146/74 08/24/19 04:49 Pulse Ox 100 08/24/19 04:49 Intake & Output 08/23/19 08/24/19 08/24/19 18:59 06:59 18:59 Intake Total 550 Balance 550 Weight 60.781 kg Intake: Intake, IV Titration 50 Amount Cefepime 1 gm In Sodium 50 Chloride 0.9% 50 ml @ 100 mls/hr IVPB Q12HR [facility] Rx #:[id number] Oral 500 Other: Voiding Method Diaper Diaper Incontinent Incontinent # Voids 5 1 # Bowel Movements 3 - Exam GENERAL EXAM: Alert, 89-year-old white male, who is a poor historian, but oriented to person currently on 3 L of oxygen with a pulse ox of 100% tachypneic with shallow respirations but denies in no apparent distress. HEAD: Normocephalic/atraumatic. EYES: Normal reaction of pupils, equal size. Conjunctiva pink, sclera white. NOSE: Clear with pink turbinates. THROAT: No erythema or exudates. NECK: No masses, no JVD, no thyroid enlargement, no adenopathy. CHEST: No chest wall deformity. Symmetrical expansion. LUNGS: Equal air entry with diffuse rhonchi, and weak congested nonproductive cough CVS: Regular rate and rhythm, normal S1 and S2, no gallops, no murmurs, no rubs ABDOMEN: Soft, nontender. No hepatosplenomegaly, normal bowel sounds, no g uarding or rigidity. EXTREMITIES: No clubbing, no edema, no cyanosis, 2+ pulses and upper and lower extremities. MUSCULOSKELETAL: Muscle strength and tone normal. SPINE: No scoliosis or deformity SKIN: No rashes CENTRAL NERVOUS SYSTEM: Alert and oriented -1. No focal deficits, tone is normal in all 4 extremities. PSYCHIATRIC: Alert and oriented -1. Appropriate affect. Intact judgment and insight. - Labs CBC & Chem 7: 08/24/19 06:29 08/24/19 06:29 Labs: Abnormal Lab Results - Last 24 Hours (Table) 08/24/19 08/24/19 Range/Units 06:29 06:29 RBC 3.76 L (4.30-5.90) m/uL Hgb 11.2 L (13.0-17.5) gm/dL Hct 34.7 L (39.0-53.0) % Carbon Dioxide 31 H (22-30) mmol/L BUN 24 H (9-20) mg/dL Creatinine 0.52 L (0.66-1.25) mg/dL AST 16 L (17-59) U/L Total Protein 5.1 L (6.3-8.2) g/dL Albumin 2.8 L (3.5-5.0) g/dL Microbiology - Last 24 Hours (Table) 08/22/19 12:00 Gram Stain - Final Sputum Sputum Culture - Final 08/21/19 15:59 Blood Culture - Preliminary Blood No Growth after 48 hours Assessment and Plan Plan: 1 Acute hypoxemic respiratory failure secondary to bibasilar pneumonia, acute COPD exacerbation, and possibly some component of chronicsystolic congestive heart failure, 2 Acute COPD exacerbation related to the above 3 Diabetes mellitus type 2 4 Hypertension 5 Chronic congestive heart failure with reduced systolic function 6 Chronic atrial fibrillation on anticoagulation in the form of Eliquis 7 History of dementia 8 Oropharyngeal candidiasis Plan: Aspiration precautions, await speech therapy evaluation, suspect component of chronic aspiration. Incentive spirometry although in view of patient's underlying dementia not sure if patient will be able to effectively work on it, increase activity, patient is to be up in the chair, and he may require CPT therapy to mobilize secretions, continue current antibiotics, so far the culture data remains negative, no fever or chills. We'll change breathing treatments to 3 times a day and as needed. I performed a history & physical examination of the patient and discussed their management with my nurse practitioner, Leticia Jeff. I reviewed the nurse practitioner's note and agree with the documented findings and plan of care. Lung sounds are positive for diffuse rhonchi throughout the lung armas. The findings and the impression was discussed with the patient. I attest to the documentation by the nurse practitioner. Time with Patient: Less than 30
[2019-08-24] MEDS: IPRATROPIUM-ALBUTEROL 3 ML NEB INHALATION SCH ×2 (12:40→19:57)
--- NOTE | 2019-08-24 15:36 | FL ---
EXAMINATION TYPE: FL barium swallow w video DATE OF EXAM: 08/24/2019 MODIFIED SWALLOW / DEGLUTITION STUDY CLINICAL HISTORY: Dysphagia. Concern for aspiration. TECHNIQUE: Deglutition study is performed utilizing nectar thick liquid barium and barium thick pudd ing. 1 minute and 27 seconds of fluoroscopy time was utilized with 0 fluoroscopic images saved as the examination was video recorded. COMPARISON: None. FINDINGS: The oral and pharyngeal phases show satisfactory initiation and propagation with all modali ties tested. Chidi aspiration was seen below the level of the vocal cords with the nectar thick liqui d barium consistency. Premature spill within the vallecula seen with the barium thick pudding. No sig nificant pharyngeal residue was appreciated. IMPRESSION: Aspiration with nectar thick consistency and premature spill with the remaining consisten cy administered. Please refer to speech therapist notes for further details if necessary.
--- NOTE | 2019-08-24 16:12 | P.PN ---
Subjective Progress Note Date: 08/24/19 Principal diagnosis: Right basilar pneumonia Acute hypoxic respiratory failure Patient is a 89-year-old male with a known history of dementia, severe COPD with FEV1 of 58% of predicted, diabetes type 2, hypertension, CHF with mildly reduced systolic function, BPH, chronic atrial fibrillation on anticoagulation was brought to the hospital by family due to altered mental status and lethargic. Patient has been very lethargic and worsening difficulty in breathing for the past 2 days. Denied any fever or chills. Patient was also having cough with sputum production and blood-tinged. Patient was recently hospitalized and had bronchoscopy done. Patient also having difficulty swallowing and is currently on honey thickened liquids. Chest x-ray showed cardiomegaly with bilateral infiltrates suspicious for aspiration pneumonia and fluid overload. EKG showed atrial fibrillation with controlled response. CT head showed age-related atrophic and chronic small was an ischemic changes. Without acute intracranial process. UA negative for infection. No leukocytosis. 08/22/2019 Patient says that he feels better today. Patient is more awake and oriented. Currently being continued on antibiotics, vancomycin and cefepime. Requiring nasal cannula oxygen at 3 L. Patient has been afebrile overnight. No complaints of chest pain. Tolerating dysphagia diet. No nausea no vomiting. No abdominal pain or diarrhea. Patient was seen with pulmonary. 08/24/2019 Patient is lying in bed asleep but arousable. Pulmonary is following. No acute overnight issues. Patient underwent a barium swallow showing some aspiration with nectar thick consistency and a premature spill with the remaining consistency administered and speech pathology is recommending dysphagia 2 ground diet along with honey liquids, no straws, aspiration precautions, supervision with eating. Repeat chest x-ray today shows basilar atelectasis with persistent cardiomegaly. Patient would benefit from incentive spirometry but doesn't follow commands properly and respiratory effort is diminished. Patient will maintain on IV antibiotics in the form of cefepime and clindamycin at this time. Will continue to monitor closely. Objective - Vital Signs Vital signs: Vital Signs Temp 98 F 08/24/19 12:16 Pulse 72 08/24/19 12:53 Resp 16 08/24/19 12:16 BP 96/63 08/24/19 12:16 Pulse Ox 97 08/24/19 12:16 Intake & Output 08/23/19 08/24/19 08/24/19 18:59 06:59 18:59 Intake Total 550 Balance 550 Weight 60.781 kg Intake: Intake, IV Titration 50 Amount Cefepime 1 gm In Sodium 50 Chloride 0.9% 50 ml @ 100 mls/hr IVPB Q12HR [facility] Rx #:[id number] Oral 500 Other: Voiding Method Diaper Diaper Diaper Incontinent Incontinent Incontinent # Voids 5 1 # Bowel Movements 3 - Exam Patient is lying in the bed comfortably, no acute distress, asleep but arousable. Generalized weakness and lethargic. HEENT: Normocephalic. Neck is supple. Pupils reactive. Nostrils clear. Oral cavity is moist. Ears reveal no drainage. Neck reveals no JVD, carotid bruits, or thyromegaly. CHEST EXAMINATION: Trachea is central. Symmetrical expansion. Bibasilar crackles and coarse breath sounds. No wheezing.. CARDIAC: Normal S1, S2 with no gallops. No murmurs ABDOMEN: Soft. Bowel sounds normal. No organomegaly. No abdominal bruits. Extremities: reveal no edema. No clubbing or cyanosis Neurologically awake, alert, oriented x3 with well-coordinated movements. No focal deficits noted Skin: No rash or skin lesions. Psychiatric: Cooperative. Non-suicidal Musculoskeletal: No joint swelling or deformity. Normal range of motion. - Labs CBC & Chem 7: 08/24/19 06:29 08/24/19 06:29 Labs: Abnormal Lab Results - Last 24 Hours (Table) 08/24/19 08/24/19 Range/Units 06:29 06:29 RBC 3.76 L (4.30-5.90) m/uL Hgb 11.2 L (13.0-17.5) gm/dL Hct 34.7 L (39.0-53.0) % Carbon Dioxide 31 H (22-30) mmol/L BUN 24 H (9-20) mg/dL Creatinine 0.52 L (0.66-1.25) mg/dL AST 16 L (17-59) U/L Total Protein 5.1 L (6.3-8.2) g/dL Albumin 2.8 L (3.5-5.0) g/dL Microbiology - Last 24 Hours (Table) 08/22/19 12:00 Gram Stain - Final Sputum Sputum Culture - Final 08/21/19 15:59 Blood Culture - Preliminary Blood No Growth after 48 hours Assessment and Plan Assessment: Acute hypoxic respiratory failure secondary to pneumonia possibly aspiration. Right basilar pneumonia. Acute COPD exacerbation. 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 Currently on honey thickened liquids at home. Chronic atrial fibrillation on Eliquis for anticoagulation Chronic CHF with mildly reduced systolic dysfunction ejection fraction 50-50% as per recent echocardiogram Elevated BNP without any other evidence of CHF Diabetes type 2 [id number] BPH Previous history of smoking DVT prophylaxis patient is already on full anticoagulation CODE STATUS is DO NOT RESUSCITATE/DO NOT INTUBATE Plan: Continue with antibiotics the form of clindamycin and cefepime. Pulmonary is following. Continue with a dysphagia 2 ground with honey thickened liquids diet. Maintain aspiration precautions and supervision with meals. Continue the home medications and follow closely. Oxygen therapy. Discussed with family at bedside in detail. Prognosis is guarded at this time. Further recommendations to follow.
[2019-08-24] MEDS: DOCUSATE 100 MG CAP PO SCH (20:29)
[2019-08-24] MEDS: DONEPEZIL 10 MG TAB PO SCH (20:30)
[2019-08-25] MEDS: IPRATROPIUM-ALBUTEROL 3 ML NEB INHALATION SCH ×2 (08:31→13:08)
[2019-08-25] MEDS: BUDESONIDE 1 MG/2 ML NEBU INHALATION SCH (08:31)
[2019-08-25] MEDS: FORMOTEROL FUMARATE 20 MCG/2 ML NEBU INHALATION SCH (08:31)
[2019-08-25] MEDS: CLINDAMYCIN 300 MG in DEXTROSE 5% IN WATER 50 ML IVPB SCH ×4 (09:14→16:02)
[2019-08-25] MEDS: ISOSORBIDE MONONITRATE ER 30 MG TAB.ER.24H PO SCH (09:24)
[2019-08-25] MEDS: LOSARTAN 50 MG TAB PO SCH (09:24)
[2019-08-25] MEDS: CYANOCOBALAMIN 500 MCG TAB PO SCH (09:24)
[2019-08-25] MEDS: ATORVASTATIN 40 MG TAB PO SCH (09:25)
[2019-08-25] MEDS: FAMOTIDINE 20 MG TAB PO SCH (09:25)
[2019-08-25] MEDS: MULTIVITAMINS, THERA 1 EACH TAB PO SCH (09:25)
[2019-08-25] MEDS: POTASSIUM CHLORIDE ER 10 MEQ TAB.ER.PRT PO SCH (09:25)
[2019-08-25] MEDS: METOPROLOL TARTRATE 50 MG TAB PO SCH (09:25)
[2019-08-25] MEDS: ASCORBIC ACID 500 MG TAB PO SCH (09:25)
[2019-08-25] MEDS: APIXABAN 5 MG TAB PO SCH (09:25)
[2019-08-25] MEDS: TAMSULOSIN 0.4 MG CAP.ER.24H PO SCH (09:25)
[2019-08-25] MEDS: LIPASE 5,000/PROTEASE 17,000/AMYLASE 24,000 PO SCH (09:31)
[2019-08-25] MEDS: CEFEPIME 1 GM in SODIUM CHLORIDE 0.9% 50 ML IVPB SCH (10:18)
--- NOTE | 2019-08-25 11:50 | P.PN ---
Subjective Progress Note Date: 08/25/19 Principal diagnosis: Acute hypoxemic respiratory failure secondary to bibasilar pneumonia and acute COPD exacerbation and possible component of chronic systolic congestive heart fa danii This is an 89-year-old gentleman who follows with Dr. Borges as his primary care provider. He has a history of coronary artery disease, diabetes mellitus type 2, congestive heart failure, chronic obstructive pulmonary disease, former smoker, hyperlipidemia, hypertension, atrial fibrillation anticoagulated with Eliquis, BPH. He was recently here in the hospital last month with increased c ough and congestion unable to clear secretions. He had undergone bronchoscopy with BAL performed by Dr. Hernandez on 07/21/2019. Results were with Oly only. Negative for malignancy. He was brought back here yesterday to the emergency room as his family found him to have decreased alertness and had difficulty arousing him from a nap. Computed tomography scan of the brain revealed revealed age-related atrophic and chronic small vessel ischemic changes without acute intracranial process. Chest x-ray revealed evidence of cardiomegaly with bilateral infiltrates suspicious for aspiration pneumonia and some fluid volume overload. EKG revealed atrial fibrillation with a controlled ventricular response. White count 5.4. Hemoglobin 12.1. Sodium 143. Potassium 4.4. Creatinine 0.56. He has been initiated on vancomycin and cefepime. On bronchodilators and Symbicort. He is on a dysphagia 3 diet. Staff reports he did well with breakfast today no signs of choking. He is seen today in consultation on the regular medical floor. He is awake and alert. Disoriented to time and place. Some garbled speech. He does have a loose productive cough. Sputum culture sent. He is maintaining O2 saturations in the mid 90s on 3 L/m per nasal cannula. He is afebrile. Hemodynamically stable. Reevaluated today on 08/23/2019, patient is feeling better, breathing easier, he was ambulating on a walker in the hallway with assistance, and he was on room air. Continues to have intermittent episodes of cough, cough has been productive slightly blood-tinged, and his chest x-ray on admission showed cardiomegaly with bilateral infiltrates suspicious for aspiration pneumonia and fluid overload. Patient tells me that he is feeling better today, breathing easier.WBC count is 4.9 hemoglobin is 11.2 lites are normal renal profile is normal. On 08/24/2019 patient was seen in follow-up on medical surgical floor. He is awake and alert, but his respirations are shallow and tachypneic, and is a poor historian but he denied acute distress, remains on 3 L of oxygen his pulse ox is 9200%, afebrile, lung sounds reveal diminished breath sounds with scattered rhonchi, patient has a weak congested cough, he remains on antibiotics in the form of clindamycin and cefepime. Blood and sputum cultures have shown no growth, today's lab work has been reviewed showing white blood cell can of 4.3, hemoglobin is 11.2, electrolytes were within normal limits with the exception of CO2, which is elevated at 31, but improved compared to yesterday's labs, BUN is 24 and creatinine 0.52. Vancomycin has been discontinued. Today's chest x-ray shows basilar atelectasis and persistent cardiomegaly. No complaints of chest pain, patient is not bringing up much sputum, but does have a congested cough. On 08/25/2019 patient is seen in follow-up on medical surgical floor. Is much more alert and interactive today, he is in good spirits, his family is at the bedside, his breathing is improved, no tachypnea, no labored breathing. He remains on 3 L of oxygen his pulse ox is 99%, he is afebrile, hemodynamically stable, less congested on today's exam, microbiology results remain negative, patient has been evaluated by speech therapy, and aspiration was noted with nectar thick liquids and premature spill with the remaining consistency. Patient is now on dysphagia 2 diet with ground consistency and honey thick liquids and no straws. Clinically he is stable, yesterday's chest x-ray was showing improvement in the appearance of bibasilar infiltrates. Objective - Vital Signs Vital signs: Vital Signs Temp 98.8 F 08/25/19 05:00 Pulse 70 08/25/19 08:58 Resp 16 08/25/19 05:00 BP 156/79 08/25/19 05:00 Pulse Ox 99 08/25/19 05:00 Intake & Output 08/24/19 08/25/19 08/25/19 18:59 06:59 18:59 Intake Total 690 Balance 690 Intake: Intake, IV Titration 100 Amount Cefepime 1 gm In Sodium 50 Chloride 0.9% 50 ml @ 100 mls/hr IVPB Q12HR [facility] Rx #:[id number] Clindamycin 300 mg In 50 Dextrose 5% in Water 50 ml @ 50 mls/hr IVPB Q8HR [facility] Rx#:[id number] Oral 590 Other: Voiding Method Diaper Diaper Diaper Incontinent Incontinent Incontinent # Voids 2 2 - Exam GENERAL EXAM: Alert, 89-year-old white male, who is a poor historian, but oriented to person currently on 3 L of oxygen with a pulse ox of 100%, appears much improved in terms of breathing, no tachypnea, no shallow respirations on today's exam HEAD: Normocephalic/atraumatic. EYES: Normal reaction of pupils, equal size. Conjunctiva pink, sclera white. NOSE: Clear with pink turbinates. THROAT: No erythema or exudates. NECK: No masses, no JVD, no thyroid enlargement, no adenopathy. CHEST: No chest wall deformity. Symmetrical expansion. LUNGS: Equal air entry with a few diffuse rhonchi, and weak congested nonproductive cough CVS: Regular rate and rhythm, normal S1 and S2, no gallops, no murmurs, no rubs ABDOMEN: Soft, nontender. No hepatosplenomegaly, normal bowel sounds, no guarding or rigidity. EXTREMITIES: No clubbing, no edema, no cyanosis, 2+ pulses and upper and lower extremities. MUSCULOSKELETAL: Muscle strength and tone normal. SPINE: No scoliosis or deformity SKIN: No rashes CENTRAL NERVOUS SYSTEM: Alert and oriented -1. No focal deficits, tone is normal in all 4 extremities. PSYCHIATRIC: Alert and oriented -1. Appropriate affect. Intact judgment and insight. - Labs CBC & Chem 7: 08/24/19 06:29 08/24/19 06:29 Labs: Microbiology - Last 24 Hours (Table) 08/21/19 15:59 Blood Culture - Preliminary Blood No Growth after 72 hours 08/22/19 12:00 Gram Stain - Final Sputum Sputum Culture - Final Assessment and Plan Plan: 1 Acute hypoxemic respiratory failure secondary to bibasilar pneumonia, acute COPD exacerbation, and possibly some component of chronicsystolic congestive heart failure, 2 Acute COPD exacerbation related to the above 3 Diabetes mellitus type 2 4 Hypertension 5 Chronic congestive heart failure with reduced systolic function 6 Chronic atrial fibrillation on anticoagulation in the form of Eliquis 7 History of dementia 8 Oropharyngeal candidiasis Plan: Continue current medical treatment, antibiotics, breathing treatments, patient is clinically improving, he is on ground consistency diet with honey thick l iquids, the results of the modified barium swallow were noted, aspiration precautions, yesterday's chest x-ray showed improvement in the appearance of bibasilar infiltrates, no fever or chills, myalgia results remain negative, from pulmonary perspective patient could be considered for discharge home or subacute rehab with outpatient follow-up. I performed a history & physical examination of the patient and discussed their management with my nurse practitioner, Leticia Jeff. I reviewed the nurse practitioner's note and agree with the documented findings and plan of care. Lung sounds are positive for diffuse rhonchi throughout the lung armas. The findings and the impression was discussed with the patient. I attest to the documentation by the nurse practitioner. Time with Patient: Less than 30
[2019-08-25 15:21] VITALS: BP 123/81; PULSE 56; RESP 18; TEMP 98.4
--- NOTE | 2019-08-25 15:37 | P.DS ---
Providers Date of admission: 08/21/19 16:41 Expected date of discharge: 08/25/19 Attending physician: Jones Muse Consults: 08/21/19 16:43 Consult Physician Routine Consulting Provider: Rosy Hernandez Consult Reason/Comments: pna Do you want consulting provider notified?: Yes Primary care physician: Larissa Jefferson Hospital Course: Final diagnosis Acute hypoxic respiratory failure secondary to pneumonia, possibly aspiration. Right basilar pneumonia. 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 Patient will follow-up with primary care provider in the outpatient setting upon discharge. Patient will also be following up with pulmonary in 1-2 weeks as discussed. Patient will continue short course of oral antibiotics in the form of oral clindamycin for the next 5 days. Total time taken is 35 minutes. History of present illness This is an 89-year-old male who was recently admitted with difficulty in breathing, altered mental status, and lethargic and was being closely monitored. Chest x-ray showed cardiomegaly with bilateral infiltrates suspicious for aspiration pneumonia and fluid overload. During hospitalization patient was seen by pulmonary and was following. Patient will follow-up in the outpatient setting in 1-2 weeks with pulmonary. During hospitalization patient underwent a video fluoroscopic swallow eval which showed some aspiration with nectar thick consistency and speech pathology is recommending to continue with dysphagia 2 ground diet with honey thickened liquids and no straws, maintain aspiration precautions, and keep the head of the bed elevated 30-45 after eating. Discu ssed this at length with the family and they are agreeable to this treatment plan. Currently patient's condition is stable and will be discharged today. Patient will continue with short course of oral antibiotics in the form of clindamycin 3 times daily for the next 5 days. Patient denies any chest pain, shortness of breath, or palpitations. Patient will remain on home O2 at 2 L via nasal cannula as his oxygen saturations dipped down to 88-89% on room air. Family was at the bedside. Patient has been afebrile. Patient denies any nausea or vomiting and has been tolerating diet. Guarded prognosis. On exam vital signs are stable. Temp is 98.1F, pulse is 71, respirations are 17, blood pressure is 112/74, oxygen saturation is 100% on 2 L via nasal cannula. Cardio S1 and S2 are present. Respiratory system shows diminished breath sounds at the bases with a few scattered rhonchi noted. Abdomen is soft and nontender. Nervous system shows no focal deficits with mild diffuse weaknes s. Please refer to medication reconciliation sheet for a list of medications. Patient Condition at Discharge: Fair Plan - Discharge Summary Discharge Rx Participant: No New Discharge Prescriptions: New Clindamycin [Cleocin] 300 mg PO TID 5 Days #15 capsule Continue Tamsulosin [Flomax] 0.4 mg PO DAILY Atorvastatin [Lipitor] 40 mg PO DAILY Aspirin [Adult Low Dose Aspirin EC] 81 mg PO MOWEFR Potassium Chloride [K-Tab ER] 10 meq PO DAILY Donepezil [Aricept] 10 mg PO HS Metoprolol Tartrate [Lopressor] 50 mg PO BID Isosorbide Mononitrate ER [Imdur] 30 mg PO DAILY metFORMIN HCL [Glucophage] 500 mg PO DAILY Budesonide/Formoterol Fumarate [Symbicort 160-4.5 Mcg Inhaler] 2 puff INHALATION RT-BID Furosemide [Lasix] 20 mg PO BID@0900,1600 #60 tab ALPRAZolam [Xanax] 0.25 mg PO BID PRN PRN Reason: Anxiety Docusate [Colace] 200 mg PO HS Apixaban [Eliquis] 5 mg PO BID [place]-3 Fatty Acids/Fish Oil [Fish Oil 1,000 mg Softgel] 1 cap PO DAILY Albuterol Nebulized [Ventolin Nebulized] 2.5 mg INHALATION RT-Q4H PRN PRN Reason: Shortness Of Breath Ascorbic Acid [Vitamin C] 500 mg PO DAILY Albuterol Inhaler [Ventolin Hfa Inhaler] 1 - 2 puff INHALATION RT-QID PRN PRN Reason: Shortness Of Breath Glucosam/Marlon-Msm1/C/Mark/Bosw [Glucosamine-Chondroitin Tablet] 1 tab PO DAILY Cyanocobalamin [Vitamin B-12] 500 mcg PO DAILY Ranitidine HCl [Zantac] 150 mg PO BID L.acidoph,Paracasei, B.lactis [Probiotic] 1 cap PO DAILY Multivitamins, Thera [Multivitamin (formulary)] 1 tab PO DAILY Losartan [Cozaar] 50 mg PO DAILY Discharge Medication List Atorvastatin [Lipitor] 40 mg PO DAILY 06/04/15 [History] Tamsulosin [Flomax] 0.4 mg PO DAILY 06/04/15 [History] Aspirin [Adult Low Dose Aspirin EC] 81 mg PO MOWEFR 09/23/17 [History] Budesonide/Formoterol Fumarate [Symbicort 160-4.5 Mcg Inhaler] 2 puff INHALATION RT-BID 09/23/17 [History] Donepezil [Aricept] 10 mg PO HS 09/23/17 [History] Isosorbide Mononitrate ER [Imdur] 30 mg PO DAILY 09/23/17 [History] Metoprolol Tartrate [Lopressor] 50 mg PO BID 09/23/17 [History] Potassium Chloride [K-Tab ER] 10 meq PO DAILY 09/23/17 [History] metFORMIN HCL [Glucophage] 500 mg PO DAILY 09/23/17 [History] Furosemide [Lasix] 20 mg PO BID@0900,1600 #60 tab 09/25/17 [Rx] ALPRAZolam [Xanax] 0.25 mg PO BID PRN 12/16/17 [History] Apixaban [Eliquis] 5 mg PO BID 12/16/17 [History] Docusate [Colace] 200 mg PO HS 12/16/17 [History] [place]-3 Fatty Acids/Fish Oil [Fish Oil 1,000 mg Softgel] 1 cap PO DAILY 12/16/17 [History] Albuterol Inhaler [Ventolin Hfa Inhaler] 1 - 2 puff INHALATION RT-QID PRN 11/15/18 [History] Albuterol Nebulized [Ventolin Nebulized] 2.5 mg INHALATION RT-Q4H PRN 11/15/18 [History] Ascorbic Acid [Vitamin C] 500 mg PO DAILY 11/15/18 [History] Cyanocobalamin [Vitamin B-12] 500 mcg PO DAILY 06/10/19 [History] Glucosam/Marlon-Msm1/C/Mark/Bosw [Glucosamine-Chondroitin Tablet] 1 tab PO DAILY 06/10/19 [History] L.acidoph,Paracasei, B.lactis [Probiotic] 1 cap PO DAILY 06/10/19 [History] Losartan [Cozaar] 50 mg PO DAILY 06/10/19 [History] Multivitamins, Thera [Multivitamin (formulary)] 1 tab PO DAILY 06/10/19 [History] Ranitidine HCl [Zantac] 150 mg PO BID 06/10/19 [History] Clindamycin [Cleocin] 300 mg PO TID 5 Days #15 capsule 08/25/19 [Rx] Follow up Appointment(s)/Referral(s): Alexander Ceron MD [STAFF PHYSICIAN] - 09/02/19 2:15 pm Larissa Borges DO [Primary Care Provider] - 08/28/19 11:00 am [facility], [NON-STAFF] - 1-2 Days Patient Instructions/Handouts: Clindamycin (By mouth), Fall Prevention for Older Adults (DC), Pneumonia (DC) Activity/Diet/Wound Care/Special Instructions: Activity Limited until follow-up Continue full course of antibiotics until completed Continue current diet of dysphagia 2 ground with honey thick liquids and no straws. Keep head of bed elevated 30-45 after eating and maintain supervision with eating and strict aspiration precautions Discharge Disposition: HOME WITH HOME HEALTH SERVICES
--- NOTE | 2019-08-27 09:41 | P.PN ---
Subjective Progress Note Date: 08/23/19 Principal diagnosis: Right basilar pneumonia Acute hypoxic respiratory failure Patient is a 89-year-old male with a known history of dementia, severe COPD with FEV1 of 58% of predicted, diabetes type 2, hypertension, CHF with mildly reduced systolic function, BPH, chronic atrial fibrillation on anticoagulation was brought to the hospital by family due to altered mental status and lethargic. Patient has been very lethargic and worsening difficulty in breathing for the past 2 days. Denied any fever or chills. Patient was also having cough with sputum production and blood-tinged. Patient was recently hospitalized and had bronchoscopy done. Patient also having difficulty swallowing and is currently on honey thickened liquids. Chest x-ray showed cardiomegaly with bilateral infiltrates suspicious for aspiration pneumonia and fluid overload. EKG showed atrial fibrillation with controlled response. CT head showed age-related atrophic and chronic small was an ischemic changes. Without acute intracranial process. UA negative for infection. No leukocytosis. 08/22/2019 Patient says that he feels better today. Patient is more awake and oriented. Currently being continued on antibiotics, vancomycin and cefepime. Requiring nasal cannula oxygen at 3 L. Patient has been afebrile overnight. No complaints of chest pain. Tolerating dysphagia diet. No nausea no vomiting. No abdominal pain or diarrhea. Patient was seen with pulmonary. 08/23/2019 Patient denied any complaints of chest pain or worsening shortness of breath. Feels better. Able to ambulate in the hallway with assistance. Still requiring oxygen via nasal cannula. Patient is having cough with johnny to yellowish discoloration and blood-tinged on and off. Patient is being continued on antibiotics and swallow evaluation was done. Aspiration with nectar thickened liquids. Speech pathology is following. WBC 4.9 and hemoglobin 11.2 Active Medications Albuterol Sulfate (Ventolin Nebulized) 2.5 mg INHALATION RT-Q4H PRN PRN Reason: Shortness Of Breath Last Admin: 08/22/19 15:56 Dose: 2.5 mg Documented by: Lipase/Protease/Amylase (Juan Dr 5,000 Unit Capsule) 2 each PO DAILY [facility] Last Admin: 08/22/19 10:32 Dose: 2 each Documented by: Apixaban (Eliquis) 5 mg PO BID [facility] Last Admin: 08/22/19 10:30 Dose: 5 mg Documented by: Ascorbic Acid (Vitamin C) 500 mg PO DAILY [facility] Last Admin: 08/22/19 10:31 Dose: 500 mg Documented by: Aspirin (Aspirin) 81 mg PO MOWEFR [facility] Atorvastatin Calcium (Lipitor) 40 mg PO DAILY [facility] Last Admin: 08/22/19 10:31 Dose: 40 mg Documented by: Budesonide (Pulmicort) 1 mg INHALATION RT-BID [facility] Cyanocobalamin (Vitamin B-12) 500 mcg PO DAILY [facility] Last Admin: 08/22/19 10:31 Dose: 500 mcg Documented by: Docusate Sodium (Colace) 200 mg PO [facility] Last Admin: 08/22/19 01:06 Dose: Not Given Documented by: Donepezil HCl (Aricept) 10 mg PO [facility] Last Admin: 08/21/19 19:57 Dose: 10 mg Documented by: Famotidine (Pepcid) 20 mg PO BID [facility] Last Admin: 08/22/19 10:31 Dose: 20 mg Documented by: Formoterol Fumarate (Perforomist) 20 mcg INHALATION RT-BID [facility] Cefepime HCl 1 gm/ Sodium (Chloride) 50 mls @ 100 mls/hr IVPB Q12HR [facility] Last Admin: 08/22/19 13:27 Dose: 100 mls/hr Documented by: Clindamycin Phosphate 300 mg/ (Dextrose/Water) 52 mls @ 50 mls/hr IVPB Q8HR [facility] Last Admin: 08/22/19 15:12 Dose: 50 mls/hr Documented by: Isosorbide Mononitrate (Imdur) 30 mg PO DAILY [facility] Last Admin: 08/22/19 10:31 Dose: 30 mg Documented by: Losartan Potassium (Cozaar) 50 mg PO DAILY [facility] Last Admin: 08/22/19 10:31 Dose: 50 mg Documented by: Metoprolol Tartrate (Lopressor) 50 mg PO BID [facility] Last Admin: 08/22/19 10:31 Dose: 50 mg Documented by: Miscellaneous Information (Pneumonia Protocol Utilized) 1 each PO ONCE PRN PRN Reason: Per Protocol Multivitamins (Theragran) 1 each PO DAILY [facility] Last Admin: 08/22/19 10:31 Dose: 1 each Documented by: Potassium Chloride (K-Dur 10) 10 meq PO DAILY [facility] Last Admin: 08/22/19 10:31 Dose: 10 meq Documented by: Tamsulosin HCl (Flomax) 0.4 mg PO DAILY [facility] Last Admin: 08/22/19 10:30 Dose: 0.4 mg Documented by: Objective - Vital Signs Vital signs: Vital Signs Temp 97.2 F L 08/23/19 11:29 Pulse 68 08/23/19 15:54 Resp 17 08/23/19 11:29 BP 94/56 08/23/19 11:29 Pulse Ox 99 08/23/19 11:29 Intake & Output 08/22/19 08/23/19 08/23/19 18:59 06:59 18:59 Intake Total 750 Balance 750 Weight 60.781 kg Intake: Intake, IV Titration 250 Amount Vancomycin 1,000 mg In 250 Sodium Chloride 0.9% 250 ml @ 125 mls/hr IVPB Q12H [facility] Rx#:[id number] Oral 500 Other: Voiding Method Diaper Diaper Diaper Incontinent Incontinent Incontinent # Voids 2 3 # Bowel Movements 1 - Exam PHYSICAL EXAMINATION: Patient is lying in the bed comfortably, no acute distress, awake alert and oriented. Generalized weakness and lethargic. HEENT: Normocephalic. Neck is supple. Pupils reactive. Nostrils clear. Oral cavity is moist. Ears reveal no drainage. Neck reveals no JVD, carotid bruits, or thyromegaly. CHEST EXAMINATION: Trachea is central. Symmetrical expansion. Bibasilar crackles and coarse breath sounds. No wheezing.. CARDIAC: Normal S1, S2 with no gallops. No murmurs ABDOMEN: Soft. Bowel sounds normal. No organomegaly. No abdominal bruits. Extremities: reveal no edema. No clubbing or cyanosis Neurologically awake, alert, oriented x3 with well-coordinated movements. No focal deficits noted Skin: No rash or skin lesions. Psychiatric: Coperative. Nonsuicidal Musculoskeletal: No joint swelling or deformity. Normal range of motion. - Labs CBC & Chem 7: 08/24/19 06:29 08/24/19 06:29 Labs: Abnormal Lab Results - Last 24 Hours (Table) 08/23/19 08/23/19 Range/Units 05:25 05:25 RBC 3.65 L (4.30-5.90) m/uL Hgb 11.2 L (13.0-17.5) gm/dL Hct 32.7 L (39.0-53.0) % Carbon Dioxide 34 H (22-30) mmol/L BUN 23 H (9-20) mg/dL Creatinine 0.54 L (0.66-1.25) mg/dL Microbiology - Last 24 Hours (Table) 08/22/19 12:00 Gram Stain - Preliminary Sputum Sputum Culture - Preliminary 08/21/19 15:59 Blood Culture - Preliminary Blood No Growth after 24 hours Assessment and Plan Assessment: Acute hypoxic respiratory failure secondary to pneumonia possibly aspiration. Right basilar pneumonia. Acute COPD exacerbation. 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 Currently on honey thickened liquids at home. Chronic atrial fibrillation on Eliquis for anticoagulation Chronic CHF with mildly reduced systolic dysfunction ejection fraction 50-50% as per recent echocardiogram Elevated BNP without any other evidence of CHF Diabetes type 2 [id number] BPH Previous history of smoking DVT prophylaxis patient is already on full anticoagulation CODE STATUS is DO NOT RESUSCITATE/DO NOT INTUBATE Plan: Patient was given IV fluid bolus in the ER. Continue with antibiotics the form of vancomycin and cefepime. Added clindamycin as per pulmonary recommendations. Vancomycin will be discontinued.. Continue with a dysphagia diet. Continue the home medications and follow closely. Oxygen therapy. Pulmonary is following. Discussed with family at bedside in detail. Prognosis is guarded at this time. Time with Patient: Greater than 30
== END 2019-08-25 17:50 | disposition home health service (06) | DRG 177 ==
LOC: EC 14:13 → 3NMEDONC 16:41
PROVIDERS: ADMIT Internal Medicine; ATTEND Internal Medicine
DX: J69.0 Pneumonitis due to inhalation of food and vomit (principal); J96.01 Acute respiratory failure with hypoxia; B37.0 Candidal stomatitis; I48.20 Chronic atrial fibrillation, unspecified; I50.22 Chronic systolic (congestive) heart failure; J44.1 Chronic obstructive pulmonary disease with (acute) exacerbation; E11.9 Type 2 diabetes mellitus without complications; E78.5 Hyperlipidemia, unspecified; F03.90 Unspecified dementia, unspecified severity, without behavioral disturbance, psychotic disturbance, mood disturbance, and anxiety; I11.0 Hypertensive heart disease with heart failure; I25.10 Atherosclerotic heart disease of native coronary artery without angina pectoris; N40.0 Benign prostatic hyperplasia without lower urinary tract symptoms; R13.10 Dysphagia, unspecified; Z66 Do not resuscitate; Z79.01 Long term (current) use of anticoagulants; Z79.51 Long term (current) use of inhaled steroids; Z79.82 Long term (current) use of aspirin; Z79.84 Long term (current) use of oral hypoglycemic drugs; Z79.899 Other long term (current) drug therapy; Z80.8 Family history of malignant neoplasm of other organs or systems; Z82.49 Family history of ischemic heart disease and other diseases of the circulatory system; Z96.1 Presence of intraocular lens; Z98.41 Cataract extraction status, right eye; Z98.42 Cataract extraction status, left eye; Z99.81 Dependence on supplemental oxygen; Z87.891 Personal history of nicotine dependence; Z88.1 Allergy status to other antibiotic agents; Z91.030 Bee allergy status
CPT/HCPCS: 36415; 70450; 71045; 71046; 74230; 80048; 80053; 80202; 81003; 82140; 82803; 83605; 83735; 84484; 85025; 85610; 85730; 86850; 86900; 86901; 87040; 87070; 87205; 93005; 94640; 94760; 96361; 96374; 99285

== ENCOUNTER 2019-09-20 09:23 | Inpatient (IN) | payer MEDICARE ==
[2019-09-20] MEDS ORDERED: IPRATROPIUM-ALBUTEROL 3 ML NEB INHALATION STA ×2 (10:03→10:05)
[2019-09-20] MEDS ORDERED: SODIUM CHLORIDE 0.9% 500 ML 500 ML IV STA (10:03)
[2019-09-20] MEDS ORDERED: methylPREDNISolone SOD SUCCI 125 MG/2 ML VIAL IV STA (10:04)
--- NOTE | 2019-09-20 10:09 | ED ---
General Adult HPI <Michael Arguello J - Last Filed: 09/20/19 12:59> - General Source: patient, RN notes reviewed, old records reviewed Mode of arrival: wheelchair Limitations: no limitations <Viktoria Lakeily - Last Filed: 09/20/19 13:09> - General Chief complaint: Shortness of Breath Stated complaint: Congested,MARSHA Time Seen by Provider: 09/20/19 09:49 - History of Present Illness Initial comments: Se is an 89-year-old male with history of COPD, and hospitalizations within the past year for pneumonia. He presents today with his and daughter for concerns for difficulty in breathing. He's had a mild cough over the past few days. Reported symptoms significantly productive. Patient had been more labored breathing. He denies any lower extremity swelling. He complains that he is having some headache, and does complain some chest discomfort with breathing. Patient states that he has had no fever but has chronic chills. ([place]) - Related Data Home Medications Medication Instructions Recorded Confirmed Atorvastatin [Lipitor] 40 mg PO DAILY 06/04/15 08/21/19 Tamsulosin [Flomax] 0.4 mg PO DAILY 06/04/15 08/21/19 Aspirin [Adult Low Dose Aspirin EC] 81 mg PO MOWEFR 09/23/17 08/21/19 Budesonide/Formoterol Fumarate 2 puff INHALATION RT-BID 09/23/17 08/21/19 [Symbicort 160-4.5 Mcg Inhaler] Donepezil [Aricept] 10 mg PO HS 09/23/17 08/21/19 Isosorbide Mononitrate ER [Imdur] 30 mg PO DAILY 09/23/17 08/21/19 Metoprolol Tartrate [Lopressor] 50 mg PO BID 09/23/17 08/21/19 Potassium Chloride [K-Tab ER] 10 meq PO DAILY 09/23/17 08/21/19 metFORMIN HCL [Glucophage] 500 mg PO DAILY 09/23/17 08/21/19 ALPRAZolam [Xanax] 0.25 mg PO BID PRN 12/16/17 08/21/19 Apixaban [Eliquis] 5 mg PO BID 12/16/17 08/21/19 Docusate [Colace] 200 mg PO HS 12/16/17 08/21/19 [place]-3 Fatty Acids/Fish Oil [Fish 1 cap PO DAILY 12/16/17 08/21/19 Oil 1,000 mg Softgel] Albuterol Inhaler [Ventolin Hfa 1 - 2 puff INHALATION RT-QID PRN 11/15/18 08/21/19 Inhaler] Albuterol Nebulized [Ventolin 2.5 mg INHALATION RT-Q4H PRN 11/15/18 08/21/19 Nebulized] Ascorbic Acid [Vitamin C] 500 mg PO DAILY 11/15/18 08/21/19 Cyanocobalamin [Vitamin B-12] 500 mcg PO DAILY 06/10/19 08/21/19 Glucosam/Marlon-Msm1/C/Mark/Bosw 1 tab PO DAILY 06/10/19 08/21/19 [Glucosamine-Chondroitin Tablet] L.acidoph,Paracasei, B.lactis 1 cap PO DAILY 06/10/19 08/21/19 [Probiotic] Losartan [Cozaar] 50 mg PO DAILY 06/10/19 08/21/19 Multivitamins, Thera [Multivitamin 1 tab PO DAILY 06/10/19 08/21/19 (formulary)] Ranitidine HCl [Zantac] 150 mg PO BID 06/10/19 08/21/19 Previous Rx's Medication Instructions Recorded Furosemide [Lasix] 20 mg PO BID@0900,1600 #60 tab 09/25/17 Clindamycin [Cleocin] 300 mg PO TID 5 Days #15 capsule 08/25/19 Allergies Allergy/AdvReac Type Severity Reaction Status Date / Time amoxicillin [From Augmentin] Allergy Rash/Hives Verified 09/20/19 09:44 bee pollen Allergy Swelling Verified 09/20/19 09:44 clavulanic acid Allergy Rash/Hives Verified 09/20/19 09:44 [From Augmentin] Review of Systems ROS Other: All systems not noted in ROS Statement are negative. <Michael Arguello - Last Filed: 09/20/19 12:59> ROS Other: All systems not noted in ROS Statement are negative. <[place] - Last Filed: 09/20/19 13:09> ROS Statement: Those systems with pertinent positive or pertinent negative responses have been documented in the HPI. Past Medical History Past Medical History: Atrial Fibrillation, Coronary Artery Disease (CAD), Heart Failure, COPD, Dementia, Diabetes Mellitus, Eye Disorder, Hyperlipidemia, Hypertension, Prostate Disorder Additional Past Medical History / Comment(s): NIDDM type II, beginning of dementia, joint pain-multiple sites. History of Any Multi-Drug Resistant Organisms: None Reported Past Surgical History: Heart Catheterization, Hernia Repair, Tonsillectomy Additional Past Surgical History / Comment(s): TURP, cystoscopy, L inguinal herniorraphy, bilateral cataract removal with lens implants. Past Anesthesia/Blood Transfusion Reactions: No Reported Reaction Past Psychological History: No Psychological Hx Reported Smoking Status: Former smoker Past Alcohol Use History: None Reported Past Drug Use History: None Reported - Past Family History Mother Additional Family Medical History / Comment(s): Mother either of CHF or a HI at the age of 82 yrs. Father Family Medical History: Cancer Additional Family Medical History / Comment(s): Father of complications after surgery for throat cancer at the age of 76yrs. <[place] - Last Filed: 09/20/19 13:09> General Exam Limitations: no limitations General appearance: in no apparent distress, other (confused conversation, family reports this is baseline.) Head exam: Present: atraumatic, normocephalic, normal inspection Eye exam: Present: normal appearance, PERRL, EOMI. Absent: scleral icterus, conjunctival injection, periorbital swelling ENT exam: Present: normal exam, mucous membranes moist Neck exam: Present: normal inspection Respiratory exam: Present: decreased breath sounds (has decreased breath sounds bilaterally.). Absent: normal lung sounds bilaterally, respiratory distress, wheezes, rales, rhonchi, stridor Cardiovascular Exam: Present: regular rate, normal rhythm, normal heart sounds. Absent: systolic murmur, diastolic murmur, rubs, gallop, clicks GI/Abdominal exam: Present: soft, normal bowel sounds. Absent: distended, tenderness, guarding, rebound, rigid Neurological exam: Present: alert, oriented X3, CN II-XII intact Psychiatric exam: Present: normal affect, normal mood Skin exam: Present: warm, dry, intact, normal color. Absent: rash <[place] - Last Filed: 09/20/19 13:09> - General Exam Comments Initial Comments: 89-year-old male. Alert and oriented 3. Patient appears in mild discomfort. ([place]) Course Vital Signs 09/20/19 09/20/19 09/20/19 09:42 09:52 10:00 Temperature 97.3 F L Pulse Rate 58 L 72 Respiratory 15 20 Rate Blood Pressure 86/55 112/76 O2 Sat by Pulse 88 L 79 L 82 L Oximetry 09/20/19 09/20/19 09/20/19 10:10 10:20 10:30 Temperature Pulse Rate 65 75 75 Respiratory 20 20 20 Rate Blood Pressure 94/63 94/63 94/63 O2 Sat by Pulse 89 L 93 L 94 L Oximetry 09/20/19 09/20/19 09/20/19 10:32 10:40 10:50 Temperature Pulse Rate 71 72 Respiratory 20 20 Rate Blood Pressure 98/57 98/57 O2 Sat by Pulse 96 95 Oximetry 09/20/19 12:33 Temperature Pulse Rate 79 Respiratory 18 Rate Blood Pressure 126/80 O2 Sat by Pulse 94 L Oximetry EKG Findings - EKG Comments: EKG Findings:: EKG performed at 10:03 AM shows atrial fibrillation, left axis deviation. Inferior infarct age indeterminate. Ventricular rate of 62 beats or minute. Interval is unaffected. QRS duration is 102 ms. QT QTc is 422/420 ms. <[place] - Last Filed: 09/20/19 13:09> Medical Decision Making - Lab Data Result diagrams: 09/20/19 10:30 09/20/19 10:30 <Michael Arguello - Last Filed: 09/20/19 12:59> - Lab Data Result diagrams: 09/20/19 10:30 09/20/19 10:30 - Radiology Data Radiology results: report reviewed <[place] - Last Filed: 09/20/19 13:09> - Medical Decision Making The patient was seen and examined. All diagnostics are reviewed. The case is discussed with Dr. Sánchez and he is agreeable with admission. The case is discussed with the PA and I agree with the findings as documented. (Michael Arguello) 9-year-old male presents today, with Worsening Weakness, Cough Difficulty Breathing. Lung Sounds Are Diminished Bilaterally. Chest X-Ray Shows Concern for Left Lower Lobe Pneumonia. No Significant Leukocytosis at This Time. Blood Cultures Were Completed. Patient Was Started on Rocephin. Due To Recent Hospital Admission Discuss Treatment for Age. Patient Started on Levaquin Days and Neck TM and Clindamycin Due To Penicillin ALLERGY. Patient did arrive to emergency department somewhat hyper O tensive, blood pressures of 90s over 60s. This did improve after fluid bolus. Patient does have some confusion but family reports that this is at his baseline with history of dementia.they do report th at he has had some worsening confusion over the past few days. Family does state that the Patient is a DO NOT RESUSCITATE. ([place]) - Lab Data Lab Results 09/20/19 09/20/19 09/20/19 Range/Units 10:30 10:30 10:30 WBC 9.4 (3.8-10.6) k/uL RBC 4.32 (4.30-5.90) m/uL Hgb 13.2 (13.0-17.5) gm/dL Hct 39.5 (39.0-53.0) % MCV 91.4 (80.0-100.0) fL MCH 30.5 (25.0-35.0) pg MCHC 33.4 (31.0-37.0) g/dL RDW 14.2 (11.5-15.5) % Plt Count 145 L (150-450) k/uL Neutrophils % 80 % Lymphocytes % 13 % Monocytes % 5 % Eosinophils % 2 % Basophils % 0 % Neutrophils # 7.5 (1.3-7.7) k/uL Lymphocytes # 1.2 (1.0-4.8) k/uL Monocytes # 0.5 (0-1.0) k/uL Eosinophils # 0.2 (0-0.7) k/uL Basophils # 0.0 (0-0.2) k/uL Poikilocytosis Slight PT (9.0-12.0) sec INR (<1.2) APTT (22.0-30.0) sec Sodium 141 (137-145) mmol/L Potassium 4.3 (3.5-5.1) mmol/L Chloride 101 (98-107) mmol/L Carbon Dioxide 36 H (22-30) mmol/L Anion Gap 4 mmol/L BUN 29 H (9-20) mg/dL Creatinine 0.62 L (0.66-1.25) mg/dL Est GFR (CKD-EPI)AfAm >90 (>60 ml/min/1.73 sqM) Est GFR (CKD-EPI)NonAf 89 (>60 ml/min/1.73 sqM) Glucose 114 H (74-99) mg/dL Plasma Lactic Acid Adriano (0.7-2.0) mmol/L Calcium 9.7 (8.4-10.2) mg/dL Magnesium 2.1 (1.6-2.3) mg/dL Total Bilirubin 1.0 (0.2-1.3) mg/dL AST 23 (17-59) U/L ALT 23 (4-49) U/L Alkaline Phosphatase 49 (38-126) U/L Troponin I (0.000-0.034) ng/mL NT-Pro-B Natriuret Pep 2740 pg/mL Total Protein 6.1 L (6.3-8.2) g/dL Albumin 3.6 (3.5-5.0) g/dL 09/20/19 09/20/19 09/20/19 Range/Units 10:30 10:30 10:30 WBC (3.8-10.6) k/uL RBC (4.30-5.90) m/uL Hgb (13.0-17.5) gm/dL Hct (39.0-53.0) % MCV (80.0-100.0) fL MCH (25.0-35.0) pg MCHC (31.0-37.0) g/dL RDW (11.5-15.5) % Plt Count (150-450) k/uL Neutrophils % % Lymphocytes % % Monocytes % % Eosinophils % % Basophils % % Neutrophils # (1.3-7.7) k/uL Lymphocytes # (1.0-4.8) k/uL Monocytes # (0-1.0) k/uL Eosinophils # (0-0.7) k/uL Basophils # (0-0.2) k/uL Poikilocytosis PT 11.1 (9.0-12.0) sec INR 1.1 (<1.2) APTT 26.8 (22.0-30.0) sec Sodium (137-145) mmol/L Potassium (3.5-5.1) mmol/L Chloride (98-107) mmol/L Carbon Dioxide (22-30) mmol/L Anion Gap mmol/L BUN (9-20) mg/dL Creatinine (0.66-1.25) mg/dL Est GFR (CKD-EPI)AfAm (>60 ml/min/1.73 sqM) Est GFR (CKD-EPI)NonAf (>60 ml/min/1.73 sqM) Glucose (74-99) mg/dL Plasma Lactic Acid Adriano 2.3 H* (0.7-2.0) mmol/L Calcium (8.4-10.2) mg/dL Magnesium (1.6-2.3) mg/dL Total Bilirubin (0.2-1.3) mg/dL AST (17-59) U/L ALT (4-49) U/L Alkaline Phosphatase (38-126) U/L Troponin I <0.012 (0.000-0.034) ng/mL NT-Pro-B Natriuret Pep pg/mL Total Protein (6.3-8.2) g/dL Albumin (3.5-5.0) g/dL - Radiology Data Chest x-ray shows left lower lobe pneumonia. Borderline cardiomegaly. Cannot include small left effusion. ([place]) Disposition <Michael Arguello - Last Filed: 09/20/19 12:59> Is patient prescribed a controlled substance at d/c from ED?: No Time of Disposition: 13:09 <[place] - Last Filed: 09/20/19 13:09> Clinical Impression: Pneumonia, Sepsis, Altered mental status Disposition: ADMITTED IP TO THIS HOSP Condition: Stable Referrals: Larissa Borges DO [Primary Care Provider] - 1-2 days
[2019-09-20 10:42] LABS: Basophils % (A) 0 %; Eosinophils # (A) 0.2 k/uL (0-0.7); Eosinophils % (A) 2 %; HCT 39.5 % (39.0-53.0); HGB 13.2 gm/dL (13.0-17.5); Lymphocytes # (A) 1.2 k/uL (1.0-4.8); Lymphocytes % (A) 13 %; MCH 30.5 pg (25.0-35.0); MCHC 33.4 g/dL (31.0-37.0); MCV 91.4 fL (80.0-100.0); Mean Platelet Volume 7.6; Monocytes # (A) 0.5 k/uL (0-1.0); Monocytes % (A) 5 %; Neutrophils # (A) 7.5 k/uL (1.3-7.7); Neutrophils % (A) 80 %; Platelet Count 145 k/uL (150-450); Poikilocytosis Slight; RBC 4.32 m/uL (4.30-5.90); RDW 14.2 % (11.5-15.5); WBC 9.4 k/uL (3.8-10.6)
[2019-09-20 10:51] LABS: INR 1.1 (<1.2); Partial Thromboplastin Time 26.8 sec (22.0-30.0); Prothrombin Time 11.1 sec (9.0-12.0)
[2019-09-20 10:53] LABS: ALT 23 U/L (4-49); AST 23 U/L (17-59); African American GFR (CKD) >90 (>60 ml/min/1.73 sqM); Albumin 3.6 g/dL (3.5-5.0); Alkaline Phosphatase 49 U/L (38-126); Anion Gap 4 mmol/L; Blood Urea Nitrogen 29 mg/dL (9-20); Calcium 9.7 mg/dL (8.4-10.2); Carbon Dioxide 36 mmol/L (22-30); Chloride 101 mmol/L (98-107); Glucose 114 mg/dL (74-99); Magnesium 2.1 mg/dL (1.6-2.3); Non-African American GFR(CKD) 89 (>60 ml/min/1.73 sqM); Potassium 4.3 mmol/L (3.5-5.1); Sodium 141 mmol/L (137-145); Total Protein 6.1 g/dL (6.3-8.2)
--- NOTE | 2019-09-20 11:26 | XR ---
EXAMINATION TYPE: XR chest 2V DATE OF EXAM: 09/20/2019 HISTORY: difficulty breathing. REFERENCE: Previous study dated 08/24/2019. FINDINGS: Heart size upper limits of normal. There is increased opacity in the posterior CP angle. I believe this represents a left lower lobe pneumonia. There is a small left effusion. IMPRESSION: 1. LEFT LOWER LOBE PNEUMONIA. 2. BORDERLINE CARDIOMEGALY. 3. I CANNOT EXCLUDE A SMALL LEFT EFFUSION.
[2019-09-20] MEDS ORDERED: SODIUM CHLORIDE 0.9% 1,000 ML IV ONE (11:46)
[2019-09-20] MEDS ORDERED: cefTRIAXone IN SWFI 1,000 MG/10 ML SYRINGE IVP STA (11:46)
[2019-09-20] MEDS ORDERED: ALBUTEROL NEBULIZED 2.5 MG/3 ML INHALATION PRN ×2 (12:22→18:46)
[2019-09-20] MEDS ORDERED: LEVOFLOXACIN 750MG-D5W PMX 750 MG in DEXTROSE/WATER 1 150ML.BAG IVPB STA (12:22)
[2019-09-20] MEDS ORDERED: AZTREONAM 2 GM in SODIUM CHLORIDE 0.9% 100 ML IVPB STA (12:22)
[2019-09-20] MEDS ORDERED: PNEUMONIA PROTOCOL UTILIZED 1 EACH MISC PO PRN (12:22)
[2019-09-20] MEDS ORDERED: SODIUM CHLORIDE 0.9% 1,000 ML IV SCH ×2 (12:30→18:30)
[2019-09-20 15:57] LABS: Appearance,Urine Clear (Clear); Bilirubin,Urine Negative (Negative); Blood,Urine Negative (Negative); Color,Urine Yellow; Glucose,Urine (UA) Negative (Negative); Ketones,Urine Negative (Negative); Leukocyte Esterase,Urine Negative (Negative); Nitrite,Urine Negative (Negative); Protein,Urine Negative (Negative); Urobilinogen,Urine <2.0 mg/dL (<2.0)
[2019-09-20] MEDS: CLINDAMYCIN 600 MG in DEXTROSE 5% IN WATER 50 ML IVPB SCH ×4 (16:19→23:14)
--- NOTE | 2019-09-20 18:48 | P.HPIM ---
History of Present Illness H&P Date: 09/20/19 89-year-old male with history of COPD, and hospitalizations within the past year for pneumonia. He presents today with his and daughter for concerns for difficulty in breathing. He's had a mild cough over the past few days. Reported symptoms significantly productive. Patient had been more labored breathing. He denies any lower extremity swelling. He complains that he is having some headache, and does complain some chest discomfort with breathing. Patient states that he has had no fever but has chronic chills. patient has had multiple admissions to the hospital for similar medical complaints; patient's condition and prognosis was discussed with patient's and daughter at bedside; reports that she has been talking to home care nurse and was planning to meet with palliative care team for home visiting physicians in next few days; patient's would want patient to be a DO NOT RESUSCITATE and is willing to meet with palliative care team for goals of care Review of Systems REVIEW OF SYSTEMS: CONSTITUTIONAL: No fever, no malaise, no fatigue. HEENT: No recent visual problems or hearing problems. Denied any sore throat. CARDIOVASCULAR: No chest pain, orthopnea, PND, no palpitations, no syncope. PULMONARY: No shortness of breath, no cough, no hemoptysis. GASTROINTESTINAL: No diarrhea, no nausea, no vomiting, no abdominal pain. NEUROLOGICAL: No headaches, no weakness, no numbness. HEMATOLOGICAL: Denies any bleeding or petechiae. GENITOURINARY: Denies any burning micturition, frequency, or urgency. MUSCULOSKELETAL/RHEUMATOLOGICAL: Denies any joint pain, swelling, or any muscle pain. ENDOCRINE: Denies any polyuria or polydipsia. The rest of the 14-point review of systems is negative. Past Medical History Past Medical History: Atrial Fibrillation, Coronary Artery Disease (CAD), Heart Failure, COPD, Dementia, Diabetes Mellitus, Eye Disorder, Hyperlipidemia, Hypertension, Pneumonia, Prostate Disorder Additional Past Medical History / Comment(s): NIDDM type II, beginning of dementia, joint pain-multiple sites. History of Any Multi-Drug Resistant Organisms: None Reported Past Surgical History: Heart Catheterization, Hernia Repair, Tonsillectomy Additional Past Surgical History / Comment(s): TURP, cystoscopy, L inguinal herniorraphy, bilateral cataract removal with lens implants. Past Anesthesia/Blood Transfusion Reactions: No Reported Reaction Past Psychological History: No Psychological Hx Reported Smoking Status: Former smoker Past Alcohol Use History: None Reported Additional Past Alcohol Use History / Comment(s): Pt started smoking in 1957 and quit in 1996. Past Drug Use History: None Reported - Past Family History Mother Additional Family Medical History / Comment(s): Mother either of CHF or a OK at the age of 82 yrs. Father Family Medical History: Cancer Additional Family Medical History / Comment(s): Father of complications a fter surgery for throat cancer at the age of 76yrs. Medications and Allergies Home Medications Medication Instructions Recorded Confirmed Type Atorvastatin [Lipitor] 40 mg PO DAILY 06/04/15 09/20/19 History Tamsulosin [Flomax] 0.4 mg PO DAILY 06/04/15 09/20/19 History Aspirin [Adult Low Dose Aspirin EC] 81 mg PO MOWEFR 09/23/17 09/20/19 History Budesonide/Formoterol Fumarate 2 puff INHALATION RT-BID 09/23/17 09/20/19 History [Symbicort 160-4.5 Mcg Inhaler] Donepezil [Aricept] 10 mg PO HS 09/23/17 09/20/19 History Isosorbide Mononitrate ER [Imdur] 30 mg PO DAILY 09/23/17 09/20/19 History Metoprolol Tartrate [Lopressor] 50 mg PO BID 09/23/17 09/20/19 History Potassium Chloride [K-Tab ER] 10 meq PO DAILY 09/23/17 09/20/19 History metFORMIN HCL [Glucophage] 500 mg PO DAILY 09/23/17 09/20/19 History Furosemide [Lasix] 20 mg PO BID@0900,1600 #60 tab 09/25/17 09/20/19 Rx ALPRAZolam [Xanax] 0.25 mg PO BID PRN 12/16/17 09/20/19 History Apixaban [Eliquis] 5 mg PO BID 12/16/17 09/20/19 History Docusate [Colace] 200 mg PO HS 12/16/17 09/20/19 History [place]-3 Fatty Acids/Fish Oil [Fish 1 cap PO DAILY 12/16/17 09/20/19 History Oil 1,000 mg Softgel] Albuterol Nebulized [Ventolin 2.5 mg INHALATION RT-Q4H PRN 11/15/18 09/20/19 History Nebulized] Ascorbic Acid [Vitamin C] 500 mg PO DAILY 11/15/18 09/20/19 History Cyanocobalamin [Vitamin B-12] 500 mcg PO DAILY 06/10/19 09/20/19 History Glucosam/Marlon-Msm1/C/Mark/Bosw 1 tab PO DAILY 06/10/19 09/20/19 History [Glucosamine-Chondroitin Tablet] L.acidoph,Paracasei, B.lactis 1 cap PO DAILY 06/10/19 09/20/19 History [Probiotic] Losartan [Cozaar] 50 mg PO DAILY 06/10/19 09/20/19 History Multivitamins, Thera [Multivitamin 1 tab PO DAILY 06/10/19 09/20/19 History (formulary)] Ranitidine HCl [Zantac] 150 mg PO BID 06/10/19 09/20/19 History Allergies Allergy/AdvReac Type Severity Reaction Status Date / Time amoxicillin [From Augmentin] Allergy Rash/Hives Verified 09/20/19 13:17 bee pollen Allergy Swelling Verified 09/20/19 13:17 clavulanic acid Allergy Rash/Hives Verified 09/20/19 13:17 [From Augmentin] Physical Exam Vitals: Vital Signs Temp Pulse Pulse Resp BP BP Pulse Ox 09/20/19 16:48 76 09/20/19 16:35 76 09/20/19 15:00 97 F L 71 17 120/68 98 09/20/19 13:40 97.3 F L 79 18 126/80 94 L 09/20/19 12:33 79 18 126/80 94 L 09/20/19 10:50 72 98/57 95 09/20/19 10:40 71 20 98/57 96 09/20/19 10:32 20 09/20/19 10:30 75 20 94/63 94 L 09/20/19 10:20 75 20 94/63 93 L 09/20/19 10:10 65 20 94/63 89 L 09/20/19 10:00 72 20 112/76 82 L 09/20/19 09:52 79 L 09/20/19 09:42 97.3 F L 58 L 15 86/55 88 L Intake and Output 1209/20/19 09/20/19 06:59 14:59 22:59 Output Total 800 Balance -800 Output: Urine 800 Straight 800 Other: Weight 60.781 kg PHYSICAL EXAMINATION: GENERAL: The patient is alert and oriented x3, not in any acute distress. Well developed, well nourished. HEENT: Pupils are round and equally reacting to light. EOMI. No scleral icterus. No conjunctival pallor. Normocephalic, atraumatic. No pharyngeal erythema. No thyromegaly. CARDIOVASCULAR: S1 and S2 present. No murmurs, rubs, or gallops. PULMONARY: Chest is clear to auscultation, no wheezing or crackles. ABDOMEN: Soft, nontender, nondistended, normoactive bowel sounds. No palpable organomegaly. MUSCULOSKELETAL: No joint swelling or deformity. EXTREMITIES: No cyanosis, clubbing, or pedal edema. NEUROLOGICAL: Gross neurological examination did not reveal any focal deficits. SKIN: No rashes. Results CBC & Chem 7: 09/20/19 10:30 09/20/19 10:30 Labs: Abnormal Lab Results - Last 24 Hours (Table) 09/20/19 09/20/19 09/20/19 Range/Units 10:30 10:30 10:30 Plt Count 145 L (150-450) k/uL Carbon Dioxide 36 H (22-30) mmol/L BUN 29 H (9-20) mg/dL Creatinine 0.62 L (0.66-1.25) mg/dL Glucose 114 H (74-99) mg/dL Plasma Lactic Acid Adriano 2.3 H* (0.7-2.0) mmol/L Total Protein 6.1 L (6.3-8.2) g/dL Thrombosis Risk Factor Assmnt - Choose All That Apply Any of the Below Risk Factors Present?: Yes Each Factor Represents 1 point: Abnormal pulmonary function (COPD), Serious lung disease incl. pneumonia (< 1month) Other Risk Factors: Yes Each Risk Factor Represents 3 Points: Age 75 years or older Other congenital or acquired thrombophilia - If yes, enter type in comment: No Thrombosis Risk Factor Assessment Total Risk Factor Score: 5 Thrombosis Risk Factor Assessment Level: High Risk Assessment and Plan Assessment: 1. Left lower lobe pneumonia/sepsis - patient has had multiple admissions for similar problem; we will start patient on IV antibiotics, bronchodilator nebulizer treatments; order blood and sputum culture; monitor lactic acid levels; lactic acid level was elevated in ED; patient did receive a fluid bolus and repeat levels are at 2.3; patient does have a history of congestive heart failure; we will hold off on further fluid boluses and repeat lactic acid levels in 2 hours and adjust IV fluids ac cordingly 2. Altered mental status; metabolic encephalopathy secondary to 1 3. Mild renal injury/dehydration; Slow IV fluid hydration; monitor renal function and electrolytes; monitor strict VIRAJ's; avoid nephrotoxic agents and hypotension 4. Hypertension; continue with home dose of metoprolol, Imdur and Cozaar 5. Hyperlipidemia; Lipitor 40 mg by mouth daily at bedtime 6. Diabetes mellitus; We'll hold home dose of metformin and monitor Accu-Cheks every before meals and at bedtime with insulin sliding scale 7. DVT prophylaxis; SCDs/systemic anticoagulation CODE STATUS; DO NOT RESUSCITATE Time with Patient: Greater than 30
[2019-09-20] MEDS: SYMBICORT 160-4.5 MCG INHALER INHALATION SCH (19:49)
[2019-09-20] MEDS ORDERED: SODIUM CHLORIDE 0.9% 500 ML 500 ML IV ONE (21:19)
[2019-09-20] MEDS: ALPRAZolam 0.25 MG TAB PO PRN (21:53)
[2019-09-20] MEDS: METOPROLOL TARTRATE 50 MG TAB PO SCH (21:53)
[2019-09-20] MEDS: DOCUSATE 100 MG CAP PO SCH (21:53)
[2019-09-20] MEDS: APIXABAN 5 MG TAB PO SCH (21:53)
[2019-09-20] MEDS: AZTREONAM 2 GM in SODIUM CHLORIDE 0.9% 100 ML IVPB SCH (22:11)
[2019-09-20] MEDS: DONEPEZIL 10 MG TAB PO SCH (22:11)
[2019-09-21] MEDS: SYMBICORT 160-4.5 MCG INHALER INHALATION SCH ×2 (09:26→21:38)
[2019-09-21] MEDS: AZTREONAM 2 GM in SODIUM CHLORIDE 0.9% 100 ML IVPB SCH ×3 (10:03→23:44)
[2019-09-21] MEDS: MULTIVITAMINS, THERA 1 EACH TAB PO SCH (10:07)
[2019-09-21] MEDS: LOSARTAN 50 MG TAB PO SCH (10:07)
[2019-09-21] MEDS: ATORVASTATIN 40 MG TAB PO SCH (10:07)
[2019-09-21] MEDS: ASPIRIN 81 MG PO SCH (10:07)
[2019-09-21] MEDS: ALPRAZolam 0.25 MG TAB PO PRN (10:07)
[2019-09-21] MEDS: ISOSORBIDE MONONITRATE ER 30 MG TAB.ER.24H PO SCH (10:07)
[2019-09-21] MEDS: METOPROLOL TARTRATE 50 MG TAB PO SCH ×2 (10:08→21:33)
[2019-09-21] MEDS: TAMSULOSIN 0.4 MG CAP.ER.24H PO SCH (10:08)
[2019-09-21] MEDS: APIXABAN 5 MG TAB PO SCH ×2 (10:08→21:33)
[2019-09-21 10:35] VITALS: BMI 21.6
[2019-09-21] MEDS: CLINDAMYCIN 600 MG in DEXTROSE 5% IN WATER 50 ML IVPB SCH ×4 (11:15→18:04)
[2019-09-21] MEDS: LEVOFLOXACIN 750MG-D5W PMX 750 MG in DEXTROSE/WATER 1 150ML.BAG IVPB SCH (12:42)
[2019-09-21] MEDS ORDERED: IPRATROPIUM-ALBUTEROL 3 ML NEB INHALATION PRN (14:19)
--- NOTE | 2019-09-21 14:33 | XR ---
EXAMINATION TYPE: XR chest 2V DATE OF EXAM: 09/21/2019 COMPARISON: Prior chest x-ray 09/20/2019 HISTORY: Pneumonia TECHNIQUE: Frontal and lateral views of the chest are obtained. FINDINGS: There is airspace disease which is somewhat more confluent than on prior exam possibly in the bilateral lower lobes. Prominent lung volumes suggest underlying COPD. Aorta is dense. Heart is e nlarged. No evident pneumothorax, difficult to exclude minimal effusion. IMPRESSION: Correlate for pneumonia. Follow-up recommended.
--- NOTE | 2019-09-21 15:17 | P.CNPUL ---
History of Present Illness Consult date: 09/21/19 Reason for consult: pneumonia History of present illness: 89-year-old male patient, was been having [id number] pneumonias, came into the [facility] department yesterday due to concerns of worsening shortness of breath. The patient a mild and a weak cough a few days and at the same time he was bringing up some small amount of mucus. His breathing was not much labors. He did have any chest pain no he had any swelling in lower extremities. Apparently he had been swallowing well without any aspiration of food material. The patient was admitted to the hospital because of a concern of a left lower lobe pneumonia. He was started on a combination of antibiotics utilizing Levaquin, aztreonam and clindamycin. Note that he had some mild lactic acidosis which improved and acute lactic acid level is down to 1.7. The patient's white cell count is at 9.4 for now. Hemoglobin is at 13.2.influenza screen was negative.mother the patient has history of COPD. His COPD is moderate to severe with an FEV1 of 1.41 L which is 58% of predicted. He is known to have also multiple comorbidities including coronary artery disease, CHF with mild impair ment of the LV function and ejection fraction of 45-50%, coronary artery disease, diabetes mellitus type 2, hypertension, chronic atrial fibrillation, and history of BPH. The patient has had previous bouts of pneumonias. He has had previous bouts of confusion and weakness and falls. He is overall functional and performance status is also poor. Review of Systems Constitutional: Reports lethargy, Reports weakness, Denies chills, Denies fever Eyes: denies blurred vision, denies pain Ears, nose, mouth and throat: Denies headache, Denies sore throat Cardiovascular: Denies chest pain, Denies shortness of breath Respiratory: Reports congestion, Reports dyspnea, Reports respiratory infections, Reports wheezing, Denies cough Gastrointestinal: Denies abdominal pain, Denies diarrhea, Denies nausea, Denies vomiting Musculoskeletal: Denies myalgias Integumentary: Denies pruritus, Denies rash Neurological: Reports balance difficulties, Reports gait dysfunction, Reports lack of coordination, Denies numbness, Denies weakness Psychiatric: Denies anxiety, Denies depression Endocrine: Denies fatigue, Denies weight change Past Medical History Past Medical History: Atrial Fibrillation, Coronary Artery Disease (CAD), Heart Failure, COPD, Dementia, Diabetes Mellitus, Eye Disorder, Hyperlipidemia, Hypertension, Pneumonia, Prostate Disorder Additional Past Medical History / Comment(s): NIDDM type II, beginning of dementia, joint pain-multiple sites. History of Any Multi-Drug Resistant Organisms: None Reported Past Surgical History: Heart Catheterization, Hernia Repair, Tonsillectomy Additional Past Surgical History / Comment(s): TURP, cystoscopy, L inguinal herniorraphy, bilateral cataract removal with lens implants. Past Anesthesia/Blood Transfusion Reactions: No Reported Reaction Past Psychological History: No Psychological Hx Reported Smoking Status: Former smoker Past Alcohol Use History: None Reported Additional Past Alcohol Use History / Comment(s): Pt started smoking in 8 and quit in 1996. Past Drug Use History: None Reported - Past Family History Mother Additional Family Medical History / Comment(s): Mother either of CHF or a [facility] at the age of 82 yrs. Father Family Medical History: Cancer Additional Family Medical History / Comment(s): Father of complications after surgery for throat cancer at the age of 76yrs. Medications and Allergies Home Medications Medication Instructions Recorded Confirmed Type Atorvastatin [Lipitor] 40 mg PO DAILY 06/04/15 09/20/19 History Tamsulosin [Flomax] 0.4 mg PO DAILY 06/04/15 09/20/19 History Aspirin [Adult Low Dose Aspirin EC] 81 mg PO MOWEFR 09/23/17 09/20/19 History Budesonide/Formoterol Fumarate 2 puff INHALATION RT-BID 09/23/17 09/20/19 History [Symbicort 160-4.5 Mcg Inhaler] Donepezil [Aricept] 10 mg PO HS 09/23/17 09/20/19 History Isosorbide Mononitrate ER [Imdur] 30 mg PO DAILY 09/23/17 09/20/19 History Metoprolol Tartrate [Lopressor] 50 mg PO BID 09/23/17 09/20/19 History Potassium Chloride [K-Tab ER] 10 meq PO DAILY 09/23/17 09/20/19 History metFORMIN HCL [Glucophage] 500 mg PO DAILY 09/23/17 09/20/19 History Furosemide [Lasix] 20 mg PO BID@0900,1600 #60 tab 09/25/17 09/20/19 Rx ALPRAZolam [Xanax] 0.25 mg PO BID PRN 12/16/17 09/20/19 History Apixaban [Eliquis] 5 mg PO BID 12/16/17 09/20/19 History Docusate [Colace] 200 mg PO HS 12/16/17 09/20/19 History Donaldson-3 Fatty Acids/Fish Oil [Fish 1 cap PO DAILY 12/16/17 09/20/19 History Oil 1,000 mg Softgel] Albuterol Nebulized [Ventolin 2.5 mg INHALATION RT-Q4H PRN 11/15/18 09/20/19 History Nebulized] Ascorbic Acid [Vitamin C] 500 mg PO DAILY 11/15/18 09/20/19 History Cyanocobalamin [Vitamin B-12] 500 mcg PO DAILY 06/10/19 09/20/19 History Glucosam/Marlon-Msm1/C/Mark/Bosw 1 tab PO DAILY 06/10/19 09/20/19 History [Glucosamine-Chondroitin Tablet] L.acidoph,Paracasei, B.lactis 1 cap PO DAILY 06/10/19 09/20/19 History [Probiotic] Losartan [Cozaar] 50 mg PO DAILY 06/10/19 09/20/19 History Multivitamins, Thera [Multivitamin 1 tab PO DAILY 06/10/19 09/20/19 History (formulary)] Ranitidine HCl [Zantac] 150 mg PO BID 06/10/19 09/20/19 History Allergies Allergy/AdvReac Type Severity Reaction Status Date / Time amoxicillin [From Augmentin] Allergy Rash/Hives Verified 09/20/19 13:17 bee pollen Allergy Swelling Verified 09/20/19 13:17 clavulanic acid Allergy Rash/Hives Verified 09/20/19 13:17 [From Augmentin] Physical Exam Vitals: Vital Signs Temp Pulse Pulse Resp BP Pulse Ox 09/21/19 11:32 96.9 F L 83 17 110/66 96 09/21/19 09:34 78 09/21/19 09:27 80 09/21/19 05:22 97.3 F L 79 16 159/94 99 09/20/19 21:25 97.5 F L 81 20 152/60 97 09/20/19 16:48 76 09/20/19 16:35 76 Intake and Output 09/21/19 09/21/19 09/21/19 06:59 14:59 22:59 Intake Total 700 Output Total 500 Balance 200 Intake: Intake, IV Titration 700 Amount Sodium Chloride 0.9% 1, 700 000 ml @ 100 mls/hr IV . Q10H [facility] Rx#:[id number] Output: Urine 500 Straight 500 Other: Voiding Method Indwelling Catheter Weight 60.781 kg GENERAL EXAM: Alert, pleasant, 89-year-old white male comfortable in no apparent distress. HEAD: Normocephalic/atraumatic. EYES: Normal reaction of pupils, equal size. Conjunctiva pink, sclera white. NOSE: Clear with pink turbinates. THROAT: No erythema or exudates. NECK: No masses, no JVD, no thyroid enlargement, no adenopathy. CHEST: No chest wall deformity. Symmetrical expansion. LUNGS: the patient has diminished breath sounds bilaterally and the patient's correct in the left lung base. The patient also has a weak cough. CVS: Regular rate and rhythm, normal S1 and S2, no gallops, no murmurs, no rubs ABDOMEN: Soft, nontender. No hepatosplenomegaly, normal bowel sounds, no guarding or rigidity. EXTREMITIES: No clubbing, no edema, no cyanosis, 2+ pulses and upper and lower extremities. MUSCULOSKELETAL: Muscle strength and tone normal. SPINE: No scoliosis or deformity SKIN: No rashes CENTRAL NERVOUS SYSTEM: Alert and oriented -3. No focal deficits, tone is normal in all 4 extremities. PSYCHIATRIC: Alert and oriented -3. Appropriate affect. Intact judgment and insight. Results - Laboratory Findings CBC and BMP: 09/20/19 10:30 09/20/19 10:30 PT/INR, D-dimer PT 11.1 sec (9.0-12.0) 09/20/19 10:30 INR 1.1 (<1.2) 09/20/19 10:30 Abnormal lab findings: Abnormal Labs 09/20/19 09/20/19 09/20/19 10:30 10:30 10:30 Plt Count 145 L Carbon Dioxide 36 H BUN 29 H Creatinine 0.62 L Glucose 114 H Plasma Lactic Acid Adriano 2.3 H* Total Protein 6.1 L 09/20/19 09/20/19 17:05 20:00 Plt Count Carbon Dioxide BUN Creatinine Glucose Plasma Lactic Acid Adriano 2.3 H* 2.7 H* Total Protein - Diagnostic Findings Chest x-ray: image reviewed Assessment and Plan Plan: assessment 1 left lower lobe pneumonia with secondary hypoxic respiratory failure. Aspiration is highly suspected although the patient continues to pass his swallow evaluation successfully.in fact, the last swallow evaluation on 08/24/2019 showed aspiration below the level of the vocal cords with nectar thick liquid barium consistency. The patient had satisfactory initiation and propagation. At evaluation will be needed. 2 COPD moderate to severe with an FEV1 of 58% of predicted 3 chronic atrial fibrillation 4 hypertension 5 coronary artery disease 6 hyperlipidemia 7 diabetes mellitus type 2 8 dementia 9 BPH 10 CHF with mild LV dysfunction 11 mild lactic acidosis, improving and the lactic acid level is down to 1.7 Plan Continue Levaquin and aztreonam and clindamycin combination Pulmonary toileting and deep breathing Sputum Gram stain and culture Albuterol nebulized treatments around the clock aspiration precautions. We'll follow. Consider another swallow evaluation. We'll discuss the findings of the latest swallow evaluation with speech pathology.
--- NOTE | 2019-09-21 16:25 | PN ---
PROGRESS NOTE DATE OF SERVICE: 09/21/2019 This 89-year-old gentleman admitted to the hospital with left lower lobe pneumonia with a change in mental status, metabolic encephalopathy, acute renal injury is being closely monitored. Patient continues to be confused. Patient on broad spectrum IV antibiotics. The cultures are negative so far. PAST MEDICAL HISTORY: Past medical reviewed. REVIEW OF SYMPTOMS: Review of systems could not be taken. The patient is confused and obtunded. CURRENT MEDICATIONS: Reviewed and include: 1. DuoNeb q.i.d. and p.r.n. 2. Xanax 0.5 b.i.d. 3. Eliquis. 4. Vitamin D. 5. Aspirin. 6. Lipitor. 7. Aztreonam 2 g IV. 8. Clindamycin. 9. Colace. 10.Donepezil. 11.Imdur. 12.Levaquin. 13.Losartan. 14.Metoprolol. 15.Multivitamin. 16.Flomax. PHYSICAL EXAMINATION: Patient is conscious but confused. Pulse 83, blood pressure 110/63, respirations 17, temperature 97.9, pulse ox 96% on 2 L. HEENT: Conjunctivae normal. Oral mucosa moist. NECK is no jugular venous distention. No carotid bruit. No lymph node enlargement. Breathing efforts are mildly increased. Cardiovascular system: S1, S2 muffled. No S3, no S4. RESPIRATORY: Breath sounds diminished in the bases. Bilateral scattered rhonchi and crackles. Expiratory wheezing also present. ABDOMEN: Soft, nontender. No mass palpable. LEGS: No edema. No swelling. NERVOUS SYSTEM: Higher functions as mentioned earlier. Otherwise, diffusely weak, unable to cooperate with full exam. SKIN: No ulcer, rash or bleeding. JOINTS: No active deforming arthropathy. LABS: CBC noted. Platelets 145. Sodium 141, potassium 3.3, creatinine 0.62, and plasma lactic acid 27. BUN is 29. ASSESSMENT: 1. Acute left lower pneumonia, possibly community-acquired, with sepsis. 2. Change in mental status, acute metabolic encephalopathy secondary to sepsis. 3. Mild kidney injury with secondary dehydration on IV fluids. 4. Hypertension. 5. Hyperlipidemia. 6. Diabetes mellitus type 2. 7. Deep vein thrombosis prophylaxis. 8. Mild thrombocytopenia. 9. Elevated CO2. 10.History of atrial fibrillation, chronic. 11.History of congestive heart failure, ejection fraction unknown. 12.History of coronary artery disease. 13.Chronic obstructive pulmonary disease. 14.History of dementia. 15.Diabetes mellitus type 2. 16.Hyperlipidemia. 17.Hypertension. 18.History of prostate disorder. 19.Gait dysfunction. 20.History of TURP. 21.Remote history of nicotine dependence. 22.NO CODE, NO CPR, NO VENT. RECOMMENDATIONS AND DISCUSSION: This 89-year-old gentleman who presented with multiple complex medical issues, we will monitor the patient closely. Continue the current medications, management and symptomatic treatment. The patient will be started on broad-spectrum IV antibiotics including aztreonam and clindamycin and Levaquin. I would recommend pulmonary consultation. Continue the bronchodilators. Continue DVT prophylaxis. We will continue to monitor. Prognosis guarded because of multiple complex medical issues. Further recommendations to follow. Discussed with the family at length. The patient is followed by Dr. Borges in the outpatient setting. MMMINORL / SON: [id number] /
[2019-09-21] MEDS: IPRATROPIUM-ALBUTEROL 3 ML NEB INHALATION SCH ×2 (16:36→21:38)
[2019-09-21] MEDS: DOCUSATE 100 MG CAP PO SCH (21:25)
[2019-09-21] MEDS: FAMOTIDINE 20 MG TAB PO SCH (21:33)
[2019-09-21] MEDS: DONEPEZIL 10 MG TAB PO SCH (21:34)
[2019-09-22] MEDS: CLINDAMYCIN 600 MG in DEXTROSE 5% IN WATER 50 ML IVPB SCH ×6 (00:55→19:46)
[2019-09-22] MEDS: AZTREONAM 2 GM in SODIUM CHLORIDE 0.9% 100 ML IVPB SCH ×3 (07:55→23:42)
[2019-09-22 08:00] LABS: Basophils % (A) 0 %; Eosinophils # (A) 0.1 k/uL (0-0.7); Eosinophils % (A) 2 %; HCT 33.3 % (39.0-53.0); HGB 11.4 gm/dL (13.0-17.5); Lymphocytes # (A) 1.1 k/uL (1.0-4.8); Lymphocytes % (A) 24 %; MCHC 34.1 g/dL (31.0-37.0); MCV 90.7 fL (80.0-100.0); Mean Platelet Volume 7.2; Monocytes # (A) 0.2 k/uL (0-1.0); Monocytes % (A) 5 %; Neutrophils # (A) 3.1 k/uL (1.3-7.7); Neutrophils % (A) 67 %; Platelet Count 132 k/uL (150-450); Poikilocytosis Slight; RBC 3.67 m/uL (4.30-5.90); RDW 14.1 % (11.5-15.5); WBC 4.6 k/uL (3.8-10.6)
[2019-09-22 08:08] LABS: African American GFR (CKD) >90 (>60 ml/min/1.73 sqM); Anion Gap 1 mmol/L; Blood Urea Nitrogen 23 mg/dL (9-20); Carbon Dioxide 32 mmol/L (22-30); Chloride 105 mmol/L (98-107); Glucose 81 mg/dL (74-99); Non-African American GFR(CKD) >90 (>60 ml/min/1.73 sqM); Sodium 138 mmol/L (137-145)
[2019-09-22 08:09] LABS: Potassium 4.2 mmol/L (3.5-5.1)
[2019-09-22] MEDS: ISOSORBIDE MONONITRATE ER 30 MG TAB.ER.24H PO SCH (08:40)
[2019-09-22] MEDS: FAMOTIDINE 20 MG TAB PO SCH ×2 (08:40→20:58)
[2019-09-22] MEDS: MULTIVITAMINS, THERA 1 EACH TAB PO SCH (08:40)
[2019-09-22] MEDS: ASCORBIC ACID 500 MG TAB PO SCH (08:40)
[2019-09-22] MEDS: CYANOCOBALAMIN 500 MCG TAB PO SCH (08:40)
[2019-09-22] MEDS: METOPROLOL TARTRATE 50 MG TAB PO SCH ×2 (08:40→20:58)
[2019-09-22] MEDS: APIXABAN 5 MG TAB PO SCH ×2 (08:40→20:58)
[2019-09-22] MEDS: TAMSULOSIN 0.4 MG CAP.ER.24H PO SCH (08:41)
[2019-09-22] MEDS: ATORVASTATIN 40 MG TAB PO SCH (08:41)
[2019-09-22] MEDS: POTASSIUM CHLORIDE ER 10 MEQ TAB.ER.PRT PO SCH (08:41)
[2019-09-22] MEDS: NON FORMULARY DRUG (Omega-3 Fatty Acids/Fish Oil [Fish Oil 1,000 Mg Softgel] 1 CAP) PO SCH (08:41)
[2019-09-22] MEDS: LOSARTAN 50 MG TAB PO SCH (08:41)
[2019-09-22] MEDS: LACTOBACILLUS ACIDOPH & BULGAR 1 EACH PACKET PO SCH (08:41)
[2019-09-22] MEDS: NON FORMULARY DRUG (Glucosam/Chon-Msm1/C/Mang/Bosw [Glucosamine-Chondroitin Tablet] 1 TAB) PO SCH (08:41)
[2019-09-22] MEDS: IPRATROPIUM-ALBUTEROL 3 ML NEB INHALATION SCH ×4 (09:19→21:16)
[2019-09-22] MEDS: SYMBICORT 160-4.5 MCG INHALER INHALATION SCH ×2 (09:28→21:16)
--- NOTE | 2019-09-22 10:31 | P.PN ---
Subjective Progress Note Date: 09/22/19 89-year-old male patient, was been having [id number] pneumonias, came into the [facility] department yesterday due to concerns of worsening shortness of breath. The patient a mild and a weak cough a few days and at the same time he was bringing up some small amount of mucus. His breathing was not much labors. He did have any chest pain no he had any swelling in lower extremities. Apparently he had been swallowing well without any aspiration of food material. The patient was admitted to the hospital because of a concern of a left lower lobe pneumonia. He was started on a combination of antibiotics utilizing Levaquin, aztreonam and clindamycin. Note that he had some mild lactic acidosis which i mproved and acute lactic acid level is down to 1.7. The patient's white cell count is at 9.4 for now. Hemoglobin is at 13.2.influenza screen was negative.mother the patient has history of COPD. His COPD is moderate to severe with an FEV1 of 1.41 L which is 58% of predicted. He is known to have also multiple comorbidities including coronary artery disease, CHF with mild impairment of the LV function and ejection fraction of 45-50%, coronary artery disease, diabetes mellitus type 2, hypertension, chronic atrial fibrillation, and history of BPH. The patient has had previous bouts of pneumonias. He has had previous bouts of confusion and weakness and falls. He is overall functional and performance status is also poor. n 09/22/2019 the patient is confused and delirious. He is sitting up on a chair. No agitation. He remains on oxygen atinstrument nasal cannula. He is unable to hold a conversation. At times is trying to pull off his clothes. No fever. No chills. He remains on broad-spectrum antibiotics for now. I will say there is some worsening in his overall condition compared to yesterday. The follow-up chest x-ray was ordered for today. Objective - Vital Signs Vital signs: Vital Signs Temp 98.1 F 09/22/19 08:37 Pulse 82 09/22/19 09:28 Resp 22 09/22/19 09:19 BP 141/71 09/22/19 08:37 Pulse Ox 97 09/22/19 09:19 Intake & Output 09/21/19 09/22/19 09/22/19 18:59 06:59 18:59 Intake Total 370 Output Total 500 700 Balance -500 -330 Weight 60.781 kg Intake: Intake, IV Titration 150 Amount Aztreonam 2 gm In Sodium 100 Chloride 0.9% 100 ml @ 100 mls/hr IVPB Q8HR [facility] Rx#:[id number] Clindamycin 600 mg In 50 Dextrose 5% in Water 50 ml @ 50 mls/hr IVPB Q8HR [facility] Rx#:[id number] Oral 220 Output: Urine 500 700 Other: Voiding Method Indwelling Catheter Indwelling Catheter # Bowel Movements 1 - Exam GENERAL EXAM: Alert, pleasant, 89-year-old white male comfortable in no apparent distress.patient is delirious and confused. HEAD: Normocephalic/atraumatic. EYES: Normal reaction of pupils, equal size. Conjunctiva pink, sclera white. NOSE: Clear with pink turbinates. THROAT: No erythema or exudates. NECK: No masses, no JVD, no thyroid enlargement, no adenopathy. CHEST: No chest wall deformity. Symmetrical expansion. LUNGS: the patient has diminished breath sounds bilaterally and the patient's correct in the left lung base. The patient also has a weak cough. CVS: Regular rate and rhythm, normal S1 and S2, no gallops, no murmurs, no rubs ABDOMEN: Soft, nontender. No hepatosplenomegaly, normal bowel sounds, no guarding or rigidity. EXTREMITIES: No clubbing, no edema, no cyanosis, 2+ pulses and upper and lower extremities. MUSCULOSKELETAL: Muscle strength and tone normal. SPINE: No scoliosis or deformity SKIN: No rashes CENTRAL NERVOUS SYSTEM: no neurological deficit. He is delirious. He is confused. Unable to answer Appropriately. PSYCHIATRIC: the patient is that he is confused. Intact judgment and insight. - Labs CBC & Chem 7: 09/22/19 07:25 09/22/19 07:25 Labs: Abnormal Lab Results - Last 24 Hours (Table) 09/22/19 09/22/19 Range/Units 07:25 07:25 RBC 3.67 L (4.30-5.90) m/uL Hgb 11.4 L (13.0-17.5) gm/dL Hct 33.3 L (39.0-53.0) % Plt Count 132 L (150-450) k/uL Carbon Dioxide 32 H (22-30) mmol/L BUN 23 H (9-20) mg/dL Creatinine 0.54 L (0.66-1.25) mg/dL Microbiology - Last 24 Hours (Table) 09/20/19 10:30 Blood Culture - Preliminary Blood No Growth after 24 hours Assessment and Plan Plan: assessment 1 left lower lobe pneumonia with secondary hypoxic respiratory failure. Aspiration is highly suspected although the patient continues to pass his swallow evaluation successfully. In fact, the last swallow evaluation on 08/24/2019 showed aspiration below the level of the vocal cords with nectar thick liquid barium consistency. The patient had satisfactory initiation and propagation. At evaluation will be needed. 2 COPD moderate to severe with an FEV1 of 58% of predicted 3 chronic atrial fibrillation 4 hypertension 5 coronary artery disease 6 hyperlipidemia 7 diabetes mellitus type 2 8 dementia 9 BPH 10 CHF with mild LV dysfunction 11 mild lactic acidosis, improving and the lactic acid level is down to 1.7 2 altered mentation, the medium secondary to above Plan Continue Levaquin and aztreonam and clindamycin combination Pulmonary toileting and deep breathing Sputum Gram stain and culture Albuterol nebulized treatments around the clock aspiration precautions. We another swallow evaluation thinking that the patient is having recurrent aspirations. Monitor delirium. Repeat chest x-ray from today portable 1. We'll continue to follow. Keep same antibiotics for now.
--- NOTE | 2019-09-22 11:26 | XR ---
EXAMINATION TYPE: XR chest 1V portable DATE OF EXAM: 09/22/2019 COMPARISON: Prior chest x-ray 09/21/2019 HISTORY: Pneumonia TECHNIQUE: Single frontal view of the chest is obtained. FINDINGS: Patient is rotated. Heart is enlarged. Retrocardiac density obscures the left hemidiaphrag m. Right hemidiaphragm is elevated. No evident pneumothorax. Patchy increased density also present at the right lung base. Aorta appears tortuous and dense. IMPRESSION: Rotated exam. There may be bibasilar pneumonia, difficult to exclude effusion. Cardiomeg dayanara.
[2019-09-22] MEDS: LEVOFLOXACIN 750MG-D5W PMX 750 MG in DEXTROSE/WATER 1 150ML.BAG IVPB SCH (11:47)
--- NOTE | 2019-09-22 12:51 | CDI ---
Documentation Clarification Form Date: 09/22/2019 12:44:39 PM From: Vale VuKONG, CCDS Admit Date: 09/20/2019 12:49:00 PM Patient Name: Joe Chavez Visit Number: [id number] Discharge Date: ATTENTION: The Clinical Documentation Specialists (CDI) and [facility] Coding Staff appreciate your assistance in clarifying documentation. Please respond to the clarification below the line at the bottom and electronically sign. The CDI & [facility] Coding staff will review the response and follow-up if needed. Please note: Queries are made part of the Legal Health Record. If you have any questions, please contact the author of this message via ITS. Dr. Rosy Hernandez: Per the pulmonary consult & subsequent progress note: " left lower lobe pneumonia with secondary hypoxic respiratory failure." The acuity of the patient's respiratory failure is not specified. History/Risk Factors: COPD, previous hospitalization for pneumonia, former smoker, chronic atrial fibrillation, CAD, CHF nos, IDDM II, Hypertension, Hyperlipidemia, Dementia. DNR Clinical Indicators: Presented with worsening SOB & cough. Diagnosed with Sepsis & pneumonia, suspected aspiration & respiratory failure w/hypoxia. Vital signs: T 97.3*, P 58 - 72, R 15 - 20, BP 86/55*, PO 88 2Lnc - 79 2Lnc - 82 2Lnc Lung/Breathing assessment: SOB with cough Treatment: O2 2Lnc, INH Albuterol, IV Solumedrol, IV Rocephin, IV fluid bolus, IV Aztreonam, IV Levaquin In your professional opinion, can you please clarify if these findings signify one of the following conditions? Acute Respiratory Failure Acute on Chronic Respiratory Failure Chronic Respiratory Failure Other Diagnosis, please specify Unable to determine (Last Query Form Revision: June 2019) Acute on Chronic Respiratory Failure MTDD
--- NOTE | 2019-09-22 17:01 | PN ---
PROGRESS NOTE DATE OF SERVICE: 09/22/2019 This 89-year-old gentleman was admitted with significant left lower pneumonia. The patient was extremely sick on admission despite normal labs, which is rather surprising. Please do not be deceived by the normal labs. The patient has significant pneumonia with possibly early sepsis, present on admission. The patient has been given IV antibiotics and is closely monitored at this time. The patient also had some change in mental status and metabolic encephalopathy. Dr. Hernandez is following the patient closely. A repeat chest x-ray has been done which was personally reviewed by me. It showed bibasilar pneumonia, left more than the right possibly. Past medical history reviewed. REVIEW OF SYSTEMS: CARDIOVASCULAR SYSTEM: No angina, palpitations. RESPIRATORY SYSTEM: As mentioned earlier. GI: No nausea, vomiting. : No dysuria or retention. NERVOUS SYSTEM: No numbness, weakness. CURRENT MEDICATIONS: Reviewed. They include: 1. Tylenol p.r.n. 2. DuoNeb q.i.d. and p.r.n. 3. Xanax. 4. Eliquis 5 mg p.o. b.i.d. 5. Vitamin C. 6. Aspirin. 7. Lipitor. 8. Aztreonam 2 grams IV q.8. 9. Symbicort. 10.Clindamycin q.8 p.r.n. 11.Colace. 12.Aricept. 13.Pepcid. 14.Imdur. 15.Levaquin. 16.Lopressor. 17.Multivitamins. 18.Flomax. PHYSICAL EXAMINATION: Patient continues to be confused. Pulse 63, blood pressure 139/76, respiration 20, temperature 98.2, pulse ox 94% on room air. HEENT: Conjunctivae normal. NECK: No jugular venous distention. CARDIOVASCULAR SYSTEM: S1, S2 muffled. RESPIRATORY SYSTEM: Breath sounds diminished at the bases. Bilateral scattered rhonchi and crackles. ABDOMEN: Soft, non-tender. No mass palpable. LEGS: No edema. No swelling. NERVOUS SYSTEM: Diffusely weak. LABS: WBC 4.6, hemoglobin 11.4. Influenza negative. Lactic acid 2.7. ASSESSMENT: 1. Acute bibasilar pneumonia, left more than the right, possibly community-acquired, possibly aspiration with sepsis, present on admission. 2. Change in mental status, acute metabolic encephalopathy, secondary to sepsis. 3. Mild kidney injury secondary to dehydration, on IV fluids. 4. Hypertension. 5. Hyperlipidemia. 6. Diabetes mellitus, type 2. 7. Deep vein thrombosis prophylaxis. 8. Mild thrombocytopenia. 9. Elevated carbon dioxide. 10.History of atrial fibrillation, chronic. 11.History of congestive heart failure; ejection fraction unknown. 12.History of coronary artery disease. 13.Chronic obstructive pulmonary disease. 14.History of dementia. 15.History of prostate disorder. 16.Gait dysfunction. 17.History of transurethral resection of prostate. 18.Remote history of nicotine dependence. 19.NO CODE, NO CPR, NO VENT. RECOMMENDATIONS AND DISCUSSION: I recommend to continue current medications, continue symptomatic treatment, continue with IV antibiotics. The patient is on triple-antibiotic therapy intravenously. The patient continues to be confused and restless at this time. Continue the intensive bronchodilator treatment. Otherwise, repeat labs and closely follow with Pulmonary. Guarded prognosis because of multiple complex medical issues. Cultures are negative so far. Recommend close followup with Dr. Borges in the outpatient setting. MMMINORL / IJN: [id number] /
[2019-09-22] MEDS: ACETAMINOPHEN TAB 325 MG TAB PO PRN (19:38)
[2019-09-22] MEDS: DOCUSATE 100 MG CAP PO SCH (20:58)
[2019-09-22] MEDS: DONEPEZIL 10 MG TAB PO SCH (20:58)
[2019-09-23] MEDS: CLINDAMYCIN 600 MG in DEXTROSE 5% IN WATER 50 ML IVPB SCH ×6 (01:00→18:17)
[2019-09-23] MEDS: ATORVASTATIN 40 MG TAB PO SCH (08:49)
[2019-09-23] MEDS: ASCORBIC ACID 500 MG TAB PO SCH (08:49)
[2019-09-23] MEDS: APIXABAN 5 MG TAB PO SCH ×2 (08:49→21:09)
[2019-09-23] MEDS: FAMOTIDINE 20 MG TAB PO SCH ×2 (08:50→21:10)
[2019-09-23] MEDS: CYANOCOBALAMIN 500 MCG TAB PO SCH (08:50)
[2019-09-23] MEDS: NON FORMULARY DRUG (Glucosam/Chon-Msm1/C/Mang/Bosw [Glucosamine-Chondroitin Tablet] 1 TAB) PO SCH (08:51)
[2019-09-23] MEDS: POTASSIUM CHLORIDE ER 10 MEQ TAB.ER.PRT PO SCH (08:52)
[2019-09-23] MEDS: LACTOBACILLUS ACIDOPH & BULGAR 1 EACH PACKET PO SCH (08:52)
[2019-09-23] MEDS: MULTIVITAMINS, THERA 1 EACH TAB PO SCH (08:52)
[2019-09-23] MEDS: METOPROLOL TARTRATE 50 MG TAB PO SCH ×2 (08:52→21:09)
[2019-09-23] MEDS: NON FORMULARY DRUG (Omega-3 Fatty Acids/Fish Oil [Fish Oil 1,000 Mg Softgel] 1 CAP) PO SCH (08:52)
[2019-09-23] MEDS: LOSARTAN 50 MG TAB PO SCH (08:52)
[2019-09-23] MEDS: ISOSORBIDE MONONITRATE ER 30 MG TAB.ER.24H PO SCH (08:52)
[2019-09-23] MEDS: TAMSULOSIN 0.4 MG CAP.ER.24H PO SCH (08:52)
[2019-09-23] MEDS: ASPIRIN 81 MG PO SCH (08:55)
[2019-09-23 09:23] LABS: Basophils % (A) 0 %; Eosinophils # (A) 0.1 k/uL (0-0.7); Eosinophils % (A) 2 %; HCT 37.4 % (39.0-53.0); HGB 11.9 gm/dL (13.0-17.5); Lymphocytes % (A) 20 %; MCH 29.1 pg (25.0-35.0); MCHC 31.9 g/dL (31.0-37.0); MCV 91.2 fL (80.0-100.0); Mean Platelet Volume 7.4; Monocytes # (A) 0.3 k/uL (0-1.0); Monocytes % (A) 6 %; Neutrophils # (A) 3.4 k/uL (1.3-7.7); Neutrophils % (A) 70 %; Platelet Count 126 k/uL (150-450); Poikilocytosis Slight; WBC 4.9 k/uL (3.8-10.6)
[2019-09-23 09:37] LABS: African American GFR (CKD) >90 (>60 ml/min/1.73 sqM); Anion Gap 2 mmol/L; Blood Urea Nitrogen 23 mg/dL (9-20); Calcium 9.4 mg/dL (8.4-10.2); Carbon Dioxide 33 mmol/L (22-30); Chloride 103 mmol/L (98-107); Glucose 77 mg/dL (74-99); Non-African American GFR(CKD) >90 (>60 ml/min/1.73 sqM); Potassium 4.1 mmol/L (3.5-5.1); Sodium 138 mmol/L (137-145)
[2019-09-23] MEDS: AZTREONAM 2 GM in SODIUM CHLORIDE 0.9% 100 ML IVPB SCH ×3 (09:37→23:44)
[2019-09-23] MEDS: IPRATROPIUM-ALBUTEROL 3 ML NEB INHALATION SCH ×4 (09:41→20:27)
[2019-09-23] MEDS: SYMBICORT 160-4.5 MCG INHALER INHALATION SCH ×2 (09:41→20:27)
--- NOTE | 2019-09-23 10:42 | P.PN ---
Subjective Progress Note Date: 09/23/19 89-year-old male patient, was been having [id number] pneumonias, came into the [facility] department yesterday due to concerns of worsening shortness of breath. The patient a mild and a weak cough a few days and at the same time he was bringing up some small amount of mucus. His breathing was not much labors. He did have any chest pain no he had any swelling in lower extremities. Apparently he had been swallowing well without any aspiration of food material. The patient was admitted to the hospital because of a concern of a left lower lobe pneumonia. He was started on a combination of antibiotics utilizing Levaquin, aztreonam and clindamycin. Note that he had some mild lactic acidosis which i mproved and acute lactic acid level is down to 1.7. The patient's white cell count is at 9.4 for now. Hemoglobin is at 13.2.influenza screen was negative.mother the patient has history of COPD. His COPD is moderate to severe with an FEV1 of 1.41 L which is 58% of predicted. He is known to have also multiple comorbidities including coronary artery disease, CHF with mild impairment of the LV function and ejection fraction of 45-50%, coronary artery disease, diabetes mellitus type 2, hypertension, chronic atrial fibrillation, and history of BPH. The patient has had previous bouts of pneumonias. He has had previous bouts of confusion and weakness and falls. He is overall functional and performance status is also poor. n 09/22/2019 the patient is confused and delirious. He is sitting up on a chair. No agitation. He remains on oxygen atinstrument nasal cannula. He is unable to hold a conversation. At times is trying to pull off his clothes. No fever. No chills. He remains on broad-spectrum antibiotics for now. I will say there is some worsening in his overall condition compared to yesterday. The follow-up chest x-ray was ordered for today. On 09/23/2019 the patient is much more comfortable and less that he is compared to yesterday. In fact he is able to hold a conversation and communicate with me today. He is following some simple commands. His cough is weak. No signs of any respiratory distress. He remains nothing by mouth. He is going to have another swallow evaluation today. He remains on broad-spectrum antibiotics for now. Chest x-ray from yesterday was noted and the patient is a left lower lobe pulmonary infiltrates suggestive an underlying pneumonia. He is on oxygen at home at 3 L per minute nasal cannula. Objective - Vital Signs Vital signs: Vital Signs Temp 97.8 F 09/23/19 05:00 Pulse 84 09/23/19 09:54 Resp 20 09/23/19 05:00 BP 168/80 09/23/19 05:00 Pulse Ox 97 09/23/19 05:00 Intake & Output 09/22/19 09/23/19 09/23/19 18:59 06:59 18:59 Intake Total 190 Output Total 850 Balance -660 Intake: IV 40 Normal saline 10 mL/hr 40 Intake, IV Titration 150 Amount Aztreonam 2 gm In Sodium 100 Chloride 0.9% 100 ml @ 100 mls/hr IVPB Q8HR [facility] Rx#:[id number] Clindamycin 600 mg In 50 Dextrose 5% in Water 50 ml @ 50 mls/hr IVPB Q8HR [facility] Rx#:[id number] Output: Urine 850 Straight 850 Other: Voiding Method Indwelling Catheter Indwelling Catheter # Bowel Movements 2 1 - Exam GENERAL EXAM: Alert, pleasant, 89-year-old white male comfortable in no apparent distress.patient is delirious and confused. HEAD: Normocephalic/atraumatic. EYES: Normal reaction of pupils, equal size. Conjunctiva pink, sclera white. NOSE: Clear with pink turbinates. THROAT: No erythema or exudates. NECK: No masses, no JVD, no thyroid enlargement, no adenopathy. CHEST: No chest wall deformity. Symmetrical expansion. LUNGS: the patient has diminished breath sounds bilaterally and the patient's correct in the left lung base. The patient also has a weak cough. CVS: Regular rate and rhythm, normal S1 and S2, no gallops, no murmurs, no rubs ABDOMEN: Soft, nontender. No hepatosplenomegaly, normal bowel sounds, no guarding or rigidity. EXTREMITIES: No clubbing, no edema, no cyanosis, 2+ pulses and upper and lower extremities. MUSCULOSKELETAL: Muscle strength and tone normal. SPINE: No scoliosis or deformity SKIN: No rashes CENTRAL NERVOUS SYSTEM: no neurological deficit. He is delirious. He is confused. Unable to answer Appropriately. PSYCHIATRIC: the patient is that he is confused. Intact judgment and insight. - Labs CBC & Chem 7: 09/23/19 08:57 09/23/19 08:57 Labs: Abnormal Lab Results - Last 24 Hours (Table) 09/23/19 09/23/19 Range/Units 08:57 08:57 RBC 4.10 L (4.30-5.90) m/uL Hgb 11.9 L (13.0-17.5) gm/dL Hct 37.4 L (39.0-53.0) % Plt Count 126 L (150-450) k/uL Carbon Dioxide 33 H (22-30) mmol/L BUN 23 H (9-20) mg/dL Creatinine 0.59 L (0.66-1.25) mg/dL Microbiology - Last 24 Hours (Table) 09/20/19 10:30 Blood Culture - Preliminary Blood No Growth after 48 hours Assessment and Plan Plan: assessment 1 left lower lobe pneumonia with secondary hypoxic respiratory failure. Aspiration is highly suspected although the patient continues to pass his swallow evaluation successfully. In fact, the last swallow evaluation on 08/24/2019 showed aspiration below the level of the vocal cords with nectar thick liquid barium consistency. The patient had satisfactory initiation and propagation. A swallow evaluation will be needed. This was postponed and not done yesterday as the patient was quite diabetes. He'll be having another swallow evaluation today. 2 COPD moderate to severe with an FEV1 of 58% of predicted 3 chronic atrial fibrillation 4 hypertension 5 coronary artery disease 6 hyperlipidemia 7 diabetes mellitus type 2 8 dementia 9 BPH 10 CHF with mild LV dysfunction 11 mild lactic acidosis, improving and the lactic acid level is down to 1.7 2 altered mentation, neck improved compared to yesterday and the mental status is also improved. Plan Continue Levaquin and aztreonam and clindamycin combination Pulmonary toileting and deep breathing Sputum Gram stain and culture and if possible. The patient's cough is weak. Albuterol nebulized treatments around the clock aspiration precautions. We another swallow evaluation thinking that the patient is having recurrent aspirations. Monitor delirium. Repeat chest x-ray from today portable in a.m. tomorrow.
[2019-09-23] MEDS: LEVOFLOXACIN 750MG-D5W PMX 750 MG in DEXTROSE/WATER 1 150ML.BAG IVPB SCH (12:09)
--- NOTE | 2019-09-23 17:38 | PN ---
PROGRESS NOTE DATE OF SERVICE: 09/23/2019 This 89-year-old gentleman who was admitted with bibasilar pneumonia, left more than the right, is being closely monitored. Speech Pathology is evaluating the swallowing at this time. Otherwise, the patient's sensorium has definitely improved. He is still confused. Patient is on broad-spectrum IV antibiotics. Pulmonary is following the patient closely. PHYSICAL EXAMINATION: Alert and oriented x2. Pulse is 65, blood pressure 136/77, respiration 16, temperature 97.4, pulse ox 97% on room air. HEENT: Conjunctivae normal. Oral mucosa moist. NECK: No jugular venous distention. No carotid bruit. No lymph node enlargement. CARDIOVASCULAR SYSTEM: S1, S2 muffled. RESPIRATORY SYSTEM: Breath sounds diminished at the bases. Bilateral scattered rhonchi and crackles. ABDOMEN: Soft, non-tender. LEGS: No edema. No swelling. NERVOUS SYSTEM: Diffusely weak. LABS: WBC 4.3, hemoglobin 11.9, creatinine 0.59. ASSESSMENT: 1. Acute bibasilar pneumonia, left more than the right, possibly community-acquired, possibly aspiration with sepsis, present on admission. 2. Change in mental status, acute metabolic encephalopathy secondary to sepsis. 3. Mild kidney injury secondary to dehydration, on IV fluids. 4. Hypertension. 5. Hyperlipidemia. 6. Diabetes mellitus, type 2. 7. Deep venous thrombosis prophylaxis. 8. Mild thrombocytopenia. 9. Elevated carbon dioxide. 10.History of atrial fibrillation, chronic. 11.History of congestive heart failure; ejection fraction unknown. 12.History of coronary artery disease. 13.History of chronic obstructive pulmonary disease. 14.History of dementia. 15.History of prostate disorder. 16.History of gait dysfunction. 17.History of transurethral resection of the prostate. 18.Remote history of nicotine dependence. 19.NO CODE, NO CPR, NO VENT. RECOMMENDATIONS AND DISCUSSION: I recommend to continue current medications, continue with the monitoring, symptomatic treatment. We will monitor the patient closely. Other than that, continue with the antibiotics, bronchodilators. Discussed with the family. The patient is on a combination of Azactam and clindamycin because of some AMOXICILLIN ALLERGY. Will continue to monitor. Further recommendations to follow. MMODL / IJN: [id number] /
[2019-09-23] MEDS: DOCUSATE 100 MG CAP PO SCH (21:09)
[2019-09-23] MEDS: DONEPEZIL 10 MG TAB PO SCH (21:09)
[2019-09-24] MEDS: CLINDAMYCIN 600 MG in DEXTROSE 5% IN WATER 50 ML IVPB SCH ×6 (01:22→15:54)
[2019-09-24] MEDS: IPRATROPIUM-ALBUTEROL 3 ML NEB INHALATION SCH ×4 (06:57→19:22)
[2019-09-24] MEDS: SYMBICORT 160-4.5 MCG INHALER INHALATION SCH ×2 (06:57→19:22)
[2019-09-24 08:26] LABS: Basophils % (A) 0 %; Eosinophils # (A) 0.1 k/uL (0-0.7); Eosinophils % (A) 3 %; HCT 34.3 % (39.0-53.0); HGB 11.4 gm/dL (13.0-17.5); Lymphocytes # (A) 1.2 k/uL (1.0-4.8); Lymphocytes % (A) 26 %; MCH 30.4 pg (25.0-35.0); MCHC 33.3 g/dL (31.0-37.0); MCV 91.3 fL (80.0-100.0); Mean Platelet Volume 7.2; Monocytes # (A) 0.3 k/uL (0-1.0); Monocytes % (A) 6 %; Neutrophils # (A) 2.9 k/uL (1.3-7.7); Neutrophils % (A) 63 %; Platelet Count 129 k/uL (150-450); Poikilocytosis Slight; RBC 3.75 m/uL (4.30-5.90); RDW 14.1 % (11.5-15.5); WBC 4.6 k/uL (3.8-10.6)
[2019-09-24 08:37] LABS: African American GFR (CKD) >90 (>60 ml/min/1.73 sqM); Anion Gap 3 mmol/L; Blood Urea Nitrogen 22 mg/dL (9-20); Carbon Dioxide 31 mmol/L (22-30); Chloride 105 mmol/L (98-107); Glucose 77 mg/dL (74-99); Non-African American GFR(CKD) >90 (>60 ml/min/1.73 sqM); Potassium 4.1 mmol/L (3.5-5.1); Sodium 139 mmol/L (137-145)
[2019-09-24] MEDS: AZTREONAM 2 GM in SODIUM CHLORIDE 0.9% 100 ML IVPB SCH ×2 (10:07→17:39)
[2019-09-24] MEDS: CYANOCOBALAMIN 500 MCG TAB PO SCH (10:08)
[2019-09-24] MEDS: TAMSULOSIN 0.4 MG CAP.ER.24H PO SCH (10:08)
[2019-09-24] MEDS: ISOSORBIDE MONONITRATE ER 30 MG TAB.ER.24H PO SCH (10:08)
[2019-09-24] MEDS: METOPROLOL TARTRATE 50 MG TAB PO SCH ×2 (10:08→22:48)
[2019-09-24] MEDS: MULTIVITAMINS, THERA 1 EACH TAB PO SCH (10:08)
[2019-09-24] MEDS: ATORVASTATIN 40 MG TAB PO SCH (10:08)
[2019-09-24] MEDS: POTASSIUM CHLORIDE ER 10 MEQ TAB.ER.PRT PO SCH (10:08)
[2019-09-24] MEDS: FAMOTIDINE 20 MG TAB PO SCH ×2 (10:08→22:48)
[2019-09-24] MEDS: APIXABAN 5 MG TAB PO SCH ×2 (10:08→22:48)
[2019-09-24] MEDS: ASCORBIC ACID 500 MG TAB PO SCH (10:09)
[2019-09-24] MEDS: NON FORMULARY DRUG (Glucosam/Chon-Msm1/C/Mang/Bosw [Glucosamine-Chondroitin Tablet] 1 TAB) PO SCH (10:09)
[2019-09-24] MEDS: LOSARTAN 50 MG TAB PO SCH (10:09)
[2019-09-24] MEDS: LACTOBACILLUS ACIDOPH & BULGAR 1 EACH PACKET PO SCH (10:09)
[2019-09-24] MEDS: NON FORMULARY DRUG (Omega-3 Fatty Acids/Fish Oil [Fish Oil 1,000 Mg Softgel] 1 CAP) PO SCH (10:09)
[2019-09-24] MEDS: ACETAMINOPHEN TAB 325 MG TAB PO PRN (11:35)
[2019-09-24] MEDS: LEVOFLOXACIN 750MG-D5W PMX 750 MG in DEXTROSE/WATER 1 150ML.BAG IVPB SCH (13:03)
--- NOTE | 2019-09-24 14:39 | P.PN ---
Subjective Progress Note Date: 09/24/19 89-year-old male patient, was been having [id number] pneumonias, came into the [facility] department yesterday due to concerns of worsening shortness of breath. The patient a mild and a weak cough a few days and at the same time he was bringing up some small amount of mucus. His breathing was not much labors. He did have any chest pain no he had any swelling in lower extremities. Apparently he had been swallowing well without any aspiration of food material. The patient was admitted to the hospital because of a concern of a left lower lobe pneumonia. He was started on a combination of antibiotics utilizing Levaquin, aztreonam and clindamycin. Note that he had some mild lactic acidosis which i mproved and acute lactic acid level is down to 1.7. The patient's white cell count is at 9.4 for now. Hemoglobin is at 13.2.influenza screen was negative.mother the patient has history of COPD. His COPD is moderate to severe with an FEV1 of 1.41 L which is 58% of predicted. He is known to have also multiple comorbidities including coronary artery disease, CHF with mild impairment of the LV function and ejection fraction of 45-50%, coronary artery disease, diabetes mellitus type 2, hypertension, chronic atrial fibrillation, and history of BPH. The patient has had previous bouts of pneumonias. He has had previous bouts of confusion and weakness and falls. He is overall functional and performance status is also poor. n 09/22/2019 the patient is confused and delirious. He is sitting up on a chair. No agitation. He remains on oxygen atinstrument nasal cannula. He is unable to hold a conversation. At times is trying to pull off his clothes. No fever. No chills. He remains on broad-spectrum antibiotics for now. I will say there is some worsening in his overall condition compared to yesterday. The follow-up chest x-ray was ordered for today. On 09/23/2019 the patient is much more comfortable and less that he is compared to yesterday. In fact he is able to hold a conversation and communicate with me today. He is following some simple commands. His cough is weak. No signs of any respiratory distress. He remains nothing by mouth. He is going to have another swallow evaluation today. He remains on broad-spectrum antibiotics for now. Chest x-ray from yesterday was noted and the patient is a left lower lobe pulmonary infiltrates suggestive an underlying pneumonia. He is on oxygen at home at 3 L per minute nasal cannula. on 09/24/2019 I'm seeing the patient for a follow-up. He is awake. He feels miserable just being in the hospital. He underwent another swallow evaluation yesterday and he was asked to take purred and honey thick liquids. He has a c ongested cough. He iscoughing essentially weak and he is unable to bring up much sputum.. He is still on triple antibiotic coverage for his underlying pneumonia. No chest x-rays are available from today. Repeat chest x-ray will be done tomorrow. Cultures are negative. White cell count at 4.6. Hemoglobin stable at 11.4. He is still on high flow oxygen ranging between 6 and 7 L per minute nasal cannula to maintain a saturation above 90%. This can be gradually weaned off. He is going to be provided incentive spirometer. Objective - Vital Signs Vital signs: Vital Signs Temp 98 F 09/24/19 12:13 Pulse 67 09/24/19 12:13 Resp 18 09/24/19 12:13 BP 151/80 09/24/19 12:13 Pulse Ox 97 09/24/19 12:13 Intake & Output 09/23/19 09/24/19 09/24/19 18:59 06:59 18:59 Intake Total 300 250 300 Output Total 500 Balance 300 -250 300 Intake: IV 100 Normal saline 10 mL/hr 100 Intake, IV Titration 300 150 300 Amount Aztreonam 2 gm In Sodium 100 100 100 Chloride 0.9% 100 ml @ 100 mls/hr IVPB Q8HR [facility] Rx#:[id number] Clindamycin 600 mg In 50 50 50 Dextrose 5% in Water 50 ml @ 50 mls/hr IVPB Q8HR [facility] Rx#:[id number] Levofloxacin 750Mg-D5w 150 150 Pmx 750 mg In Dextrose/ Water 1 150ml.bag @ 100 mls/hr IVPB Q24H [facility] Rx#: [id number] Output: Urine 500 Straight 500 Other: Voiding Method Indwelling Catheter Indwelling Catheter Indwelling Catheter - Exam GENERAL EXAM: Alert, pleasant, 89-year-old white male comfortable in no apparent distress.patient is neck and alert and responsive. A bit upset and crabby HEAD: Normocephalic/atraumatic. EYES: Normal reaction of pupils, equal size. Conjunctiva pink, sclera white. NOSE: Clear with pink turbinates. THROAT: No erythema or exudates. NECK: No masses, no JVD, no thyroid enlargement, no adenopathy. CHEST: No chest wall deformity. Symmetrical expansion. LUNGS: the patient has diminished breath sounds bilaterally and the patient's correct in the left lung base. The patient also has a weak cough. CVS: Regular rate and rhythm, normal S1 and S2, no gallops, no murmurs, no rubs ABDOMEN: Soft, nontender. No hepatosplenomegaly, normal bowel sounds, no gua rding or rigidity. EXTREMITIES: No clubbing, no edema, no cyanosis, 2+ pulses and upper and lower extremities. MUSCULOSKELETAL: Muscle strength and tone normal. SPINE: No scoliosis or deformity SKIN: No rashes CENTRAL NERVOUS SYSTEM: no neurological deficit. a candidate alert and is following commands and answering questions appropriately. His delirium and confusion is improved considerably. PSYCHIATRIC: Immanuel fully evaluated. - Labs CBC & Chem 7: 09/24/19 07:46 09/24/19 07:46 Labs: Abnormal Lab Results - Last 24 Hours (Table) 09/24/19 09/24/19 Range/Units 07:46 07:46 RBC 3.75 L (4.30-5.90) m/uL Hgb 11.4 L (13.0-17.5) gm/dL Hct 34.3 L (39.0-53.0) % Plt Count 129 L (150-450) k/uL Carbon Dioxide 31 H (22-30) mmol/L BUN 22 H (9-20) mg/dL Creatinine 0.53 L (0.66-1.25) mg/dL Microbiology - Last 24 Hours (Table) 09/20/19 10:30 Blood Culture - Preliminary Blood No Growth after 96 hours Assessment and Plan Plan: assessment 1 left lower lobe pneumonia with secondary hypoxic respiratory failure. Aspiration is highly suspected. The patienthas been hospitalized in the past for recurrent pneumonias. The patient is having on and off aspiration. The patient has a repeat swallow evaluation and currently it was advised for him to take pured andhoney thick liquids. His cough is weak. He is congested. He is not doing a lot of pulmonary toileting. He is still on high flow oxygen 6 L per minute nasal cannula. His oxidation is improved. 2 COPD moderate to severe with an FEV1 of 58% of predicted 3 chronic atrial fibrillation 4 hypertension 5 coronary artery disease 6 hyperlipidemia 7 diabetes mellitus type 2 8 dementia 9 BPH 10 CHF with mild LV dysfunction 11 mild lactic acidosis, improving and the lactic acid level is down to 1.7 2 altered mentation, improved Plan Continue Levaquin and aztreonam and clindamycin combination Pulmonary toileting and deep breathing provide an incentive spirometer Continue albuterol nebulized treatments around the clock Aspiration precautions Mental status improved Repeat chest x-ray in the morning We'll continue to follow Prognosis poor baseline above-mentioned comorbidities
--- NOTE | 2019-09-24 15:27 | P.PN ---
Subjective Progress Note Date: 09/24/19 Principal diagnosis: this is an 89-year-old male who was recently admitted with by basilar pneumonia on the left more so than the right and is being closely monitored. Pulmonary is following. Patient's diet will continue with honey thickened liquids and pured diet. Family refusing any other barium swallows. Patient continues to be confused this is baseline but is able to answer some questions appropriately and is more alert today. Patient still requiring high flow oxygen and discussed with nursing staff about weaning off as he normally only requires 2-3 L via nasal cannula at home. Objective - Vital Signs Vital signs: Vital Signs Temp 98 F 09/24/19 12:13 Pulse 67 09/24/19 12:13 Resp 18 09/24/19 12:13 BP 151/80 09/24/19 12:13 Pulse Ox 97 09/24/19 12:13 Intake & Output 09/23/19 09/24/19 09/24/19 18:59 06:59 18:59 Intake Total 300 250 300 Output Total 500 Balance 300 -250 300 Intake: IV 100 Normal saline 10 mL/hr 100 Intake, IV Titration 300 150 300 Amount Aztreonam 2 gm In Sodium 100 100 100 Chloride 0.9% 100 ml @ 100 mls/hr IVPB Q8HR [facility] Rx#:[id number] Clindamycin 600 mg In 50 50 50 Dextrose 5% in Water 50 ml @ 50 mls/hr IVPB Q8HR [facility] Rx#:[id number] Levofloxacin 750Mg-D5w 150 150 Pmx 750 mg In Dextrose/ Water 1 150ml.bag @ 100 mls/hr IVPB Q24H [facility] Rx#: [id number] Output: Urine 500 Straight 500 Other: Voiding Method Indwelling Catheter Indwelling Catheter Indwelling Catheter - Exam Gen: This is a 89-year-old male sitting up in bed resting but easily arousable. Patient is currently on high flow oxygen normally uses 2-3 L via nasal cannula and is sleeping with mouth breathing. HEENT: Head is atraumatic, normocephalic. Pupils equal, round. Sclerae is anicteric. NECK: Supple. No JVD. No lymphadenopathy. No thyromegaly. LUNGS: diminished breath sounds at the bases with bilateral crackles and rhonchi noted throughout. No intercostal retractions. HEART: cardio S1, S2 present ABDOMEN: Soft. Bowel sounds are present. No masses. No tenderness. EXTREMITIES: No pedal edema. No calf tenderness. NEUROLOGICAL: Patient is awake, alert and oriented x2. Cranial nerves 2 through 12 are grossly intact. - Labs CBC & Chem 7: 09/24/19 07:46 09/24/19 07:46 Labs: Abnormal Lab Results - Last 24 Hours (Table) 09/24/19 09/24/19 Range/Units 07:46 07:46 RBC 3.75 L (4.30-5.90) m/uL Hgb 11.4 L (13.0-17.5) gm/dL Hct 34.3 L (39.0-53.0) % Plt Count 129 L (150-450) k/uL Carbon Dioxide 31 H (22-30) mmol/L BUN 22 H (9-20) mg/dL Creatinine 0.53 L (0.66-1.25) mg/dL Microbiology - Last 24 Hours (Table) 09/20/19 10:30 Blood Culture - Preliminary Blood No Growth after 96 hours Assessment and Plan Assessment: acute bibasilar pneumonia, left more than right, possibly community-acquired, possible aspiration with sepsis, present on admission change in mental status, acute metabolic encephalopathy secondary to sepsis mild kidney injury secondary to dehydration, currently on IV fluids Hypertension Hyperlipidemia Diabetes mellitus, type II Mild thrombocytopenia Elevated carbon dioxide level Atrial fibrillation, chronic Chronic obstructive pulmonary disease Dementia Gait dysfunction No code, no CPR, no vent Plan: Recommend to continue current medications, management, and symptomatic treatment. Pulmonary is following. will repeat a.m. chest x-ray. Currently patie nt is on high flow oxygen at 7 L and normally uses 2-3 L via nasal cannula at home per . Will continue to wean the patient off oxygen to return to baseline. encourage the use of incentive spirometer. Family was refusing a barium swallow and a bedside swallow was done and patient is currently ma intained on honey thickened liquids and pured diet. Family also stated they do not want a rehab facility and patient will be returning home with home care upon discharge. Case management and social work along with PT/OT are following.
[2019-09-24] MEDS: DOCUSATE 100 MG CAP PO SCH (22:48)
[2019-09-24] MEDS: DONEPEZIL 10 MG TAB PO SCH (22:48)
[2019-09-25] MEDS: CLINDAMYCIN 600 MG in DEXTROSE 5% IN WATER 50 ML IVPB SCH ×6 (00:08→15:50)
[2019-09-25] MEDS: AZTREONAM 2 GM in SODIUM CHLORIDE 0.9% 100 ML IVPB SCH ×4 (01:17→23:15)
[2019-09-25] MEDS: ACETAMINOPHEN TAB 325 MG TAB PO PRN ×2 (01:17→20:57)
[2019-09-25] MEDS: IPRATROPIUM-ALBUTEROL 3 ML NEB INHALATION SCH ×4 (07:28→21:38)
[2019-09-25] MEDS: SYMBICORT 160-4.5 MCG INHALER INHALATION SCH ×2 (07:28→21:48)
[2019-09-25] MEDS: FAMOTIDINE 20 MG TAB PO SCH ×2 (07:52→20:57)
[2019-09-25] MEDS: APIXABAN 5 MG TAB PO SCH ×2 (07:52→20:56)
[2019-09-25] MEDS: MULTIVITAMINS, THERA 1 EACH TAB PO SCH (07:52)
[2019-09-25] MEDS: LOSARTAN 50 MG TAB PO SCH (07:52)
[2019-09-25] MEDS: METOPROLOL TARTRATE 50 MG TAB PO SCH ×2 (07:52→20:57)
[2019-09-25] MEDS: CYANOCOBALAMIN 500 MCG TAB PO SCH (07:52)
[2019-09-25] MEDS: POTASSIUM CHLORIDE ER 10 MEQ TAB.ER.PRT PO SCH (07:53)
[2019-09-25] MEDS: ASCORBIC ACID 500 MG TAB PO SCH (07:53)
[2019-09-25] MEDS: LACTOBACILLUS ACIDOPH & BULGAR 1 EACH PACKET PO SCH (07:53)
[2019-09-25] MEDS: ATORVASTATIN 40 MG TAB PO SCH (07:53)
[2019-09-25] MEDS: TAMSULOSIN 0.4 MG CAP.ER.24H PO SCH (07:53)
[2019-09-25] MEDS: ISOSORBIDE MONONITRATE ER 30 MG TAB.ER.24H PO SCH (07:54)
[2019-09-25] MEDS: ASPIRIN 81 MG PO SCH (07:54)
[2019-09-25] MEDS: NON FORMULARY DRUG (Glucosam/Chon-Msm1/C/Mang/Bosw [Glucosamine-Chondroitin Tablet] 1 TAB) PO SCH (07:56)
[2019-09-25] MEDS: NON FORMULARY DRUG (Omega-3 Fatty Acids/Fish Oil [Fish Oil 1,000 Mg Softgel] 1 CAP) PO SCH (07:57)
[2019-09-25] MEDS: LEVOFLOXACIN 750MG-D5W PMX 750 MG in DEXTROSE/WATER 1 150ML.BAG IVPB SCH (09:50)
--- NOTE | 2019-09-25 15:08 | P.PN ---
Subjective Progress Note Date: 09/25/19 Principal diagnosis: This is an 89-year-old male who was recently admitted with by basilar pneumonia on the left more so than the right and is being closely monitored. Pulmonary is following. Patient's diet will continue with honey thickened liquids and pured diet. Family refusing any other barium swallows. Patient continues to be confused this is baseline but is able to answer some questions appropriately and is more alert today. Patient still requiring high flow oxygen and discussed with nursing staff about weaning off as he normally only requires 2-3 L via nasal cannula at home. 09/25/2019 Patient is sitting up in the chair in no acute distress lethargic but arousable. Patient is hard of hearing. Patient states that he feels no better from yesterday and continues to be on 6-7 L of high flow oxygen. Discussed with the nursing staff about weaning some of this oxygen off as he normally requires 2-3 L at home. Nursing staff states that he desats quickly and this morning was only 92-93% on the high flow oxygen. Discussed with the family at length about discharge planning and states she would like him to return home with home care along with palliative care and is not ready for hospice discussion at this time. Discussed with the and patient that he is high risk for readmissions due to shortness of breath and limited mobility. verbalized understanding and still agrees with the palliative care along with Homecare at this time. Will continue to monitor closely. Pulmonary is following. Objective - Vital Signs Vital signs: Vital Signs Temp 97.5 F L 09/25/19 11:49 Pulse 66 09/25/19 11:49 Resp 40 H 09/25/19 11:49 BP 128/79 09/25/19 11:49 Pulse Ox 92 L 09/25/19 05:00 Intake & Output 09/24/19 09/25/19 09/25/19 18:59 06:59 18:59 Intake Total 300 300 150 Output Total 800 675 Balance 300 -500 -525 Intake: Intake, IV Titration 300 300 150 Amount Aztreonam 2 gm In Sodium 100 200 100 Chloride 0.9% 100 ml @ 100 mls/hr IVPB Q8HR [facility] Rx#:[id number] Clindamycin 600 mg In 50 100 50 Dextrose 5% in Water 50 ml @ 50 mls/hr IVPB Q8HR [facility] Rx#:[id number] Levofloxacin 750Mg-D5w 150 Pmx 750 mg In Dextrose/ Water 1 150ml.bag @ 100 mls/hr IVPB Q24H [facility] Rx#: [id number] Output: Urine 800 675 Straight 800 675 Other: Voiding Method Indwelling Catheter Indwelling Catheter Indwelling Catheter - Exam Gen: This is a 89-year-old male sitting up in the chair resting but easily arousable. Patient is currently on high flow oxygen normally uses 2-3 L via nasal cannula HEENT: Head is atraumatic, normocephalic. Pupils equal, round. Sclerae is anicteric. NECK: Supple. No JVD. No lymphadenopathy. No thyromegaly. LUNGS: diminished breath sounds at the bases with bilateral crackles and rhonchi noted throughout. No intercostal retractions. HEART: cardio S1, S2 present ABDOMEN: Soft. Bowel sounds are present. No masses. No tenderness. EXTREMITIES: No pedal edema. No calf tenderness. NEUROLOGICAL: Patient is awake, alert and oriented x2. Cranial nerves 2 through 12 are grossly intact. - Labs CBC & Chem 7: 09/24/19 07:46 09/24/19 07:46 Labs: Microbiology - Last 24 Hours (Table) 09/20/19 10:30 Blood Culture - Preliminary Blood No Growth after 120 hours 09/24/19 11:02 Gram Stain - Preliminary Sputum Sputum Culture - Preliminary Assessment and Plan Assessment: acute bibasilar pneumonia, left more than right, possibly community-acquired, possible aspiration with sepsis, present on admission change in mental status, acute metabolic encephalopathy secondary to sepsis mild kidney injury secondary to dehydration, currently on IV fluids Hypertension Hyperlipidemia Diabetes mellitus, type II Mild thrombocytopenia Elevated carbon dioxide level Atrial fibrillation, chronic Chronic obstructive pulmonary disease Dementia Gait dysfunction No code, no CPR, no vent Plan: Recommend to continue current medications, management, and symptomatic treatment. Pulmonary is following. Repeat chest x-ray was ordered and is currently pending. Currently patient is on high flow oxygen at 6 L and normally uses 2-3 L via nasal cannula at home per . Will continue to attempt to wean the patient off oxygen to return to baseline. Encourage the use of incentive spirometer. Patient has a very poor cough and also very poor inspiratory effort. Case management and social work along with PT/OT are following.
--- NOTE | 2019-09-25 15:20 | XR ---
EXAMINATION TYPE: XR chest 1V portable DATE OF EXAM: 09/25/2019 COMPARISON: 09/22/2019 INDICATION: Pneumonia TECHNIQUE: Single frontal view of the chest is obtained. FINDINGS: The heart size is upper limits of normal. The pulmonary vasculature is normal. There is a right lower lobe consolidation. Correlate for pneumonia. IMPRESSION: 1. Right lower lobe infiltrate. Correlate for pneumonia.
--- NOTE | 2019-09-25 16:09 | P.PN ---
Subjective Progress Note Date: 09/25/19 89-year-old male patient, was been having [id number] pneumonias, came into the [facility] [place] department yesterday due to concerns of worsening shortness of breath. The patient a mild and a weak cough a few days and at the same time he was bringing up some small amount of mucus. His breathing was not much labors. He did have any chest pain no he had any swelling in lower extremities. Apparently he had been swallowing well without any aspiration of food material. The patient was admitted to the hospital because of a concern of a left lower lobe pneumonia. He was started on a combination of antibiotics utilizing Levaquin, aztreonam and clindamycin. Note that he had some mild lactic acidosis which i mproved and acute lactic acid level is down to 1.7. The patient's white cell count is at 9.4 for now. Hemoglobin is at 13.2.influenza screen was negative.mother the patient has history of COPD. His COPD is moderate to severe with an FEV1 of 1.41 L which is 58% of predicted. He is known to have also multiple comorbidities including coronary artery disease, CHF with mild impairment of the LV function and ejection fraction of 45-50%, coronary artery disease, diabetes mellitus type 2, hypertension, chronic atrial fibrillation, and history of BPH. The patient has had previous bouts of pneumonias. He has had previous bouts of confusion and weakness and falls. He is overall functional and performance status is also poor. n 09/22/2019 the patient is confused and delirious. He is sitting up on a chair. No agitation. He remains on oxygen atinstrument nasal cannula. He is unable to hold a conversation. At times is trying to pull off his clothes. No fever. No chills. He remains on broad-spectrum antibiotics for now. I will say there is some worsening in his overall condition compared to yesterday. The follow-up chest x-ray was ordered for today. On 09/23/2019 the patient is much more comfortable and less that he is compared to yesterday. In fact he is able to hold a conversation and communicate with me today. He is following some simple commands. His cough is weak. No signs of any respiratory distress. He remains nothing by mouth. He is going to have another swallow evaluation today. He remains on broad-spectrum antibiotics for now. Chest x-ray from yesterday was noted and the patient is a left lower lobe pulmonary infiltrates suggestive an underlying pneumonia. He is on oxygen at home at 3 L per minute nasal cannula. on 09/24/2019 I'm seeing the patient for a follow-up. He is awake. He feels miserable just being in the hospital. He underwent another swallow evaluation yesterday and he was asked to take purred and honey thick liquids. He has a c ongested cough. He iscoughing essentially weak and he is unable to bring up much sputum.. He is still on triple antibiotic coverage for his underlying pneumonia. No chest x-rays are available from today. Repeat chest x-ray will be done tomorrow. Cultures are negative. White cell count at 4.6. Hemoglobin stable at 11.4. He is still on high flow oxygen ranging between 6 and 7 L per minute nasal cannula to maintain a saturation above 90%. This can be gradually weaned off. He is going to be provided incentive spirometer. on 09/25/2019 the patient is essentially the same. On and off confused. At the time of my evaluation, he was alert and he was instructed his family members. White cell count is not elevated. The white cell count is at 4.6. He has no fever. His chest x-ray showing bilateral pulmonary infiltrates. He is not cooperating with the use of incentive spirometer. He is on 6 L of oxygen by nasal cannula.His white cell count is at 4.6. He is not cooperating with the use incentive spirometer. His cough is weak. Swallow is suboptimal and family and made it clear that they're not to started enteral feeding through PEG tube. For now, we'll continue same antibiotic coverage and repeat chest x-ray in the morning. Prognosis poor based on this progressive worsening of cough and weakness and ability to do pulmonary toileting addition to recurrent pneumonias. Objective - Vital Signs Vital signs: Vital Signs Temp 97.5 F L 09/25/19 11:49 Pulse 66 09/25/19 11:49 Resp 40 H 09/25/19 11:49 BP 128/79 09/25/19 11:49 Pulse Ox 92 L 09/25/19 05:00 Intake & Output 09/24/19 09/25/19 09/25/19 18:59 06:59 18:59 Intake Total 300 300 150 Output Total 800 675 Balance 300 -500 -525 Weight 60.781 kg Intake: Intake, IV Titration 300 300 150 Amount Aztreonam 2 gm In Sodium 100 200 100 Chloride 0.9% 100 ml @ 100 mls/hr IVPB Q8HR [facility] Rx#:[id number] Clindamycin 600 mg In 50 100 50 Dextrose 5% in Water 50 ml @ 50 mls/hr IVPB Q8HR [facility] Rx#:[id number] Levofloxacin 750Mg-D5w 150 Pmx 750 mg In Dextrose/ Water 1 150ml.bag @ 100 mls/hr IVPB Q24H [facility] Rx#: [id number] Output: Urine 800 675 Straight 800 675 Other: Voiding Method Indwelling Catheter Indwelling Catheter Indwelling Catheter # Voids 1 - Exam GENERAL EXAM: Alert, pleasant, 89-year-old white male comfortable in no apparent distress.patient is neck and alert and responsive. A bit upset and crabby HEAD: Normocephalic/atraumatic. EYES: Normal reaction of pupils, equal size. Conjunctiva pink, sclera white. NOSE: Clear with pink turbinates. THROAT: No erythema or exudates. NECK: No masses, no JVD, no thyroid enlargement, no adenopathy. CHEST: No chest wall deformity. Symmetrical expansion. LUNGS: the patient has diminished breath sounds bilaterally and the patient's correct in the left lung base. The patient also has a weak cough. CVS: Regular rate and rhythm, normal S1 and S2, no gallops, no murmurs, no rubs ABDOMEN: Soft, nontender. No hepatosplenomegaly, normal bowel sounds, no guarding or rigidity. EXTREMITIES: No clubbing, no edema, no cyanosis, 2+ pulses and upper and lower extremities. MUSCULOSKELETAL: Muscle strength and tone normal. SPINE: No scoliosis or deformity SKIN: No rashes CENTRAL NERVOUS SYSTEM: no neurological deficit. a candidate alert and is following commands and answering questions appropriately. His delirium and confusion is improved considerably. PSYCHIATRIC: Immanuel fully evaluated. - Labs CBC & Chem 7: 09/24/19 07:46 09/24/19 07:46 Labs: Microbiology - Last 24 Hours (Table) 09/20/19 10:30 Blood Culture - Preliminary Blood No Growth after 120 hours 09/24/19 11:02 Gram Stain - Preliminary Sputum Sputum Culture - Preliminary Assessment and Plan Plan: assessment 1 left lower lobe pneumonia with secondary hypoxic respiratory failure. Aspiration is highly suspected. the follow-up chest x-ray shows bilateral pulmonary infiltrates the patient has not responded adequately to triple antibiotic coverage. He still having a weak cough and poor ability to do pulmonary toileting. On and off, he is having some episodes of confusion. He is weak overall with a weak cough and suboptimal swallow. 2 COPD moderate to severe with an FEV1 of 58% of predicted 3 chronic atrial fibrillation 4 hypertension 5 coronary artery disease 6 hyperlipidemia 7 diabetes mellitus type 2 8 dementia 9 BPH 10 CHF with mild LV dysfunction 11 mild lactic acidosis, improving and the lactic acid level is down to 1.7 2 altered mentation, improved Plan Continue Levaquin and aztreonam and clindamycin combination Pulmonary toileting and deep breathing provide an incentive spirometer Continue albuterol nebulized treatments around the clock Aspiration precautions long-term prognosis poor based above-mentioned comorbidities. The patient is a risk of having recurrent pneumonias. I discussed the possibility of bronchoscopy with the family. I think it's cannot going to change his prognosis likely offer us some insight on the microbiology of this ongoing pneumonia. We'll continue to follow. Was offered is aggressive pulmonary toileting. Repeat chest x-ray in the morning.
[2019-09-25] MEDS: DOCUSATE 100 MG CAP PO SCH (20:56)
[2019-09-25] MEDS: DONEPEZIL 10 MG TAB PO SCH (20:57)
[2019-09-26] MEDS: CLINDAMYCIN 600 MG in DEXTROSE 5% IN WATER 50 ML IVPB SCH ×8 (00:33→23:48)
--- NOTE | 2019-09-26 07:42 | XR ---
EXAMINATION TYPE: XR chest 1V portable DATE OF EXAM: 09/26/2019 HISTORY: bilateral pneumonia. REFERENCE: Previous study dated 09/25/2019. FINDINGS: There is slight worsening of the patient's right basilar infiltrate. There is a stable left basilar infiltrate. Heart size is obscured. There are bilateral effusions. IMPRESSION: BILATERAL PNEUMONIAS WITH WORSENING ON THE RIGHT.
[2019-09-26] MEDS: AZTREONAM 2 GM in SODIUM CHLORIDE 0.9% 100 ML IVPB SCH (08:51)
[2019-09-26] MEDS: SYMBICORT 160-4.5 MCG INHALER INHALATION SCH ×2 (08:52→19:50)
[2019-09-26] MEDS: IPRATROPIUM-ALBUTEROL 3 ML NEB INHALATION SCH ×4 (08:52→19:50)
[2019-09-26] MEDS: ISOSORBIDE MONONITRATE ER 30 MG TAB.ER.24H PO SCH (08:56)
[2019-09-26] MEDS: ASCORBIC ACID 500 MG TAB PO SCH (08:56)
[2019-09-26] MEDS: ATORVASTATIN 40 MG TAB PO SCH (08:56)
[2019-09-26] MEDS: MULTIVITAMINS, THERA 1 EACH TAB PO SCH (08:56)
[2019-09-26] MEDS: LACTOBACILLUS ACIDOPH & BULGAR 1 EACH PACKET PO SCH (08:56)
[2019-09-26] MEDS: METOPROLOL TARTRATE 50 MG TAB PO SCH ×2 (08:56→20:35)
[2019-09-26] MEDS: LOSARTAN 50 MG TAB PO SCH (08:56)
[2019-09-26] MEDS: FAMOTIDINE 20 MG TAB PO SCH ×2 (08:56→20:35)
[2019-09-26] MEDS: CYANOCOBALAMIN 500 MCG TAB PO SCH (08:56)
[2019-09-26] MEDS: APIXABAN 5 MG TAB PO SCH ×2 (08:56→20:34)
[2019-09-26] MEDS: NON FORMULARY DRUG (Omega-3 Fatty Acids/Fish Oil [Fish Oil 1,000 Mg Softgel] 1 CAP) PO SCH (08:57)
[2019-09-26] MEDS: NON FORMULARY DRUG (Glucosam/Chon-Msm1/C/Mang/Bosw [Glucosamine-Chondroitin Tablet] 1 TAB) PO SCH (08:57)
[2019-09-26] MEDS: TAMSULOSIN 0.4 MG CAP.ER.24H PO SCH (08:59)
[2019-09-26] MEDS: POTASSIUM CHLORIDE ER 10 MEQ TAB.ER.PRT PO SCH (08:59)
[2019-09-26] MEDS: LEVOFLOXACIN 500MG-D5W PMX 500 MG in DEXTROSE/WATER 1 100ML.BAG IVPB SCH (10:55)
--- NOTE | 2019-09-26 13:50 | P.PN ---
Subjective Progress Note Date: 09/26/19 89-year-old male patient, was been having [id number] pneumonias, came into the [facility] department yesterday due to concerns of worsening shortness of breath. The patient a mild and a weak cough a few days and at the same time he was bringing up some small amount of mucus. His breathing was not much labors. He did have any chest pain no he had any swelling in lower extremities. Apparently he had been swallowing well without any aspiration of food material. The patient was admitted to the hospital because of a concern of a left lower lobe pneumonia. He was started on a combination of antibiotics utilizing Levaquin, aztreonam and clindamycin. Note that he had some mild lactic acidosis which i mproved and acute lactic acid level is down to 1.7. The patient's white cell count is at 9.4 for now. Hemoglobin is at 13.2.influenza screen was negative.mother the patient has history of COPD. His COPD is moderate to severe with an FEV1 of 1.41 L which is 58% of predicted. He is known to have also multiple comorbidities including coronary artery disease, CHF with mild impairment of the LV function and ejection fraction of 45-50%, coronary artery disease, diabetes mellitus type 2, hypertension, chronic atrial fibrillation, and history of BPH. The patient has had previous bouts of pneumonias. He has had previous bouts of confusion and weakness and falls. He is overall functional and performance status is also poor. n 09/22/2019 the patient is confused and delirious. He is sitting up on a chair. No agitation. He remains on oxygen atinstrument nasal cannula. He is unable to hold a conversation. At times is trying to pull off his clothes. No fever. No chills. He remains on broad-spectrum antibiotics for now. I will say there is some worsening in his overall condition compared to yesterday. The follow-up chest x-ray was ordered for today. On 09/23/2019 the patient is much more comfortable and less that he is compared to yesterday. In fact he is able to hold a conversation and communicate with me today. He is following some simple commands. His cough is weak. No signs of any respiratory distress. He remains nothing by mouth. He is going to have another swallow evaluation today. He remains on broad-spectrum antibiotics for now. Chest x-ray from yesterday was noted and the patient is a left lower lobe pulmonary infiltrates suggestive an underlying pneumonia. He is on oxygen at home at 3 L per minute nasal cannula. on 09/24/2019 I'm seeing the patient for a follow-up. He is awake. He feels miserable just being in the hospital. He underwent another swallow evaluation yesterday and he was asked to take purred and honey thick liquids. He has a c ongested cough. He iscoughing essentially weak and he is unable to bring up much sputum.. He is still on triple antibiotic coverage for his underlying pneumonia. No chest x-rays are available from today. Repeat chest x-ray will be done tomorrow. Cultures are negative. White cell count at 4.6. Hemoglobin stable at 11.4. He is still on high flow oxygen ranging between 6 and 7 L per minute nasal cannula to maintain a saturation above 90%. This can be gradually weaned off. He is going to be provided incentive spirometer. on 09/25/2019 the patient is essentially the same. On and off confused. At the time of my evaluation, he was alert and he was instructed his family members. White cell count is not elevated. The white cell count is at 4.6. He has no fever. His chest x-ray showing bilateral pulmonary infiltrates. He is not cooperating with the use of incentive spirometer. He is on 6 L of oxygen by nasal cannula.His white cell count is at 4.6. He is not cooperating with the use incentive spirometer. His cough is weak. Swallow is suboptimal and family and made it clear that they're not to started enteral feeding through PEG tube. For now, we'll continue same antibiotic coverage and repeat chest x-ray in the morning. Prognosis poor based on this progressive worsening of cough and weakness and ability to do pulmonary toileting addition to recurrent pneumonias. On 09/26/2019 the patient is a follow-up chest x-ray and showed worsening of the right lower lobe pulmonary infiltrate. Infiltration of the left lower lobe is rather stable. The patient has sputum analysis that showed gram-negative bacillus. Currently is still on a combination of Levaquin and the mycin and aztreonam. He is ALLERGIC to penicillins. No new complaints. Is on oxygen 6 L per minute nasal cannula. Pulse ox of 90%. He has no fever. He has no chills. He has no significant leukocytosis. The patient is using incentive spirometer. The patient is also using a flutter valve for pulmonary toileting. Family is at the bedside and they understand the poor prognosis especially with his impairment baseline performance and functional status. Objective - Vital Signs Vital signs: Vital Signs Temp 97.9 F 09/26/19 11:06 Pulse 80 09/26/19 12:03 Resp 18 09/26/19 11:06 BP 94/54 09/26/19 11:06 Pulse Ox 96 09/26/19 11:06 Intake & Output 09/25/19 09/26/19 09/26/19 18:59 06:59 18:59 Intake Total 150 510 Output Total 675 200 200 Balance -525 310 -200 Weight 60.781 kg Intake: IV 40 Normal saline 10 mL/hr 40 Intake, IV Titration 150 150 Amount Aztreonam 2 gm In Sodium 100 100 Chloride 0.9% 100 ml @ 100 mls/hr IVPB Q8HR [facility] Rx#:[id number] Clindamycin 600 mg In 50 50 Dextrose 5% in Water 50 ml @ 50 mls/hr IVPB Q8HR [facility] Rx#:[id number] Oral 320 Output: Urine 675 200 200 Straight 675 Other: Voiding Method Indwelling Catheter Indwelling Catheter Indwelling Catheter # Voids 1 1 - Exam GENERAL EXAM: Alert, pleasant, 89-year-old white male comfortable in no apparent distress.patient is neck and alert and responsive. A bit upset and crabby HEAD: Normocephalic/atraumatic. EYES: Normal reaction of pupils, equal size. Conjunctiva pink, sclera white. NOSE: Clear with pink turbinates. THROAT: No erythema or exudates. NECK: No masses, no JVD, no thyroid enlargement, no adenopathy. CHEST: No chest wall deformity. Symmetrical expansion. LUNGS: the patient has diminished breath sounds bilaterally and the patient's correct in the left lung base. The patient also has a weak cough. CVS: Regular rate and rhythm, normal S1 and S2, no gallops, no murmurs, no rubs ABDOMEN: Soft, nontender. No hepatosplenomegaly, normal bowel sounds, no guarding or rigidity. EXTREMITIES: No clubbing, no edema, no cyanosis, 2+ pulses and upper and lower extremities. MUSCULOSKELETAL: Muscle strength and tone normal. SPINE: No scoliosis or deformity SKIN: No rashes CENTRAL NERVOUS SYSTEM: no neurological deficit. a candidate alert and is following commands and answering questions appropriately. His delirium and confusion is improved considerably. PSYCHIATRIC: Immanuel fully evaluated. - Labs CBC & Chem 7: 09/24/19 07:46 09/24/19 07:46 Labs: Microbiology - Last 24 Hours (Table) 09/20/19 10:30 Blood Culture - Final Blood No Growth after 144 hours 09/24/19 11:02 Gram Stain - Preliminary Sputum Sputum Culture - Preliminary Gram Neg Bacilli Oly albicans Assessment and Plan Plan: assessment 1 left lower lobe pneumonia with secondary hypoxic respiratory failure. Aspiration is highly suspected. the follow-up chest x-ray shows bilateral pulmonary infiltrates the patient has not responded adequately to triple antibiotic coverage. He still having a weak cough and poor ability to do pulmonary toileting. Base chest x-ray, there is worsening of the right lower lobe pulmonary infiltrate and some stable infiltration of the left lung base. Gram-negative bacillus is growing in the sputum. 2 COPD moderate to severe with an FEV1 of 58% of predicted 3 chronic atrial fibrillation 4 hypertension 5 coronary artery disease 6 hyperlipidemia 7 diabetes mellitus type 2 8 dementia 9 BPH 10 CHF with mild LV dysfunction 11 mild lactic acidosis, improving and the lactic acid level is down to 1.7 12 altered mentation, improved 13 acute hypoxic respiratory failure secondary to above and the patient is currently on 6 L of oxygen by nasal cannula Plan Continue Levaquin Continue clindamycin Add cefepime Discontinue aztreonam Check final cultures and sensitivities from gram-negative bacillus in the sputum Pulmonary toileting and deep breathing provide an incentive spirometer Continue albuterol nebulized treatments around the clock Aspiration precautions long-term prognosis poor based above-mentioned comorbidities. The patient is a risk of having recurrent pneumonias. I discussed the possibility of bronchoscopy with the family. I think it's cannot going to change his prognosis likely offer us some insight on the microbiology of this ongoing pneumonia. We'll continue to follow. Was offered is aggressive pulmonary toileting. Repeat chest x-ray in the morning. Past the findings with the patient's family at the bedside.
--- NOTE | 2019-09-26 14:42 | P.PN ---
Subjective 89-year-old male who was recently admitted with by basilar pneumonia on the left more so than the right and is being closely monitored. Pulmonary is following. Patient's diet will continue with honey thickened liquids and pured diet. Family refusing any other barium swallows. Patient continues to be confused this is baseline but is able to answer some questions appropriately and is more alert today. Patient still requiring high flow oxygen and discussed with nursing staff about weaning off as he normally only requires 2-3 L via nasal ca nnula at home. 09/25/2019 Patient is sitting up in the chair in no acute distress lethargic but arousable. Patient is hard of hearing. Patient states that he feels no better from yesterday and continues to be on 6-7 L of high flow oxygen. Discussed with the nursing staff about weaning some of this oxygen off as he normally requires 2-3 L at home. Nursing staff states that he desats quickly and this morning was only 92-93% on the high flow oxygen. Discussed with the family at length about discharge planning and states she would like him to return home with home care along with palliative care and is not ready for hospice discussion at this time. Discussed with the and patient that he is high risk for readmissions due to shortness of breath and limited mobility. verbalized understanding and still agrees with the palliative care along with Homecare at this time. Will continue to monitor closely. Pulmonary is following. 09/26/2019 Patient overall also requirements have come down and patient is presently in 6 L of oxygen although patient chest x-ray showing worsening but patient clinically looks better and feels better. Decision regarding bronchoscopy as per alberto onataina. Constitutional: He is to be fatigued but feeling bit better Cardio vascular: denied any chest pain, palpitations Gastrointestinal denied any nausea vomiting Pulmonary: Denied any shortness of breath cough Neurologic denied any new focal deficits All inpatient medications were reviewed and appropriate changes in these medications as dictated in the interval history and assessment and plan. Objective - Vital Signs Vital signs: Vital Signs Temp 97.9 F 09/26/19 11:06 Pulse 80 09/26/19 12:03 Resp 18 09/26/19 11:06 BP 94/54 09/26/19 11:06 Pulse Ox 96 09/26/19 11:06 Intake & Output 09/25/19 09/26/19 09/26/19 18:59 06:59 18:59 Intake Total 150 510 Output Total 675 200 200 Balance -525 310 -200 Weight 60.781 kg Intake: IV 40 Normal saline 10 mL/hr 40 Intake, IV Titration 150 150 Amount Aztreonam 2 gm In Sodium 100 100 Chloride 0.9% 100 ml @ 100 mls/hr IVPB Q8HR [facility] Rx#:[id number] Clindamycin 600 mg In 50 50 Dextrose 5% in Water 50 ml @ 50 mls/hr IVPB Q8HR [facility] Rx#:[id number] Oral 320 Output: Urine 675 200 200 Straight 675 Other: Voiding Method Indwelling Catheter Indwelling Catheter Indwelling Catheter # Voids 1 1 - Exam Exam Gen: This is a 89-year-old male sitting up in the chair resting but easily arousable. Patient is currently on high flow oxygen normally uses 2-3 L via nasal cannula HEENT: Head is atraumatic, normocephalic. Pupils equal, round. Sclerae is anicteric. NECK: Supple. No JVD. No lymphadenopathy. No thyromegaly. LUNGS: diminished breath sounds at the bases with bilateral crackles and rhonchi noted throughout. No intercostal retractions. HEART: cardio S1, S2 present ABDOMEN: Soft. Bowel sounds are present. No masses. No tenderness. EXTREMITIES: No pedal edema. No calf tenderness. NEUROLOGICAL: Patient is awake, alert and oriented x2. Cranial nerves 2 through 12 are grossly intact. - Labs CBC & Chem 7: 09/24/19 07:46 09/24/19 07:46 Labs: Microbiology - Last 24 Hours (Table) 09/20/19 10:30 Blood Culture - Final Blood No Growth after 144 hours 09/24/19 11:02 Gram Stain - Preliminary Sputum Sputum Culture - Preliminary Gram Neg Bacilli Oly albicans Assessment and Plan Plan: acute bibasilar pneumonia, left more than right, possibly community-acquired, possible aspiration with sepsis, present on admission patient on multiple antibiotics is are being continued as per pulmonary change in mental status, acute metabolic encephalopathy secondary to sepsis mild kidney injury secondary to dehydration, currently on IV fluids Hypertension Hyperlipidemia Diabetes mellitus, type II Atrial fibrillation, chronic, rate controlled continue with anticoagulation Chronic obstructive pulmonary disease Dementia Gait dysfunction No code, no CPR, no vent -Moderate protein calorie malnutrition patient's overall prognosis is poor
[2019-09-26] MEDS: ACETAMINOPHEN TAB 325 MG TAB PO PRN ×2 (15:54→20:35)
[2019-09-26] MEDS: CEFEPIME 2 GM in SODIUM CHLORIDE 0.9% 100 ML IVPB SCH ×2 (15:56→23:13)
[2019-09-26] MEDS: DOCUSATE 100 MG CAP PO SCH (20:34)
[2019-09-26] MEDS: DONEPEZIL 10 MG TAB PO SCH (20:35)
--- NOTE | 2019-09-27 07:09 | XR ---
EXAMINATION TYPE: XR chest 1V portable DATE OF EXAM: 09/27/2019 HISTORY: pneumonia. REFERENCE: Previous study dated 09/26/2019. FINDINGS: The study is rotated. There is been partial clearing of the right-sided airspace disease. T here has been worsening of the left-sided airspace disease. Heart size is obscured. I suspect a left effusion. IMPRESSION: WAXING AND WANING BILATERAL INFILTRATES.
[2019-09-27 07:17] LABS: African American GFR (CKD) >90 (>60 ml/min/1.73 sqM); Anion Gap 2 mmol/L; Blood Urea Nitrogen 27 mg/dL (9-20); Calcium 9.4 mg/dL (8.4-10.2); Carbon Dioxide 33 mmol/L (22-30); Chloride 104 mmol/L (98-107); Glucose 98 mg/dL (74-99); Non-African American GFR(CKD) >90 (>60 ml/min/1.73 sqM); Potassium 4.1 mmol/L (3.5-5.1); Sodium 139 mmol/L (137-145)
[2019-09-27] MEDS: SYMBICORT 160-4.5 MCG INHALER INHALATION SCH (08:25)
[2019-09-27] MEDS: IPRATROPIUM-ALBUTEROL 3 ML NEB INHALATION SCH ×4 (08:25→19:23)
[2019-09-27] MEDS: NON FORMULARY DRUG (Glucosam/Chon-Msm1/C/Mang/Bosw [Glucosamine-Chondroitin Tablet] 1 TAB) PO SCH (10:08)
[2019-09-27] MEDS: NON FORMULARY DRUG (Omega-3 Fatty Acids/Fish Oil [Fish Oil 1,000 Mg Softgel] 1 CAP) PO SCH (10:09)
[2019-09-27] MEDS: CLINDAMYCIN 600 MG in DEXTROSE 5% IN WATER 50 ML IVPB SCH ×4 (10:12→16:44)
[2019-09-27] MEDS: CYANOCOBALAMIN 500 MCG TAB PO SCH (10:13)
[2019-09-27] MEDS: POTASSIUM CHLORIDE ER 10 MEQ TAB.ER.PRT PO SCH (10:13)
[2019-09-27] MEDS: ATORVASTATIN 40 MG TAB PO SCH (10:13)
[2019-09-27] MEDS: APIXABAN 5 MG TAB PO SCH ×2 (10:13→22:11)
[2019-09-27] MEDS: ASCORBIC ACID 500 MG TAB PO SCH (10:13)
[2019-09-27] MEDS: ISOSORBIDE MONONITRATE ER 30 MG TAB.ER.24H PO SCH (10:13)
[2019-09-27] MEDS: TAMSULOSIN 0.4 MG CAP.ER.24H PO SCH (10:14)
[2019-09-27] MEDS: MULTIVITAMINS, THERA 1 EACH TAB PO SCH (10:14)
[2019-09-27] MEDS: METOPROLOL TARTRATE 50 MG TAB PO SCH ×2 (10:14→22:11)
[2019-09-27] MEDS: LACTOBACILLUS ACIDOPH & BULGAR 1 EACH PACKET PO SCH (10:15)
[2019-09-27] MEDS: FAMOTIDINE 20 MG TAB PO SCH ×2 (10:20→22:11)
[2019-09-27] MEDS: LEVOFLOXACIN 500MG-D5W PMX 500 MG in DEXTROSE/WATER 1 100ML.BAG IVPB SCH (11:13)
--- NOTE | 2019-09-27 13:22 | P.PN ---
Subjective Progress Note Date: 09/27/19 89-year-old male patient, was been having [id number] pneumonias, came into the [facility] department yesterday due to concerns of worsening shortness of breath. The patient a mild and a weak cough a few days and at the same time he was bringing up some small amount of mucus. His breathing was not much labors. He did have any chest pain no he had any swelling in lower extremities. Apparently he had been swallowing well without any aspiration of food material. The patient was admitted to the hospital because of a concern of a left lower lobe pneumonia. He was started on a combination of antibiotics utilizing Levaquin, aztreonam and clindamycin. Note that he had some mild lactic acidosis which i mproved and acute lactic acid level is down to 1.7. The patient's white cell count is at 9.4 for now. Hemoglobin is at 13.2.influenza screen was negative.mother the patient has history of COPD. His COPD is moderate to severe with an FEV1 of 1.41 L which is 58% of predicted. He is known to have also multiple comorbidities including coronary artery disease, CHF with mild impairment of the LV function and ejection fraction of 45-50%, coronary artery disease, diabetes mellitus type 2, hypertension, chronic atrial fibrillation, and history of BPH. The patient has had previous bouts of pneumonias. He has had previous bouts of confusion and weakness and falls. He is overall functional and performance status is also poor. n 09/22/2019 the patient is confused and delirious. He is sitting up on a chair. No agitation. He remains on oxygen atinstrument nasal cannula. He is unable to hold a conversation. At times is trying to pull off his clothes. No fever. No chills. He remains on broad-spectrum antibiotics for now. I will say there is some worsening in his overall condition compared to yesterday. The follow-up chest x-ray was ordered for today. On 09/23/2019 the patient is much more comfortable and less that he is compared to yesterday. In fact he is able to hold a conversation and communicate with me today. He is following some simple commands. His cough is weak. No signs of any respiratory distress. He remains nothing by mouth. He is going to have another swallow evaluation today. He remains on broad-spectrum antibiotics for now. Chest x-ray from yesterday was noted and the patient is a left lower lobe pulmonary infiltrates suggestive an underlying pneumonia. He is on oxygen at home at 3 L per minute nasal cannula. on 09/24/2019 I'm seeing the patient for a follow-up. He is awake. He feels miserable just being in the hospital. He underwent another swallow evaluation yesterday and he was asked to take purred and honey thick liquids. He has a c ongested cough. He iscoughing essentially weak and he is unable to bring up much sputum.. He is still on triple antibiotic coverage for his underlying pneumonia. No chest x-rays are available from today. Repeat chest x-ray will be done tomorrow. Cultures are negative. White cell count at 4.6. Hemoglobin stable at 11.4. He is still on high flow oxygen ranging between 6 and 7 L per minute nasal cannula to maintain a saturation above 90%. This can be gradually weaned off. He is going to be provided incentive spirometer. on 09/25/2019 the patient is essentially the same. On and off confused. At the time of my evaluation, he was alert and he was instructed his family members. White cell count is not elevated. The white cell count is at 4.6. He has no fever. His chest x-ray showing bilateral pulmonary infiltrates. He is not cooperating with the use of incentive spirometer. He is on 6 L of oxygen by nasal cannula.His white cell count is at 4.6. He is not cooperating with the use incentive spirometer. His cough is weak. Swallow is suboptimal and family and made it clear that they're not to started enteral feeding through PEG tube. For now, we'll continue same antibiotic coverage and repeat chest x-ray in the morning. Prognosis poor based on this progressive worsening of cough and weakness and ability to do pulmonary toileting addition to recurrent pneumonias. On 09/26/2019 the patient is a follow-up chest x-ray and showed worsening of the right lower lobe pulmonary infiltrate. Infiltration of the left lower lobe is rather stable. The patient has sputum analysis that showed gram-negative bacillus. Currently is still on a combination of Levaquin and the mycin and aztreonam. He is ALLERGIC to penicillins. No new complaints. Is on oxygen 6 L per minute nasal cannula. Pulse ox of 90%. He has no fever. He has no chills. He has no significant leukocytosis. The patient is using incentive spirometer. The patient is also using a flutter valve for pulmonary toileting. Family is at the bedside and they understand the poor prognosis especially with his impairment baseline performance and functional status. on 09/27/2019, the patient is essentially the same clinical condition. He has a weak congested cough. Unable to bring up any sputum. He is on a combination of Levaquin, clindamycin and cefepime On the sputum analysis today the patient was found to have stenotrophomonas which is rresistant to Levaquin. I started the patient on Bactrim. I also consulted infectious disease. His oral intake is diminished. The family is not along the lines of putting a PEG tube for this patient. He is using incentive spirometer and he was also offered the flutter valve. He remains on 6 L of oxygen by nasal cannula. Infectious disease consultation will be obtained. His chest x-ray from today showing worsening of the left-sided pulmonary infiltrate and improvement of the right-sided pulmonary infiltrate and as such he is having waxing and waning pulmonary infiltration. Objective - Vital Signs Vital signs: Vital Signs Temp 97.3 F L 09/27/19 11:36 Pulse 77 09/27/19 12:16 Resp 18 09/27/19 11:36 BP 83/53 09/27/19 11:36 Pulse Ox 97 09/27/19 11:36 Intake & Output 09/26/19 09/27/19 09/27/19 18:59 06:59 18:59 Intake Total 300 510 Output Total 650 Balance -350 510 Intake: IV 120 Normal saline 10 mL/hr 120 Intake, IV Titration 300 150 Amount Aztreonam 2 gm In Sodium 100 Chloride 0.9% 100 ml @ 100 mls/hr IVPB Q8HR [facility] Rx#:[id number] Cefepime 2 gm In Sodium 100 100 Chloride 0.9% 100 ml @ 200 mls/hr IVPB Q12HR@ 0000,1200 [facility] Rx#: [id number] Clindamycin 600 mg In 50 Dextrose 5% in Water 50 ml @ 50 mls/hr IVPB Q8HR [facility] Rx#:[id number] Levofloxacin 500Mg-D5w 100 Pmx 500 mg In Dextrose/ Water 1 100ml.bag @ 100 mls/hr IVPB Q24H [facility] Rx#: [id number] Oral 240 Output: Urine 650 Other: Voiding Method Indwelling Catheter Indwelling Catheter Indwelling Catheter # Voids 1 - Exam GENERAL EXAM: Alert, pleasant, 89-year-old white male comfortable in no apparent distress.patient is neck and alert and responsive. A bit upset and crabby HEAD: Normocephalic/atraumatic. EYES: Normal reaction of pupils, equal size. Conjunctiva pink, sclera white. NOSE: Clear with pink turbinates. THROAT: No erythema or exudates. NECK: No masses, no JVD, no thyroid enlargement, no adenopathy. CHEST: No chest wall deformity. Symmetrical expansion. LUNGS: the patient has diminished breath sounds bilaterally and the patient's correct in the left lung base. The patient also has a weak cough. CVS: Regular rate and rhythm, normal S1 and S2, no gallops, no murmurs, no rubs ABDOMEN: Soft, nontender. No hepatosplenomegaly, normal bowel sounds, no guarding or rigidity. EXTREMITIES: No clubbing, no edema, no cyanosis, 2+ pulses and upper and lower extremities. MUSCULOSKELETAL: Muscle strength and tone normal. SPINE: No scoliosis or deformity SKIN: No rashes CENTRAL NERVOUS SYSTEM: no neurological deficit. a candidate alert and is following commands and answering questions appropriately. His delirium and conf usion is improved considerably. PSYCHIATRIC: Immanuel fully evaluated. - Labs CBC & Chem 7: 09/24/19 07:46 09/27/19 05:59 Labs: Abnormal Lab Results - Last 24 Hours (Table) 09/27/19 Range/Units 05:59 Carbon Dioxide 33 H (22-30) mmol/L BUN 27 H (9-20) mg/dL Creatinine 0.49 L (0.66-1.25) mg/dL Microbiology - Last 24 Hours (Table) 09/24/19 11:02 Gram Stain - Final Sputum Sputum Culture - Final Stenotrophomonas maltophilia Oly albicans 09/20/19 10:30 Blood Culture - Final Blood No Growth after 144 hours Assessment and Plan Plan: assessment 1 left lower lobe pneumonia with secondary hypoxic respiratory failure. Aspiration is highly suspected. the follow-up chest x-ray shows bilateral waxing and waning pulmonary infiltrates and the most recent cultures positive for stenotrophomonas resistant to Levaquin. on today's chest x-ray, the infiltrate is worse on the left compared to the right. The patient is probably on of aspirating. The patient has still having a weak cough and poor ability to pulmonary toileting. 2 COPD moderate to severe with an FEV1 of 58% of predicted 3 chronic atrial fibrillation 4 hypertension 5 coronary artery disease 6 hyperlipidemia 7 diabetes mellitus type 2 8 dementia 9 BPH 10 CHF with mild LV dysfunction 11 mild lactic acidosis, improving and the lactic acid level is down to 1.7 12 altered mentation, improved 13 acute hypoxic respiratory failure secondary to above and the patient is currently on 6 L of oxygen by nasal cannula Plan stop Levaquin Continue clindamycin continue cefepime start the patient on Bactrim 1 tablet doesn't strength twice a day Pulmonary toileting and deep breathing Consult infectious disease provide an incentive spirometer Continue albuterol nebulized treatments around the clock Aspiration precautions long-term prognosis poor based above-mentioned comorbidities. The patient is a risk of having recurrent pneumonias. I discussed the possibility of bronchoscopy with the family. I think it's cannot going to change his prognosis likely offer us some insight on the microbiology of this ongoing pneumonia. We'll continue to follow. Was offered is aggressive pulmonary toileting. Repeat chest x-ray in the morning. Past the findings with the patient's family at the bedside.
[2019-09-27] MEDS: CEFEPIME 2 GM in SODIUM CHLORIDE 0.9% 100 ML IVPB SCH ×2 (13:27→23:51)
--- NOTE | 2019-09-27 14:04 | P.PN ---
Subjective 89-year-old male who was recently admitted with by basilar pneumonia on the left more so than the right and is being closely monitored. Pulmonary is following. Patient's diet will continue with honey thickened liquids and pured diet. Family refusing any other barium swallows. Patient continues to be confused this is baseline but is able to answer some questions appropriately and is more alert today. Patient still requiring high flow oxygen and discussed with nursing staff about weaning off as he normally only requires 2-3 L via nasal ca nnula at home. 09/25/2019 Patient is sitting up in the chair in no acute distress lethargic but arousable. Patient is hard of hearing. Patient states that he feels no better from yesterday and continues to be on 6-7 L of high flow oxygen. Discussed with the nursing staff about weaning some of this oxygen off as he normally requires 2-3 L at home. Nursing staff states that he desats quickly and this morning was only 92-93% on the high flow oxygen. Discussed with the family at length about discharge planning and states she would like him to return home with home care along with palliative care and is not ready for hospice discussion at this time. Discussed with the and patient that he is high risk for readmissions due to shortness of breath and limited mobility. verbalized understanding and still agrees with the palliative care along with Homecare at this time. Will continue to monitor closely. Pulmonary is following. 09/26/2019 Patient overall also requirements have come down and patient is presently in 6 L of oxygen although patient chest x-ray showing worsening but patient clinically looks better and feels better. Decision regarding bronchoscopy as per alberto brown. 09/27/2019 patient remains on 7 L of oxygen patient had an episode of hypoxemia last night and the nursing staff was able to aspirate food particles patient is aspirating will recheck with the speech therapy again tomorrow but family is insisting ontube and continued by mouth feedings. Constitutional: He is to be fatigued but feeling bit better Cardio vascular: denied any chest pain, palpitations Gastrointestinal denied any nausea vomiting Pulmonary: Denied any shortness of breath cough Neurologic denied any new focal deficits All inpatient medications were reviewed and appropriate changes in these medications as dictated in the interval history and assessment and plan. Objective - Vital Signs Vital signs: Vital Signs Temp 97.3 F L 09/27/19 11:36 Pulse 77 09/27/19 12:16 Resp 18 09/27/19 11:36 BP 83/53 09/27/19 11:36 Pulse Ox 97 09/27/19 11:36 Intake & Output 09/26/19 09/27/19 09/27/19 18:59 06:59 18:59 Intake Total 300 510 Output Total 650 Balance -350 510 Intake: IV 120 Normal saline 10 mL/hr 120 Intake, IV Titration 300 150 Amount Aztreonam 2 gm In Sodium 100 Chloride 0.9% 100 ml @ 100 mls/hr IVPB Q8HR [facility] Rx#:[id number] Cefepime 2 gm In Sodium 100 100 Chloride 0.9% 100 ml @ 200 mls/hr IVPB Q12HR@ 0000,1200 [facility] Rx#: [id number] Clindamycin 600 mg In 50 Dextrose 5% in Water 50 ml @ 50 mls/hr IVPB Q8HR [facility] Rx#:[id number] Levofloxacin 500Mg-D5w 100 Pmx 500 mg In Dextrose/ Water 1 100ml.bag @ 100 mls/hr IVPB Q24H [facility] Rx#: [id number] Oral 240 Output: Urine 650 Other: Voiding Method Indwelling Catheter Indwelling Catheter Indwelling Catheter # Voids 1 - Exam Exam Gen: This is a 89-year-old male sitting up in the chair resting but easily arousable. Patient is currently on high flow oxygen normally uses 2-3 L via nasal cannula HEENT: Head is atraumatic, normocephalic. Pupils equal, round. Sclerae is anicteric. NECK: Supple. No JVD. No lymphadenopathy. No thyromegaly. LUNGS: diminished breath sounds at the bases with bilateral crackles and rhonchi noted throughout. No intercostal retractions. HEART: cardio S1, S2 present ABDOMEN: Soft. Bowel sounds are present. No masses. No tenderness. EXTREMITIES: No pedal edema. No calf tenderness. NEUROLOGICAL: Patient is awake, alert and oriented x2. Cranial nerves 2 through 12 are grossly intact. - Labs CBC & Chem 7: 09/24/19 07:46 09/27/19 05:59 Labs: Abnormal Lab Results - Last 24 Hours (Table) 09/27/19 Range/Units 05:59 Carbon Dioxide 33 H (22-30) mmol/L BUN 27 H (9-20) mg/dL Creatinine 0.49 L (0.66-1.25) mg/dL Microbiology - Last 24 Hours (Table) 09/24/19 11:02 Gram Stain - Final Sputum Sputum Culture - Final Stenotrophomonas maltophilia Oly albicans 09/20/19 10:30 Blood Culture - Final Blood No Growth after 144 hours Assessment and Plan Plan: acute bibasilar pneumonia, left more than right, possibly community-acquired, possible aspiration with sepsis, present on admission, patient has a Stenotrophomonas maltophilia because of which he is being switched to Bactrim and and patient is also on clindamycin infectious disease is being consulted. Speech recommended pured diet as family is insisting on no PEG tube and by mo [facility] feedings -Acute hypoxic respiratory failure secondary to aspiration pneumonia and COPD exacerbation. 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 Off IV fluids no Hypertension Hyperlipidemia Diabetes mellitus, type II Atrial fibrillation, chronic, rate controlled continue with anticoagulation Chronic obstructive pulmonary disease Dementia Gait dysfunction No code, no CPR, no vent -Moderate protein calorie malnutrition patient's overall prognosis is poor
[2019-09-27] MEDS: SULFAMETHOX-TMP 800-160MG 1 EACH TAB PO SCH ×2 (14:09→22:11)
[2019-09-27] MEDS: ACETAMINOPHEN TAB 325 MG TAB PO PRN (16:44)
[2019-09-27] MEDS: DOCUSATE 100 MG CAP PO SCH (22:11)
[2019-09-27] MEDS: DONEPEZIL 10 MG TAB PO SCH (22:11)
--- NOTE | 2019-09-27 22:59 | P.CONS ---
History of Present Illness - Reason for Consult Consult date: 09/27/19 pneumonia Requesting physician: Rosy Hernandez - Chief Complaint shortness of breath and cough x few days - History of Present Illness Patient is 89-year male presented to [facility] ER on 09/20/2019 with a chief complaints of increasing shortness of breath and cough which has been moderate intensity and productive patient also complaining of feeling weak and tired no energy on arrival to the hospital patient has been afebrile and no fever has been recorded while he has been here in the hospital patient white count has been normal the patient influenza serology was negative chest x-ray with a left lower lobe pneumonia with concern for possible as piration the patient has been treated with clindamycin and Levaquin patient did have a sputum cultures obtained on the which was showing a gram-negative bacilli yesterday hence cefepime was added culture has been finalized today with the stenotrophomonas resistant to Levaquin intermediate to ceftazidime sensitive to Bactrim DS patient chest x-ray has been reported waxing and waning pattern to day by the radiologist infectious was consulted for further recommendation about antibiotic. On my evaluation the patient left his breathing has slightly improved patient did have some cough but not bringing up any sputum denies having any nausea no vomiting no abdominal pain no diarrhea. Review of Systems Positive point has been mentioned in HPI rest of the systems are negative Past Medical History Past Medical History: Atrial Fibrillation, Coronary Artery Disease (CAD), Heart Failure, COPD, Dementia, Diabetes Mellitus, Eye Disorder, Hyperlipidemia, Hypertension, Pneumonia, Prostate Disorder Additional Past Medical History / Comment(s): NIDDM type II, beginning of dementia, joint pain-multiple sites. History of Any Multi-Drug Resistant Organisms: None Reported Past Surgical History: Heart Catheterization, Hernia Repair, Tonsillectomy Additional Past Surgical History / Comment(s): TURP, cystoscopy, L inguinal herniorraphy, bilateral cataract removal with lens implants. Past Anesthesia/Blood Transfusion Reactions: No Reported Reaction Past Psychological History: No Psychological Hx Reported Smoking Status: Former smoker Past Alcohol Use History: None Reported Additional Past Alcohol Use History / Comment(s): Pt started smoking in 8 and quit in 1996. Past Drug Use History: None Reported - Past Family History Mother Additional Family Medical History / Comment(s): Mother either of CHF or a MD at the age of 82 yrs. Father Family Medical History: Cancer Additional Family Medical History / Comment(s): Father of complications after surgery for throat cancer at the age of 76yrs. Medications and Allergies Home Medications Medication Instructions Recorded Confirmed Type Atorvastatin [Lipitor] 40 mg PO DAILY 06/04/15 09/20/19 History Tamsulosin [Flomax] 0.4 mg PO DAILY 06/04/15 09/20/19 History Aspirin [Adult Low Dose Aspirin EC] 81 mg PO MOWEFR 09/23/17 09/20/19 History Budesonide/Formoterol Fumarate 2 puff INHALATION RT-BID 09/23/17 09/20/19 History [Symbicort 160-4.5 Mcg Inhaler] Donepezil [Aricept] 10 mg PO HS 09/23/17 09/20/19 History Isosorbide Mononitrate ER [Imdur] 30 mg PO DAILY 09/23/17 09/20/19 History Metoprolol Tartrate [Lopressor] 50 mg PO BID 09/23/17 09/20/19 History Potassium Chloride [K-Tab ER] 10 meq PO DAILY 09/23/17 09/20/19 History metFORMIN HCL [Glucophage] 500 mg PO DAILY 09/23/17 09/20/19 History Furosemide [Lasix] 20 mg PO BID@0900,1600 #60 tab 09/25/17 09/20/19 Rx ALPRAZolam [Xanax] 0.25 mg PO BID PRN 12/16/17 09/20/19 History Apixaban [Eliquis] 5 mg PO BID 12/16/17 09/20/19 History Docusate [Colace] 200 mg PO HS 12/16/17 09/20/19 History [place]-3 Fatty Acids/Fish Oil [Fish 1 cap PO DAILY 12/16/17 09/20/19 History Oil 1,000 mg Softgel] Albuterol Nebulized [Ventolin 2.5 mg INHALATION RT-Q4H PRN 11/15/18 09/20/19 History Nebulized] Ascorbic Acid [Vitamin C] 500 mg PO DAILY 11/15/18 09/20/19 History Cyanocobalamin [Vitamin B-12] 500 mcg PO DAILY 06/10/19 09/20/19 History Glucosam/Marlon-Msm1/C/Mark/Bosw 1 tab PO DAILY 06/10/19 09/20/19 History [Glucosamine-Chondroitin Tablet] L.acidoph,Paracasei, B.lactis 1 cap PO DAILY 06/10/19 09/20/19 History [Probiotic] Losartan [Cozaar] 50 mg PO DAILY 06/10/19 09/20/19 History Multivitamins, Thera [Multivitamin 1 tab PO DAILY 06/10/19 09/20/19 History (formulary)] Ranitidine HCl [Zantac] 150 mg PO BID 06/10/19 09/20/19 History Allergies Allergy/AdvReac Type Severity Reaction Status Date / Time amoxicillin [From Augmentin] Allergy Rash/Hives Verified 09/20/19 13:17 bee pollen Allergy Swelling Verified 09/20/19 13:17 clavulanic acid Allergy Rash/Hives Verified 09/20/19 13:17 [From Augmentin] Physical Exam Vitals: Vital Signs Temp Pulse Pulse Resp BP Pulse Ox 09/27/19 12:16 77 09/27/19 12:04 71 09/27/19 11:36 97.3 F L 63 18 83/53 97 09/27/19 08:36 75 09/27/19 08:25 73 100 09/27/19 05:18 101 H 09/27/19 05:04 101 H 09/27/19 04:42 106 H 25 H 94 L 09/27/19 04:25 97.7 F 87 16 104/68 94 L 09/26/19 20:30 97.5 F L 91 20 117/65 100 09/26/19 20:00 92 09/26/19 19:50 88 89 26 H 94 L 09/26/19 19:42 84 26 H 94 L 09/26/19 19:40 88 28 H 92 L 09/26/19 19:38 95 26 H 88 L 09/26/19 19:30 102 H 28 H 83 L 09/26/19 16:07 76 09/26/19 15:59 73 Intake and Output 09/26/19 09/27/19 09/27/19 22:59 06:59 14:59 Intake Total 160 350 Output Total 450 Balance -290 350 Intake: IV 40 80 Normal saline 10 mL/hr 40 80 Intake, IV Titration 150 Amount Cefepime 2 gm In Sodium 100 Chloride 0.9% 100 ml @ 200 mls/hr IVPB Q12HR@ 0000,1200 [facility] Rx#: [id number] Clindamycin 600 mg In 50 Dextrose 5% in Water 50 ml @ 50 mls/hr IVPB Q8HR [facility] Rx#:[id number] Oral 120 120 Output: Urine 450 Other: Voiding Method Indwelling Catheter Indwelling Catheter Indwelling Catheter GENERAL DESCRIPTION: Elderly male lying in bed, no distress. No tachypnea or accessory muscle of respiration use. HEENT: Shows Pallor , no scleral icterus. Oral mucous membrane is dry. NECK: Trachea central, no thyromegaly. LUNGS: Unlabored breathing. Decreased breath sound at the base. No wheeze or crackle. HEART: S1, S2, regular rate and rhythm. ABDOMEN: Soft, no tenderness , guarding or rigidity EXTREMITIES: No edema of feet. SKIN: No rash, no masses palpable. NEUROLOGICAL: The patient is awake, alert, oriented x2, mood and affect normal. Results CBC & Chem 7: 09/24/19 07:46 09/27/19 05:59 Labs: Abnormal Lab Results - Last 24 Hours (Table) 09/27/19 Range/Units 05:59 Carbon Dioxide 33 H (22-30) mmol/L BUN 27 H (9-20) mg/dL Creatinine 0.49 L (0.66-1.25) mg/dL Microbiology - Last 24 Hours (Table) 09/24/19 11:02 Gram Stain - Final Sputum Sputum Culture - Final Stenotrophomonas maltophilia Oly albicans 09/20/19 10:30 Blood Culture - Final Blood No Growth after 144 hours Assessment and Plan Assessment: -patient admitted hospital with difficulty breathing and a cough with evidence of a left lobe pneumonia also for possible aspiration etiology in this patient sputum no finalized with stenotrophomonas which did have a resistant pathogen also concern for recurrent aspiration (1) Gram-negative pneumonia Current Visit: Yes Status: Acute Code(s): J15.6 - PNEUMONIA DUE TO OTHER GRAM-NEGATIVE BACTERIA SNOMED Code(s): 557457363 Plan: 1-strict aspiration precaution 2-patient to continue with cefepime and Bactrim DS 3-we will follow on clinical condition and cultures to further adjust medication if needed Thank you for this consultation we will follow the patient along with you Time with Patient: Greater than 30
[2019-09-28] MEDS: CLINDAMYCIN 600 MG in DEXTROSE 5% IN WATER 50 ML IVPB SCH ×6 (01:08→17:19)
[2019-09-28] MEDS: IPRATROPIUM-ALBUTEROL 3 ML NEB INHALATION SCH ×4 (09:26→20:57)
[2019-09-28] MEDS: SYMBICORT 160-4.5 MCG INHALER INHALATION SCH ×3 (09:26→21:03)
--- NOTE | 2019-09-28 11:06 | P.PN ---
Subjective Progress Note Date: 09/28/19 Principal diagnosis: Acute hypoxemic respiratory failure related to aspiration pneumonia 89-year-old male patient, was been having [id number] pneumonias, came into the [facility] department yesterday due to concerns of worsening shortness of breath. The patient a mild and a weak cough a few days and at the same time he was bringing up some small amount of mucus. His breathing was not much labors. He did have any chest pain no he had any swelling in lower extremities. Apparently he had been swallowing well without any aspiration of food material. The patient was admitted to the hospital because of a concern of a left lower lobe pneumonia. He was started on a combination of antibiotics utilizing Levaquin, aztreonam and clindamycin. Note that he had some mild lactic acidosis which improved and acute lactic acid level is down to 1.7. The patient's white cell count is at 9.4 for now. Hemoglobin is at 13.2.influenza screen was negative.mother the patient has history of COPD. His COPD is moderate to severe with an FEV1 of 1.41 L which is 58% of predicted. He is known to have also multiple comorbidities including coronary artery disease, CHF with mild impairment of the LV function and ejection fraction of 45-50%, coronary artery disease, diabetes mellitus type 2, hypertension, chronic atrial fibrillation, and history of BPH. The patient has had previous bouts of pneumonias. He has had previous bouts of confusion and weakness and falls. He is overall fu nctional and performance status is also poor. n 09/22/2019 the patient is confused and delirious. He is sitting up on a chair. No agitation. He remains on oxygen atinstrument nasal cannula. He is unable to hold a conversation. At times is trying to pull off his clothes. No fever. No chills. He remains on broad-spectrum antibiotics for now. I will say there is some worsening in his overall condition compared to yesterday. The follow-up chest x-ray was ordered for today. On 09/23/2019 the patient is much more comfortable and less that he is compared to yesterday. In fact he is able to hold a conversation and communicate with me today. He is following some simple commands. His cough is weak. No signs of any respiratory distress. He remains nothing by mouth. He is going to have another swallow evaluation today. He remains on broad-spectrum antibiotics for now. Chest x-ray from yesterday was noted and the patient is a left lower lobe pulmonary infiltrates suggestive an underlying pneumonia. He is on oxygen at home at 3 L per minute nasal cannula. on 09/24/2019 I'm seeing the patient for a follow-up. He is awake. He feels miserable just being in the hospital. He underwent another swallow evaluation yesterday and he was asked to take purred and honey thick liquids. He has a congested cough. He iscoughing essentially weak and he is unable to bring up much sputum.. He is still on triple antibiotic coverage for his underlying pneumonia. No chest x-rays are available from today. Repeat chest x-ray will be done tomorrow. Cultures are negative. White cell count at 4.6. Hemoglobin stable at 11.4. He is still on high flow oxygen ranging between 6 and 7 L per minute nasal cannula to maintain a saturation above 90%. This can be gradually weaned off. He is going to be provided incentive spirometer. on 09/25/2019 the patient is essentially the same. On and off confused. At the time of my evaluation, he was alert and he was instructed his family members. White cell count is not elevated. The white cell count is at 4.6. He has no fever. His chest x-ray showing bilateral pulmonary infiltrates. He is not cooperating with the use of incentive spirometer. He is on 6 L of oxygen by nasal cannula.His white cell count is at 4.6. He is not cooperating with the use incentive spirometer. His cough is weak. Swallow is suboptimal and family and made it clear that they're not to started enteral feeding through PEG tube. For now, we'll continue same antibiotic coverage and repeat chest x-ray in the morning. Prognosis poor based on this progressive worsening of cough and weakness and ability to do pulmonary toileting addition to recurrent pneumonias. On 09/26/2019 the patient is a follow-up chest x-ray and showed worsening of the right lower lobe pulmonary infiltrate. Infiltration of the left lower lobe is rather stable. The patient has sputum analysis that showed gram-negative bacillus. Currently is still on a combination of Levaquin and the mycin and aztreonam. He is ALLERGIC to penicillins. No new complaints. Is on oxygen 6 L per minute nasal cannula. Pulse ox of 90%. He has no fever. He has no chills. He has no significant leukocytosis. The patient is using incentive spirometer. The patient is also using a flutter valve for pulmonary toileting. Family is at the bedside and they understand the poor prognosis especially with his impairment baseline performance and functional status. on 09/27/2019, the patient is essentially the same clinical condition. He has a weak congested cough. Unable to bring up any sputum. He is on a combination of Levaquin, clindamycin and cefepime On the sputum analysis today the patient was found to have stenotrophomonas which is rresistant to Levaquin. I started the patient on Bactrim. I also consulted infectious disease. His oral intake is diminished. The family is not along the lines of putting a PEG tube for this patient. He is using incentive spirometer and he was also offered the flutter valve. He remains on 6 L of oxygen by nasal cannula. Infectious disease consultation will be obtained. His chest x-ray from today showing worsening of the left-sided pulmonary infiltrate and improvement of the right-sided pulmonary infiltrate and as such he is having waxing and waning pulmonary infiltration. On 09/28/2019 patient seen in follow-up on medical surgical floor. Patient is confused, delirious this morning, he is on 8 L of oxygen, and his pulse ox is 98%, he is afebrile, patient is on clindamycin, cefepime and Bactrim was added yesterday for evidence of stenotrophomonas maltophilia in his sputum cultures. Per nursing staff patient is having more difficulty swallowing this morning, with concern of aspiration, patient was having copious oral secretions, and was coughing during feeding, speech therapy reevaluation was requested. Patient is on ground diet with honey thick liquids. Patient was not interested in PEG tube insertion, and palliative care was recommended. Hospice is supposed to meet with the family today and discuss options available to the patient and the family. Objective - Vital Signs Vital signs: Vital Signs Temp 98.0 F 09/28/19 04:35 Pulse 76 09/28/19 09:42 Resp 18 09/28/19 09:26 BP 128/73 09/28/19 04:35 Pulse Ox 98 09/28/19 09:26 Intake & Output 09/27/19 09/28/19 09/28/19 18:59 06:59 18:59 Intake Total 250 150 Output Total 300 400 Balance -50 -250 Intake: Intake, IV Titration 250 150 Amount Cefepime 2 gm In Sodium 100 100 Chloride 0.9% 100 ml @ 200 mls/hr IVPB Q12HR@ 0000,1200 [facility] Rx#: [id number] Clindamycin 600 mg In 50 50 Dextrose 5% in Water 50 ml @ 50 mls/hr IVPB Q8HR [facility] Rx#:[id number] Levofloxacin 500Mg-D5w 100 Pmx 500 mg In Dextrose/ Water 1 100ml.bag @ 100 mls/hr IVPB Q24H [facility] Rx#: [id number] Output: Urine 300 400 Other: Voiding Method Indwelling Catheter Indwelling Catheter # Bowel Movements 0 - Exam GENERAL EXAM: Awake, confused, weak, 89-year-old white male, on 8 L of oxygen, comfortable in no apparent distress. HEAD: Normocephalic/atraumatic. EYES: Normal reaction of pupils, equal size. Conjunctiva pink, sclera white. NOSE: Clear with pink turbinates. THROAT: No erythema or exudates. NECK: No masses, no JVD, no thyroid enlargement, no adenopathy. CHEST: No chest wall deformity. Symmetrical expansion. LUNGS: Equal air entry with diminished breath sounds, scattered rhonchi CVS: Regular rate and rhythm, normal S1 and S2, no gallops, no murmurs, no rubs ABDOMEN: Soft, nontender. No hepatosplenomegaly, normal bowel sounds, no guarding or rigidity. EXTREMITIES: No clubbing, no edema, no cyanosis, 2+ pulses and upper and lower extremities. MUSCULOSKELETAL: Muscle strength and tone normal. SPINE: No scoliosis or deformity SKIN: No rashes CENTRAL NERVOUS SYSTEM: Alert and oriented -1. No focal deficits, tone is normal in all 4 extremities. PSYCHIATRIC: Alert and oriented -1. Confused - Labs CBC & Chem 7: 09/24/19 07:46 09/27/19 05:59 Labs: Abnormal Lab Results - Last 24 Hours (Table) 09/28/19 Range/Units 07:39 C-Reactive Protein 71.4 H (<10.0) mg/L Microbiology - Last 24 Hours (Table) 09/24/19 11:02 Gram Stain - Final Sputum Sputum Culture - Final Stenotrophomonas maltophilia Oly albicans Assessment and Plan Plan: Assessment: #1. Acute hypoxemic respiratory failure related to left lower lobe pneumonia, patient is highly suspected, follow-up chest x-ray yesterday shows bilateral waxing and waning pulmonary infiltrates and most recent sputum cultures positive for stenotrophomonas Maltophilia resistant to Levaquin. Follow-up chest x-ray showed worsening infiltrate on the left compared to the right. #2. Moderate to severe COPD with baseline FEV1 of 50% of predicted #3. Chronic atrial fibrillation #4. Hypertension #5. Coronary artery disease #6. Hyperlipidemia #7. Diabetes mellitus type 2 #8. Dementia #9. BPH #10. CHF with mild LV dysfunction #11. Mild lactic acidosis, improved #12. Altered mentation, delirium, waxing and waning Plan: Continue current combination of antibiotics, patient is currently on cefepime, clindamycin and Bactrim was added. Still on high flow oxygen, his cough is very weak and swallowing ability seems to be worsening and there is concerns of overt aspiration patient will be reevaluated by speech therapy today. Patient's family is not interested in PEG tube insertion, palliative care was recommended, and patient's family supposed to meet with hospice today to discuss options available to them. I performed a history & physical examination of the patient and discussed their management with my nurse practitioner, Leticia Jeff. I reviewed the nurse practitioner's note and agree with the documented findings and plan of care. Lung sounds are positive for diffuse rhonchi. The findings and the impression was discussed with the patient. I attest to the documentation by the nurse practitioner. Time with Patient: Less than 30
[2019-09-28] MEDS: ATORVASTATIN 40 MG TAB PO SCH (11:30)
[2019-09-28] MEDS: CYANOCOBALAMIN 500 MCG TAB PO SCH (11:30)
[2019-09-28] MEDS: METOPROLOL TARTRATE 50 MG TAB PO SCH ×2 (11:30→22:09)
[2019-09-28] MEDS: FAMOTIDINE 20 MG TAB PO SCH ×2 (11:30→22:09)
[2019-09-28] MEDS: LACTOBACILLUS ACIDOPH & BULGAR 1 EACH PACKET PO SCH (11:30)
[2019-09-28] MEDS: ISOSORBIDE MONONITRATE ER 30 MG TAB.ER.24H PO SCH (11:30)
[2019-09-28] MEDS: POTASSIUM CHLORIDE ER 10 MEQ TAB.ER.PRT PO SCH (11:32)
[2019-09-28] MEDS: APIXABAN 5 MG TAB PO SCH ×2 (11:32→22:09)
[2019-09-28] MEDS: ASPIRIN 81 MG PO SCH (11:32)
[2019-09-28] MEDS: MULTIVITAMINS, THERA 1 EACH TAB PO SCH (11:32)
[2019-09-28] MEDS: ASCORBIC ACID 500 MG TAB PO SCH (11:33)
[2019-09-28] MEDS: SULFAMETHOX-TMP 800-160MG 1 EACH TAB PO SCH ×2 (11:33→22:10)
[2019-09-28] MEDS: NON FORMULARY DRUG (Glucosam/Chon-Msm1/C/Mang/Bosw [Glucosamine-Chondroitin Tablet] 1 TAB) PO SCH (11:34)
[2019-09-28] MEDS: NON FORMULARY DRUG (Omega-3 Fatty Acids/Fish Oil [Fish Oil 1,000 Mg Softgel] 1 CAP) PO SCH (11:34)
[2019-09-28] MEDS: TAMSULOSIN 0.4 MG CAP.ER.24H PO SCH (11:34)
[2019-09-28] MEDS: CEFEPIME 2 GM in SODIUM CHLORIDE 0.9% 100 ML IVPB SCH ×2 (13:47→23:41)
--- NOTE | 2019-09-28 14:13 | P.PN ---
Subjective Progress Note Date: 09/28/19 Principal diagnosis: This is an 89-year-old male who was recently admitted with by basilar pneumonia on the left more so than the right and is being closely monitored. Pulmonary is following. Patient's diet will continue with honey thickened liquids and pured diet. Family refusing any other barium swallows. Patient continues to be confused this is baseline but is able to answer some questions appropriately and is more alert today. Patient still requiring high flow oxygen and discussed with nursing staff about weaning off as he normally only requires 2-3 L via nasal cannula at home. 09/25/2019 Patient is sitting up in the chair in no acute distress lethargic but arousable. Patient is hard of hearing. Patient states that he feels no better from yesterday and continues to be on 6-7 L of high flow oxygen. Discussed with the nursing staff about weaning some of this oxygen off as he normally requires 2-3 L at home. Nursing staff states that he desats quickly and this morning was only 92-93% on the high flow oxygen. Discussed with the family at length about discharge planning and states she would like him to return home with home care along with palliative care and is not ready for hospice discussion at this time. Discussed with the and patient that he is high risk for readmissions due to shortness of breath and limited mobility. verbalized understanding and still agrees with the palliative care along with Homecare at this time. Will continue to monitor closely. Pulmonary is following. 09/26/2019 Patient overall also requirements have come down and patient is presently in 6 L of oxygen although patient chest x-ray showing worsening but patient clinically looks better and feels better. Decision regarding bronchoscopy as per pul monary. 09/27/2019 patient remains on 7 L of oxygen patient had an episode of hypoxemia last night and the nursing staff was able to aspirate food particles patient is aspirating will recheck with the speech therapy again tomorrow but family is insisting on no tube feedings and continued by mouth feedings. Constitutional: He is to be fatigued but feeling bit better Cardio vascular: denied any chest pain, palpitations Gastrointestinal denied any nausea vomiting Pulmonary: Denied any shortness of breath cough Neurologic denied any new focal deficits All inpatient medications were reviewed and appropriate changes in these medications as dictated in the interval history and assessment and plan. 09/28/2019 Patient is sitting up in bed in no acute distress. Patient is lethargic but awake. Speech reevaluated the patient today for aspiration and the patient did well with honey thickened liquids and pured diet with no coughing or choking noted. This was a bedside swallow eval. Patient is still requiring 6-7 L of oxygen. Family meeting with [facility] and will need to discuss with other family at home about their choices and will follow-up with [facility] in the morning. Objective - Vital Signs Vital signs: Vital Signs Temp 98.9 F 09/28/19 12:23 Pulse 78 09/28/19 12:25 Resp 16 09/28/19 12:23 BP 137/83 09/28/19 12:23 Pulse Ox 99 09/28/19 12:23 Intake & Output 09/27/19 09/28/19 09/28/19 18:59 06:59 18:59 Intake Total 250 150 Output Total 300 400 Balance -50 -250 Intake: Intake, IV Titration 250 150 Amount Cefepime 2 gm In Sodium 100 100 Chloride 0.9% 100 ml @ 200 mls/hr IVPB Q12HR@ 0000,1200 [facility] Rx#: [id number] Clindamycin 600 mg In 50 50 Dextrose 5% in Water 50 ml @ 50 mls/hr IVPB Q8HR [facility] Rx#:[id number] Levofloxacin 500Mg-D5w 100 Pmx 500 mg In Dextrose/ Water 1 100ml.bag @ 100 mls/hr IVPB Q24H [facility] Rx#: [id number] Output: Urine 300 400 Other: Voiding Method Indwelling Catheter Indwelling Catheter Indwelling Catheter # Bowel Movements 0 - Exam Gen: This is a 89-year-old male sitting up in the chair resting but easily arousable. Patient is currently on 6-7 L of oxygen normally uses 2-3 L via nasal cannula HEENT: Head is atraumatic, normocephalic. Pupils pinpoint, equal, round. Sclerae is anicteric. NECK: Supple. No JVD. No lymphadenopathy. No thyromegaly. LUNGS: diminished breath sounds at the bases with bilateral crackles and rhonchi noted throughout. No intercostal retractions. HEART: cardio S1, S2 present ABDOMEN: Soft. Bowel sounds are present. No masses. No tenderness. EXTREMITIES: No pedal edema. No calf tenderness. NEUROLOGICAL: Patient is awake, alert and oriented x2. Cranial nerves 2 through 12 are grossly intact. - Labs CBC & Chem 7: 09/24/19 07:46 09/27/19 05:59 Labs: Abnormal Lab Results - Last 24 Hours (Table) 09/28/19 Range/Units 07:39 C-Reactive Protein 71.4 H (<10.0) mg/L Microbiology - Last 24 Hours (Table) 09/24/19 11:02 Gram Stain - Final Sputum Sputum Culture - Final Stenotrophomonas maltophilia Oly albicans Assessment and Plan Assessment: -acute bibasilar pneumonia, left more than right, possibly community-acquired, possible aspiration with sepsis, present on admission, patient has a Stenotrophomonas maltophilia because of which he is being switched to Bactrim and and patient is also on clindamycin infectious disease is being consulted. Speech recommended pured diet as family is insisting on no PEG tube and by mouth feedings. Speech reevaluated the patient and patient continues to tolerate honey thickened along with pured diet. -Acute hypoxic respiratory failure secondary to aspiration pneumonia and COPD exacerbation. 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 Currently requiring 6-7 L of oxygen -change in mental status, acute metabolic encephalopathy secondary to sepsis, improved now -mild kidney injury secondary to dehydration, improved with IV fluids. Off IV fluids now -Hypertension -Hyperlipidemia -Diabetes mellitus, type II -Atrial fibrillation, chronic, rate controlled continue with anticoagulation -Chronic obstructive pulmonary disease -Dementia -Gait dysfunction -No code, no CPR, no vent -Moderate protein calorie malnutrition patient's overall prognosis is poor Plan: Recommend to continue current medications, management, and symptomatic treatment. Pulmonary and infectious disease are following. Repeat bedside swallow eval was done today with speech and patient tolerated pured diet with honey thickened liquids and will continue with this at this time along with strict aspiration precautions. Case management and social work along with PT/OT are following. Family met with [facility] need to discuss it further with other family members and will follow-up with [facility] in the morning.
--- NOTE | 2019-09-28 17:43 | PN ---
PROGRESS NOTE DATE OF SERVICE: 09/28/2019 REASON FOR FOLLOWUP: Pneumonia. INTERVAL HISTORY: The patient is currently afebrile. The patient has been breathing comfortably. He did have some cough but no worsening. No further no nausea, no vomiting, no abdominal pain or diarrhea. PHYSICAL EXAMINATION: Blood pressure 137/83 with a pulse of 83, temperature of 98.9. He is 99% on 7 L nasal cannula. General description is an elderly male up in the bed in no distress. RESPIRATORY SYSTEM: Unlabored breathing with decreased breath sounds at the base. No wheeze. HEART: S1, S2. Regular rate and rhythm. ABDOMEN: Soft. No tenderness. LABS: Creatinine 0.49. DIAGNOSTIC IMPRESSION AND PLAN: Patient admitted to hospital with difficulty breathing with concern for pneumonia. Sputum has been stenotrophomonas, currently on oral Bactrim and IV cefepime. Bactrim will continue in the outpatient setting for about a week to finish course of therapy and cefepime will be discontinued. Continue with supportive care. MMODL / IJN: [id number] /
[2019-09-28] MEDS: DONEPEZIL 10 MG TAB PO SCH (22:09)
[2019-09-28] MEDS: DOCUSATE 100 MG CAP PO SCH (22:09)
[2019-09-29] MEDS: CLINDAMYCIN 600 MG in DEXTROSE 5% IN WATER 50 ML IVPB SCH ×6 (00:31→16:21)
[2019-09-29] MEDS: SYMBICORT 160-4.5 MCG INHALER INHALATION SCH ×2 (09:12→21:23)
[2019-09-29] MEDS: IPRATROPIUM-ALBUTEROL 3 ML NEB INHALATION SCH ×4 (09:12→21:23)
[2019-09-29] MEDS: ASCORBIC ACID 500 MG TAB PO SCH (10:25)
[2019-09-29] MEDS: CYANOCOBALAMIN 500 MCG TAB PO SCH (10:26)
[2019-09-29] MEDS: ATORVASTATIN 40 MG TAB PO SCH (10:26)
[2019-09-29] MEDS: POTASSIUM CHLORIDE ER 10 MEQ TAB.ER.PRT PO SCH (10:26)
[2019-09-29] MEDS: TAMSULOSIN 0.4 MG CAP.ER.24H PO SCH (10:26)
[2019-09-29] MEDS: FAMOTIDINE 20 MG TAB PO SCH ×2 (10:26→21:46)
[2019-09-29] MEDS: APIXABAN 5 MG TAB PO SCH ×2 (10:26→21:46)
[2019-09-29] MEDS: NON FORMULARY DRUG (Glucosam/Chon-Msm1/C/Mang/Bosw [Glucosamine-Chondroitin Tablet] 1 TAB) PO SCH (10:26)
[2019-09-29] MEDS: METOPROLOL TARTRATE 50 MG TAB PO SCH ×2 (10:26→21:45)
[2019-09-29] MEDS: ISOSORBIDE MONONITRATE ER 30 MG TAB.ER.24H PO SCH (10:26)
[2019-09-29] MEDS: MULTIVITAMINS, THERA 1 EACH TAB PO SCH (10:26)
[2019-09-29] MEDS: LACTOBACILLUS ACIDOPH & BULGAR 1 EACH PACKET PO SCH (10:27)
[2019-09-29] MEDS: SULFAMETHOX-TMP 800-160MG 1 EACH TAB PO SCH ×2 (10:27→21:45)
[2019-09-29] MEDS: NON FORMULARY DRUG (Omega-3 Fatty Acids/Fish Oil [Fish Oil 1,000 Mg Softgel] 1 CAP) PO SCH (10:27)
--- NOTE | 2019-09-29 12:38 | P.PN ---
Subjective Progress Note Date: 09/29/19 Principal diagnosis: Acute hypoxemic respiratory failure related to aspiration pneumonia The patient is seen today 09/29/2019 in follow-up on the regular medical floor. He is currently resting comfortably in bed. He is pulling his gown off and move in about. He is currently maintaining O2 saturation in the high 90s on 5 L high flow nasal cannula. He is afebrile. Hemodynamically stable. Sputum was positive for Stenotrophomonas maltophilia. He remains on cefepime, clindamycin, Bactrim. ID is on the case. Continued on Symbicort and DuoNeb inhalations. Objective - Vital Signs Vital signs: Vital Signs Temp 97.9 F 09/29/19 04:37 Pulse 80 09/29/19 09:30 Resp 19 09/29/19 08:00 BP 120/75 09/29/19 04:37 Pulse Ox 98 09/29/19 09:14 Intake & Output 09/28/19 09/29/19 09/29/19 18:59 06:59 18:59 Intake Total 550 255 Output Total 1250 Balance 550 -995 Intake: IV 105 Normal saline 10 mL/hr 105 Intake, IV Titration 200 150 Amount Cefepime 2 gm In Sodium 100 100 Chloride 0.9% 100 ml @ 200 mls/hr IVPB Q12HR@ 0000,1200 [facility] Rx#: [id number] Clindamycin 600 mg In 100 50 Dextrose 5% in Water 50 ml @ 50 mls/hr IVPB Q8HR [facility] Rx#:[id number] Oral 350 Output: Urine 1250 Other: Voiding Method Indwelling Catheter Indwelling Catheter Indwelling Catheter - Exam GENERAL EXAM: Awake, confused, weak, 89-year-old male, on 5 L of oxygen, comfortable in no apparent distress. HEAD: Normocephalic/atraumatic. EYES: Normal reaction of pupils, equal size. Conjunctiva pink, sclera white. NOSE: Clear with pink turbinates. THROAT: No erythema or exudates. NECK: No masses, no JVD, no thyroid enlargement, no adenopathy. CHEST: No chest wall deformity. Symmetrical expansion. LUNGS: Equal air entry with diminished breath sounds, scattered rhonchi CVS: Regular rate and rhythm, normal S1 and S2, no gallops, no murmurs, no rubs ABDOMEN: Soft, nontender. No hepatosplenomegaly, normal bowel sounds, no guarding or rigidity. EXTREMITIES: No clubbing, no edema, no cyanosis, 2+ pulses and upper and lower extremities. MUSCULOSKELETAL: Muscle strength and tone normal. SPINE: No scoliosis or deformity SKIN: No rashes CENTRAL NERVOUS SYSTEM: No focal deficits, tone is normal in all 4 extremities. PSYCHIATRIC: Alert and oriented -1. Confused - Labs CBC & Chem 7: 09/24/19 07:46 09/27/19 05:59 Assessment and Plan Assessment: #1. Acute hypoxemic respiratory failure related to left lower lobe pneumonia, patient is highly suspected, follow-up chest x-ray yesterday shows bilateral waxing and waning pulmonary infiltrates and most recent sputum cultures positive for stenotrophomonas Maltophilia resistant to Levaquin. Currently on cefepime, clindamycin, Bactrim. ID is on the case. #2. Moderate to severe COPD with baseline FEV1 of 50% of predicted #3. Chronic atrial fibrillation #4. Hypertension #5. Coronary artery disease #6. Hyperlipidemia #7. Diabetes mellitus type 2 #8. Dementia #9. BPH #10. CHF with mild LV dysfunction #11. Mild lactic acidosis, improved #12. Altered mentation, delirium, waxing and waning Plan: The patient was seen and evaluated by Dr. Ceron. Currently stable from the pulmonary standpoint. Down to 5 L high flow nasal cannula. Remains on aspiration precautions. Continue the current treatment plan. We'll continue to follow. He is a DO NOT RESUSCITATE/DO NOT INTUBATE CODE STATUS. Overall performance is quite poor. The family is considering palliative care/hospice care. I, the cosigning physician, performed a history & physical examination of the patient. Lungs sounds have few scattered rhonchi. Maintaining good O2 saturations in the 90s on 5 L high flow nasal cannula. I discussed the assessment and plan of care with my nurse practitioner, Carolee Adams. I attest to the above note as dictated by her.
[2019-09-29] MEDS: CEFEPIME 2 GM in SODIUM CHLORIDE 0.9% 100 ML IVPB SCH ×2 (13:27→23:57)
--- NOTE | 2019-09-29 16:34 | PN ---
PROGRESS NOTE DATE OF SERVICE: 09/29/2019 REASON FOR FOLLOWUP: Pneumonia. INTERVAL HISTORY: The patient is currently afebrile. The patient is breathing more comfortably. The patient denies having any chest pain. He did have some cough. No nausea, vomiting, or any diarrhea reported. PHYSICAL EXAMINATION: His blood pressure is 97/60 with a pulse of 84, temperature 97.4. He is 92% on room air. General description is an elderly male lying in bed in no distress. RESPIRATORY SYSTEM: Unlabored breathing with decreased breath sounds at the base. No wheeze. HEART: S1, S2. Regular rate and rhythm. ABDOMEN: Soft. No tenderness. LABS: No new labs have been obtained today. DIAGNOSTIC IMPRESSION AND PLAN: Patient admitted to hospital with pneumonia. This patient's sputum has been positive for stenotrophomonas. Patient is currently on Bactrim and cefepime. Plan will be to finish therapy with oral Bactrim DS and monitor his clinical course closely. Continue with supportive care. MMODL / IJN: [id number] /
--- NOTE | 2019-09-29 16:36 | P.PN ---
Subjective 89-year-old male who was recently admitted with by basilar pneumonia on the left more so than the right and is being closely monitored. Pulmonary is following. Patient's diet will continue with honey thickened liquids and pured diet. Family refusing any other barium swallows. Patient continues to be confused this is baseline but is able to answer some questions appropriately and is more alert today. Patient still requiring high flow oxygen and discussed with nursing staff about weaning off as he normally only requires 2-3 L via nasal ca nnula at home. 09/25/2019 Patient is sitting up in the chair in no acute distress lethargic but arousable. Patient is hard of hearing. Patient states that he feels no better from yesterday and continues to be on 6-7 L of high flow oxygen. Discussed with the nursing staff about weaning some of this oxygen off as he normally requires 2-3 L at home. Nursing staff states that he desats quickly and this morning was only 92-93% on the high flow oxygen. Discussed with the family at length about discharge planning and states she would like him to return home with home care along with palliative care and is not ready for hospice discussion at this time. Discussed with the and patient that he is high risk for readmissions due to shortness of breath and limited mobility. verbalized understanding and still agrees with the palliative care along with Homecare at this time. Will continue to monitor closely. Pulmonary is following. 09/26/2019 Patient overall also requirements have come down and patient is presently in 6 L of oxygen although patient chest x-ray showing worsening but patient clinically looks better and feels better. Decision regarding bronchoscopy as per alberto brown. 09/27/2019 patient remains on 7 L of oxygen patient had an episode of hypoxemia last night and the nursing staff was able to aspirate food particles patient is aspirating will recheck with the speech therapy again tomorrow but family is insisting ontube and continued by mouth feedings. 09/29/2019 Patient is on 5 L of oxygen about family is leaning towards hospice wanted to take him home on hospice tomorrow. Constitutional: He is to be fatigued but feeling bit better Cardio vascular: denied any chest pain, palpitations Gastrointestinal denied any nausea vomiting Pulmonary: Denied any shortness of breath cough Neurologic denied any new focal deficits All inpatient medications were reviewed and appropriate changes in these medications as dictated in the interval history and assessment and plan. Objective - Vital Signs Vital signs: Vital Signs Temp 97.4 F L 09/29/19 12:43 Pulse 75 09/29/19 16:27 Resp 17 09/29/19 12:43 BP 97/60 09/29/19 12:43 Pulse Ox 98 09/29/19 16:18 Intake & Output 09/28/19 09/29/19 09/29/19 18:59 06:59 18:59 Intake Total 550 255 Output Total 1250 Balance 550 -995 Weight 60.781 kg Intake: IV 105 Normal saline 10 mL/hr 105 Intake, IV Titration 200 150 Amount Cefepime 2 gm In Sodium 100 100 Chloride 0.9% 100 ml @ 200 mls/hr IVPB Q12HR@ 0000,1200 [facility] Rx#: [id number] Clindamycin 600 mg In 100 50 Dextrose 5% in Water 50 ml @ 50 mls/hr IVPB Q8HR [facility] Rx#:[id number] Oral 350 Output: Urine 1250 Other: Voiding Method Indwelling Catheter Indwelling Catheter Indwelling Catheter - Exam Exam Gen: This is a 89-year-old male sitting up in the chair resting but easily arousable. Patient is currently on high flow oxygen normally uses 2-3 L via nasal cannula HEENT: Head is atraumatic, normocephalic. Pupils equal, round. Sclerae is anicteric. NECK: Supple. No JVD. No lymphadenopathy. No thyromegaly. LUNGS: diminished breath sounds at the bases with bilateral crackles and rhonchi noted throughout. No intercostal retractions. HEART: cardio S1, S2 present ABDOMEN: Soft. Bowel sounds are present. No masses. No tenderness. EXTREMITIES: No pedal edema. No calf tenderness. NEUROLOGICAL: Patient is awake, alert and oriented x2. Cranial nerves 2 through 12 are grossly intact. - Labs CBC & Chem 7: 09/24/19 07:46 09/27/19 05:59 Assessment and Plan Plan: acute bibasilar pneumonia, left more than right, possibly community-acquired, possible aspiration with sepsis, present on admission, patient has a Stenotrophomonas maltophilia -Acute hypoxic respiratory failure secondary to aspiration pneumonia and COPD exacerbation. change in mental status, acute metabolic encephalopathy secondary to sepsis, improved now mild kidney injury secondary to dehydration, improved with IV fluids. Hypertension Hyperlipidemia Diabetes mellitus, type II Atrial fibrillation, chronic, rate controlled continue with anticoagulation Chronic obstructive pulmonary disease Dementia Gait dysfunction No code, no CPR, no vent -Moderate protein calorie malnutrition patient's overall prognosis is poor Patient most probably will be discharged on hospice tomorrow
[2019-09-29] MEDS: DOCUSATE ORAL SOLN 100 MG/10 ML CUP PO SCH (21:47)
[2019-09-29] MEDS: DONEPEZIL 10 MG TAB PO SCH (21:47)
[2019-09-30] MEDS: CLINDAMYCIN 600 MG in DEXTROSE 5% IN WATER 50 ML IVPB SCH ×4 (00:52→10:13)
[2019-09-30] MEDS: MULTIVITAMINS, THERA 1 EACH TAB PO SCH (08:18)
[2019-09-30] MEDS: FAMOTIDINE 20 MG TAB PO SCH ×2 (08:18→20:13)
[2019-09-30] MEDS: METOPROLOL TARTRATE 50 MG TAB PO SCH ×2 (08:18→20:13)
[2019-09-30] MEDS: ISOSORBIDE MONONITRATE ER 30 MG TAB.ER.24H PO SCH (08:18)
[2019-09-30] MEDS: ASPIRIN 81 MG PO SCH (08:18)
[2019-09-30] MEDS: ASCORBIC ACID 500 MG TAB PO SCH (08:18)
[2019-09-30] MEDS: ATORVASTATIN 40 MG TAB PO SCH (08:18)
[2019-09-30] MEDS: POTASSIUM CHLORIDE ER 10 MEQ TAB.ER.PRT PO SCH (08:18)
[2019-09-30] MEDS: TAMSULOSIN 0.4 MG CAP.ER.24H PO SCH (08:18)
[2019-09-30] MEDS: LACTOBACILLUS ACIDOPH & BULGAR 1 EACH PACKET PO SCH (08:18)
[2019-09-30] MEDS: CYANOCOBALAMIN 500 MCG TAB PO SCH (08:18)
[2019-09-30] MEDS: APIXABAN 5 MG TAB PO SCH ×2 (08:18→20:13)
[2019-09-30] MEDS: NON FORMULARY DRUG (Omega-3 Fatty Acids/Fish Oil [Fish Oil 1,000 Mg Softgel] 1 CAP) PO SCH (08:19)
[2019-09-30] MEDS: DOCUSATE ORAL SOLN 100 MG/10 ML CUP PO SCH (08:19)
[2019-09-30] MEDS: SULFAMETHOX-TMP 800-160MG 1 EACH TAB PO SCH ×2 (08:19→20:13)
[2019-09-30] MEDS: NON FORMULARY DRUG (Glucosam/Chon-Msm1/C/Mang/Bosw [Glucosamine-Chondroitin Tablet] 1 TAB) PO SCH (08:19)
[2019-09-30] MEDS: IPRATROPIUM-ALBUTEROL 3 ML NEB INHALATION SCH ×4 (08:42→19:20)
[2019-09-30] MEDS: SYMBICORT 160-4.5 MCG INHALER INHALATION SCH ×2 (08:42→21:01)
[2019-09-30] MEDS: CEFEPIME 2 GM in SODIUM CHLORIDE 0.9% 100 ML IVPB SCH ×2 (11:18→23:56)
--- NOTE | 2019-09-30 11:31 | P.PN ---
Subjective Progress Note Date: 09/30/19 Principal diagnosis: Acute hypoxemic respiratory failure related to aspiration pneumonia The patient is seen today 09/30/2019 in follow-up on the regular medical floor. He is currently resting comfortably in bed. Maintaining O2 saturation in the low 90s on 2 L/m per nasal cannula. He is afebrile. Hemodynamically stable. Sputum was positive for Stenotrophomonas maltophilia. He remains on cefepime, clindamycin, Bactrim. ID is on the case. Continued on Symbicort and DuoNeb inhalations. Anticoagulated with Eliquis. Objective - Vital Signs Vital signs: Vital Signs Temp 97.5 F L 09/30/19 05:00 Pulse 86 09/30/19 08:56 Resp 20 09/30/19 05:00 BP 128/75 09/30/19 05:00 Pulse Ox 92 L 09/30/19 05:00 Intake & Output 09/29/19 09/30/19 09/30/19 18:59 06:59 18:59 Intake Total 730 180 Output Total 600 Balance 730 -420 Weight 60.781 kg Intake: IV 80 30 Normal saline 10 mL/hr 80 30 Intake, IV Titration 400 150 Amount Cefepime 2 gm In Sodium 200 100 Chloride 0.9% 100 ml @ 200 mls/hr IVPB Q12HR@ 0000,1200 [facility] Rx#: [id number] Clindamycin 600 mg In 200 50 Dextrose 5% in Water 50 ml @ 50 mls/hr IVPB Q8HR [facility] Rx#:[id number] Oral 250 Output: Urine 600 Straight 600 Other: Voiding Method Indwelling Catheter Indwelling Catheter - Exam GENERAL EXAM: Awake, weak, 89-year-old male, on 2 L of oxygen, comfortable in no apparent distress. HEAD: Normocephalic/atraumatic. EYES: Normal reaction of pupils, equal size. Conjunctiva pink, sclera white. NOSE: Clear with pink turbinates. THROAT: No erythema or exudates. NECK: No masses, no JVD, no thyroid enlargement, no adenopathy. CHEST: No chest wall deformity. Symmetrical expansion. LUNGS: Equal air entry with diminished breath sounds, scattered rhonchi CVS: Regular rate and rhythm, normal S1 and S2, no gallops, no murmurs, no rubs ABDOMEN: Soft, nontender. No hepatosplenomegaly, normal bowel sounds, no guarding or rigidity. EXTREMITIES: No clubbing, no edema, no cyanosis, 2+ pulses and upper and lower extremities. MUSCULOSKELETAL: Muscle strength and tone normal. SPINE: No scoliosis or deformity SKIN: No rashes CENTRAL NERVOUS SYSTEM: No focal deficits, tone is normal in all 4 extremities. PSYCHIATRIC: Alert and oriented -1. Confused - Labs CBC & Chem 7: 09/24/19 07:46 09/27/19 05:59 Assessment and Plan Assessment: #1. Acute hypoxemic respiratory failure related to left lower lobe pneumonia, patient is highly suspected, follow-up chest x-ray shows bilateral waxing and waning pulmonary infiltrates and most recent sputum cultures positive for stenotrophomonas Maltophilia resistant to Levaquin. Currently on cefepime, clindamycin, Bactrim. ID is on the case. #2. Moderate to severe COPD with baseline FEV1 of 50% of predicted #3. Chronic atrial fibrillation #4. Hypertension #5. Coronary artery disease #6. Hyperlipidemia #7. Diabetes mellitus type 2 #8. Dementia #9. BPH #10. CHF with mild LV dysfunction #11. Mild lactic acidosis, improved #12. Altered mentation, delirium, waxing and waning Plan: The patient was seen and evaluated by Dr. Ceron. The family is planning on taking the patient home tomorrow with hospice. In the interim, we'll continue with current treatment plan. I, the cosigning physician, performed a history & physical examination of the patient. Lungs sounds have few scattered rhonchi. Maintaining good O2 saturations in the 90s on 2L/min per nasal cannula. I discussed the assessment and plan of care with my nurse practitioner, Carolee Adams. I attest to the above note as dictated by her.
--- NOTE | 2019-09-30 15:01 | P.PN ---
Subjective 89-year-old male who was recently admitted with by basilar pneumonia on the left more so than the right and is being closely monitored. Pulmonary is following. Patient's diet will continue with honey thickened liquids and pured diet. Family refusing any other barium swallows. Patient continues to be confused this is baseline but is able to answer some questions appropriately and is more alert today. Patient still requiring high flow oxygen and discussed with nursing staff about weaning off as he normally only requires 2-3 L via nasal ca nnula at home. 09/25/2019 Patient is sitting up in the chair in no acute distress lethargic but arousable. Patient is hard of hearing. Patient states that he feels no better from yesterday and continues to be on 6-7 L of high flow oxygen. Discussed with the nursing staff about weaning some of this oxygen off as he normally requires 2-3 L at home. Nursing staff states that he desats quickly and this morning was only 92-93% on the high flow oxygen. Discussed with the family at length about discharge planning and states she would like him to return home with home care along with palliative care and is not ready for hospice discussion at this time. Discussed with the and patient that he is high risk for readmissions due to shortness of breath and limited mobility. verbalized understanding and still agrees with the palliative care along with Homecare at this time. Will continue to monitor closely. Pulmonary is following. 09/26/2019 Patient overall also requirements have come down and patient is presently in 6 L of oxygen although patient chest x-ray showing worsening but patient clinically looks better and feels better. Decision regarding bronchoscopy as per alberto brown. 09/27/2019 patient remains on 7 L of oxygen patient had an episode of hypoxemia last night and the nursing staff was able to aspirate food particles patient is aspirating will recheck with the speech therapy again tomorrow but family is insisting ontube and continued by mouth feedings. 09/29/2019 Patient is on 5 L of oxygen about family is leaning towards hospice wanted to take him home on hospice tomorrow. 09/30/2019 Patient will be discharged on Bactrim tomorrow as requested by the family patient will be discharged home with hospice tomorrow Review of systems: Patient appears to be tired and answer much of my questions. And comfortably. All inpatient medications were reviewed and appropriate changes in these medications as dictated in the interval history and assessment and plan. Objective - Vital Signs Vital signs: Vital Signs Temp 96.2 F L 09/30/19 11:49 Pulse 90 09/30/19 11:51 Resp 20 09/30/19 11:49 BP 105/58 09/30/19 11:49 Pulse Ox 99 09/30/19 11:49 Intake & Output 09/29/19 09/30/19 09/30/19 18:59 06:59 18:59 Intake Total 730 180 480 Output Total 600 1250 Balance 730 -420 -770 Weight 60.781 kg Intake: IV 80 30 Normal saline 10 mL/hr 80 30 Intake, IV Titration 400 150 Amount Cefepime 2 gm In Sodium 200 100 Chloride 0.9% 100 ml @ 200 mls/hr IVPB Q12HR@ 0000,1200 [facility] Rx#: [id number] Clindamycin 600 mg In 200 50 Dextrose 5% in Water 50 ml @ 50 mls/hr IVPB Q8HR [facility] Rx#:[id number] Oral 250 480 Output: Urine 600 1250 Straight 600 Other: Voiding Method Indwelling Catheter Indwelling Catheter # Voids 1 - Exam Exam Gen: This is a 89-year-old male sitting up in the chair resting but easily arousable. Patient is currently on high flow oxygen normally uses 2-3 L via nasal cannula HEENT: Head is atraumatic, normocephalic. Pupils equal, round. Sclerae is anicteric. NECK: Supple. No JVD. No lymphadenopathy. No thyromegaly. LUNGS: diminished breath sounds at the bases with bilateral crackles and rhonchi noted throughout. No intercostal retractions. HEART: cardio S1, S2 present ABDOMEN: Soft. Bowel sounds are present. No masses. No tenderness. EXTREMITIES: No pedal edema. No calf tenderness. NEUROLOGICAL: Patient is awake, alert and oriented x2. Cranial nerves 2 through 12 are grossly intact. - Labs CBC & Chem 7: 09/24/19 07:46 09/27/19 05:59 Assessment and Plan Plan: acute bibasilar pneumonia, left more than right, possibly community-acquired, possible aspiration with sepsis, present on admission, patient has a Stenotrophomonas maltophilia -Acute hypoxic respiratory failure secondary to aspiration pneumonia and COPD exacerbation. change in mental status, acute metabolic encephalopathy secondary to sepsis, improved now mild kidney injury secondary to dehydration, improved with IV fluids. Hypertension Hyperlipidemia Diabetes mellitus, type II Atrial fibrillation, chronic, rate controlled continue with anticoagulation Chronic obstructive pulmonary disease Dementia Gait dysfunction No code, no CPR, no vent -Moderate protein calorie malnutrition patient's overall prognosis is poor Patient most probably will be discharged on hospice tomorrow
[2019-09-30] MEDS: DONEPEZIL 10 MG TAB PO SCH (20:13)
--- NOTE | 2019-09-30 21:02 | PN ---
PROGRESS NOTE DATE OF SERVICE: 09/30/2019. REASON FOR FOLLOWUP: Stenotrophomonas pneumonia. INTERVAL HISTORY: The patient is currently afebrile. Patient has been breathing comfortably, hemodynamically stable. Currently no further nausea, vomiting or any diarrhea that has been reported. PHYSICAL EXAMINATION: Blood pressure is 128/75. The pulse of 87. Temperature 98.5. He is 92% on 2 L nasal cannula. General description is an elderly male up in the bed in no distress. Respiratory system: Unlabored breathing. Decreased breath sounds in the bases. No wheeze. Heart S1, S2. Regular rate and rhythm. ABDOMEN: Soft, no tenderness. LABS: No new labs have been obtained today. DIAGNOSTIC IMPRESSION AND PLAN: Patient with Stenotrophomonas pneumonia with concern for possible aspiration etiology. Currently on cefepime and Bactrim with the plan is to finish therapy with oral Bactrim DS. Monitor clinical course closely. Watch for any and strict aspiration precautions. MMODL / IJN: [id number] /
[2019-10-01] MEDS: IPRATROPIUM-ALBUTEROL 3 ML NEB INHALATION SCH ×2 (08:26→11:24)
[2019-10-01] MEDS: SYMBICORT 160-4.5 MCG INHALER INHALATION SCH (08:26)
[2019-10-01] MEDS: MULTIVITAMINS, THERA 1 EACH TAB PO SCH (09:45)
[2019-10-01] MEDS: ASCORBIC ACID 500 MG TAB PO SCH (09:45)
[2019-10-01] MEDS: SULFAMETHOX-TMP 800-160MG 1 EACH TAB PO SCH (09:45)
[2019-10-01] MEDS: METOPROLOL TARTRATE 50 MG TAB PO SCH (09:45)
[2019-10-01] MEDS: APIXABAN 5 MG TAB PO SCH (09:45)
[2019-10-01] MEDS: POTASSIUM CHLORIDE ER 10 MEQ TAB.ER.PRT PO SCH (09:45)
[2019-10-01] MEDS: DOCUSATE ORAL SOLN 100 MG/10 ML CUP PO SCH (09:45)
[2019-10-01] MEDS: LACTOBACILLUS ACIDOPH & BULGAR 1 EACH PACKET PO SCH (09:46)
[2019-10-01] MEDS: NON FORMULARY DRUG (Omega-3 Fatty Acids/Fish Oil [Fish Oil 1,000 Mg Softgel] 1 CAP) PO SCH (09:46)
[2019-10-01] MEDS: ISOSORBIDE MONONITRATE ER 30 MG TAB.ER.24H PO SCH (09:46)
[2019-10-01] MEDS: TAMSULOSIN 0.4 MG CAP.ER.24H PO SCH (09:46)
[2019-10-01] MEDS: NON FORMULARY DRUG (Glucosam/Chon-Msm1/C/Mang/Bosw [Glucosamine-Chondroitin Tablet] 1 TAB) PO SCH (09:46)
[2019-10-01] MEDS: FAMOTIDINE 20 MG TAB PO SCH (09:46)
[2019-10-01] MEDS: ATORVASTATIN 40 MG TAB PO SCH (09:46)
[2019-10-01] MEDS: CYANOCOBALAMIN 500 MCG TAB PO SCH (09:46)
--- NOTE | 2019-10-01 10:49 | P.PN ---
Subjective Progress Note Date: 10/01/19 Principal diagnosis: Acute hypoxemic respiratory failure related to aspiration pneumonia The patient is seen today 10/01/2019 in follow-up on the regular medical floor. He is currently resting fairly comfortably in bed. Continues with a loose nonproductive cough. Maintaining O2 saturations in the low 90s on 5 L high flow nasal cannula. He's been afebrile. Hemodynamically stable. Sputum was positive for Stenotrophomonas maltophilia. He remains on Bactrim and cefepime. The family is considering hospice. Objective - Vital Signs Vital signs: Vital Signs Temp 98.2 F 10/01/19 05:00 Pulse 72 10/01/19 05:00 Resp 24 10/01/19 05:00 BP 127/60 10/01/19 05:00 Pulse Ox 90 L 10/01/19 05:00 Intake & Output 09/30/19 10/01/19 10/01/19 18:59 06:59 18:59 Intake Total 2600 100 Output Total 3850 1000 Balance -1250 -900 Intake: Intake, IV Titration 150 100 Amount Cefepime 2 gm In Sodium 100 100 Chloride 0.9% 100 ml @ 200 mls/hr IVPB Q12HR@ 0000,1200 [facility] Rx#: [id number] Clindamycin 600 mg In 50 Dextrose 5% in Water 50 ml @ 50 mls/hr IVPB Q8HR [facility] Rx#:[id number] Oral 2450 Output: Urine 3850 1000 Straight 1300 300 Other: Voiding Method Indwelling Catheter Indwelling Catheter # Voids 1 - Exam GENERAL EXAM: Awake, weak, 89-year-old male, on 2 L of oxygen, comfortable in no apparent distress. HEAD: Normocephalic/atraumatic. EYES: Normal reaction of pupils, equal size. Conjunctiva pink, sclera white. NOSE: Clear with pink turbinates. THROAT: No erythema or exudates. NECK: No masses, no JVD, no thyroid enlargement, no adenopathy. CHEST: No chest wall deformity. Symmetrical expansion. LUNGS: Equal air entry with diminished breath sounds, scattered rhonchi CVS: Regular rate and rhythm, normal S1 and S2, no gallops, no murmurs, no rubs ABDOMEN: Soft, nontender. No hepatosplenomegaly, normal bowel sounds, no guarding or rigidity. EXTREMITIES: No clubbing, no edema, no cyanosis, 2+ pulses and upper and lower extremities. MUSCULOSKELETAL: Muscle strength and tone normal. SPINE: No scoliosis or deformity SKIN: No rashes CENTRAL NERVOUS SYSTEM: No focal deficits, tone is normal in all 4 extremities. PSYCHIATRIC: Alert and oriented -1. Confused - Labs CBC & Chem 7: 09/24/19 07:46 09/27/19 05:59 Assessment and Plan Assessment: #1. Acute hypoxemic respiratory failure related to left lower lobe pneumonia, most recent sputum cultures positive for stenotrophomonas Maltophilia resistant to Levaquin. Currently on cefepime, Bactrim. ID is on the case. #2. Moderate to severe COPD with baseline FEV1 of 50% of predicted #3. Chronic atrial fibrillation #4. Hypertension #5. Coronary artery disease #6. Hyperlipidemia #7. Diabetes mellitus type 2 #8. Dementia #9. BPH #10. CHF with mild LV dysfunction #11. Mild lactic acidosis, improved #12. Altered mentation, delirium, waxing and waning Plan: The patient was seen and evaluated by Dr. Ceron. The plan is for possibly home with hospice today. I, the cosigning physician, performed a history & physical examination of the patient. Lungs sounds have few scattered rhonchi. Maintaining good O2 saturations in the 90s on 5L/min per nasal cannula. I discussed the assessment and plan of care with my nurse practitioner, Carolee Adams. I attest to the above note as dictated by her.
[2019-10-01 12:09] VITALS: BP 101/56; PULSE 74; RESP 19; TEMP 97.5
--- NOTE | 2019-10-01 12:55 | P.DS ---
Providers Date of admission: 09/20/19 12:49 Expected date of discharge: 10/01/19 Attending physician: Demetrius Sánchez MD Consults: 09/20/19 13:09 Consult Physician Stat Consulting Provider: Michael Raines Consult Reason/Comments: Pneumonia, Sepsis Do you want consulting provider notified?: Yes 09/21/19 15:03 Consult Physician Routine Consulting Provider: Rosy Hernandez Consult Reason/Comments: pneumonia Do you want consulting provider notified?: Yes 09/27/19 13:13 Consult Physician Routine Consulting Provider: Simona Dougherty Consult Reason/Comments: pneumonia Do you want consulting provider notified?: Yes Primary care physician: Larissa Borges Hospital Course: Final diagnosis -acute bibasilar pneumonia possibly community-acquired, possible aspiration with sepsis, present on admission -Acute hypoxic respiratory failure secondary to aspiration pneumonia and COPD exacerbation. -change in mental status, acute metabolic encephalopathy secondary to sepsis -mild kidney injury secondary to dehydration -Hypertension -Hyperlipidemia -Diabetes mellitus, type II -Atrial fibrillation, chronic -Chronic obstructive pulmonary disease -Dementia -Gait dysfunction -No code, no CPR, no vent -Moderate protein calorie malnutrition Discharge disposition Patient is being discharged to home with hospice with an extremely poor prognosis. Hospice will be initiated at home. Patient will continue on oral antibiotics in the form of Bactrim DS for the next 7 days. Total time taken is 35 minutes. History of present illness This is a 89-year-old male who was recently admitted for bilateral basilar pneumonia and was being closely monitored. Multiple medical consults were following. During hospitalization patient continued to require high flow oxygen and worsening pneumonia on chest x-rays. Patient continued to be slightly confused and quite lethargic. Family had multiple conversations with other family members and have opted for hospice that will be initiated at home. Family would like to take the patient home today. Patient continues to have an indwelling Kerr catheter and will continue at this time. Patient will also continue on a short course of oral antibiotics in the form of Bactrim DS twice daily for the next 7 days. Prognosis is extremely poor and patient is being transferred to home with the initiation of hospice today. [facility] is following closely. On exam vitals are stable. Temp is 97.5F, pulse is 74, respirations are 19, blood pressure 101/56, oxygen saturation is 97% on 5 L via nasal cannula. Cardio S1, S2 are muffled. Respiratory system shows diminished breath sounds at the bases with some scattered crackles and rhonchi noted bilaterally. Abdomen is soft and nontender. Nervous system shows no focal deficits. Please refer to medication reconciliation sheet for a list of medications. Patient Condition at Discharge: Poor Plan - Discharge Summary Discharge Rx Participant: Yes New Discharge Prescriptions: New Sulfamethox-Tmp 800-160Mg [Bactrim DS 800-160 mg] 1 each PO BID 7 Days #14 tab Continue Tamsulosin [Flomax] 0.4 mg PO DAILY Atorvastatin [Lipitor] 40 mg PO DAILY Aspirin [Adult Low Dose Aspirin EC] 81 mg PO MOWEFR Potassium Chloride [K-Tab ER] 10 meq PO DAILY Donepezil [Aricept] 10 mg PO HS Metoprolol Tartrate [Lopressor] 50 mg PO BID Isosorbide Mononitrate ER [Imdur] 30 mg PO DAILY metFORMIN HCL [Glucophage] 500 mg PO DAILY Budesonide/Formoterol Fumarate [Symbicort 160-4.5 Mcg Inhaler] 2 puff INHALATION RT-BID Furosemide [Lasix] 20 mg PO BID@0900,1600 #60 tab ALPRAZolam [Xanax] 0.25 mg PO BID PRN PRN Reason: Anxiety Docusate [Colace] 200 mg PO HS Apixaban [Eliquis] 5 mg PO BID [place]-3 Fatty Acids/Fish Oil [Fish Oil 1,000 mg Softgel] 1 cap PO DAILY Albuterol Nebulized [Ventolin Nebulized] 2.5 mg INHALATION RT-Q4H PRN PRN Reason: Shortness Of Breath Ascorbic Acid [Vitamin C] 500 mg PO DAILY Glucosam/Marlon-Msm1/C/Mark/Bosw [Glucosamine-Chondroitin Tablet] 1 tab PO DAILY Cyanocobalamin [Vitamin B-12] 500 mcg PO DAILY Ranitidine HCl [Zantac] 150 mg PO BID L.acidoph,Paracasei, B.lactis [Probiotic] 1 cap PO DAILY Multivitamins, Thera [Multivitamin (formulary)] 1 tab PO DAILY Losartan [Cozaar] 50 mg PO DAILY Discharge Medication List Atorvastatin [Lipitor] 40 mg PO DAILY 06/04/15 [History] Tamsulosin [Flomax] 0.4 mg PO DAILY 06/04/15 [History] Aspirin [Adult Low Dose Aspirin EC] 81 mg PO MOWEFR 09/23/17 [History] Budesonide/Formoterol Fumarate [Symbicort 160-4.5 Mcg Inhaler] 2 puff INHALATION RT-BID 09/23/17 [History] Donepezil [Aricept] 10 mg PO HS 09/23/17 [History] Isosorbide Mononitrate ER [Imdur] 30 mg PO DAILY 09/23/17 [History] Metoprolol Tartrate [Lopressor] 50 mg PO BID 09/23/17 [History] Potassium Chloride [K-Tab ER] 10 meq PO DAILY 09/23/17 [History] metFORMIN HCL [Glucophage] 500 mg PO DAILY 09/23/17 [History] Furosemide [Lasix] 20 mg PO BID@0900,1600 #60 tab 09/25/17 [Rx] ALPRAZolam [Xanax] 0.25 mg PO BID PRN 12/16/17 [History] Apixaban [Eliquis] 5 mg PO BID 12/16/17 [History] Docusate [Colace] 200 mg PO HS 12/16/17 [History] [place]-3 Fatty Acids/Fish Oil [Fish Oil 1,000 mg Softgel] 1 cap PO DAILY 12/16/17 [History] Albuterol Nebulized [Ventolin Nebulized] 2.5 mg INHALATION RT-Q4H PRN 11/15/18 [History] Ascorbic Acid [Vitamin C] 500 mg PO DAILY 11/15/18 [History] Cyanocobalamin [Vitamin B-12] 500 mcg PO DAILY 06/10/19 [History] Glucosam/Marlon-Msm1/C/Mark/Bosw [Glucosamine-Chondroitin Tablet] 1 tab PO DAILY 06/10/19 [History] L.acidoph,Paracasei, B.lactis [Probiotic] 1 cap PO DAILY 06/10/19 [History] Losartan [Cozaar] 50 mg PO DAILY 06/10/19 [History] Multivitamins, Thera [Multivitamin (formulary)] 1 tab PO DAILY 06/10/19 [History] Ranitidine HCl [Zantac] 150 mg PO BID 06/10/19 [History] Sulfamethox-Tmp 800-160Mg [Bactrim DS 800-160 mg] 1 each PO BID 7 Days #14 tab 10/01/19 [Rx] Follow up Appointment(s)/Referral(s): Larissa Borges DO [Primary Care Provider] - 1-2 days [facility], [NON-STAFF] - 1 Week Activity/Diet/Wound Care/Special Instructions: Activity Limited until follow-up Make continue with current medications until hospice has been placed Patient and family members have decided to have hospice upon discharge in the home Continue current honey thickened liquids and pured diet and maintain strict aspiration precautions with the head of the bed elevated 30-45 at all times Continue taking Bactrim DS until finished Discharge Disposition: HOME WITH HOSPICE
[2019-10-01] MEDS: CEFEPIME 2 GM in SODIUM CHLORIDE 0.9% 100 ML IVPB SCH (13:13)
--- NOTE | 2019-10-01 21:08 | PN ---
PROGRESS NOTE DATE OF SERVICE: 10/01/2019 REASON FOR FOLLOWUP: Stenotrophomonas pneumonia. INTERVAL HISTORY: The patient was seen on rounds this morning. The patient was afebrile, slightly lethargic, but breathing comfortably. Did not provide any significant history. No vomiting or any diarrhea reported by the nursing staff. PHYSICAL EXAMINATION: Blood pressure is 101/56, pulse of 74, temperature 97.5. He is 94% on room air. General description is an elderly male up in the bed in no distress. RESPIRATORY SYSTEM: Unlabored breathing with decreased breath sounds at the base. No wheeze. HEART: S1, S2. Regular rate and rhythm. ABDOMEN: Soft. No tenderness. LABS: No new labs have been obtained today. DIAGNOSTIC IMPRESSION AND PLAN: Patient with stenotrophomonas pneumonia. The patient seems to have shown clinical improvement. Will finish therapy with a 7- to 10-day course of oral Bactrim DS and monitor his clinical course closely. MMMINORL / IJN: [id number] /
== END 2019-10-01 15:39 | disposition hospice, home (50) | DRG 871 ==
LOC: EC 09:23 → 5NMEDONC 12:49
PROVIDERS: ADMIT Internal Medicine; ATTEND Internal Medicine
DX: A41.50 Gram-negative sepsis, unspecified (principal); G93.41 Metabolic encephalopathy; J69.0 Pneumonitis due to inhalation of food and vomit; J15.6 Pneumonia due to other Gram-negative bacteria; J96.21 Acute and chronic respiratory failure with hypoxia; E44.0 Moderate protein-calorie malnutrition; E87.2 Acidosis; I48.20 Chronic atrial fibrillation, unspecified; J44.1 Chronic obstructive pulmonary disease with (acute) exacerbation; Z16.23 Resistance to quinolones and fluoroquinolones; N17.9 Acute kidney failure, unspecified; J44.0 Chronic obstructive pulmonary disease with (acute) lower respiratory infection; E11.9 Type 2 diabetes mellitus without complications; E78.5 Hyperlipidemia, unspecified; Z66 Do not resuscitate; Z51.5 Encounter for palliative care; Z96.1 Presence of intraocular lens; R65.20 Severe sepsis without septic shock; N40.0 Benign prostatic hyperplasia without lower urinary tract symptoms; R13.10 Dysphagia, unspecified; I50.9 Heart failure, unspecified; E86.0 Dehydration; D69.6 Thrombocytopenia, unspecified; F03.90 Unspecified dementia, unspecified severity, without behavioral disturbance, psychotic disturbance, mood disturbance, and anxiety; I11.0 Hypertensive heart disease with heart failure; H91.90 Unspecified hearing loss, unspecified ear; I25.10 Atherosclerotic heart disease of native coronary artery without angina pectoris; Z99.81 Dependence on supplemental oxygen; Z98.41 Cataract extraction status, right eye; Z98.42 Cataract extraction status, left eye; Z90.79 Acquired absence of other genital organ(s); Z87.891 Personal history of nicotine dependence; Z82.49 Family history of ischemic heart disease and other diseases of the circulatory system; Z87.01 Personal history of pneumonia (recurrent); Z80.8 Family history of malignant neoplasm of other organs or systems; Z88.0 Allergy status to penicillin; Z79.899 Other long term (current) drug therapy; Z79.82 Long term (current) use of aspirin; Z79.51 Long term (current) use of inhaled steroids; Z79.01 Long term (current) use of anticoagulants; Z79.84 Long term (current) use of oral hypoglycemic drugs; Z90.89 Acquired absence of other organs; Z98.890 Other specified postprocedural states; Z91.030 Bee allergy status
CPT/HCPCS: 36415; 71045; 71046; 80048; 80053; 81003; 83605; 83735; 83880; 84145; 84484; 85025; 85610; 85730; 86140; 87040; 87070; 87077; 87186; 87205; 87502; 93005; 94640; 94760; 96361; 96365; 96375; 99285